=== PATIENT | male | born 1950 | race Caucasian/White ===

== ENCOUNTER 2017-05-02 11:52 | Inpatient (IN) | payer MEDICARE, OTHER ==
[2017-05-02] MEDS ORDERED: IPRATROPIUM 0.5 MG/2.5 ML NEBU INHALATION STA (12:04)
[2017-05-02] MEDS ORDERED: ALBUTEROL NEBULIZED 2.5 MG/3 ML INHALATION STA (12:04)
--- NOTE | 2017-05-02 12:24 | ED ---
General Adult HPI - General Chief complaint: Shortness of Breath Stated complaint: Altered Mental Status Time Seen by Provider: 05/02/17 12:03 Source: EMS, RN notes reviewed Mode of arrival: EMS Limitations: altered mental status - History of Present Illness Initial comments: 66-year-old male presenting with dyspnea fever and altered mental status. Patient has history of COPD on home oxygen. All history at the time of presentation is obtained from EMS who states that according to his he was well yesterday. Patient was initially alert and oriented 2, he was given albuterol and Solu-Medrol by EMS he had a significant cough which was productive of sputum. During transport, patient became more obtunded. At the time of my initial evaluation patient is unable to contribute to the history. He is tachycardic, tachypneic, hypoxic in the 70s. He is immediately placed on BiPAP. Further history will be obtained as available. - Related Data Home Medications Medication Instructions Recorded Confirmed ARIPiprazole [Abilify] 10 mg PO BID 05/02/17 05/02/17 Diltiazem HCl [Diltiazem 24Hr ER] 180 mg PO DAILY 05/02/17 05/02/17 Gabapentin [Neurontin] 800 mg PO TID 05/02/17 05/02/17 Magnesium Oxide [Mag-Ox] 400 mg PO DAILY 05/02/17 05/02/17 Multivitamins, Thera [Multivitamin 1 tab PO DAILY 05/02/17 05/02/17 (formulary)] Omeprazole [PriLOSEC] 20 mg PO BID 05/02/17 05/02/17 Pravastatin Sodium [Pravachol] 40 mg PO HS 05/02/17 05/02/17 Sertraline [Zoloft] 100 mg PO BID 05/02/17 05/02/17 Theophylline 12 Hour [Roshan-Dur] 100 mg PO BID 05/02/17 05/02/17 busPIRone HCL 20 mg PO TID 05/02/17 05/02/17 guaiFENesin [Mucinex] 600 mg PO BID PRN 05/02/17 05/02/17 traZODone HCL 100 mg PO HS 05/02/17 05/02/17 Allergies Allergy/AdvReac Type Severity Reaction Status Date / Time No Known Allergies Allergy Verified 05/02/17 14:50 Review of Systems ROS Statement: Those systems with pertinent positive or pertinent negative responses have been documented in the HPI. ROS Other: All systems not noted in ROS Statement are negative. Past Medical History Past Medical History: COPD, GERD/Reflux, Thyroid Disorder History of Any Multi-Drug Resistant Organisms: None Reported Past Psychological History: Depression Smoking Status: Unknown if ever smoked Past Alcohol Use History: Unable to Obtain Past Drug Use History: Unable to Obtain General Exam Limitations: altered mental status General appearance: obtunded, in distress Head exam: Present: atraumatic, normocephalic Eye exam: Present: normal appearance, PERRL Neck exam: Present: normal inspection. Absent: meningismus Respiratory exam: Present: wheezes, rhonchi, decreased breath sounds, prolonged expiratory Cardiovascular Exam: Present: normal rhythm, tachycardia GI/Abdominal exam: Present: soft. Absent: distended, tenderness Extremities exam: Present: normal inspection, normal capillary refill. Absent: pedal edema Skin exam: Present: warm, dry, cyanosis (Peripheral). Absent: diaphoretic Course Vital Signs 05/02/17 05/02/17 05/02/17 11:57 12:20 12:21 Temperature 101.3 F H 101 F H Pulse Rate 140 H 129 H 122 H Respiratory 28 H 15 Rate Blood Pressure 145/78 148/75 O2 Sat by Pulse 78 L 89 L Oximetry 05/02/17 05/02/17 05/02/17 12:46 12:47 12:52 Temperature 99.9 F H Pulse Rate 127 H 124 H Respiratory 20 Rate Blood Pressure 111/68 O2 Sat by Pulse 89 L Oximetry 05/02/17 05/02/17 05/02/17 13:35 13:59 14:15 Temperature 99.3 F 100.0 F H 100 F H Pulse Rate 117 H 110 H 109 H Respiratory 22 18 18 Rate Blood Pressure 102/65 96/65 98/66 O2 Sat by Pulse 90 L 89 L 89 L Oximetry 05/02/17 05/02/17 05/02/17 15:07 15:18 15:23 Temperature 98.8 F Pulse Rate 107 H 106 H 106 H Respiratory 15 18 18 Rate Blood Pressure 98/65 98/56 88/56 O2 Sat by Pulse 95 93 L 96 Oximetry 05/02/17 05/02/17 15:27 15:55 Temperature 98.4 F Pulse Rate 112 H 98 Respiratory 18 20 Rate Blood Pressure 112/68 75/51 O2 Sat by Pulse 98 98 Oximetry - Reevaluation(s) Reevaluation #1: 05/02/17 16:03 Further history obtained from the patient's , patient is not compliant with his home oxygen or breathing treatments. He has had recent hospital admission at [facility]. These records will be obtained. Reevaluation #2: 05/02/17 1530 Patient initially improves on BiPAP, mental status again begins to decline. Repeat ABG is obtained, this shows worsening of pH and unchanged CO2 level. Patient is only minimally responsive to sternal rub. He is intubated for hypoxic hypercapnic respiratory failure. EKG Findings - EKG Comments: EKG Findings:: EKG shows sinus tachycardia, rate 125, AZ interval 152, QRS duration 80, QTC prolonged at [address] segment elevation. Procedures - Intubation Time Out Performed: Yes Sedative: Versed Laryngoscope: [place] Size: 3 Assist Device Used: Bougie ET Tube Size: 8 ET Tube Uncuffed: No Tube Secured Depth (cm): 23 Tube Secured Location: lips Tube Placement Confirmation: visualized tube passing through cords, equal breath sounds bilaterally, no breath sounds over epigastrium, confirmation by capnometry Patient Tolerated Procedure: well Intubation Complications: none Medical Decision Making - Medical Decision Making 66-year-old male presenting in respiratory distress. Patient is febrile, tachycardic, tachypneic and hypoxic on arrival. Initially placed on BiPAP, mental status improves somewhat however he fails to fully respond. He is intubated in the emergency department for hypoxic hypercapnic respiratory failure. Laboratory studies reveal elevated white blood cell count 15.3, venous pH 7.25 CO2 of 86. Hemoglobin stable 16.9, mild hyponatremia 146, creatinine normal 1.2, Actiq acid normal 1.0. Chest x-ray shows large right sided pneumonia. Patient is given vancomycin Levaquin, and Unasyn in the emergency department for possible aspiration. Given a total of 3 L IV hydration. Albuterol Atrovent, steroids given by EMS. Case discussed with pulmonary insert molding operator Dr. Timmons, and with the admitting physician Dr. Soares. Diagnosis: Septic shock, pneumonia, hypoxic hypercapnic respiratory failure requiring ventilation. - Lab Data Result diagrams: 05/02/17 12:10 05/02/17 12:10 Lab Results 05/02/17 05/02/17 05/02/17 Range/Units 12:10 12:10 12:10 WBC 15.3 H (3.8-10.6) k/uL RBC 5.56 (4.30-5.90) m/uL Hgb 16.9 (13.0-17.5) gm/dL Hct 54.0 H (39.0-53.0) % MCV 97.0 (80.0-100.0) fL MCH 30.4 (25.0-35.0) pg MCHC 31.4 (31.0-37.0) g/dL RDW 13.6 (11.5-15.5) % Plt Count 149 L (150-450) k/uL Neutrophils % (Manual) 89 % Band Neutrophils % 5 % Lymphocytes % (Manual) 5 % Monocytes % (Manual) 1 % Neutrophils # (Manual) 14.30 H (1.3-7.7) k/uL Lymphocytes # (Manual) 0.77 L (1.0-4.8) k/uL Monocytes # (Manual) 0.15 (0-1.0) k/uL Nucleated RBCs 0 (0-0) /100 WBC Manual Slide Review Performed RBC Morphology Normal PT (9.0-12.0) sec INR (<1.2) APTT (22.0-30.0) sec VBG pH (7.31-7.41) VBG pCO2 (37-51) mmHg VBG HCO3 (24-28) mmol/L Sodium 146 H (137-145) mmol/L Potassium 4.2 (3.5-5.1) mmol/L Chloride 100 (98-107) mmol/L Carbon Dioxide 37 H (22-30) mmol/L Anion Gap 9 mmol/L BUN 23 H (9-20) mg/dL Creatinine 1.20 (0.66-1.25) mg/dL Est GFR (MDRD) Af Amer >60 (>60 ml/min/1.73 sqM) Est GFR (MDRD) Non-Af >60 (>60 ml/min/1.73 sqM) Glucose 138 H (74-99) mg/dL Plasma Lactic Acid Gerard (0.7-2.0) mmol/L Calcium 9.5 (8.4-10.2) mg/dL Total Bilirubin 0.4 (0.2-1.3) mg/dL AST 23 (17-59) U/L ALT 33 (21-72) U/L Alkaline Phosphatase 82 (38-126) U/L Ammonia (<30) umol/L Total Protein 7.0 (6.3-8.2) g/dL Albumin 4.1 (3.5-5.0) g/dL Urine Color Urine Appearance (Clear) Urine pH (5.0-8.0) Ur Specific [place] (1.001-1.035) Urine Protein (Negative) Urine Glucose (UA) (Negative) Urine Ketones (Negative) Urine Blood (Negative) Urine Nitrite (Negative) Urine Bilirubin (Negative) Urine Urobilinogen (<2.0) mg/dL Ur Leukocyte Esterase (Negative) Urine Opiates Screen (NotDetected) Ur Oxycodone Screen (NotDetected) Urine Methadone Screen (NotDetected) Ur Propoxyphene Screen (NotDetected) Ur Barbiturates Screen (NotDetected) U Tricyclic Antidepress (NotDetected) Ur Phencyclidine Scrn (NotDetected) Ur Amphetamines Screen (NotDetected) U Methamphetamines Scrn (NotDetected) U Benzodiazepines Scrn (NotDetected) Urine Cocaine Screen (NotDetected) U Marijuana (THC) Screen (NotDetected) Serum Alcohol <10 mg/dL Influenza Type A RNA Not Detected (Not Detectd) Influenza Type B (PCR) Not Detected (Not Detectd) 05/02/17 05/02/17 05/02/17 Range/Units 12:10 12:10 12:10 WBC (3.8-10.6) k/uL RBC (4.30-5.90) m/uL Hgb (13.0-17.5) gm/dL Hct (39.0-53.0) % MCV (80.0-100.0) fL MCH (25.0-35.0) pg MCHC (31.0-37.0) g/dL RDW (11.5-15.5) % Plt Count (150-450) k/uL Neutrophils % (Manual) % Band Neutrophils % % Lymphocytes % (Manual) % Monocytes % (Manual) % Neutrophils # (Manual) (1.3-7.7) k/uL Lymphocytes # (Manual) (1.0-4.8) k/uL Monocytes # (Manual) (0-1.0) k/uL Nucleated RBCs (0-0) /100 WBC Manual Slide Review RBC Morphology PT 10.5 (9.0-12.0) sec INR 1.1 (<1.2) APTT 24.8 (22.0-30.0) sec VBG pH 7.25 L (7.31-7.41) VBG pCO2 86 H* (37-51) mmHg VBG HCO3 36 H (24-28) mmol/L Sodium (137-145) mmol/L Potassium (3.5-5.1) mmol/L Chloride (98-107) mmol/L Carbon Dioxide (22-30) mmol/L Anion Gap mmol/L BUN (9-20) mg/dL Creatinine (0.66-1.25) mg/dL Est GFR (MDRD) Af Amer (>60 ml/min/1.73 sqM) Est GFR (MDRD) Non-Af (>60 ml/min/1.73 sqM) Glucose (74-99) mg/dL Plasma Lactic Acid Gerard 1.0 (0.7-2.0) mmol/L Calcium (8.4-10.2) mg/dL Total Bilirubin (0.2-1.3) mg/dL AST (17-59) U/L ALT (21-72) U/L Alkaline Phosphatase (38-126) U/L Ammonia 22 (<30) umol/L Total Protein (6.3-8.2) g/dL Albumin (3.5-5.0) g/dL Urine Color Urine Appearance (Clear) Urine pH (5.0-8.0) Ur Specific [place] (1.001-1.035) Urine Protein (Negative) Urine Glucose (UA) (Negative) Urine Ketones (Negative) Urine Blood (Negative) Urine Nitrite (Negative) Urine Bilirubin (Negative) Urine Urobilinogen (<2.0) mg/dL Ur Leukocyte Esterase (Negative) Urine Opiates Screen (NotDetected) Ur Oxycodone Screen (NotDetected) Urine Methadone Screen (NotDetected) Ur Propoxyphene Screen (NotDetected) Ur Barbiturates Screen (NotDetected) U Tricyclic Antidepress (NotDetected) Ur Phencyclidine Scrn (NotDetected) Ur Amphetamines Screen (NotDetected) U Methamphetamines Scrn (NotDetected) U Benzodiazepines Scrn (NotDetected) Urine Cocaine Screen (NotDetected) U Marijuana (THC) Screen (NotDetected) Serum Alcohol mg/dL Influenza Type A RNA (Not Detectd) Influenza Type B (PCR) (Not Detectd) 05/02/17 05/02/17 Range/Units 12:26 12:26 WBC (3.8-10.6) k/uL RBC (4.30-5.90) m/uL Hgb (13.0-17.5) gm/dL Hct (39.0-53.0) % MCV (80.0-100.0) fL MCH (25.0-35.0) pg MCHC (31.0-37.0) g/dL RDW (11.5-15.5) % Plt Count (150-450) k/uL Neutrophils % (Manual) % Band Neutrophils % % Lymphocytes % (Manual) % Monocytes % (Manual) % Neutrophils # (Manual) (1.3-7.7) k/uL Lymphocytes # (Manual) (1.0-4.8) k/uL Monocytes # (Manual) (0-1.0) k/uL Nucleated RBCs (0-0) /100 WBC Manual Slide Review RBC Morphology PT (9.0-12.0) sec INR (<1.2) APTT (22.0-30.0) sec VBG pH (7.31-7.41) VBG pCO2 (37-51) mmHg VBG HCO3 (24-28) mmol/L Sodium (137-145) mmol/L Potassium (3.5-5.1) mmol/L Chloride (98-107) mmol/L Carbon Dioxide (22-30) mmol/L Anion Gap mmol/L BUN (9-20) mg/dL Creatinine (0.66-1.25) mg/dL Est GFR (MDRD) Af Amer (>60 ml/min/1.73 sqM) Est GFR (MDRD) Non-Af (>60 ml/min/1.73 sqM) Glucose (74-99) mg/dL Plasma Lactic Acid Gerard (0.7-2.0) mmol/L Calcium (8.4-10.2) mg/dL Total Bilirubin (0.2-1.3) mg/dL AST (17-59) U/L ALT (21-72) U/L Alkaline Phosphatase (38-126) U/L Ammonia (<30) umol/L Total Protein (6.3-8.2) g/dL Albumin (3.5-5.0) g/dL Urine Color Yellow Urine Appearance Clear (Clear) Urine pH 6.0 (5.0-8.0) Ur Specific [place] 1.013 (1.001-1.035) Urine Protein Negative (Negative) Urine Glucose (UA) Negative (Negative) Urine Ketones Negative (Negative) Urine Blood Negative (Negative) Urine Nitrite Negative (Negative) Urine Bilirubin Negative (Negative) Urine Urobilinogen <2.0 (<2.0) mg/dL Ur Leukocyte Esterase Negative (Negative) Urine Opiates Screen Not Detected (NotDetected) Ur Oxycodone Screen Not Detected (NotDetected) Urine Methadone Screen Not Detected (NotDetected) Ur Propoxyphene Screen Not Detected (NotDetected) Ur Barbiturates Screen Not Detected (NotDetected) U Tricyclic Antidepress Not Detected (NotDetected) Ur Phencyclidine Scrn Not Detected (NotDetected) Ur Amphetamines Screen Not Detected (NotDetected) U Methamphetamines Scrn Not Detected (NotDetected) U Benzodiazepines Scrn Not Detected (NotDetected) Urine Cocaine Screen Not Detected (NotDetected) U Marijuana (THC) Screen Detected H (NotDetected) Serum Alcohol mg/dL Influenza Type A RNA (Not Detectd) Influenza Type B (PCR) (Not Detectd) Critical Care Time Critical Care Time: Yes Total Critical Care Time: 95 Disposition Clinical Impression: Pneumonia, Septic shock, Acute respiratory failure with hypoxia and hypercapnia Disposition: ADMITTED IP TO THIS [facility] Condition: Critical Decision to Admit Reason: Admit from EC Decision Date: 05/02/17 Decision Time: 16:10
[2017-05-02 12:35] LABS: HGB 16.9 gm/dL (13.0-17.5); MCH 30.4 pg (25.0-35.0); MCHC 31.4 g/dL (31.0-37.0); Mean Platelet Volume 7.7; Platelet Count 149 k/uL (150-450); RBC 5.56 m/uL (4.30-5.90); RDW 13.6 % (11.5-15.5); WBC 15.3 k/uL (3.8-10.6)
[2017-05-02 12:38] LABS: VBG PH 7.25 (7.31-7.41)
[2017-05-02] MEDS ORDERED: NALOXONE 0.4 MG/ML 1 ML VIAL IV STA (12:38)
[2017-05-02 12:41] LABS: ALT 33 U/L (21-72); AST 23 U/L (17-59); Albumin 4.1 g/dL (3.5-5.0); Alcohol <10 mg/dL; Alkaline Phosphatase 82 U/L (38-126); Anion Gap 9 mmol/L; Blood Urea Nitrogen 23 mg/dL (9-20); Calcium 9.5 mg/dL (8.4-10.2); Carbon Dioxide 37 mmol/L (22-30); Chloride 100 mmol/L (98-107); Glucose 138 mg/dL (74-99); Potassium 4.2 mmol/L (3.5-5.1); Sodium 146 mmol/L (137-145); Total Bilirubin 0.4 mg/dL (0.2-1.3)
[2017-05-02 12:44] LABS: INR 1.1 (<1.2); Partial Thromboplastin Time 24.8 sec (22.0-30.0); Prothrombin Time 10.5 sec (9.0-12.0)
[2017-05-02 12:45] LABS: Appearance,Urine Clear (Clear); Bilirubin,Urine Negative (Negative); Blood,Urine Negative (Negative); Color,Urine Yellow; Glucose,Urine (UA) Negative (Negative); Ketones,Urine Negative (Negative); Leukocyte Esterase,Urine Negative (Negative); Nitrite,Urine Negative (Negative); Protein,Urine Negative (Negative); Specific Gravity,Urine 1.013 (1.001-1.035); Urobilinogen,Urine <2.0 mg/dL (<2.0)
[2017-05-02] MEDS ORDERED: LEVOFLOXACIN 500MG-D5W PMX 500 MG in DEXTROSE/WATER 1 100ML.BAG IVPB STA (12:53)
[2017-05-02] MEDS ORDERED: SODIUM CHLORIDE 0.9% 500 ML IV ONE ×3 (12:53→16:45)
[2017-05-02] MEDS ORDERED: VANCOMYCIN IV PER PHARMACY 1 EACH MISC MISCELLANE PRN ×3 (12:53→15:47)
[2017-05-02] MEDS ORDERED: ACETAMINOPHEN IV (For NPO) 1,000 MG in EMPTY BAG 1 BAG IVPB ONE (13:00)
[2017-05-02 13:02] LABS: Band Neutrophils % 5 %; Lymphocytes # (M) 0.77 k/uL (1.0-4.8); Monocytes # (M) 0.15 k/uL (0-1.0); Neutrophils % (M) 89 %; Nucleated Red Blood Cells 0 /100 WBC (0-0); Total Cells Counted 100
[2017-05-02] MEDS ORDERED: VANCOMYCIN 1,250 MG in SODIUM CHLORIDE 0.9% 250 ML IVPB STA (13:02)
--- NOTE | 2017-05-02 13:25 | XR ---
EXAMINATION TYPE: XR chest 1V portable DATE OF EXAM: 05/02/2017 Comparison: None Clinical History: 66-year-old male with pain, fever, altered mental status Findings: Heart is normal size. Aorta within normal limits. Hyperinflation with relative upper lung lucencies a nd mild diffuse interstitial prominence. There is focal left basilar opacity. More extensive consolid ation in the right mid and lower lung with possible air lucency at the peripheral right base. Impression: Bibasilar infiltrates with more extensive consolidation on the right extending up to the midlung leve l. There may be subtle early cavitation at the right base as well. Correlate for infectious or aspira tion pneumonitis.
[2017-05-02] MEDS ORDERED: AMPICILLIN-SULBACTAM 3 GM in SODIUM CHLORIDE 0.9% 100 ML IVPB STA (13:28)
[2017-05-02 13:46] LABS: Amphetamine Screen,Urine Not Detected (NotDetected); Barbiturate Screen,Urine Not Detected (NotDetected); Benzodiazepines Screen,Urine Not Detected (NotDetected); Cocaine Screen,Urine Not Detected (NotDetected); Methadone Screen, Urine Not Detected (NotDetected); Opiate Screen,Urine Not Detected (NotDetected); Oxycodone Screen, Urine Not Detected (NotDetected); Phencyclidine Screen,Urine Not Detected (NotDetected); Tricyclic Antidepressant,Urine Not Detected (NotDetected); Urn Cannabinoid Scrn Detected (NotDetected)
--- NOTE | 2017-05-02 14:23 | CT ---
EXAMINATION TYPE: CT brain wo con DATE OF EXAM: 05/02/2017 COMPARISON: NONE HISTORY: 66-year-old male with pain, confusion, altered mental status. No prior. Scanned by: MELI and Rick Chavez. TECHNIQUE: Examination was done in axial plane without intravenous contrast. Coronal and sagittal r econstructions performed. CT DLP: 1115 mGycm Automated exposure control for dose reduction was used. FINDINGS: There is no evidence of acute intracranial hemorrhage, acute ischemic changes, mass, mass-effect, or extra-axial fluid collection. There is no effacement of cerebral sulci or basal subarachnoid cister ns. There is no hydrocephalus. There is no midline shift. Yao-white matter distinction is preserv ed. There is some soft tissue fullness in the region of the right greater than left cavernous sinuses whi ch may be normal variation in this patient. The superior ophthalmic veins are normal caliber. Mild mucosal thickening ethmoid air cells. Air-fluid level in the left sphenoid sinus. Mastoid air ce lls well pneumatized. Orbits and globes are intact. IMPRESSION: 1. No acute intracranial abnormality seen. 2. Air-fluid level in the left sphenoid sinus. Correlate for acute sinusitis. 3. Some soft tissue fullness in the right greater than left cavernous sinuses may be normal variation in this patient. The superior ophthalmic veins are normal caliber which argues against any significa nt cavernous sinus pathology. Consider outpatient follow-up contrast enhanced MRI brain to further ev aluate this region.
[2017-05-02] MEDS ORDERED: KETAMINE 10 MG/ML 20 ML VIAL IV ONE (14:58)
[2017-05-02] MEDS ORDERED: MIDAZOLAM 2 MG/2 ML VIAL IV ONE (14:58)
--- NOTE | 2017-05-02 15:44 | XR ---
EXAMINATION TYPE: XR chest 1V DATE OF EXAM: 05/02/2017 COMPARISON: NONE HISTORY: Tube placement TECHNIQUE: Single frontal view of the chest is obtained. FINDINGS: ET tube approximately 6.6 cm above dinorah. NG tube noted. Diffuse hyperinflation suggests COPD and there is diffuse right-sided area of infiltrate. Round central lucency again may represent c avitation. Consider CT of the chest. IMPRESSION: 1. Correlate for right-sided pneumonia with possible cavitation versus cavitating neoplasm. 2. COPD 3. ET tube 6.6 cm above the dinorah and NG tube appears in good position..
[2017-05-02] MEDS ORDERED: SODIUM CHLORIDE 0.9% 1,000 ML IV ONE ×2 (15:56→17:26)
[2017-05-02] MEDS ORDERED: IPRATROPIUM-ALBUTEROL 3 ML NEB INHALATION PRN (16:03)
[2017-05-02] MEDS ORDERED: MAGNESIUM SULFATE-D5W PMX 1 GM in DEXTROSE/WATER 1 100ML.BAG IVPB ONE (16:04)
[2017-05-02] MEDS: IPRATROPIUM-ALBUTEROL 3 ML NEB INHALATION SCH ×2 (16:20→23:09)
--- NOTE | 2017-05-02 16:22 | P.CNPUL ---
History of Present Illness Consult date: 05/02/17 Reason for consult: COPD, pneumonia, abnormal CXR/CT, other Chief complaint: dyspnea, fever and altered mental status History of present illness: Warren is a 66-year-old white male patient who presented to the emergency department on 05/02/2017 per EMS with dyspnea, fever and altered mental status. patient has a past medical history of oxygen dependent COPD, hypothyroidism, GERD/reflux, depression. Patient's spouse is not present at this time or at the time of arrival by ambulance. Most of the history was obtained from the ER physician, nursing staff and the chart. Patient usually goes for his care to the [facility] in [place], per nursing staff patient had been hospitalized there many times. Initially patient was alert and oriented , was given albuterol nebulized treatment and Solu-Medrol by EMS however during the transport patient became increasingly more obtunded. He was immediately placed on BiPAP on arrival to the ED. He was febrile presentation with a temp of 101.3 axillary, tachycardic with a heart rate of 140 BPM, tachypnea with respiratory rate of 28/m, and approximately make with O2 sat at 78% on 2 L. BiPAP support was initiated with pressures of 16/5, FiO2 of 50%. he was given nebulized treatments, was started on antibiotics Levaquin and vancomycin, he was given a liter of IV 0.9 normal saline fluid bolus. Blood urine and sputum culture were ordered and sent. chest x-ray showed extensive bibasilar infiltrates, with more extensive consolidation on the right extending to the mid lung level. There may be subtle early cavitation changes at the right lung base as well. Brain CT showed no acute intracranial abnormality. Venous blood gas on arrival showed pH of 7.25, pCO2 of 86, and bicarb of 36, primary respiratory acidosis with compensation. lab work was reviewed and showed leukocytosis with WBC of 15.3, hemoglobin 16.9 and hematocrit of 54, platelet count of 149, no coagulopathy, sodium 146, potassium is 4.2, carbon dioxide 37, anion gap is 9, B UN of 23, creatinine of 1.2. analysis was negative, urine drug screen was positive for marijuana, serum alcohol level was less than 10, and influenza screen was negative. In the emergency room patient became unresponsive to vigorous tactile stimuli, despite the BiPAP support. At that point the decision was made to intubate the patient and place him on mechanical ventilation. At the time of my evaluation, Dr. Almeida and the ER staff are getting ready to intubate the patient. There is no family around. Review of Systems patient is unresponsive, the ROS was completed based on the chart All systems: negative Constitutional: Reports fever, Denies chills Eyes: denies as per HPI Ears, nose, mouth and throat: Reports as per HPI, Reports headache Cardiovascular: Reports as per HPI, Reports chest pain, Reports dyspnea on exertion, Reports shortness of breath Respiratory: Reports dyspnea, Reports home oxygen, Denies cough Gastrointestinal: Reports as per HPI, Reports abdominal pain, Denies diarrhea Genitourinary: Reports as per HPI Musculoskeletal: Reports as per HPI, Denies myalgias Integumentary: Denies pruritus, Denies rash Neurological: Denies numbness, Denies weakness Psychiatric: Denies anxiety, Denies depression Endocrine: Denies fatigue, Denies weight change Past Medical History Past Medical History: COPD, GERD/Reflux, Thyroid Disorder Additional Past Medical History / Comment(s): wears home 02 History of Any Multi-Drug Resistant Organisms: None Reported Past Surgical History: No Surgical Hx Reported Past Psychological History: Depression Smoking Status: Current every day smoker Past Alcohol Use History: None Reported Past Drug Use History: Unable to Obtain Medications and Allergies Home Medications Medication Instructions Recorded Confirmed Type ARIPiprazole [Abilify] 10 mg PO BID 05/02/17 05/02/17 History Diltiazem HCl [Diltiazem 24Hr ER] 180 mg PO DAILY 05/02/17 05/02/17 History Gabapentin [Neurontin] 800 mg PO TID 05/02/17 05/02/17 History Magnesium Oxide [Mag-Ox] 400 mg PO DAILY 05/02/17 05/02/17 History Multivitamins, Thera [Multivitamin 1 tab PO DAILY 05/02/17 05/02/17 History (formulary)] Omeprazole [PriLOSEC] 20 mg PO BID 05/02/17 05/02/17 History Pravastatin Sodium [Pravachol] 40 mg PO HS 05/02/17 05/02/17 History Sertraline [Zoloft] 100 mg PO BID 05/02/17 05/02/17 History Theophylline 12 Hour [Roshan-Dur] 100 mg PO BID 05/02/17 05/02/17 History busPIRone HCL 20 mg PO TID 05/02/17 05/02/17 History guaiFENesin [Mucinex] 600 mg PO BID PRN 05/02/17 05/02/17 History traZODone HCL 100 mg PO HS 05/02/17 05/02/17 History Allergies Allergy/AdvReac Type Severity Reaction Status Date / Time No Known Allergies Allergy Verified 05/02/17 14:50 Physical Exam Vitals: Vital Signs Temp Pulse Resp BP Pulse Ox 05/02/17 15:07 98.8 F 107 H 15 98/65 95 05/02/17 14:15 100 F H 109 H 18 98/66 89 L 05/02/17 13:59 100.0 F H 110 H 18 96/65 89 L 05/02/17 13:35 99.3 F 117 H 22 102/65 90 L 05/02/17 12:52 99.9 F H 05/02/17 12:47 124 H 20 111/68 89 L 05/02/17 12:46 127 H 05/02/17 12:21 122 H 05/02/17 12:20 101 F H 129 H 15 148/75 89 L 05/02/17 11:57 101.3 F H 140 H 28 H 145/78 78 L Intake and Output 05/02/17 05/02/17 05/02/17 06:59 14:59 22:59 Other: Weight 69.7 kg Patient Weight 05/03/17 06:59 Weight 69.7 kg - Constitutional General appearance: no acute distress, thin - EENT Eyes: PERRLA ENT: NA/AT Ears: bilateral: normal - Neck Neck: no lymphadenopathy Carotids: bilateral: upstroke normal Thyroid: bilateral: normal size - Respiratory Respiratory: bilateral: diminished, rhonchi - Cardiovascular Rhythm: regular Heart sounds: normal: S1, S2 ankle Peripheral Edema: absent: None foot Peripheral Edema: absent: None - Gastrointestinal General gastrointestinal: no organomegaly, soft, no tenderness - Neurologic patient is unresponsive to painful stimuli - Musculoskeletal Musculoskeletal: strength equal bilaterally - Psychiatric unable to assess due to decreased level of consciousness Results - Laboratory Findings CBC and BMP: 05/02/17 12:10 05/02/17 12:10 PT/INR, D-dimer PT 10.5 sec (9.0-12.0) 05/02/17 12:10 INR 1.1 (<1.2) 05/02/17 12:10 Abnormal lab findings: Abnormal Labs 05/02/17 05/02/17 05/02/17 12:10 12:10 12:10 WBC 15.3 H Hct 54.0 H Plt Count 149 L Neutrophils # (Manual) 14.30 H Lymphocytes # (Manual) 0.77 L VBG pH 7.25 L VBG pCO2 86 H* VBG HCO3 36 H Sodium 146 H Carbon Dioxide 37 H BUN 23 H Glucose 138 H U Marijuana (THC) Screen 05/02/17 12:26 WBC Hct Plt Count Neutrophils # (Manual) Lymphocytes # (Manual) VBG pH VBG pCO2 VBG HCO3 Sodium Carbon Dioxide BUN Glucose U Marijuana (THC) Screen Detected H - Diagnostic Findings Chest x-ray: report reviewed Assessment and Plan Plan: Assessment: #1. Acute on chronic hypoxic and hypercapnic respiratory failure secondary to extensive bibasilar infiltrates, possibly aspiration pneumonia,greater on the right with possible early cavitation, and COPD exacerbation. He was initially placed on BiPAP support with no improvement, was becoming more and more unresponsive, requiring intubation and mechanical ventilation. #2. Acute sepsis secondary to the above, on presentation there is leukocytosis, febrile illness, altered mental status, tachycardia, relative hypotension #3. Advanced oxygen dependent COPD, exact severity of which is unknown at this time #4. Recent admission at [facility] #4. Nicotine dependence #5. GERD/reflux #6. Depression Plan: Patient is currently being intubated and placed on mechanical ventilator. He was given a total of 3 L IV hydration. He was started on Levaquin, vancomycin and Unasyn for possible aspiration pneumonia. Unasyn was switched over to Zosyn per attending.Blood, urine and sputum cultures were ordered and sent. Records were requested from [facility]. GI/DVT prophylaxis. Patient will be moved to the ICU once stabilized. Blood gases were ordered post intubation. Nebulized treatments. Close hemodynamic monitoring. I performed a history & physical examination of the patient and discussed their management with my nurse practitioner, Rochelle Amaro. I reviewed the nurse practitioner's note and agree with the documented findings and plan of care. Lung sounds are diminished, with coarse rhonchi at bilateral bases. The findings and the impression was discussed with the patient. I attest to the documentation by the nurse practitioner. Time with Patient: Greater than 30
[2017-05-02 16:35] LABS: ABG PCO2 78 mmHg (35-45); ABG PH 7.25 (7.35-7.45); ABG PO2 94 mmHg (83-108)
[2017-05-02 16:36] LABS: ABG Base Excess 6.5 mmol/L; ABG HCO3 33 mmol/L (21-25); ABG TCO2 36 mmol/L (19-24)
[2017-05-02 16:38] LABS: ABG Base Excess 5.5 mmol/L; ABG HCO3 34 mmol/L (21-25); ABG PCO2 80 mmHg (35-45); ABG PH 7.23 (7.35-7.45); ABG PO2 181 mmHg (83-108); ABG TCO2 35 mmol/L (19-24)
--- NOTE | 2017-05-02 16:50 | P.HPIM ---
History of Present Illness H&P Date: 05/02/17 Chief Complaint: Shortness of breath The patient is a 66-year-old male the past with a history of COPD known to be oxygen dependent at 3 L at his baseline who was brought here via EMS after the patient's called as a patient was increasingly somnolent and confused. On route the patient was treated with high flow albuterol breathing treatments x3. On presentation to the ED the patient was noted to be profoundly obtunded, difficult to arouse and was satting at 85%. According to his the patient has a chronic cough and is not very compliant with his breathing treatments and continues to smoke, she reports that she's had a flulike illness recently in the last 2 days having symptoms of nausea vomiting and productive cough. Apparently last night the patient fell at home and this morning was noted to have a subjective fever and was noted to have loss of bladder control with this morning. She reports that the patient has seen his PCP Dr. Michelle and is received antibiotics within the last 4 weeks. As the patient is obtunded the history is gleaned from discussion with the ER physician , reviewing EMS records and in calling the patient's Marci via phone In the ER patient had a ABG confirmed respiratory acidosis pH of 7.25 with a pCO2 of 86 on vbg, was placed on BiPAP and recommended for admission to the ICU. CT of the head showed some soft tissue fullness in the right greater than left cavernous sinus. Chest x-ray showed bibasilar infiltrates or extensive consolidation of the right extending up to the midlung possible early cavitation at the right base. Repeat ABG did not show any significant improvement despite the patient being on BiPAP with 50% FiO2 with the patient appearing more obtunded discussed with case with Dr. Contreras and agree with intubation at this time the patient was subsequently intubated in the ER. CBC showed a leukocytosis of 15.3, normal serum lactate and negative influenza Past Medical History Past Medical History: COPD, GERD/Reflux, Thyroid Disorder Additional Past Medical History / Comment(s): wears home 02 History of Any Multi-Drug Resistant Organisms: None Reported Past Surgical History: No Surgical Hx Reported Past Psychological History: Depression Smoking Status: Current every day smoker Past Alcohol Use History: None Reported Past Drug Use History: Unable to Obtain Medications and Allergies Home Medications Medication Instructions Recorded Confirmed Type ARIPiprazole [Abilify] 10 mg PO BID 05/02/17 05/02/17 History Diltiazem HCl [Diltiazem 24Hr ER] 180 mg PO DAILY 05/02/17 05/02/17 History Gabapentin [Neurontin] 800 mg PO TID 05/02/17 05/02/17 History Magnesium Oxide [Mag-Ox] 400 mg PO DAILY 05/02/17 05/02/17 History Multivitamins, Thera [Multivitamin 1 tab PO DAILY 05/02/17 05/02/17 History (formulary)] Omeprazole [PriLOSEC] 20 mg PO BID 05/02/17 05/02/17 History Pravastatin Sodium [Pravachol] 40 mg PO HS 05/02/17 05/02/17 History Sertraline [Zoloft] 100 mg PO BID 05/02/17 05/02/17 History Theophylline 12 Hour [Roshan-Dur] 100 mg PO BID 05/02/17 05/02/17 History busPIRone HCL 20 mg PO TID 05/02/17 05/02/17 History guaiFENesin [Mucinex] 600 mg PO BID PRN 05/02/17 05/02/17 History traZODone HCL 100 mg PO HS 05/02/17 05/02/17 History Allergies Allergy/AdvReac Type Severity Reaction Status Date / Time No Known Allergies Allergy Verified 05/02/17 14:50 Physical Exam Vitals: Vital Signs Temp Pulse Resp BP Pulse Ox 05/02/17 15:07 98.8 F 107 H 15 98/65 95 05/02/17 14:15 100 F H 109 H 18 98/66 89 L 05/02/17 13:59 100.0 F H 110 H 18 96/65 89 L 05/02/17 13:35 99.3 F 117 H 22 102/65 90 L 05/02/17 12:52 99.9 F H 05/02/17 12:47 124 H 20 111/68 89 L 05/02/17 12:46 127 H 05/02/17 12:21 122 H 05/02/17 12:20 101 F H 129 H 15 148/75 89 L 05/02/17 11:57 101.3 F H 140 H 28 H 145/78 78 L Intake and Output 05/02/17 05/02/17 05/02/17 06:59 14:59 22:59 Other: Weight 69.7 kg Patient Weight 05/03/17 06:59 Weight 69.7 kg Constitutional: No acute distress, somnolent and obtunded Eyes: Anicteric sclerae, moist conjunctiva, no lid-lag, PERRLA ENMT: NC/AT,Oropharynx clear, no erythema, exudates Neck:Supple, FROM, no masses, or JVD, No carotid bruits; No thyromegaly Lungs: Diminished but diminished with bilateral rhonch Cardiovascular: Heart regular in rate and rhythm, No murmurs, gallops, or rubs no peripheral edema, capillary refill intact Abdominal: Soft Nontender, nom distended, no guarding, no rebound or rigidity, Normoactive bowel sounds No hepatomegaly, No splenomegaly, No palpable mass No abdominal wall hernia noted Skin: Normal temperature, tone, texture, turgor, No induration No subcutaneous nodules, No rash, lesions, No ulcers Extremities:No digital cyanosis No clubbing, Pedal pulses intact and symmetrical Radial pulses intact and symmetrical Normal gait and station, No calf tenderness Psychiatric: Alert and oriented to person, place and time, Appropriate affect Intact judgement Neuro: Withdraws from painful stimuli, randomly moves extremities Results CBC & Chem 7: 05/02/17 12:10 05/02/17 12:10 Labs: Abnormal Lab Results - Last 24 Hours (Table) 05/02/17 05/02/17 05/02/17 Range/Units 12:10 12:10 12:10 WBC 15.3 H (3.8-10.6) k/uL Hct 54.0 H (39.0-53.0) % Plt Count 149 L (150-450) k/uL Neutrophils # (Manual) 14.30 H (1.3-7.7) k/uL Lymphocytes # (Manual) 0.77 L (1.0-4.8) k/uL VBG pH 7.25 L (7.31-7.41) VBG pCO2 86 H* (37-51) mmHg VBG HCO3 36 H (24-28) mmol/L Sodium 146 H (137-145) mmol/L Carbon Dioxide 37 H (22-30) mmol/L BUN 23 H (9-20) mg/dL Glucose 138 H (74-99) mg/dL U Marijuana (THC) Screen (NotDetected) 05/02/17 Range/Units 12:26 WBC (3.8-10.6) k/uL Hct (39.0-53.0) % Plt Count (150-450) k/uL Neutrophils # (Manual) (1.3-7.7) k/uL Lymphocytes # (Manual) (1.0-4.8) k/uL VBG pH (7.31-7.41) VBG pCO2 (37-51) mmHg VBG HCO3 (24-28) mmol/L Sodium (137-145) mmol/L Carbon Dioxide (22-30) mmol/L BUN (9-20) mg/dL Glucose (74-99) mg/dL U Marijuana (THC) Screen Detected H (NotDetected) Assessment and Plan (1) Acute on chronic respiratory failure with hypercapnia Current Visit: Yes Status: Acute Code(s): J96.22 - ACUTE AND CHRONIC RESPIRATORY FAILURE WITH HYPERCAPNIA SNOMED Code(s): 2176006297079 (2) Sepsis Current Visit: Yes Status: Acute Code(s): A41.9 - SEPSIS, UNSPECIFIED ORGANISM SNOMED Code(s): 71343797 (3) CO2 narcosis Current Visit: Yes Status: Acute Code(s): R06.89 - OTHER ABNORMALITIES OF BREATHING SNOMED Code(s): 60215495 (4) Acute exacerbation of chronic obstructive pulmonary disease (COPD) Current Visit: Yes Status: Acute Code(s): J44.1 - CHRONIC OBSTRUCTIVE PULMONARY DISEASE W (ACUTE) EXACERBATION SNOMED Code(s): 899196563 (5) Hypernatremia Current Visit: Yes Status: Acute Code(s): E87.0 - HYPEROSMOLALITY AND HYPERNATREMIA SNOMED Code(s): 17361956 (6) HCAP (healthcare-associated pneumonia) Current Visit: Yes Status: Acute Code(s): J18.9 - PNEUMONIA, UNSPECIFIED ORGANISM SNOMED Code(s): 584834668 Plan: The patient is a 66-year-old male that is admitted to the ICU anticipated greater than 2 midnight stay for acute on chronic respiratory failure with hypercapnia due to acute COPD exacerbation triggered by sepsis and a presumed healthcare associated pneumonia. Patient's blood pressures holding however he is tachycardic is received several boluses in the ER we'll run maintenance fluids and continue his antibiotic regimen with vancomycin and Zosyn and Levaquin, pulmonary and critical care has been consulted for vent management, we'll continue scheduled as when necessary breathing treatments along with systemic steroids, place the patient on Protonix and Lovenox and continue to monitor his clinical course. I discussed the plan of care with this patient's Marci left her voicemail that the patient was intubated following our initial discussion
[2017-05-02 17:02] LABS: Glucose,Whole Blood 117 mg/dL (75-99)
[2017-05-02] MEDS: methylPREDNISolone SOD SUCCI 125 MG/2 ML VIAL IV SCH (17:19)
[2017-05-02] MEDS: SODIUM CHLORIDE 0.9% 1,000 ML IV SCH ×2 (17:23→20:30)
[2017-05-02] MEDS ORDERED: NOREPINEPHRIN 4 MG-0.9% NS PMX 4 MG/250 ML ML IV ONE (17:35)
[2017-05-02] MEDS ORDERED: PROPOFOL 100 ML IV ONE (18:31)
[2017-05-02] MEDS ORDERED: NALOXONE 0.4 MG/ML 1 ML VIAL IV PRN (18:35)
[2017-05-02 18:42] LABS: ABG PCO2 69 mmHg (35-45); ABG PH 7.25 (7.35-7.45)
[2017-05-02 18:43] LABS: ABG Base Excess 2.5 mmol/L; ABG HCO3 29 mmol/L (21-25); ABG PO2 91 mmHg (83-108); ABG TCO2 31 mmol/L (19-24)
--- NOTE | 2017-05-02 18:50 | P.PN ---
Progress Note - Text Progress Note Date: 05/02/17 Patient was seen in the ICU shortly after he arrived to the ICU from the ER. Patient was examined, chart was reviewed, all meds were reviewed chest x-ray was also reviewed repeat ABG was reviewed patient was placed on norepinephrine for low blood pressure, and he was given more fluid boluses, considering his hemodynamic instability, I went ahead and placed a right radial arterial line, and a right femoral triple-lumen catheter. Patient was also placed on propofol for sedation, reviewed the antibiotics is presently on Zosyn and Levaquin and vancomycin, discussed his condition with his at bedside. Patient is known to have history of severe COPD, O2 dependent, heavy smoker, continues to smoke, familiar to my service from previous admission to [facility], patient has very poor and guarded prognosis, and that was conveyed to the . I will update the on his condition on a daily basis, at this point we'll continue ventilatory support, hemodynamic support, antibiotics, bronchodilators , steroids, GI and DVT prophylaxis, and will follow closely in the ICU.
[2017-05-02] MEDS: NOREPINEPHRIN 4 MG-0.9% NS PMX 4 MG/250 ML ML IV SCH (18:52)
[2017-05-02] MEDS: PROPOFOL 1,000 MG in EMPTY BAG 1 BAG IV SCH (18:54)
--- NOTE | 2017-05-02 19:48 | PCN ---
PROCEDURE NOTE OPERATIVE REPORT: Placement of a right radial arterial line. PREOPERATIVE DIAGNOSIS: Acute respiratory failure secondary to pneumonia and sepsis. POSTOPERATIVE DIAGNOSIS: Acute respiratory failure secondary to pneumonia and sepsis. ANESTHESIA USED: None deployed. PROCEDURE: The wrist was prepared in a sterile fashion and drapes were applied. The right radial artery was palpated, cannulated, and a guidewire was placed. A Cook catheter was inserted over the guidewire, and the guidewire was removed. Good blood flow and good waveform were noted. No evidence of any immediate complications. Line was secured using 3.0 silk sutures. MMODL / IJN: [id number] /
--- NOTE | 2017-05-02 19:48 | PCN ---
PROCEDURE NOTE Placement of a right femoral triple-lumen catheter. PREOPERATIVE DIAGNOSES: 1. Acute respiratory failure. 2. Acute sepsis. 3. Hypotension. POSTOPERATIVE DIAGNOSES: 1. Acute respiratory failure. 2. Acute sepsis. 3. Hypotension. ANESTHESIA USED: 2 mL of 1% lidocaine. PROCEDURE: The patient was placed in a supine position, the right groin was prepared in a sterile fashion and drapes were applied. The right femoral vein was easily cannulated, and a guidewire was placed. A dilator was used over the guidewire, and dilatation of the tissue was done with the dilator. Then a triple-lumen catheter was inserted over the guidewire, and the guidewire was removed. Good blood flow was noted in the 3 different ports of the triple-lumen catheter, and no evidence of any immediate complication. Line was secured using 3.0 silk sutures. MMSAHIL / HONORION: [id number] /
[2017-05-02 20:06] LABS: Magnesium 1.5 mg/dL (1.6-2.3)
[2017-05-02] MEDS: CHLORHEXIDINE GLUCONATE 15 ML CUP MUCOUS MEM SCH (20:30)
[2017-05-02] MEDS: VANCOMYCIN 1,250 MG in SODIUM CHLORIDE 0.9% 250 ML IVPB SCH (21:39)
[2017-05-02] MEDS ORDERED: FUROSEMIDE 10 MG/ML 4 ML VIAL IV STA (22:40)
[2017-05-03] MEDS: PIPERACILLIN-TAZOBACTAM 3.375 GM in DEXTROSE/WATER 1 50ML.BAG IVPB SCH ×4 (00:05→23:28)
[2017-05-03] MEDS: methylPREDNISolone SOD SUCCI 125 MG/2 ML VIAL IV SCH ×5 (00:40→23:28)
[2017-05-03] MEDS: IPRATROPIUM-ALBUTEROL 3 ML NEB INHALATION SCH ×6 (03:09→23:46)
[2017-05-03] MEDS: NOREPINEPHRIN 4 MG-0.9% NS PMX 4 MG/250 ML ML IV SCH (04:30)
[2017-05-03] MEDS: SODIUM CHLORIDE 0.9% 1,000 ML IV SCH ×3 (04:55→21:32)
[2017-05-03 04:57] LABS: HCT 47.5 % (39.0-53.0); HGB 15.1 gm/dL (13.0-17.5); MCH 30.5 pg (25.0-35.0); MCHC 31.8 g/dL (31.0-37.0); MCV 95.9 fL (80.0-100.0); Mean Platelet Volume 7.7; Platelet Count 160 k/uL (150-450); RBC 4.95 m/uL (4.30-5.90); RDW 13.6 % (11.5-15.5)
[2017-05-03 05:03] LABS: ALT 21 U/L (21-72); AST 21 U/L (17-59); Albumin 3.2 g/dL (3.5-5.0); Alkaline Phosphatase 57 U/L (38-126); Anion Gap 10 mmol/L; Blood Urea Nitrogen 22 mg/dL (9-20); Calcium 8.3 mg/dL (8.4-10.2); Carbon Dioxide 28 mmol/L (22-30); Chloride 105 mmol/L (98-107); Glucose 186 mg/dL (74-99); Magnesium 1.5 mg/dL (1.6-2.3); Phosphorus 1.7 mg/dL (2.5-4.5); Potassium 4.3 mmol/L (3.5-5.1); Sodium 143 mmol/L (137-145); Total Bilirubin 0.3 mg/dL (0.2-1.3); Total Protein 5.9 g/dL (6.3-8.2); WBC 37.8 k/uL (3.8-10.6)
[2017-05-03 05:20] LABS: Band Neutrophils % 3 %; Large Platelets Present; Lymphocytes # (M) 1.51 k/uL (1.0-4.8); Metamyelocytes # (M) 0.38 k/uL (0); Metamyelocytes % 1 %; Monocytes # (M) 0.38 k/uL (0-1.0); Neutrophils % (M) 91 %; Nucleated Red Blood Cells 0 /100 WBC (0-0); Total Cells Counted 100
[2017-05-03] MEDS: MAGNESIUM SULFATE-D5W PMX 1 GM in DEXTROSE/WATER 1 100ML.BAG IVPB SCH ×2 (07:04→08:30)
[2017-05-03] MEDS: PROPOFOL 1,000 MG in EMPTY BAG 1 BAG IV SCH ×4 (07:05→22:26)
[2017-05-03 08:00] LABS: ABG Base Excess 4.2 mmol/L; ABG HCO3 28 mmol/L (21-25); ABG PCO2 43 mmHg (35-45); ABG PH 7.44 (7.35-7.45); ABG PO2 85 mmHg (83-108); ABG TCO2 30 mmol/L (19-24)
--- NOTE | 2017-05-03 08:18 | XR ---
EXAMINATION TYPE: XR chest 1V portable DATE OF EXAM: 05/03/2017 COMPARISON: NONE HISTORY: Cough TECHNIQUE: Single frontal view of the chest is obtained. FINDINGS: ET tube approximately 6.6 cm above dinorah. NG tube noted. Diffuse hyperinflation suggests COPD and there is diffuse right-sided area of infiltrate. Round central lucency again may represent c avitation. Consider CT of the chest. IMPRESSION: 1. Correlate for right-sided pneumonia with possible cavitation versus cavitating neoplasm. Areas wit hin the right upper lobe demonstrate mild improvement. 2. COPD
[2017-05-03] MEDS: CHLORHEXIDINE GLUCONATE 15 ML CUP MUCOUS MEM SCH ×2 (08:30→20:49)
[2017-05-03] MEDS: PANTOPRAZOLE 40 MG/10 ML VIAL IVP SCH (08:31)
[2017-05-03] MEDS: ENOXAPARIN 30 MG/0.3 ML SYRINGE SQ SCH (08:32)
[2017-05-03] MEDS: POTASSIUM PHOSPHATE 10 MMOL in SODIUM CHLORIDE 0.9% 100 ML IV SCH ×2 (08:40→10:00)
--- NOTE | 2017-05-03 10:21 | P.PN ---
Subjective Progress Note Date: 05/03/17 Principal diagnosis: Acute hypoxic and hypercapnic respiratory failure secondary to aspiration pneumonia and COPD exacerbationDavid Kelley is a 66-year-old white male patient who presented to the emergency department on 05/02/2017 per EMS with dyspnea, fever and altered mental status. patient has a past medical history of oxygen dependent COPD, hypothyroidism, GERD/reflux, depression. Patient's spouse is not present at this time or at the time of arrival by ambulance. Most of the history was obtained from the ER physician, nursing staff and the chart. Patient usually goes for his care to the [facility] in [place], per nursing staff patient had been hospitalized there many times. Initially patient was alert and oriented , was given albuterol nebulized treatment and Solu-Medrol by EMS however during the transport patient became increasingly more obtunded. He was immediately placed on BiPAP on arrival to the ED. He was febrile presentation with a temp of 101.3 axillary, tachycardic with a heart rate of 140 BPM, tachypnea with respiratory rate of 28/m, and approximately make with O2 sat at 78% on 2 L. BiPAP support was initiated with pressures of 16/5, FiO2 of 50%. he was given nebulized treatments, was started on antibiotics Levaquin and vancomycin, he was given a liter of IV 0.9 normal saline fluid bolus. Blood urine and sputum culture were ordered and sent. chest x-ray showed extensive bibasilar infiltrates, with more extensive consolidation on the right extending to the mid lung level. There may be subtle early cavitation changes at the right lung base as well. Brain CT showed no acute intracranial abnormality. Venous blood gas on arrival showed pH of 7.25, pCO2 of 86, and bicarb of 36, primary respiratory acidosis with compensation. lab work was reviewed and showed leukocytosis with WBC of 15.3, hemoglobin 16.9 and hematocrit of 54, platelet count of 149, no coagulopathy, sodium 146, potassium is 4.2, carbon dioxide 37, anion gap is 9, B UN of 23, creatinine of 1.2. analysis was negative, urine drug screen was positive for marijuana, serum alcohol level was less than 10, and influenza screen was negative. In the emergency room patient became unresponsive to vigorous tactile stimuli, despite the BiPAP support. At that point the decision was made to intubate the patient and place him on mechanical ventilation. At the time of my evaluation, Dr. Almeida and the ER staff are getting ready to intubate the patient. There is no family around. Patient was reevaluated today in the ICU, this is on 05/03/2017. Patient remains on mechanical ventilation, tidal volume is 550, respiratory rate is 20, FiO2 is 50%, and PEEP is 5. ABG showed a pO2 of 85 pCO2 of 43 pH of 7.44. Continues to have leukocytosis with WBC count of 37.8, hemoglobin is 15.1. Basic metabolic profile is normal. Renal profile is improving with creatinine down to 1.09 from 1.2 yesterday. Sputum cultures are still pending, Gram stain is showing many polymorphonuclear leukocytes, few gram-positive cocci and few gram-negative bacilli. Patient remains sedated however on a lower dose of propofol, patient seems very appropriate following simple instructions. The propofol was not completely discontinued, but his mental status is appropriate enough, hence no need for MRI of the brain or scanning of the brain at this point. His mental status change upon presentation was most likely related to hypoxia and hypercapnia. Medications were all reviewed patient remains on broad -spectrum antibiotics including Levaquin and Zosyn and vancomycin is also on bronchodilators in the form of DuoNeb and is also on Solu-Medrol 60 IV push every 6. Overnight the patient required low-dose norepinephrine because of low blood pressure, and he received over 4 L of fluid boluses since admission. Which means the patient has clearly a picture of septic shock from his pneumonia. Today I have instructed the nurses to titrate the norepinephrine down and maintain a mean arterial pressure of above 65. Objective - Vital Signs Vital signs: Vital Signs Temp 98.7 F 05/03/17 08:00 Pulse 78 05/03/17 08:15 Resp 21 05/03/17 08:00 BP 132/86 05/03/17 08:00 Pulse Ox 96 05/03/17 08:00 Intake & Output 05/02/17 05/03/17 05/03/17 18:59 06:59 18:59 Intake Total 1120 3899.645 583.76 Output Total 225 2298 305 Balance 895 1601.645 278.76 Weight 69.7 kg 63.7 kg Intake: IV 1120 3620.0 530 Piperacillin-Tazobactam 3 50.0 50 .375 gm In Dextrose/Water 1 50ml.bag @ 12.5 mls/hr IVPB Q8HR [facility] Rx#: [id number] Sodium Chloride 0.9% 1, 120 1320 480 000 ml @ 120 mls/hr IV . Q8H20M [facility] Rx#:[id number] Sodium Chloride 0.9% 1, 1000 2000 000 ml @ 999 mls/hr IV . Q1H1M [facility] Rx#:[id number] Vancomycin 1,250 mg In 250 Sodium Chloride 0.9% 250 ml @ 125 mls/hr IVPB Q16H [facility] Rx#:[id number] Intake, IV Titration 279.645 53.76 Amount Norepinephrin 4 mg-0.9% 250.000 Ns Pmx 4 mg In 250 ml @ Titrate IV .Q0M [facility] Rx#: [id number] Propofol 1,000 mg In 29.645 53.76 Empty Bag 1 bag @ Titrate IV .Q0M [facility] Rx#: [id number] Output: Gastric Drainage 70 Urine 225 2228 305 Uretheral (Mendoza) 150 Other: Voiding Method Indwelling Catheter ABP, PAP, CO, CI - Last Documented Arterial Blood Pressure 117/67 - Exam Physical Exam: Revealed a 66-year-old white male, looks frail, older than his stated age, on mechanical ventilation. HEENT:[Neck is supple.] [No neck masses.] [No thyromegaly.] [No JVD.] PERRLA, EOMI, endotracheal tube is intact. Normal moist mucous membranes noted. Chest: [Crackles and rhonchi bilaterally noted. Mostly at the right base.] Cardiac Exam: [Normal S1 and S2, no S3 gallop, no murmur.] Abdomen: [Soft, nontender, no megaly, no rebound, no guarding, normal bowel sounds.] Extremities: [No clubbing, no edema, no cyanosis.] Neurological Exam: Patient is presently on propofol, however on a lower dose patient was noted to follow simple instructions. And no gross focal neurologic deficit. Psychiatric: Could not be assessed. Lymphatic: No lymphadenopathy. - Labs CBC & Chem 7: 05/03/17 04:36 05/03/17 04:36 Labs: Abnormal Lab Results - Last 24 Hours (Table) 05/02/17 05/02/17 05/02/17 Range/Units 12:10 12:10 12:10 WBC 15.3 H (3.8-10.6) k/uL Hct 54.0 H (39.0-53.0) % Plt Count 149 L (150-450) k/uL Neutrophils # (Manual) 14.30 H (1.3-7.7) k/uL Lymphocytes # (Manual) 0.77 L (1.0-4.8) k/uL Metamyelocytes # (Man) (0) k/uL ABG pH (7.35-7.45) ABG pCO2 (35-45) mmHg ABG pO2 (83-108) mmHg ABG HCO3 (21-25) mmol/L ABG Total CO2 (19-24) mmol/L ABG O2 Saturation (94-97) % VBG pH 7.25 L (7.31-7.41) VBG pCO2 86 H* (37-51) mmHg VBG HCO3 36 H (24-28) mmol/L Sodium 146 H (137-145) mmol/L Carbon Dioxide 37 H (22-30) mmol/L BUN 23 H (9-20) mg/dL Glucose 138 H (74-99) mg/dL POC Glucose (mg/dL) (75-99) mg/dL Calcium (8.4-10.2) mg/dL Phosphorus (2.5-4.5) mg/dL Magnesium (1.6-2.3) mg/dL Total Protein (6.3-8.2) g/dL Albumin (3.5-5.0) g/dL U Marijuana (THC) Screen (NotDetected) 05/02/17 05/02/17 05/02/17 Range/Units 12:10 12:26 15:10 WBC (3.8-10.6) k/uL Hct (39.0-53.0) % Plt Count (150-450) k/uL Neutrophils # (Manual) (1.3-7.7) k/uL Lymphocytes # (Manual) (1.0-4.8) k/uL Metamyelocytes # (Man) (0) k/uL ABG pH 7.25 L (7.35-7.45) ABG pCO2 78 H* (35-45) mmHg ABG pO2 (83-108) mmHg ABG HCO3 33 H (21-25) mmol/L ABG Total CO2 36 H (19-24) mmol/L ABG O2 Saturation (94-97) % VBG pH (7.31-7.41) VBG pCO2 (37-51) mmHg VBG HCO3 (24-28) mmol/L Sodium (137-145) mmol/L Carbon Dioxide (22-30) mmol/L BUN (9-20) mg/dL Glucose (74-99) mg/dL POC Glucose (mg/dL) (75-99) mg/dL Calcium (8.4-10.2) mg/dL Phosphorus (2.5-4.5) mg/dL Magnesium 1.5 L (1.6-2.3) mg/dL Total Protein (6.3-8.2) g/dL Albumin (3.5-5.0) g/dL U Marijuana (THC) Screen Detected H (NotDetected) 05/02/17 05/02/17 05/02/17 Range/Units 16:04 17:01 18:33 WBC (3.8-10.6) k/uL Hct (39.0-53.0) % Plt Count (150-450) k/uL Neutrophils # (Manual) (1.3-7.7) k/uL Lymphocytes # (Manual) (1.0-4.8) k/uL Metamyelocytes # (Man) (0) k/uL ABG pH 7.23 L 7.25 L (7.35-7.45) ABG pCO2 80 H* 69 H (35-45) mmHg ABG pO2 181 H (83-108) mmHg ABG HCO3 34 H 29 H (21-25) mmol/L ABG Total CO2 35 H 31 H (19-24) mmol/L ABG O2 Saturation 99.0 H (94-97) % VBG pH (7.31-7.41) VBG pCO2 (37-51) mmHg VBG HCO3 (24-28) mmol/L Sodium (137-145) mmol/L Carbon Dioxide (22-30) mmol/L BUN (9-20) mg/dL Glucose (74-99) mg/dL POC Glucose (mg/dL) 117 H (75-99) mg/dL Calcium (8.4-10.2) mg/dL Phosphorus (2.5-4.5) mg/dL Magnesium (1.6-2.3) mg/dL Total Protein (6.3-8.2) g/dL Albumin (3.5-5.0) g/dL U Marijuana (THC) Screen (NotDetected) 05/03/17 05/03/17 05/03/17 Range/Units 04:36 04:36 07:36 WBC 37.8 H* (3.8-10.6) k/uL Hct (39.0-53.0) % Plt Count (150-450) k/uL Neutrophils # (Manual) 35.50 H (1.3-7.7) k/uL Lymphocytes # (Manual) (1.0-4.8) k/uL Metamyelocytes # (Man) 0.38 H (0) k/uL ABG pH (7.35-7.45) ABG pCO2 (35-45) mmHg ABG pO2 (83-108) mmHg ABG HCO3 28 H (21-25) mmol/L ABG Total CO2 30 H (19-24) mmol/L ABG O2 Saturation (94-97) % VBG pH (7.31-7.41) VBG pCO2 (37-51) mmHg VBG HCO3 (24-28) mmol/L Sodium (137-145) mmol/L Carbon Dioxide (22-30) mmol/L BUN 22 H (9-20) mg/dL Glucose 186 H (74-99) mg/dL POC Glucose (mg/dL) (75-99) mg/dL Calcium 8.3 L (8.4-10.2) mg/dL Phosphorus 1.7 L (2.5-4.5) mg/dL Magnesium 1.5 L (1.6-2.3) mg/dL Total Protein 5.9 L (6.3-8.2) g/dL Albumin 3.2 L (3.5-5.0) g/dL U Marijuana (THC) Screen (NotDetected) Microbiology - Last 24 Hours (Table) 05/02/17 15:26 Gram Stain - Preliminary Sputum Sputum Culture - Preliminary 05/02/17 12:26 Urine Culture - Preliminary Urine,Catheterized Assessment and Plan Assessment: #1. Acute on chronic hypoxic and hypercapnic respiratory failure secondary to extensive bibasilar infiltrates, possibly aspiration pneumonia,greater on the right with possible early cavitation, and COPD exacerbation. He was initially placed on BiPAP support with no improvement, was becoming more and more unresponsive, requiring intubation and mechanical ventilation. #2. Acute septic shock secondary to the above, on presentation there is leukocytosis, febrile illness, altered mental status, tachycardia, hypotension, required fluid boluses and required norepinephrine overnight. #3. Advanced oxygen dependent COPD, exact severity of which is unknown at this time #4. Recent admission at [facility] #4. Nicotine dependence #5. GERD/reflux #6. Depression Recommendation: Patient will remain on the same ventilatory settings today, continue bronchodilators, continue antibiotics, continue steroids, we'll address nutritional support today, patient will be fed via orogastric tube. Fusing Machine Feeder will evaluate the patient, I have no immediate plans to extubate the patient because of his severe underlying COPD, and extensive right lower lobe consolidation. Chest x-ray today is relatively showing slight improvement compared to the chest x-ray yesterday. We will change antibiotics based on the final sputum cultures or blood cultures. Prognosis remains very guarded, patient remains critically ill, critical care time is 45 minutes. Time with Patient: Greater than 30
[2017-05-03] MEDS ORDERED: NOREPINEPHRIN 16 MG-0.9%NS PMX 16 MG/250 ML ML IV SCH (13:00)
--- NOTE | 2017-05-03 13:36 | P.PN ---
Subjective Progress Note Date: 05/03/17 Patient is sedated on propofol, breathing synchronous with the ventilator. Currently on Levophed drip at 6 mcg/min. Patient was apparently hypotensive overnight and is now normotensive. Objective - Vital Signs Vital signs: Vital Signs Temp 98.5 F 05/03/17 12:00 Pulse 73 05/03/17 13:00 Resp 19 05/03/17 13:00 BP 134/86 05/03/17 13:00 Pulse Ox 95 05/03/17 13:00 Intake & Output 05/02/17 05/03/17 05/03/17 18:59 06:59 18:59 Intake Total 1120 3899.645 943.76 Output Total 225 2298 410 Balance 895 1601.645 533.76 Weight 69.7 kg 63.7 kg 63.7 kg Intake: IV 1120 3620.0 890 Piperacillin-Tazobactam 3 50.0 50 .375 gm In Dextrose/Water 1 50ml.bag @ 12.5 mls/hr IVPB Q8HR [facility] Rx#: [id number] Sodium Chloride 0.9% 1, 120 1320 840 000 ml @ 120 mls/hr IV . Q8H20M [facility] Rx#:[id number] Sodium Chloride 0.9% 1, 1000 2000 000 ml @ 999 mls/hr IV . Q1H1M [facility] Rx#:[id number] Vancomycin 1,250 mg In 250 Sodium Chloride 0.9% 250 ml @ 125 mls/hr IVPB Q16H [facility] Rx#:[id number] Intake, IV Titration 279.645 53.76 Amount Norepinephrin 4 mg-0.9% 250.000 Ns Pmx 4 mg In 250 ml @ Titrate IV .Q0M [facility] Rx#: [id number] Propofol 1,000 mg In 29.645 53.76 Empty Bag 1 bag @ Titrate IV .Q0M [facility] Rx#: [id number] Output: Gastric Drainage 70 Urine 225 2228 410 Uretheral (Mendoza) 150 Other: Voiding Method Indwelling Catheter ABP, PAP, CO, CI - Last Documented Arterial Blood Pressure 121/63 - Exam Constitutional: No acute distress, conversant, pleasant Eyes: Anicteric sclerae, moist conjunctiva, no lid-lag, PERRLA ENMT: NC/AT,Oropharynx clear, no erythema, exudates Neck:Supple, FROM, no masses, or JVD, No carotid bruits; No thyromegaly Lungs: Crackles in bilateral rhonchi noted right greater than left base, on ventilator with synchrony Cardiovascular: Heart regular in rate and rhythm, No murmurs, gallops, or rubs no peripheral edema Abdominal: Soft Nontender, nom distended, no guarding, no rebound or rigidity, Normoactive bowel sounds No hepatomegaly, No splenomegaly, No palpable mass No abdominal wall hernia noted Skin: Normal temperature, tone, texture, turgor, No induration No subcutaneous nodules, No rash, lesions, No ulcers Extremities:No digital cyanosis No clubbing, Pedal pulses intact and symmetrical Radial pulses intact and symmetrical Normal gait and station, No calf tenderness Neuro: Muscles Strength 5/5 in all 4 extremities, sedated but following simple commands - Labs CBC & Chem 7: 05/03/17 04:36 05/03/17 04:36 Labs: Abnormal Lab Results - Last 24 Hours (Table) 05/02/17 05/02/17 05/02/17 Range/Units 12:10 12:26 15:10 WBC (3.8-10.6) k/uL Neutrophils # (Manual) (1.3-7.7) k/uL Metamyelocytes # (Man) (0) k/uL ABG pH 7.25 L (7.35-7.45) ABG pCO2 78 H* (35-45) mmHg ABG pO2 (83-108) mmHg ABG HCO3 33 H (21-25) mmol/L ABG Total CO2 36 H (19-24) mmol/L ABG O2 Saturation (94-97) % BUN (9-20) mg/dL Glucose (74-99) mg/dL POC Glucose (mg/dL) (75-99) mg/dL Calcium (8.4-10.2) mg/dL Phosphorus (2.5-4.5) mg/dL Magnesium 1.5 L (1.6-2.3) mg/dL Total Protein (6.3-8.2) g/dL Albumin (3.5-5.0) g/dL U Marijuana (THC) Screen Detected H (NotDetected) 05/02/17 05/02/17 05/02/17 Range/Units 16:04 17:01 18:33 WBC (3.8-10.6) k/uL Neutrophils # (Manual) (1.3-7.7) k/uL Metamyelocytes # (Man) (0) k/uL ABG pH 7.23 L 7.25 L (7.35-7.45) ABG pCO2 80 H* 69 H (35-45) mmHg ABG pO2 181 H (83-108) mmHg ABG HCO3 34 H 29 H (21-25) mmol/L ABG Total CO2 35 H 31 H (19-24) mmol/L ABG O2 Saturation 99.0 H (94-97) % BUN (9-20) mg/dL Glucose (74-99) mg/dL POC Glucose (mg/dL) 117 H (75-99) mg/dL Calcium (8.4-10.2) mg/dL Phosphorus (2.5-4.5) mg/dL Magnesium (1.6-2.3) mg/dL Total Protein (6.3-8.2) g/dL Albumin (3.5-5.0) g/dL U Marijuana (THC) Screen (NotDetected) 05/03/17 05/03/17 05/03/17 Range/Units 04:36 04:36 07:36 WBC 37.8 H* (3.8-10.6) k/uL Neutrophils # (Manual) 35.50 H (1.3-7.7) k/uL Metamyelocytes # (Man) 0.38 H (0) k/uL ABG pH (7.35-7.45) ABG pCO2 (35-45) mmHg ABG pO2 (83-108) mmHg ABG HCO3 28 H (21-25) mmol/L ABG Total CO2 30 H (19-24) mmol/L ABG O2 Saturation (94-97) % BUN 22 H (9-20) mg/dL Glucose 186 H (74-99) mg/dL POC Glucose (mg/dL) (75-99) mg/dL Calcium 8.3 L (8.4-10.2) mg/dL Phosphorus 1.7 L (2.5-4.5) mg/dL Magnesium 1.5 L (1.6-2.3) mg/dL Total Protein 5.9 L (6.3-8.2) g/dL Albumin 3.2 L (3.5-5.0) g/dL U Marijuana (THC) Screen (NotDetected) Microbiology - Last 24 Hours (Table) 05/02/17 15:26 Gram Stain - Preliminary Sputum Sputum Culture - Preliminary 05/02/17 12:26 Urine Culture - Preliminary Urine,Catheterized Assessment and Plan (1) Acute on chronic respiratory failure with hypercapnia Narrative/Plan: * Currently ventilator dependent, pulmonary critical care doctor Aidar following patient sedated on propofol driip * ABG has improved patient no longer acidotic with hypercapnia resolving, continue current vent settings vt 550 FiO2 of 45%, PEEP of 5, rate of 20 * Secondary to HCAP and severe COPD exacerbation Current Visit: Yes Status: Acute Code(s): J96.22 - ACUTE AND CHRONIC RESPIRATORY FAILURE WITH HYPERCAPNIA SNOMED Code(s): 7967242943465 (2) Septic shock Narrative/Plan: * Septic shock on pressors, willing to keep map greaterr than 65 * Leukocytosis trending up significantly up to 37.8, patient afebrile overnight significant left shift, however no bandemia noted * Blood cultures pending sputum culture showing moderate gram-negative diplococci few gram-positive rods and gram-negative bacilli * Continue triple antibiotic regimen with vancomycin and Zosyn and Levaquin Current Visit: Yes Status: Acute Code(s): A41.9 - SEPSIS, UNSPECIFIED ORGANISM; R65.21 - SEVERE SEPSIS WITH SEPTIC SHOCK SNOMED Code(s): 43461279 (3) Acute exacerbation of chronic obstructive pulmonary disease (COPD) Narrative/Plan: * Continue with breathing treatments and systemic steroids Solu-Medrol * Continue with ventilator we'll attempt weaning tomorrow Current Visit: Yes Status: Acute Code(s): J44.1 - CHRONIC OBSTRUCTIVE PULMONARY DISEASE W (ACUTE) EXACERBATION SNOMED Code(s): 647810532 (4) CO2 narcosis Narrative/Plan: * Resolved Current Visit: Yes Status: Acute Code(s): R06.89 - OTHER ABNORMALITIES OF BREATHING SNOMED Code(s): 03189990 (5) Hypernatremia Current Visit: Yes Status: Acute Code(s): E87.0 - HYPEROSMOLALITY AND HYPERNATREMIA SNOMED Code(s): 31298039 (6) HCAP (healthcare-associated pneumonia) Narrative/Plan: * Treatment as above Current Visit: Yes Status: Acute Code(s): J18.9 - PNEUMONIA, UNSPECIFIED ORGANISM SNOMED Code(s): 273554572 Plan: Continue with DVT and GI prophylaxis
[2017-05-03] MEDS: VANCOMYCIN 1,250 MG in SODIUM CHLORIDE 0.9% 250 ML IVPB SCH (14:15)
[2017-05-03] MEDS ORDERED: LEVOFLOXACIN 750MG-D5W PMX 750 MG in DEXTROSE/WATER 1 150ML.BAG IVPB SCH (15:00)
[2017-05-03] MEDS ORDERED: HYDROmorphone 1 MG/ML 1 ML SYRINGE ONE (16:07)
[2017-05-03] MEDS: LEVOFLOXACIN 500MG-D5W PMX 500 MG in DEXTROSE/WATER 1 100ML.BAG IVPB SCH (16:32)
[2017-05-03] MEDS: HYDROmorphone 1 MG/ML 1 ML SYRINGE IVP PRN (16:34)
[2017-05-03 17:48] LABS: Glucose,Whole Blood 148 mg/dL (75-99)
[2017-05-03] MEDS: INSULIN ASPART 100 UNIT/ML 1 ML 10 ML VIAL SQ SCH ×2 (19:04→23:48)
[2017-05-03 23:32] LABS: Glucose,Whole Blood 133 mg/dL (75-99)
[2017-05-04] MEDS: PROPOFOL 1,000 MG in EMPTY BAG 1 BAG IV SCH ×2 (03:24→10:52)
[2017-05-04] MEDS: IPRATROPIUM-ALBUTEROL 3 ML NEB INHALATION SCH ×2 (04:00→07:25)
[2017-05-04 04:29] LABS: HCT 40.6 % (39.0-53.0); HGB 12.6 gm/dL (13.0-17.5); MCH 30.5 pg (25.0-35.0); MCHC 30.9 g/dL (31.0-37.0); MCV 98.7 fL (80.0-100.0); Mean Platelet Volume 8.9; Platelet Count 118 k/uL (150-450); RBC 4.12 m/uL (4.30-5.90); RDW 14.9 % (11.5-15.5); WBC 19.8 k/uL (3.8-10.6)
[2017-05-04 04:39] LABS: ALT 35 U/L (21-72); AST 12 U/L (17-59); Albumin 2.5 g/dL (3.5-5.0); Alkaline Phosphatase 45 U/L (38-126); Anion Gap 7 mmol/L; Blood Urea Nitrogen 28 mg/dL (9-20); Calcium 7.9 mg/dL (8.4-10.2); Carbon Dioxide 27 mmol/L (22-30); Chloride 106 mmol/L (98-107); Glucose 148 mg/dL (74-99); Phosphorus 2.5 mg/dL (2.5-4.5); Sodium 140 mmol/L (137-145); Total Bilirubin 0.2 mg/dL (0.2-1.3); Total Protein 4.8 g/dL (6.3-8.2)
[2017-05-04 05:09] LABS: Lymphocytes # (M) 0.99 k/uL (1.0-4.8); Neutrophils # (M) 18.41 k/uL (1.3-7.7); Neutrophils % (M) 93 %; Nucleated Red Blood Cells 0 /100 WBC (0-0); Total Cells Counted 100
[2017-05-04] MEDS: methylPREDNISolone SOD SUCCI 125 MG/2 ML VIAL IV SCH (05:18)
[2017-05-04] MEDS: VANCOMYCIN 1,250 MG in SODIUM CHLORIDE 0.9% 250 ML IVPB SCH (05:18)
[2017-05-04] MEDS: SODIUM CHLORIDE 0.9% 1,000 ML IV SCH (05:19)
[2017-05-04 06:39] LABS: Glucose,Whole Blood 128 mg/dL (75-99)
[2017-05-04] MEDS: INSULIN ASPART 100 UNIT/ML 1 ML 10 ML VIAL SQ SCH (06:55)
[2017-05-04] MEDS: PIPERACILLIN-TAZOBACTAM 3.375 GM in DEXTROSE/WATER 1 50ML.BAG IVPB SCH (07:55)
[2017-05-04] MEDS: ENOXAPARIN 30 MG/0.3 ML SYRINGE SQ SCH (07:58)
[2017-05-04] MEDS: CHLORHEXIDINE GLUCONATE 15 ML CUP MUCOUS MEM SCH (07:58)
[2017-05-04] MEDS: PANTOPRAZOLE 40 MG/10 ML VIAL IVP SCH (07:59)
--- NOTE | 2017-05-04 08:27 | XR ---
EXAMINATION TYPE: XR chest 1V portable DATE OF EXAM: 05/04/2017 COMPARISON: 05/03/2017 HISTORY: Tube placement TECHNIQUE: Single frontal view of the chest is obtained. FINDINGS: ET tube approximately 6.6 cm above dinorah. NG tube noted. Diffuse hyperinflation suggests COPD and th ere is diffuse right-sided area of infiltrate. Round central lucency again may represent cavitation. Consider CT of the chest. IMPRESSION: 1. Correlate for right-sided pneumonia with possible cavitation versus cavitating neoplasm. Findings stable 2. COPD
[2017-05-04] MEDS ORDERED: INSULIN ASPART 100 UNIT/ML 1 ML 10 ML VIAL SQ ONE (09:00)
[2017-05-04] MEDS ORDERED: IPRATROPIUM-ALBUTEROL 3 ML NEB ONE (09:00)
[2017-05-04] MEDS ORDERED: PIPERACILLIN-TAZO 3.375 GM/50 ML PMX BAG ONE (09:00)
[2017-05-04] MEDS ORDERED: SODIUM CHLORIDE 0.9% 1,000 ML BAG ONE (09:00)
[2017-05-04] MEDS ORDERED: methylPREDNISolone SOD SUCCI 125 MG/2 ML VIAL ONE (09:00)
[2017-05-04] MEDS ORDERED: PROPOFOL 10 MG/ML 100 ML VIAL IV ONE (09:00)
[2017-05-04] MEDS ORDERED: CHLORHEXIDINE GLUCONATE 15 ML CUP MUCOUS MEM ONE (09:00)
[2017-05-04] MEDS ORDERED: DILTIAZEM ORAL 60 MG TAB PO SCH (10:00)
[2017-05-04] MEDS ORDERED: LORazepam 2 MG/ML INJ IV PRN (10:07)
[2017-05-04] MEDS ORDERED: DILTIAZEM 5 MG/ML 5 ML VIAL IVP STA (10:12)
[2017-05-04] MEDS ORDERED: LORazepam 2 MG/ML INJ IV ONE (10:15)
[2017-05-04] MEDS ORDERED: CISATRACURIUM 2 MG/ML 5 ML VIAL IV ONE (10:29)
[2017-05-04] MEDS: DILTIAZEM 125 MG in SODIUM CHLORIDE 0.9% 100 ML IV SCH (10:54)
[2017-05-04] MEDS ORDERED: DILTIAZEM ORAL 30 MG TAB ONE (21:35)
--- NOTE | 2017-05-04 22:53 | PCN ---
PROCEDURE NOTE OPERATIVE REPORT: Bronchoscopy and bronchoalveolar lavage of the right lower lobe. PREOPERATIVE DIAGNOSES: Acute respiratory failure, acute right lower lobe pneumonia, and acute exacerbation of chronic obstructive pulmonary disease. POSTOPERATIVE DIAGNOSES: Acute respiratory failure, acute right lower lobe pneumonia, and acute exacerbation of chronic obstructive pulmonary disease. ANESTHESIA USED: Patient was already on propofol drip. He was also given Ativan 2 mg IV push and Nimbex 10 mg IV push was given prior to the procedure. PROCEDURE: The patient was placed in a supine position. He was already on mechanical ventilation, and we were already monitoring his blood pressure continuously, cardiac rhythm continuously, and his blood pressure and his O2 saturation continuously. After adequate sedation, using the propofol, Ativan, and Nimbex, the bronchoscope was advanced through the adapter of the endotracheal tube, and the patient was already on 100% FiO2. The bronchoscope was advanced down to the area of the distal end of the tube and I was able to visualize the dinorah. The distal end of the endotracheal tube was about 4 cm above the dinorah, and this was advanced closer to the dinorah. Visualization of the right upper lobe, right middle lobe, right lower lobe, left upper lobe, lingula and left lower lobe was done. Some tenacious secretions were noted mostly in the right lower lobe and right middle lobe. These were lavaged. No evidence of any endobronchial tumors. No evidence of any bleeding and the lavage was done from the right middle lobe and right lower lobe. Procedure was well tolerated. No evidence of any immediate complications. The fluid retrieved from the right middle lobe and right lower lobe was sent for different diagnostic studies. MMODL / IJN: [id number] /
--- NOTE | 2017-05-04 22:53 | ECHOF ---
Referral Reason:Bursts of SVT, LV function MEASUREMENTS -------- HEIGHT: 180.3 cm WEIGHT: 63.5 kg BP: 100/59 RVIDd: 3.6 cm (< 3.3) IVSd: 1.1 cm (0.6 - 1.1) LVIDd: 4.2 cm (3.9 - 5.3) LVPWd: 1.1 cm (0.6 - 1.1) IVSs: 1.0 cm LVIDs: 2.9 cm LVPWs: 1.4 cm Ao Diam: 3.3 cm (2.0 - 3.7) AV Cusp: 1.8 cm (1.5 - 2.6) LA Diam: 2.5 cm (2.7 - 3.8) MV EXCURSION: 18.742 mm (> 18.000) MV EF SLOPE: 56 mm/s (70 - 150) EPSS: 0.9 cm MV E Jesse: 0.81 m/s MV DecT: 150 ms MV A Jesse: 0.96 m/s MV E/A Ratio: 0.84 RAP: 5.00 mmHg RVSP: 21.90 mmHg FINDINGS -------- Resting tachycardia (HR>100bpm). This was a technically difficult study with suboptimal apical views. Pt. on a vent. The left ventricular size is normal. Left ventricular wall thickness is normal. Overall left vent ricular systolic function is normal with, an EF between 60 - 65 %. The right ventricle is mildly enlarged. The left atrium is normal in size. The right atrium is normal in size. The aortic valve is trileaflet, and appears structurally normal. No aortic stenosis or regurgitation. There is trace mitral regurgitation. Mild tricuspid regurgitation present. The right ventricular systolic pressure, as measured by Doppl er, is 21.90mmHg. Pulmonic valve appears structurally normal. The aortic root size is normal. The pericardium is normal. CONCLUSIONS -------- 1. Resting tachycardia (HR>100bpm). 2. This was a technically difficult study with suboptimal apical views. 3. Pt. on a vent. 4. The left ventricular size is normal. 5. Left ventricular wall thickness is normal. 6. Overall left ventricular systolic function is normal with, an EF between 60 - 65 %. 7. The left atrium is normal in size. 8. The right atrium is normal in size. 9. The aortic valve is trileaflet, and appears structurally normal. No aortic stenosis or regurgitati on. 10. There is trace mitral regurgitation. 11. Mild tricuspid regurgitation present. 12. The right ventricular systolic pressure, as measured by Doppler, is 21.90mmHg. 13. Pulmonic valve appears structurally normal. 14. The aortic root size is normal. 15. The pericardium is normal. CUTTING TABLE OPERATOR FIRST: Li Shabazz RDCS
--- NOTE | 2017-05-04 22:54 | PN ---
PROGRESS NOTE This is a 66-year-old white male who was admitted recently to the ICU with acute respiratory failure secondary to right lower lobe and left lower lobe pneumonia, and acute exacerbation of COPD. The patient presented with acute hypoxic and hypercapnic respiratory failure requiring intubation and mechanical ventilation. The patient remains in the intensive care unit today. His chest x-ray continues to show significant consolidation in the right lower lobe. The patient also was noted to have intermittent episodes of supraventricular tachycardia. He remained hemodynamically stable in spite of his supraventricular tachycardia. Although his blood pressure was drifting down intermittently, but not to serious ranges. The patient was also noted to have significant purulent thick secretions, and the nurses were having some difficulty clearing the secretions. He was given a short trial of weaning with the pressure support and CPAP, however, his pCO2 went up to the 50s and his pH was 7.36. The patient was getting intermittently extremely anxious, agitated, and was noted to have intermittent supraventricular tachycardia as soon as he gets agitated. I was tempted to consider weaning and extubating the patient, however, because of his supraventricular tachycardia and his thick secretions, I decided not to extubate the patient and I proceeded to controlling his cardiac rhythm by giving him Cardizem and started him on a Cardizem drip. I proceeded to do bronchoscopy on this patient and did lavage of the right lower lobe. The lavage was sent for different diagnostic studies, and the area in the right lower lobe was noted to have some secretions, but not as severe as expected. The lavage fluid was sent for different diagnostic studies. In the meantime, his sputum came back positive for Branhamella catarrhalis. The patient will be off vancomycin, and we will continue the remaining antibiotics. His chest x- ray as noted above. His labs were all reviewed. Continues to have leukocytosis. Ventilator settings are also reviewed and they seem to be reasonable. ABG noted before weaning and after a weaning trial. PHYSICAL EXAMINATION: Revealed a 66-year-old white male, on mechanical ventilation, at times noted to be in extreme agitation. HEENT: Neck is supple. No neck masses. No thyromegaly comma. Endotracheal tube is intact. Pupils equally reactive to light and accommodation and extraocular movements intact. Orogastric tube was noted to be intact. Mucous membranes were noted to be intact. CHEST: Rhonchi, crackles and wheezes noted bilaterally, mostly at the right base. CARDIAC EXAM: Normal S1, S2, 2/6 systolic murmur throughout the precordium. ABDOMEN: Soft, nontender. No megaly. No rebound. EXTREMITIES: No clubbing, edema, or cyanosis. NEUROLOGIC EXAM: No gross focal neurologic deficit except the patient was noted to have episodes of agitation while on mechanical ventilation. LYMPHATICS: No lymphadenopathy was appreciated. IMPRESSION: 1. Acute hypoxic and hypercapnic respiratory failure secondary to Branhamella catarrhalis pneumonia and secondary to acute exacerbation of chronic obstructive pulmonary disease. 2. Multiple comorbidities as noted on my consultation on this patient initially. RECOMMENDATION: The patient will be kept on mechanical ventilation today. He was bronchoscoped. He will be placed on a Cardizem drip for episodes of atrial fibrillation with a RVR/supraventricular tachycardia. Antibiotics will be changed accordingly. The patient is clearly not ready for weaning today mostly because of his intermittent episodes of supraventricular tachycardia, and intermittent episodes of agitation as well as significant secretions which she will have difficulty clearing on his own once extubated. I believe the patient should be kept on mechanical ventilation for another day. In the meantime, we will continue antibiotics, bronchodilators, steroids, GI and DVT prophylaxis, the patient will be placed on Lovenox. Prognosis remains guarded, we will continue to follow. Critical care time is 35 minutes, not including the time spent on the procedure/bronchoscopy. DEEPAK / EARL: [id number] /
[2017-05-05] MEDS: INSULIN ASPART 100 UNIT/ML 1 ML 10 ML VIAL SQ SCH ×6 (00:13→18:04)
[2017-05-05] MEDS: IPRATROPIUM-ALBUTEROL 3 ML NEB INHALATION SCH ×10 (00:13→23:01)
[2017-05-05] MEDS: SODIUM CHLORIDE 0.9% 1,000 ML IV SCH ×4 (00:14→18:05)
[2017-05-05] MEDS: PIPERACILLIN-TAZOBACTAM 3.375 GM in DEXTROSE/WATER 1 50ML.BAG IVPB SCH ×3 (00:14→08:26)
[2017-05-05] MEDS: methylPREDNISolone SOD SUCCI 125 MG/2 ML VIAL IV SCH ×7 (00:14→23:46)
[2017-05-05] MEDS: LEVOFLOXACIN 500MG-D5W PMX 500 MG in DEXTROSE/WATER 1 100ML.BAG IVPB SCH (00:14)
[2017-05-05] MEDS: VANCOMYCIN 1,250 MG in SODIUM CHLORIDE 0.9% 250 ML IVPB SCH (00:15)
[2017-05-05] MEDS: CHLORHEXIDINE GLUCONATE 15 ML CUP MUCOUS MEM SCH ×3 (00:15→20:10)
[2017-05-05] MEDS: DILTIAZEM 125 MG in SODIUM CHLORIDE 0.9% 100 ML IV SCH (00:16)
[2017-05-05] MEDS: PROPOFOL 1,000 MG in EMPTY BAG 1 BAG IV SCH ×7 (00:16→22:44)
[2017-05-05 02:55] LABS: Glucose,Whole Blood 141 mg/dL (75-99)
[2017-05-05 02:55] LABS: Glucose,Whole Blood 115 mg/dL (75-99)
[2017-05-05 02:55] LABS: Glucose,Whole Blood 117 mg/dL (75-99)
[2017-05-05 02:56] LABS: Glucose,Whole Blood 113 mg/dL (75-99)
[2017-05-05 05:03] LABS: Basophils % (A) 0 %; Eosinophils % (A) 0 %; HCT 40.7 % (39.0-53.0); HGB 12.9 gm/dL (13.0-17.5); Lymphocytes # (A) 0.2 k/uL (1.0-4.8); Lymphocytes % (A) 1 %; MCH 30.7 pg (25.0-35.0); MCHC 31.6 g/dL (31.0-37.0); MCV 97.2 fL (80.0-100.0); Mean Platelet Volume 8.7; Monocytes # (A) 0.3 k/uL (0-1.0); Monocytes % (A) 2 %; Neutrophils # (A) 14.4 k/uL (1.3-7.7); Neutrophils % (A) 97 %; Platelet Count 124 k/uL (150-450); RBC 4.19 m/uL (4.30-5.90); RDW 14.2 % (11.5-15.5); WBC 14.9 k/uL (3.8-10.6)
[2017-05-05 05:06] LABS: ALT 31 U/L (21-72); AST 10 U/L (17-59); Albumin 2.4 g/dL (3.5-5.0); Alkaline Phosphatase 43 U/L (38-126); Anion Gap 4 mmol/L; Blood Urea Nitrogen 32 mg/dL (9-20); Calcium 8.1 mg/dL (8.4-10.2); Carbon Dioxide 28 mmol/L (22-30); Chloride 111 mmol/L (98-107); Glucose 137 mg/dL (74-99); Magnesium 1.9 mg/dL (1.6-2.3); Potassium 4.1 mmol/L (3.5-5.1); Sodium 143 mmol/L (137-145); Total Bilirubin <0.1 mg/dL (0.2-1.3); Total Protein 4.7 g/dL (6.3-8.2)
[2017-05-05] MEDS ORDERED: Phosphorus Replacement Protoco 1 EACH MISC MISCELLANE PRN (05:26)
[2017-05-05] MEDS ORDERED: Magnesium Replacement Protocol 1 EACH MISC MISCELLANE PRN (05:26)
[2017-05-05] MEDS ORDERED: MAGNESIUM SULFATE-D5W PMX 1 GM in DEXTROSE/WATER 1 100ML.BAG IVPB SCH (05:30)
[2017-05-05 05:38] LABS: Glucose,Whole Blood 118 mg/dL (75-99)
[2017-05-05] MEDS: MAGNESIUM SULFATE-D5W PMX 1 GM in DEXTROSE/WATER 1 100ML.BAG IVPB SCH ×2 (07:23→08:16)
[2017-05-05] MEDS: SODIUM PHOSPHATE 10 MMOL in SODIUM CHLORIDE 0.9% 100 ML IVPB SCH ×2 (08:20→08:55)
[2017-05-05] MEDS: ENOXAPARIN 30 MG/0.3 ML SYRINGE SQ SCH (08:26)
[2017-05-05] MEDS: PANTOPRAZOLE 40 MG/10 ML VIAL IVP SCH (08:26)
[2017-05-05] MEDS ORDERED: ENOXAPARIN 30 MG/0.3 ML SYRINGE SQ SCH (09:02)
[2017-05-05] MEDS: DILTIAZEM ORAL 30 MG TAB PO SCH ×3 (09:27→21:46)
--- NOTE | 2017-05-05 10:08 | P.PN ---
Subjective Progress Note Date: 05/04/17 Patient is sedated on propofol, breathing synchronous with the ventilator. Levophed drip has been titrated off since approximately 5 this morning. patient normotensive has been tachycardiac apparently had some runs of SVT with heart rate up to 170s, patient is more awake with propofol being weaned off appears anxious, denying any pain following commands well. Objective - Vital Signs Vital signs: Vital Signs Temp 97.9 F 05/04/17 04:00 Pulse 107 H 05/04/17 07:53 Resp 23 05/04/17 06:00 BP 105/68 05/04/17 06:00 Pulse Ox 96 05/04/17 06:00 Intake & Output 05/03/17 05/04/17 05/04/17 18:59 06:59 18:59 Intake Total 1910.68 3719.838 366.207 Output Total 600 460 420 Balance 1310.68 3259.838 -53.793 Weight 63.7 kg Intake: IV 1670 2832.5 360 Piperacillin-Tazobactam 3 100 62.5 .375 gm In Dextrose/Water 1 50ml.bag @ 12.5 mls/hr IVPB Q8HR [facility] Rx#: [id number] Sodium Chloride 0.9% 1, 1320 2520 360 000 ml @ 120 mls/hr IV . Q8H20M [facility] Rx#:[id number] Vancomycin 1,250 mg In 250 250 Sodium Chloride 0.9% 250 ml @ 125 mls/hr IVPB Q16H [facility] Rx#:[id number] Intake, IV Titration 120.68 287.338 6.207 Amount Norepinephrin 16 mg-0.9% 28.204 Ns Pmx 16 mg In 250 ml @ Titrate IV .Q0M [facility] Rx#: [id number] Propofol 1,000 mg In 120.68 259.134 6.207 Empty Bag 1 bag @ Titrate IV .Q0M [facility] Rx#: [id number] Oral 60 Tube Feeding 60 510 0 Other 90 Output: Urine 600 460 420 Other: Voiding Method Indwelling Catheter Indwelling Catheter Indwelling Catheter ABP, PAP, CO, CI - Last Documented Arterial Blood Pressure 116/54 - Exam Constitutional: No acute distress, conversant, pleasant Eyes: Anicteric sclerae, moist conjunctiva, no lid-lag, PERRLA ENMT: NC/AT,Oropharynx clear, no erythema, exudates Neck:Supple, FROM, no masses, or JVD, No carotid bruits; No thyromegaly Lungs: Crackles in bilateral rhonchi noted right greater than left base, on ventilator with synchrony Cardiovascular: Heart regular in rate and rhythm, No murmurs, gallops, or rubs no peripheral edema Abdominal: Soft Nontender, nom distended, no guarding, no rebound or rigidity, Normoactive bowel sounds No hepatomegaly, No splenomegaly, No palpable mass No abdominal wall hernia noted Skin: Normal temperature, tone, texture, turgor, No induration No subcutaneous nodules, No rash, lesions, No ulcers Extremities:No digital cyanosis No clubbing, Pedal pulses intact and symmetrical Radial pulses intact and symmetrical Normal gait and station, No calf tenderness Neuro: Muscles Strength 5/5 in all 4 extremities, sedated but following simple commands - Labs CBC & Chem 7: 05/05/17 04:25 05/05/17 04:25 Labs: Abnormal Lab Results - Last 24 Hours (Table) 05/03/17 05/03/17 05/04/17 Range/Units 17:46 23:31 04:14 WBC (3.8-10.6) k/uL RBC (4.30-5.90) m/uL Hgb (13.0-17.5) gm/dL MCHC (31.0-37.0) g/dL Plt Count (150-450) k/uL Neutrophils # (Manual) (1.3-7.7) k/uL Lymphocytes # (Manual) (1.0-4.8) k/uL BUN 28 H (9-20) mg/dL Glucose 148 H (74-99) mg/dL POC Glucose (mg/dL) 148 H 133 H (75-99) mg/dL Calcium 7.9 L (8.4-10.2) mg/dL AST 12 L (17-59) U/L Total Protein 4.8 L (6.3-8.2) g/dL Albumin 2.5 L (3.5-5.0) g/dL 05/04/17 05/04/17 Range/Units 04:14 06:37 WBC 19.8 H (3.8-10.6) k/uL RBC 4.12 L (4.30-5.90) m/uL Hgb 12.6 L (13.0-17.5) gm/dL MCHC 30.9 L (31.0-37.0) g/dL Plt Count 118 L (150-450) k/uL Neutrophils # (Manual) 18.41 H (1.3-7.7) k/uL Lymphocytes # (Manual) 0.99 L (1.0-4.8) k/uL BUN (9-20) mg/dL Glucose (74-99) mg/dL POC Glucose (mg/dL) 128 H (75-99) mg/dL Calcium (8.4-10.2) mg/dL AST (17-59) U/L Total Protein (6.3-8.2) g/dL Albumin (3.5-5.0) g/dL Microbiology - Last 24 Hours (Table) 05/02/17 12:26 Urine Culture - Final Urine,Catheterized 05/02/17 12:10 Blood Culture - Preliminary Blood No Growth after 24 hours 05/02/17 15:26 Gram Stain - Preliminary Sputum Sputum Culture - Preliminary Assessment and Plan (1) Acute on chronic respiratory failure with hypercapnia Narrative/Plan: * Currently ventilator dependent, pulmonary critical care doctor Aidar following patient sedated on propofol driip * ABG has improved patient no longer acidotic with hypercapnia resolving, continue current vent settings vt 550 FiO2 of 45%, PEEP of 5, rate of 20 * Secondary to HCAP and severe COPD exacerbation Current Visit: Yes Status: Acute Code(s): J96.22 - ACUTE AND CHRONIC RESPIRATORY FAILURE WITH HYPERCAPNIA SNOMED Code(s): 7469707486860 (2) Septic shock Narrative/Plan: * Septic shock, wean off pressor this am at 5am * Leukocytosis trending down to 19 from 38, patient afebrile overnight * Blood cultures pending sputum culture showing moderate gram-negative diplococci few gram-positive rods and gram-negative bacilli * Continue triple antibiotic regimen with vancomycin and Zosyn and Levaquin Current Visit: Yes Status: Acute Code(s): A41.9 - SEPSIS, UNSPECIFIED ORGANISM; R65.21 - SEVERE SEPSIS WITH SEPTIC SHOCK SNOMED Code(s): 96060178 (3) Acute exacerbation of chronic obstructive pulmonary disease (COPD) Narrative/Plan: * Continue with breathing treatments and systemic steroids Solu-Medrol * Continue with ventilator we'll attempt weaning tomorrow Current Visit: Yes Status: Acute Code(s): J44.1 - CHRONIC OBSTRUCTIVE PULMONARY DISEASE W (ACUTE) EXACERBATION SNOMED Code(s): 214514059 (4) CO2 narcosis Narrative/Plan: * Resolved Current Visit: Yes Status: Resolved Code(s): R06.89 - OTHER ABNORMALITIES OF BREATHING SNOMED Code(s): 94694592 (5) Hypernatremia Current Visit: Yes Status: Acute Code(s): E87.0 - HYPEROSMOLALITY AND HYPERNATREMIA SNOMED Code(s): 07374964 (6) HCAP (healthcare-associated pneumonia) Narrative/Plan: * Treatment as above Current Visit: Yes Status: Acute Code(s): J18.9 - PNEUMONIA, UNSPECIFIED ORGANISM SNOMED Code(s): 568994277
[2017-05-05 10:58] LABS: ABG PCO2 46 mmHg (35-45); ABG PH 7.37 (7.35-7.45); ABG PO2 69 mmHg (83-108)
[2017-05-05 10:59] LABS: ABG Base Excess 1.1 mmol/L; ABG HCO3 26 mmol/L (21-25)
[2017-05-05] MEDS: ENOXAPARIN 60 MG/0.6 ML SYRINGE SQ SCH ×2 (11:31→20:10)
--- NOTE | 2017-05-05 11:39 | P.PN ---
Subjective Progress Note Date: 05/05/17 Principal diagnosis: Acute hypoxic and hypercapnic respiratory failure secondary to aspiration pneumonia and COPD exacerbationDavid Kelley is a 66-year-old white male patient who presented to the emergency department on 05/02/2017 per EMS with dyspnea, fever and altered mental status. patient has a past medical history of oxygen dependent COPD, hypothyroidism, GERD/reflux, depression. Patient's spouse is not present at this time or at the time of arrival by ambulance. Most of the history was obtained from the ER physician, nursing staff and the chart. Patient usually goes for his care to the [facility] in [place], per nursing staff patient had been hospitalized there many times. Initially patient was alert and oriented , was given albuterol nebulized treatment and Solu-Medrol by EMS however during the transport patient became increasingly more obtunded. He was immediately placed on BiPAP on arrival to the ED. He was febrile presentation with a temp of 101.3 axillary, tachycardic with a heart rate of 140 BPM, tachypnea with respiratory rate of 28/m, and approximately make with O2 sat at 78% on 2 L. BiPAP support was initiated with pressures of 16/5, FiO2 of 50%. he was given nebulized treatments, was started on antibiotics Levaquin and vancomycin, he was given a liter of IV 0.9 normal saline fluid bolus. Blood urine and sputum culture were ordered and sent. chest x-ray showed extensive bibasilar infiltrates, with more extensive consolidation on the right extending to the mid lung level. There may be subtle early cavitation changes at the right lung base as well. Brain CT showed no acute intracranial abnormality. Venous blood gas on arrival showed pH of 7.25, pCO2 of 86, and bicarb of 36, primary respiratory acidosis with compensation. lab work was reviewed and showed leukocytosis with WBC of 15.3, hemoglobin 16.9 and hematocrit of 54, platelet count of 149, no coagulopathy, sodium 146, potassium is 4.2, carbon dioxide 37, anion gap is 9, B UN of 23, creatinine of 1.2. analysis was negative, urine drug screen was positive for marijuana, serum alcohol level was less than 10, and influenza screen was negative. In the emergency room patient became unresponsive to vigorous tactile stimuli, despite the BiPAP support. At that point the decision was made to intubate the patient and place him on mechanical ventilation. At the time of my evaluation, Dr. Almeida and the ER staff are getting ready to intubate the patient. There is no family around. Patient was reevaluated today in the ICU, this is on 05/03/2017. Patient remains on mechanical ventilation, tidal volume is 550, respiratory rate is 20, FiO2 is 50%, and PEEP is 5. ABG showed a pO2 of 85 pCO2 of 43 pH of 7.44. Continues to have leukocytosis with WBC count of 37.8, hemoglobin is 15.1. Basic metabolic profile is normal. Renal profile is improving with creatinine down to 1.09 from 1.2 yesterday. Sputum cultures are still pending, Gram stain is showing many polymorphonuclear leukocytes, few gram-positive cocci and few gram-negative bacilli. Patient remains sedated however on a lower dose of propofol, patient seems very appropriate following simple instructions. The propofol was not completely discontinued, but his mental status is appropriate enough, hence no need for MRI of the brain or scanning of the brain at this point. His mental status change upon presentation was most likely related to hypoxia and hypercapnia. Medications were all reviewed patient remains on broad -spectrum antibiotics including Levaquin and Zosyn and vancomycin is also on bronchodilators in the form of DuoNeb and is also on Solu-Medrol 60 IV push every 6. Overnight the patient required low-dose norepinephrine because of low blood pressure, and he received over 4 L of fluid boluses since admission. Which means the patient has clearly a picture of septic shock from his pneumonia. Today I have instructed the nurses to titrate the norepinephrine down and maintain a mean arterial pressure of above 65. Reevaluated today on 05/05/2017, patient remains on mechanical ventilation, tidal volume is 550 respiratory rate of 20 FiO2 50%, PEEP is 5. ABG showed a pO2 of 69 pCO2 of 46 pH of 7.37. Basic metabolic profile and renal profile were noted to be normal. CBC continues to show leukocytosis with WBC count of 14.9, otherwise unremarkable. Platelets are 1 24,000. Patient had leukocytosis a few days ago, and that seems to be improving. Cultures from the sputum came back positive for Branhamella catarrhalis, patient will be treated with Zithromax and Rocephin, no need for vancomycin, no need for Zosyn, and no need for Levaquin. On outpatient basis patient can be treated with either Augmentin or Zithromax. Chest x-ray this morning continues to show significant infiltrate in the right lower lobe, but seems to be slightly improved. And it is a limited infiltrate in the left lower lobe. Objective - Vital Signs Vital signs: Vital Signs Temp 99.3 F 05/05/17 08:00 Pulse 69 05/05/17 11:00 Resp 20 05/05/17 11:00 BP 119/70 05/05/17 11:00 Pulse Ox 91 L 05/05/17 11:00 Intake & Output 05/04/17 05/05/17 05/05/17 18:59 06:59 18:59 Intake Total 8513.016 8172.083 1352.267 Output Total 620 675 385 Balance 872.083 9807.083 967.267 Weight 72 kg 74 kg Intake: IV 757.5 1802.5 750 Magnesium Sulfate-D5w Pmx 100 1 gm In Dextrose/Water 1 100ml.bag @ 100 mls/hr IVPB Q1H [facility] Rx#: [id number] Piperacillin-Tazobactam 3 37.5 62.5 .375 gm In Dextrose/Water 1 50ml.bag @ 12.5 mls/hr IVPB Q8HR [facility] Rx#: [id number] Sodium Chloride 0.9% 1, 720 1440 600 000 ml @ 120 mls/hr IV . Q8H20M [facility] Rx#:[id number] Sodium Phosphate 10 mmol 50 50 In Sodium Chloride 0.9% 100 ml @ 50 mls/hr IVPB Q2H [facility] Rx#:[id number] Vancomycin 1,250 mg In 250 Sodium Chloride 0.9% 250 ml @ 125 mls/hr IVPB Q16H [facility] Rx#:[id number] Intake, IV Titration 133.787 147.583 176.267 Amount Diltiazem 125 mg In 47.583 Sodium Chloride 0.9% 100 ml @ 10 MG/HR 10 mls/hr IV .[id number] [facility] Rx#: [id number] Propofol 1,000 mg In 133.787 100 176.267 Empty Bag 1 bag @ Titrate IV .Q0M [facility] Rx#: [id number] Tube Feeding 150 826 396 Other 30 140 30 Output: Urine 620 675 385 Other: Voiding Method Indwelling Catheter Indwelling Catheter Indwelling Catheter ABP, PAP, CO, CI - Last Documented Arterial Blood Pressure 133/60 - Exam Physical Exam: Revealed a 66-year-old white male, looks frail, older than his stated age, on mechanical ventilation. HEENT:[Neck is supple.] [No neck masses.] [No thyromegaly.] [No JVD.] PERRLA, EOMI, endotracheal tube is intact. Normal moist mucous membranes noted. Chest: [Crackles and rhonchi bilaterally noted. Mostly at the right base.] Cardiac Exam: [Normal S1 and S2, no S3 gallop, no murmur.] Abdomen: [Soft, nontender, no megaly, no rebound, no guarding, normal bowel sounds.] Extremities: [No clubbing, no edema, no cyanosis.] Neurological Exam: Patient is presently on propofol, however on a lower dose patient was noted to follow simple instructions. And no gross focal neurologic deficit. Psychiatric: Could not be assessed. Lymphatic: No lymphadenopathy. - Labs CBC & Chem 7: 05/05/17 04:25 05/05/17 04:25 Labs: Abnormal Lab Results - Last 24 Hours (Table) 05/04/17 05/04/17 05/04/17 Range/Units 12:03 18:06 19:44 WBC (3.8-10.6) k/uL RBC (4.30-5.90) m/uL Hgb (13.0-17.5) gm/dL Plt Count (150-450) k/uL Neutrophils # (1.3-7.7) k/uL Lymphocytes # (1.0-4.8) k/uL ABG pCO2 (35-45) mmHg ABG pO2 (83-108) mmHg ABG HCO3 (21-25) mmol/L Chloride (98-107) mmol/L BUN (9-20) mg/dL Glucose (74-99) mg/dL POC Glucose (mg/dL) 117 H 141 H 115 H (75-99) mg/dL Calcium (8.4-10.2) mg/dL Phosphorus (2.5-4.5) mg/dL Total Bilirubin (0.2-1.3) mg/dL AST (17-59) U/L Total Protein (6.3-8.2) g/dL Albumin (3.5-5.0) g/dL 05/05/17 05/05/17 05/05/17 Range/Units 00:29 04:25 04:25 WBC 14.9 H (3.8-10.6) k/uL RBC 4.19 L (4.30-5.90) m/uL Hgb 12.9 L (13.0-17.5) gm/dL Plt Count 124 L (150-450) k/uL Neutrophils # 14.4 H (1.3-7.7) k/uL Lymphocytes # 0.2 L (1.0-4.8) k/uL ABG pCO2 (35-45) mmHg ABG pO2 (83-108) mmHg ABG HCO3 (21-25) mmol/L Chloride 111 H (98-107) mmol/L BUN 32 H (9-20) mg/dL Glucose 137 H (74-99) mg/dL POC Glucose (mg/dL) 113 H (75-99) mg/dL Calcium 8.1 L (8.4-10.2) mg/dL Phosphorus 2.0 L (2.5-4.5) mg/dL Total Bilirubin <0.1 L (0.2-1.3) mg/dL AST 10 L (17-59) U/L Total Protein 4.7 L (6.3-8.2) g/dL Albumin 2.4 L (3.5-5.0) g/dL 05/05/17 05/05/17 Range/Units 05:37 08:20 WBC (3.8-10.6) k/uL RBC (4.30-5.90) m/uL Hgb (13.0-17.5) gm/dL Plt Count (150-450) k/uL Neutrophils # (1.3-7.7) k/uL Lymphocytes # (1.0-4.8) k/uL ABG pCO2 46 H (35-45) mmHg ABG pO2 69 L (83-108) mmHg ABG HCO3 26 H (21-25) mmol/L Chloride (98-107) mmol/L BUN (9-20) mg/dL Glucose (74-99) mg/dL POC Glucose (mg/dL) 118 H (75-99) mg/dL Calcium (8.4-10.2) mg/dL Phosphorus (2.5-4.5) mg/dL Total Bilirubin (0.2-1.3) mg/dL AST (17-59) U/L Total Protein (6.3-8.2) g/dL Albumin (3.5-5.0) g/dL Microbiology - Last 24 Hours (Table) 05/02/17 15:26 Gram Stain - Final Sputum Sputum Culture - Final Moraxella(branhamella) catarra 05/02/17 12:10 Blood Culture - Preliminary Blood No Growth after 48 hours Assessment and Plan Assessment: #1. Acute on chronic hypoxic and hypercapnic respiratory failure secondary to extensive bibasilar infiltrates, pneumonia secondary to Moraxella catarrhalis. #2. Acute septic shock secondary to the above, on presentation there is leukocytosis, febrile illness, altered mental status, tachycardia, hypotension, required fluid boluses and required norepinephrine overnight. #3. Advanced oxygen dependent COPD, exact severity of which is unknown at this time #4. Recent admission at [facility] #4. Nicotine dependence #5. GERD/reflux #6. Depression #7 paroxysmal atrial fibrillation and supraventricular tachycardia, patient remains on Cardizem via nasogastric tube, started Lovenox 60 mg subcu every 12 hours. Recommendation: Patient will remain on the same ventilatory settings today, continue bronchodilators, continue antibiotics, continue steroids, continue enteral nutritional support I have no immediate plans to extubate the patient because of his severe underlying COPD, and extensive right lower lobe consolidation. Chest x-ray today is relatively showing slight improvement compared to the chest x-ray yesterday. Antibiotics were changed to Rocephin and Zithromax, since we are mostly dealing with a Moraxella catarrhalis type of pneumonia. Considering the oxygenation remains marginal on 50% FiO2, no plans to wean the patient, but we'll assess mental status, and will be given a sedation interruption today just enough to assess mental status. Critical care time is 40 minutes. Time with Patient: Greater than 30
[2017-05-05 11:50] LABS: Glucose,Whole Blood 130 mg/dL (75-99)
[2017-05-05] MEDS: AZITHROMYCIN 500 MG in SODIUM CHLORIDE 0.9% 250 ML IVPB SCH (11:59)
[2017-05-05] MEDS: HYDROmorphone 1 MG/ML 1 ML SYRINGE IVP PRN ×2 (12:24→18:24)
--- NOTE | 2017-05-05 12:26 | P.PN ---
Subjective Progress Note Date: 05/05/17 Patient is sedated on propofol, breathing synchronous with the ventilator. Levophed drip has been titrated off since yesterday morning. patient normotensive has been tachycardiac apparently had some runs of SVT with heart rate up to 170s, cardiology was consulted and patient was started on Cardizem drip as switched to oral Cardizem patient is more sedated with propofol. Patient had a bronchoscopy performed by Dr. Lynch yesterday. No acute events overnight Objective - Vital Signs Vital signs: Vital Signs Temp 99.3 F 05/05/17 08:00 Pulse 67 05/05/17 11:48 Resp 20 05/05/17 11:00 BP 119/70 05/05/17 11:00 Pulse Ox 91 L 05/05/17 11:00 Intake & Output 05/04/17 05/05/17 05/05/17 18:59 06:59 18:59 Intake Total 5518.964 9002.083 1352.267 Output Total 620 675 385 Balance 680.448 5672.083 967.267 Weight 72 kg 74 kg Intake: IV 757.5 1802.5 750 Magnesium Sulfate-D5w Pmx 100 1 gm In Dextrose/Water 1 100ml.bag @ 100 mls/hr IVPB Q1H [facility] Rx#: [id number] Piperacillin-Tazobactam 3 37.5 62.5 .375 gm In Dextrose/Water 1 50ml.bag @ 12.5 mls/hr IVPB Q8HR [facility] Rx#: [id number] Sodium Chloride 0.9% 1, 720 1440 600 000 ml @ 120 mls/hr IV . Q8H20M [facility] Rx#:[id number] Sodium Phosphate 10 mmol 50 50 In Sodium Chloride 0.9% 100 ml @ 50 mls/hr IVPB Q2H [facility] Rx#:[id number] Vancomycin 1,250 mg In 250 Sodium Chloride 0.9% 250 ml @ 125 mls/hr IVPB Q16H [facility] Rx#:[id number] Intake, IV Titration 133.787 147.583 176.267 Amount Diltiazem 125 mg In 47.583 Sodium Chloride 0.9% 100 ml @ 10 MG/HR 10 mls/hr IV .[id number] [facility] Rx#: [id number] Propofol 1,000 mg In 133.787 100 176.267 Empty Bag 1 bag @ Titrate IV .Q0M REPLACED BY [facility] Rx#: [id number] Tube Feeding 150 826 396 Other 30 140 30 Output: Urine 620 675 385 Other: Voiding Method Indwelling Catheter Indwelling Catheter Indwelling Catheter ABP, PAP, CO, CI - Last Documented Arterial Blood Pressure 133/60 - Exam Constitutional: No acute distress, conversant, pleasant Eyes: Anicteric sclerae, moist conjunctiva, no lid-lag, PERRLA ENMT: NC/AT,Oropharynx clear, no erythema, exudates Neck:Supple, FROM, no masses, or JVD, No carotid bruits; No thyromegaly Lungs: Crackles in bilateral rhonchi noted right greater than left base, on ventilator with synchrony Cardiovascular: Heart regular in rate and rhythm, No murmurs, gallops, or rubs no peripheral edema Abdominal: Soft Nontender, nom distended, no guarding, no rebound or rigidity, Normoactive bowel sounds No hepatomegaly, No splenomegaly, No palpable mass No abdominal wall hernia noted Skin: Normal temperature, tone, texture, turgor, No induration No subcutaneous nodules, No rash, lesions, No ulcers Extremities:No digital cyanosis No clubbing, Pedal pulses intact and symmetrical Radial pulses intact and symmetrical Normal gait and station, No calf tenderness Neuro: Muscles Strength 5/5 in all 4 extremities, sedated but following simple commands - Labs CBC & Chem 7: 05/05/17 04:25 05/05/17 04:25 Labs: Abnormal Lab Results - Last 24 Hours (Table) 05/04/17 05/04/17 05/04/17 Range/Units 12:03 18:06 19:44 WBC (3.8-10.6) k/uL RBC (4.30-5.90) m/uL Hgb (13.0-17.5) gm/dL Plt Count (150-450) k/uL Neutrophils # (1.3-7.7) k/uL Lymphocytes # (1.0-4.8) k/uL ABG pCO2 (35-45) mmHg ABG pO2 (83-108) mmHg ABG HCO3 (21-25) mmol/L Chloride (98-107) mmol/L BUN (9-20) mg/dL Glucose (74-99) mg/dL POC Glucose (mg/dL) 117 H 141 H 115 H (75-99) mg/dL Calcium (8.4-10.2) mg/dL Phosphorus (2.5-4.5) mg/dL Total Bilirubin (0.2-1.3) mg/dL AST (17-59) U/L Total Protein (6.3-8.2) g/dL Albumin (3.5-5.0) g/dL 05/05/17 05/05/17 05/05/17 Range/Units 00:29 04:25 04:25 WBC 14.9 H (3.8-10.6) k/uL RBC 4.19 L (4.30-5.90) m/uL Hgb 12.9 L (13.0-17.5) gm/dL Plt Count 124 L (150-450) k/uL Neutrophils # 14.4 H (1.3-7.7) k/uL Lymphocytes # 0.2 L (1.0-4.8) k/uL ABG pCO2 (35-45) mmHg ABG pO2 (83-108) mmHg ABG HCO3 (21-25) mmol/L Chloride 111 H (98-107) mmol/L BUN 32 H (9-20) mg/dL Glucose 137 H (74-99) mg/dL POC Glucose (mg/dL) 113 H (75-99) mg/dL Calcium 8.1 L (8.4-10.2) mg/dL Phosphorus 2.0 L (2.5-4.5) mg/dL Total Bilirubin <0.1 L (0.2-1.3) mg/dL AST 10 L (17-59) U/L Total Protein 4.7 L (6.3-8.2) g/dL Albumin 2.4 L (3.5-5.0) g/dL 05/05/17 05/05/17 05/05/17 Range/Units 05:37 08:20 11:48 WBC (3.8-10.6) k/uL RBC (4.30-5.90) m/uL Hgb (13.0-17.5) gm/dL Plt Count (150-450) k/uL Neutrophils # (1.3-7.7) k/uL Lymphocytes # (1.0-4.8) k/uL ABG pCO2 46 H (35-45) mmHg ABG pO2 69 L (83-108) mmHg ABG HCO3 26 H (21-25) mmol/L Chloride (98-107) mmol/L BUN (9-20) mg/dL Glucose (74-99) mg/dL POC Glucose (mg/dL) 118 H 130 H (75-99) mg/dL Calcium (8.4-10.2) mg/dL Phosphorus (2.5-4.5) mg/dL Total Bilirubin (0.2-1.3) mg/dL AST (17-59) U/L Total Protein (6.3-8.2) g/dL Albumin (3.5-5.0) g/dL Microbiology - Last 24 Hours (Table) 05/04/17 10:40 Fungal Culture - Preliminary Bronchial Washings - Right 05/04/17 10:40 Bronchial Washings Culture - Preliminary Bronchial Washings - Right 05/04/17 10:40 Acid Fast Bacilli Culture - Preliminary Bronchial Washings - Right 05/02/17 15:26 Gram Stain - Final Sputum Sputum Culture - Final Moraxella(branhamella) catarra 05/02/17 12:10 Blood Culture - Preliminary Blood No Growth after 48 hours Assessment and Plan (1) Acute on chronic respiratory failure with hypercapnia Narrative/Plan: * Currently ventilator dependent, pulmonary critical care doctor Aidar following patient sedated on propofol driip * ABG has improved patient no longer acidotic with hypercapnia resolving, patient still hypoxemic continue current vent settings vt 550 FiO2 of 55%, PEEP of 5, rate of 20 * Secondary to HCAP and severe COPD exacerbation Current Visit: Yes Status: Acute Code(s): J96.22 - ACUTE AND CHRONIC RESPIRATORY FAILURE WITH HYPERCAPNIA SNOMED Code(s): 0719077418902 (2) Septic shock Narrative/Plan: * Septic shock, wean off pressor this am at 5am * Leukocytosis trending down to 15 from 19, patient afebrile overnight * Blood cultures pending sputum culture growing Moraxella catarra * Triple antibiotic regimen resolved to Rocephin azithromycin Current Visit: Yes Status: Acute Code(s): A41.9 - SEPSIS, UNSPECIFIED ORGANISM; R65.21 - SEVERE SEPSIS WITH SEPTIC SHOCK SNOMED Code(s): 68464780 (3) Acute exacerbation of chronic obstructive pulmonary disease (COPD) Current Visit: Yes Status: Acute Code(s): J44.1 - CHRONIC OBSTRUCTIVE PULMONARY DISEASE W (ACUTE) EXACERBATION SNOMED Code(s): 892043267 (4) Hypernatremia Current Visit: Yes Status: Acute Code(s): E87.0 - HYPEROSMOLALITY AND HYPERNATREMIA SNOMED Code(s): 96995196 (5) HCAP (healthcare-associated pneumonia) Narrative/Plan: * Treatment as above Current Visit: Yes Status: Acute Code(s): J18.9 - PNEUMONIA, UNSPECIFIED ORGANISM SNOMED Code(s): 718952406 (6) Paroxysmal atrial fibrillation Narrative/Plan: * Currently in sinus receiving Cardizem via NG tube * Echocardiogram showing normal ejection fraction 55-60% Current Visit: Yes Status: Acute Code(s): I48.0 - PAROXYSMAL ATRIAL FIBRILLATION SNOMED Code(s): 461424135 (7) CO2 narcosis Current Visit: Yes Status: Resolved Code(s): R06.89 - OTHER ABNORMALITIES OF BREATHING SNOMED Code(s): 48654086 Plan: Patient still ventilated we'll continue current treatment with antibiotics and steroids, patient receiving enteral nutrition. We'll continue to monitor
[2017-05-05] MEDS: cefTRIAXone IN SWFI 1,000 MG/10 ML SYRINGE IVP SCH (12:27)
--- NOTE | 2017-05-05 17:03 | XR ---
EXAMINATION TYPE: XR chest 1V portable DATE OF EXAM: 05/05/2017 COMPARISON: May 04, 2017. HISTORY: Ventilator dependent respiratory failure TECHNIQUE: Single frontal view of the chest is obtained. FINDINGS: Airspace opacity at the right lung base which is not significantly changed since the previ ous study although it could argue that it looks minimally improved. There is an endotracheal tube bet ween the clavicles and dinorah. An enteric tube goes below the film. There could be small bilateral pl eural effusions. There is no pneumothorax. Emphysematous changes are noted. The cardiac silhouette is within normal limits. IMPRESSION: Right lower lung opacity is either unchanged or slightly improved. Otherwise no signific ant change in appearance of the chest.
[2017-05-05 18:05] LABS: Glucose,Whole Blood 131 mg/dL (75-99)
[2017-05-05 23:45] LABS: Glucose,Whole Blood 131 mg/dL (75-99)
[2017-05-06] MEDS: INSULIN ASPART 100 UNIT/ML 1 ML 10 ML VIAL SQ SCH ×4 (00:36→18:55)
[2017-05-06] MEDS: HYDROmorphone 1 MG/ML 1 ML SYRINGE IVP PRN ×2 (01:06→05:08)
[2017-05-06] MEDS: PROPOFOL 1,000 MG in EMPTY BAG 1 BAG IV SCH ×3 (01:44→12:34)
[2017-05-06] MEDS: IPRATROPIUM-ALBUTEROL 3 ML NEB INHALATION SCH ×6 (03:02→22:58)
[2017-05-06] MEDS: SODIUM CHLORIDE 0.9% 1,000 ML IV SCH ×3 (03:05→18:02)
[2017-05-06 04:27] LABS: Basophils % (A) 0 %; Eosinophils % (A) 0 %; HGB 13.4 gm/dL (13.0-17.5); Lymphocytes # (A) 0.3 k/uL (1.0-4.8); Lymphocytes % (A) 3 %; MCH 30.5 pg (25.0-35.0); MCHC 31.2 g/dL (31.0-37.0); MCV 97.6 fL (80.0-100.0); Mean Platelet Volume 8.8; Monocytes # (A) 0.2 k/uL (0-1.0); Monocytes % (A) 2 %; Neutrophils # (A) 10.6 k/uL (1.3-7.7); Neutrophils % (A) 95 %; Platelet Count 116 k/uL (150-450); RBC 4.41 m/uL (4.30-5.90); RDW 14.1 % (11.5-15.5); WBC 11.1 k/uL (3.8-10.6)
[2017-05-06 04:40] LABS: ALT 33 U/L (21-72); AST 9 U/L (17-59); Albumin 2.4 g/dL (3.5-5.0); Alkaline Phosphatase 44 U/L (38-126); Anion Gap 5 mmol/L; Blood Urea Nitrogen 36 mg/dL (9-20); Calcium 8.2 mg/dL (8.4-10.2); Carbon Dioxide 29 mmol/L (22-30); Chloride 110 mmol/L (98-107); Glucose 160 mg/dL (74-99); Phosphorus 2.7 mg/dL (2.5-4.5); Sodium 144 mmol/L (137-145); Total Bilirubin <0.1 mg/dL (0.2-1.3); Total Protein 4.9 g/dL (6.3-8.2)
[2017-05-06 04:44] LABS: Potassium 4.1 mmol/L (3.5-5.1)
[2017-05-06] MEDS: methylPREDNISolone SOD SUCCI 125 MG/2 ML VIAL IV SCH ×3 (05:08→18:03)
[2017-05-06 05:16] LABS: Glucose,Whole Blood 135 mg/dL (75-99)
--- NOTE | 2017-05-06 07:11 | XR ---
EXAMINATION TYPE: XR chest 1V portable DATE OF EXAM: 05/06/2017 HISTORY: Tube placement. REFERENCE: Previous study dated 05/05/2017. FINDINGS: The patient is ET tube and NG tube remain in place, unchanged in appearance. There is continuing right basilar airspace disease. Heart size is upper limits of normal. There are s mall effusions, greater on the right than the left. IMPRESSION: NO SIGNIFICANT INTERVAL CHANGE IN THE APPEARANCE OF THE CHEST.
[2017-05-06 07:22] LABS: ABG PCO2 49 mmHg (35-45); ABG PH 7.37 (7.35-7.45)
[2017-05-06 07:23] LABS: ABG Base Excess 2.6 mmol/L; ABG HCO3 28 mmol/L (21-25); ABG PO2 70 mmHg (83-108); ABG TCO2 29 mmol/L (19-24)
[2017-05-06] MEDS: PANTOPRAZOLE 40 MG/10 ML VIAL IVP SCH (08:52)
[2017-05-06] MEDS: cefTRIAXone IN SWFI 1,000 MG/10 ML SYRINGE IVP SCH (08:52)
[2017-05-06] MEDS: AZITHROMYCIN 500 MG in SODIUM CHLORIDE 0.9% 250 ML IVPB SCH (08:52)
[2017-05-06] MEDS: CHLORHEXIDINE GLUCONATE 15 ML CUP MUCOUS MEM SCH ×2 (08:52→20:15)
[2017-05-06] MEDS: DILTIAZEM ORAL 30 MG TAB PO SCH (08:52)
[2017-05-06] MEDS: ENOXAPARIN 60 MG/0.6 ML SYRINGE SQ SCH ×2 (08:52→20:15)
[2017-05-06 12:04] LABS: Glucose,Whole Blood 127 mg/dL (75-99)
--- NOTE | 2017-05-06 12:51 | P.PN ---
Subjective Progress Note Date: 05/06/17 Principal diagnosis: Acute hypoxic and hypercapnic respiratory failure secondary to aspiration pneumonia and COPD exacerbationDavid Kelley is a 66-year-old white male patient who presented to the emergency department on 05/02/2017 per EMS with dyspnea, fever and altered mental status. patient has a past medical history of oxygen dependent COPD, hypothyroidism, GERD/reflux, depression. Patient's spouse is not present at this time or at the time of arrival by ambulance. Most of the history was obtained from the ER physician, nursing staff and the chart. Patient usually goes for his care to the [facility] in [place], per nursing staff patient had been hospitalized there many times. Initially patient was alert and oriented , was given albuterol nebulized treatment and Solu-Medrol by EMS however during the transport patient became increasingly more obtunded. He was immediately placed on BiPAP on arrival to the ED. He was febrile presentation with a temp of 101.3 axillary, tachycardic with a heart rate of 140 BPM, tachypnea with respiratory rate of 28/m, and approximately make with O2 sat at 78% on 2 L. BiPAP support was initiated with pressures of 16/5, FiO2 of 50%. he was given nebulized treatments, was started on antibiotics Levaquin and vancomycin, he was given a liter of IV 0.9 normal saline fluid bolus. Blood urine and sputum culture were ordered and sent. chest x-ray showed extensive bibasilar infiltrates, with more extensive consolidation on the right extending to the mid lung level. There may be subtle early cavitation changes at the right lung base as well. Brain CT showed no acute intracranial abnormality. Venous blood gas on arrival showed pH of 7.25, pCO2 of 86, and bicarb of 36, primary respiratory acidosis with compensation. lab work was reviewed and showed leukocytosis with WBC of 15.3, hemoglobin 16.9 and hematocrit of 54, platelet count of 149, no coagulopathy, sodium 146, potassium is 4.2, carbon dioxide 37, anion gap is 9, B UN of 23, creatinine of 1.2. analysis was negative, urine drug screen was positive for marijuana, serum alcohol level was less than 10, and influenza screen was negative. In the emergency room patient became unresponsive to vigorous tactile stimuli, despite the BiPAP support. At that point the decision was made to intubate the patient and place him on mechanical ventilation. At the time of my evaluation, Dr. Almeida and the ER staff are getting ready to intubate the patient. There is no family around. Patient was reevaluated today in the ICU, this is on 05/03/2017. Patient remains on mechanical ventilation, tidal volume is 550, respiratory rate is 20, FiO2 is 50%, and PEEP is 5. ABG showed a pO2 of 85 pCO2 of 43 pH of 7.44. Continues to have leukocytosis with WBC count of 37.8, hemoglobin is 15.1. Basic metabolic profile is normal. Renal profile is improving with creatinine down to 1.09 from 1.2 yesterday. Sputum cultures are still pending, Gram stain is showing many polymorphonuclear leukocytes, few gram-positive cocci and few gram-negative bacilli. Patient remains sedated however on a lower dose of propofol, patient seems very appropriate following simple instructions. The propofol was not completely discontinued, but his mental status is appropriate enough, hence no need for MRI of the brain or scanning of the brain at this point. His mental status change upon presentation was most likely related to hypoxia and hypercapnia. Medications were all reviewed patient remains on broad -spectrum antibiotics including Levaquin and Zosyn and vancomycin is also on bronchodilators in the form of DuoNeb and is also on Solu-Medrol 60 IV push every 6. Overnight the patient required low-dose norepinephrine because of low blood pressure, and he received over 4 L of fluid boluses since admission. Which means the patient has clearly a picture of septic shock from his pneumonia. Today I have instructed the nurses to titrate the norepinephrine down and maintain a mean arterial pressure of above 65. Reevaluated today on 05/05/2017, patient remains on mechanical ventilation, tidal volume is 550 respiratory rate of 20 FiO2 50%, PEEP is 5. ABG showed a pO2 of 69 pCO2 of 46 pH of 7.37. Basic metabolic profile and renal profile were noted to be normal. CBC continues to show leukocytosis with WBC count of 14.9, otherwise unremarkable. Platelets are 1 24,000. Patient had leukocytosis a few days ago, and that seems to be improving. Cultures from the sputum came back positive for Branhamella catarrhalis, patient will be treated with Zithromax and Rocephin, no need for vancomycin, no need for Zosyn, and no need for Levaquin. On outpatient basis patient can be treated with either Augmentin or Zithromax. Chest x-ray this morning continues to show significant infiltrate in the right lower lobe, but seems to be slightly improved. And it is a limited infiltrate in the left lower lobe. Reevaluated today on 05/02/2017, patient remains on mechanical ventilation, tidal volume of 550 FiO2 of 50% PEEP of 5 and the rate of 20. ABG showed a pO2 of 70 CO2 of 49 pH of 7.37. CBC is normal. And his leukocytosis seems to have dramatically improved. Chest x-ray is showing improvement in his bilateral bibasilar infiltrates especially in the right lower lobe. Bronchial washing remains negative so far, however the sputum was positive for Moraxella catarrhalis. Patient is presently sedated, I will ask the nurses to have a sedation interruption, and assessment of mental status. However considering that his pO2 is still marginal on 50%, no plans to wean and extubate today, but that is to be considered probably in the next 24 hours. Objective - Vital Signs Vital signs: Vital Signs Temp 98.7 F 05/06/17 12:00 Pulse 70 05/06/17 12:00 Resp 20 05/06/17 12:00 BP 128/79 05/06/17 12:00 Pulse Ox 91 L 05/06/17 12:00 Intake & Output 05/05/17 05/06/17 05/06/17 18:59 06:59 18:59 Intake Total 3415.300 2736.400 1648.28 Output Total 920 760 335 Balance 2495.300 8831.415 7151.28 Weight 74 kg 77.2 kg Intake: IV 1710 1320 720 Magnesium Sulfate-D5w Pmx 100 1 gm In Dextrose/Water 1 100ml.bag @ 100 mls/hr IVPB Q1H [facility] Rx#: [id number] Sodium Chloride 0.9% 1, 1560 1320 720 000 ml @ 120 mls/hr IV . Q8H20M [facility] Rx#:[id number] Sodium Phosphate 10 mmol 50 In Sodium Chloride 0.9% 100 ml @ 50 mls/hr IVPB Q2H [facility] Rx#:[id number] Intake, IV Titration 361.300 276.400 340.28 Amount Azithromycin 500 mg In 250 Sodium Chloride 0.9% 250 ml @ 125 mls/hr IVPB DAILY [facility] Rx#:[id number] Propofol 1,000 mg In 361.300 276.400 90.28 Empty Bag 1 bag @ Titrate IV .Q0M [facility] Rx#: [id number] Tube Feeding 1254 990 528 Other 90 150 60 Output: Urine 920 760 335 Other: Voiding Method Indwelling Catheter Indwelling Catheter Indwelling Catheter ABP, PAP, CO, CI - Last Documented Arterial Blood Pressure 140/72 - Exam Physical Exam: Revealed a 66-year-old white male, looks frail, older than his stated age, on mechanical ventilation. HEENT:[Neck is supple.] [No neck masses.] [No thyromegaly.] [No JVD.] PERRLA, EOMI, endotracheal tube is intact. Normal moist mucous membranes noted. Chest: [Crackles and rhonchi bilaterally noted. Mostly at the right base.] Cardiac Exam: [Normal S1 and S2, no S3 gallop, no murmur.] Abdomen: [Soft, nontender, no megaly, no rebound, no guarding, normal bowel sounds.] Extremities: [No clubbing, no edema, no cyanosis.] Neurological Exam: Patient is presently on propofol, could not assess his neurological status at this point. Psychiatric: Could not be assessed. Lymphatic: No lymphadenopathy. - Labs CBC & Chem 7: 05/06/17 04:10 05/06/17 04:10 Labs: Abnormal Lab Results - Last 24 Hours (Table) 05/05/17 05/05/17 05/06/17 Range/Units 18:02 23:43 04:10 WBC 11.1 H (3.8-10.6) k/uL Plt Count 116 L (150-450) k/uL Neutrophils # 10.6 H (1.3-7.7) k/uL Lymphocytes # 0.3 L (1.0-4.8) k/uL ABG pCO2 (35-45) mmHg ABG pO2 (83-108) mmHg ABG HCO3 (21-25) mmol/L ABG Total CO2 (19-24) mmol/L ABG O2 Saturation (94-97) % Chloride (98-107) mmol/L BUN (9-20) mg/dL Glucose (74-99) mg/dL POC Glucose (mg/dL) 131 H 131 H (75-99) mg/dL Calcium (8.4-10.2) mg/dL Total Bilirubin (0.2-1.3) mg/dL AST (17-59) U/L Total Protein (6.3-8.2) g/dL Albumin (3.5-5.0) g/dL 05/06/17 05/06/17 05/06/17 Range/Units 04:10 05:13 07:21 WBC (3.8-10.6) k/uL Plt Count (150-450) k/uL Neutrophils # (1.3-7.7) k/uL Lymphocytes # (1.0-4.8) k/uL ABG pCO2 49 H (35-45) mmHg ABG pO2 70 L (83-108) mmHg ABG HCO3 28 H (21-25) mmol/L ABG Total CO2 29 H (19-24) mmol/L ABG O2 Saturation 93.0 L (94-97) % Chloride 110 H (98-107) mmol/L BUN 36 H (9-20) mg/dL Glucose 160 H (74-99) mg/dL POC Glucose (mg/dL) 135 H (75-99) mg/dL Calcium 8.2 L (8.4-10.2) mg/dL Total Bilirubin <0.1 L (0.2-1.3) mg/dL AST 9 L (17-59) U/L Total Protein 4.9 L (6.3-8.2) g/dL Albumin 2.4 L (3.5-5.0) g/dL 05/06/17 Range/Units 12:01 WBC (3.8-10.6) k/uL Plt Count (150-450) k/uL Neutrophils # (1.3-7.7) k/uL Lymphocytes # (1.0-4.8) k/uL ABG pCO2 (35-45) mmHg ABG pO2 (83-108) mmHg ABG HCO3 (21-25) mmol/L ABG Total CO2 (19-24) mmol/L ABG O2 Saturation (94-97) % Chloride (98-107) mmol/L BUN (9-20) mg/dL Glucose (74-99) mg/dL POC Glucose (mg/dL) 127 H (75-99) mg/dL Calcium (8.4-10.2) mg/dL Total Bilirubin (0.2-1.3) mg/dL AST (17-59) U/L Total Protein (6.3-8.2) g/dL Albumin (3.5-5.0) g/dL Microbiology - Last 24 Hours (Table) 05/04/17 10:40 Gram Stain - Preliminary Bronchial Washings - Right Bronchial Washings Culture - Preliminary 05/02/17 12:10 Blood Culture - Preliminary Blood No Growth after 72 hours 05/04/17 10:40 Fungal Culture - Preliminary Bronchial Washings - Right 05/04/17 10:40 Acid Fast Bacilli Culture - Preliminary Bronchial Washings - Right 05/02/17 15:26 Gram Stain - Final Sputum Sputum Culture - Final Moraxella(branhamella) catarra Assessment and Plan Assessment: #1. Acute on chronic hypoxic and hypercapnic respiratory failure secondary to extensive bibasilar infiltrates, pneumonia secondary to Moraxella catarrhalis. #2. Acute septic shock secondary to the above, on presentation there is leukocytosis, febrile illness, altered mental status, tachycardia, hypotension, required fluid boluses and required norepinephrine overnight. On 05/02/2017, patient is not requiring any pressors, and he is on maintenance IV fluids and maintenance nutritional support. #3. Advanced oxygen dependent COPD, exact severity of which is unknown at this time #4. Recent admission at [facility] #4. Nicotine dependence #5. GERD/reflux #6. Depression #7 paroxysmal atrial fibrillation and supraventricular tachycardia, patient remains on Cardizem via nasogastric tube, started Lovenox 60 mg subcu every 12 hours. Recommendation: Continue mechanical ventilation, continue ventilatory, nutritional, hemodynamic support, continue GI and DVT prophylaxis, antibiotics, bronchodilators, steroids, we will plan to start weaning trials hopefully in the next 24 hours. Patient remains critically ill, critical care time is 35 minutes. Time with Patient: Greater than 30
--- NOTE | 2017-05-06 13:50 | P.PN ---
Subjective Progress Note Date: 05/06/17 Patient is sedated on propofol, breathing synchronous with the ventilator. Levophed drip has been titrated off since yesterday morning. patient normotensive has been tachycardiac apparently had some runs of SVT with heart rate up to 170s, cardiology was consulted and patient was started on Cardizem drip as switched to oral Cardizem patient is more sedated with propofol. Patient had a bronchoscopy performed by Dr. Lynch, washings results pending. No acute events overnight Objective - Vital Signs Vital signs: Vital Signs Temp 98.7 F 05/06/17 12:00 Pulse 70 05/06/17 12:00 Resp 20 05/06/17 12:00 BP 128/79 05/06/17 12:00 Pulse Ox 91 L 05/06/17 12:00 Intake & Output 05/05/17 05/06/17 05/06/17 18:59 06:59 18:59 Intake Total 3415.300 2736.400 1648.28 Output Total 920 760 335 Balance 2495.300 0775.206 7877.28 Weight 74 kg 77.2 kg Intake: IV 1710 1320 720 Magnesium Sulfate-D5w Pmx 100 1 gm In Dextrose/Water 1 100ml.bag @ 100 mls/hr IVPB Q1H [facility] Rx#: [id number] Sodium Chloride 0.9% 1, 1560 1320 720 000 ml @ 120 mls/hr IV . Q8H20M [facility] Rx#:[id number] Sodium Phosphate 10 mmol 50 In Sodium Chloride 0.9% 100 ml @ 50 mls/hr IVPB Q2H [facility] Rx#:[id number] Intake, IV Titration 361.300 276.400 340.28 Amount Azithromycin 500 mg In 250 Sodium Chloride 0.9% 250 ml @ 125 mls/hr IVPB DAILY [facility] Rx#:[id number] Propofol 1,000 mg In 361.300 276.400 90.28 Empty Bag 1 bag @ Titrate IV .Q0M [facility] Rx#: [id number] Tube Feeding 1254 990 528 Other 90 150 60 Output: Urine 920 760 335 Other: Voiding Method Indwelling Catheter Indwelling Catheter Indwelling Catheter ABP, PAP, CO, CI - Last Documented Arterial Blood Pressure 140/72 - Exam Constitutional: No acute distress, conversant, pleasant Eyes: Anicteric sclerae, moist conjunctiva, no lid-lag, PERRLA ENMT: NC/AT,Oropharynx clear, no erythema, exudates Neck:Supple, FROM, no masses, or JVD, No carotid bruits; No thyromegaly Lungs: Crackles in bilateral rhonchi noted right greater than left base, on ventilator with synchrony Cardiovascular: Heart regular in rate and rhythm, No murmurs, gallops, or rubs no peripheral edema Abdominal: Soft Nontender, nom distended, no guarding, no rebound or rigidity, Normoactive bowel sounds No hepatomegaly, No splenomegaly, No palpable mass No abdominal wall hernia noted Skin: Normal temperature, tone, texture, turgor, No induration No subcutaneous nodules, No rash, lesions, No ulcers Extremities:No digital cyanosis No clubbing, Pedal pulses intact and symmetrical Radial pulses intact and symmetrical Normal gait and station, No calf tenderness Neuro: Muscles Strength 5/5 in all 4 extremities, sedated but following simple commands - Labs CBC & Chem 7: 05/06/17 04:10 05/06/17 04:10 Labs: Abnormal Lab Results - Last 24 Hours (Table) 05/05/17 05/05/17 05/06/17 Range/Units 18:02 23:43 04:10 WBC 11.1 H (3.8-10.6) k/uL Plt Count 116 L (150-450) k/uL Neutrophils # 10.6 H (1.3-7.7) k/uL Lymphocytes # 0.3 L (1.0-4.8) k/uL ABG pCO2 (35-45) mmHg ABG pO2 (83-108) mmHg ABG HCO3 (21-25) mmol/L ABG Total CO2 (19-24) mmol/L ABG O2 Saturation (94-97) % Chloride (98-107) mmol/L BUN (9-20) mg/dL Glucose (74-99) mg/dL POC Glucose (mg/dL) 131 H 131 H (75-99) mg/dL Calcium (8.4-10.2) mg/dL Total Bilirubin (0.2-1.3) mg/dL AST (17-59) U/L Total Protein (6.3-8.2) g/dL Albumin (3.5-5.0) g/dL 05/06/17 05/06/17 05/06/17 Range/Units 04:10 05:13 07:21 WBC (3.8-10.6) k/uL Plt Count (150-450) k/uL Neutrophils # (1.3-7.7) k/uL Lymphocytes # (1.0-4.8) k/uL ABG pCO2 49 H (35-45) mmHg ABG pO2 70 L (83-108) mmHg ABG HCO3 28 H (21-25) mmol/L ABG Total CO2 29 H (19-24) mmol/L ABG O2 Saturation 93.0 L (94-97) % Chloride 110 H (98-107) mmol/L BUN 36 H (9-20) mg/dL Glucose 160 H (74-99) mg/dL POC Glucose (mg/dL) 135 H (75-99) mg/dL Calcium 8.2 L (8.4-10.2) mg/dL Total Bilirubin <0.1 L (0.2-1.3) mg/dL AST 9 L (17-59) U/L Total Protein 4.9 L (6.3-8.2) g/dL Albumin 2.4 L (3.5-5.0) g/dL 05/06/17 Range/Units 12:01 WBC (3.8-10.6) k/uL Plt Count (150-450) k/uL Neutrophils # (1.3-7.7) k/uL Lymphocytes # (1.0-4.8) k/uL ABG pCO2 (35-45) mmHg ABG pO2 (83-108) mmHg ABG HCO3 (21-25) mmol/L ABG Total CO2 (19-24) mmol/L ABG O2 Saturation (94-97) % Chloride (98-107) mmol/L BUN (9-20) mg/dL Glucose (74-99) mg/dL POC Glucose (mg/dL) 127 H (75-99) mg/dL Calcium (8.4-10.2) mg/dL Total Bilirubin (0.2-1.3) mg/dL AST (17-59) U/L Total Protein (6.3-8.2) g/dL Albumin (3.5-5.0) g/dL Microbiology - Last 24 Hours (Table) 05/04/17 10:40 Gram Stain - Preliminary Bronchial Washings - Right Bronchial Washings Culture - Preliminary 05/02/17 12:10 Blood Culture - Preliminary Blood No Growth after 72 hours 05/04/17 10:40 Fungal Culture - Preliminary Bronchial Washings - Right 05/04/17 10:40 Acid Fast Bacilli Culture - Preliminary Bronchial Washings - Right 05/02/17 15:26 Gram Stain - Final Sputum Sputum Culture - Final Moraxella(branhamella) catarra Assessment and Plan (1) Acute on chronic respiratory failure with hypercapnia Narrative/Plan: * Currently ventilator dependent, pulmonary critical care doctor Aidar following patient sedated on propofol driip * ABG has improved patient no longer acidotic with hypercapnia resolving, patient pO2 70 on this am ABG continue current vent settings vt 550 FiO2 of 50% , PEEP of 5, rate of 20 * Secondary to HCAP and severe COPD exacerbation Current Visit: Yes Status: Acute Code(s): J96.22 - ACUTE AND CHRONIC RESPIRATORY FAILURE WITH HYPERCAPNIA SNOMED Code(s): 5055162467714 (2) Septic shock Narrative/Plan: * Septic shock, wean off pressor this am at 5am * Leukocytosis almost resolved, patient afebrile overnight * Blood cultures pending sputum culture growing Moraxella catarra * Triple antibiotic regimen resolved to Rocephin azithromycin Current Visit: Yes Status: Resolved Code(s): A41.9 - SEPSIS, UNSPECIFIED ORGANISM; R65.21 - SEVERE SEPSIS WITH SEPTIC SHOCK SNOMED Code(s): 64309506 (3) Acute exacerbation of chronic obstructive pulmonary disease (COPD) Narrative/Plan: * Continue with breathing treatments and systemic steroids Solu-Medrol * Continue with ventilator we'll attempt weaning tomorrow Current Visit: Yes Status: Acute Code(s): J44.1 - CHRONIC OBSTRUCTIVE PULMONARY DISEASE W (ACUTE) EXACERBATION SNOMED Code(s): 127906047 (4) Hypernatremia Current Visit: Yes Status: Resolved Code(s): E87.0 - HYPEROSMOLALITY AND HYPERNATREMIA SNOMED Code(s): 26407157 (5) HCAP (healthcare-associated pneumonia) Narrative/Plan: * Treatment as above Current Visit: Yes Status: Acute Code(s): J18.9 - PNEUMONIA, UNSPECIFIED ORGANISM SNOMED Code(s): 921791736 (6) Paroxysmal atrial fibrillation Narrative/Plan: * Currently in sinus rythym, titirate up PO cardizem to 60 g TID as patient was previously on 180 mg CR and had more runs of SVT last night * receiving Cardizem via NG tube * Echocardiogram showing normal ejection fraction 55-60% * cardiology consulted for graceer recommendations (avoid beta blockers severe COPD exacerbation) Current Visit: Yes Status: Resolved Code(s): I48.0 - PAROXYSMAL ATRIAL FIBRILLATION SNOMED Code(s): 432862984 (7) CO2 narcosis Narrative/Plan: * Resolved Current Visit: Yes Status: Resolved Code(s): R06.89 - OTHER ABNORMALITIES OF BREATHING SNOMED Code(s): 28035613
[2017-05-06] MEDS ORDERED: DILTIAZEM ORAL 60 MG TAB PO SCH (16:00)
[2017-05-06] MEDS: VERAPAMIL 80 MG TAB PO SCH (18:02)
[2017-05-06 18:56] LABS: Glucose,Whole Blood 127 mg/dL (75-99)
[2017-05-07] MEDS: SODIUM CHLORIDE 0.9% 1,000 ML IV SCH ×5 (00:37→12:14)
[2017-05-07] MEDS: methylPREDNISolone SOD SUCCI 125 MG/2 ML VIAL IV SCH ×5 (00:37→23:35)
[2017-05-07 00:38] LABS: Glucose,Whole Blood 115 mg/dL (75-99)
[2017-05-07] MEDS: PROPOFOL 1,000 MG in EMPTY BAG 1 BAG IV SCH ×3 (00:38→05:32)
[2017-05-07] MEDS: INSULIN ASPART 100 UNIT/ML 1 ML 10 ML VIAL SQ SCH ×4 (00:38→18:24)
[2017-05-07] MEDS: IPRATROPIUM-ALBUTEROL 3 ML NEB INHALATION SCH ×5 (03:03→19:17)
[2017-05-07 04:29] LABS: Basophils % (A) 0 %; Eosinophils # (A) 0.1 k/uL (0-0.7); Eosinophils % (A) 1 %; HCT 43.5 % (39.0-53.0); HGB 13.9 gm/dL (13.0-17.5); Lymphocytes # (A) 0.2 k/uL (1.0-4.8); Lymphocytes % (A) 2 %; MCH 30.8 pg (25.0-35.0); MCHC 31.9 g/dL (31.0-37.0); MCV 96.5 fL (80.0-100.0); Mean Platelet Volume 8.3; Monocytes # (A) 0.2 k/uL (0-1.0); Monocytes % (A) 2 %; Neutrophils # (A) 10.4 k/uL (1.3-7.7); Neutrophils % (A) 96 %; Platelet Count 132 k/uL (150-450); RBC 4.51 m/uL (4.30-5.90); RDW 13.8 % (11.5-15.5); WBC 10.9 k/uL (3.8-10.6)
[2017-05-07 04:48] LABS: ALT 46 U/L (21-72); AST 20 U/L (17-59); Albumin 2.4 g/dL (3.5-5.0); Alkaline Phosphatase 42 U/L (38-126); Anion Gap 4 mmol/L; Blood Urea Nitrogen 37 mg/dL (9-20); Calcium 8.5 mg/dL (8.4-10.2); Carbon Dioxide 29 mmol/L (22-30); Chloride 109 mmol/L (98-107); Glucose 147 mg/dL (74-99); Magnesium 1.9 mg/dL (1.6-2.3); Phosphorus 2.8 mg/dL (2.5-4.5); Sodium 142 mmol/L (137-145); Total Bilirubin 0.1 mg/dL (0.2-1.3); Total Protein 4.7 g/dL (6.3-8.2)
[2017-05-07] MEDS ORDERED: Potassium Replacement Protocol 1 EACH MISC MISCELLANE PRN (05:41)
--- NOTE | 2017-05-07 07:08 | XR ---
EXAMINATION TYPE: XR chest 1V portable DATE OF EXAM: 05/07/2017 HISTORY: Tube placement. REFERENCE: Previous study dated 05/06/2017. FINDINGS: The patient is ET tube and NG tube remain in place, unchanged in appearance. The entire left lung is not included on this study. There is improved aeration at the right lung base. I cannot exclude small effusions. The heart is not enlarged. IMPRESSION: IMPROVED AERATION, RIGHT LUNG BASE.
[2017-05-07] MEDS: MAGNESIUM SULFATE-D5W PMX 1 GM in DEXTROSE/WATER 1 100ML.BAG IVPB SCH ×2 (07:48→08:47)
[2017-05-07] MEDS: POTASSIUM CHLORIDE 10 MEQ in WATER FOR INJECTION 1 100ML.BAG IVPB SCH ×2 (07:51→07:52)
[2017-05-07 07:57] LABS: Glucose,Whole Blood 116 mg/dL (75-99)
[2017-05-07] MEDS: ENOXAPARIN 60 MG/0.6 ML SYRINGE SQ SCH ×2 (08:26→20:55)
[2017-05-07] MEDS: CHLORHEXIDINE GLUCONATE 15 ML CUP MUCOUS MEM SCH (08:26)
[2017-05-07] MEDS: PANTOPRAZOLE 40 MG/10 ML VIAL IVP SCH (08:27)
[2017-05-07] MEDS: cefTRIAXone IN SWFI 1,000 MG/10 ML SYRINGE IVP SCH (08:27)
[2017-05-07] MEDS: VERAPAMIL 80 MG TAB PO SCH ×3 (08:27→21:29)
[2017-05-07] MEDS: AZITHROMYCIN 500 MG in SODIUM CHLORIDE 0.9% 250 ML IVPB SCH (08:28)
[2017-05-07 08:40] LABS: ABG HCO3 28 mmol/L (21-25); ABG PCO2 49 mmHg (35-45); ABG PH 7.38 (7.35-7.45); ABG PO2 84 mmHg (83-108)
[2017-05-07 08:41] LABS: ABG Base Excess 3.9 mmol/L
--- NOTE | 2017-05-07 09:08 | CONS ---
CONSULTATION REASON FOR CONSULTATION: Evaluate and treat paroxysmal supraventricular tachycardia. Mr. Warren Dougherty is a 66-year-old gentleman a patient who has been admitted to the hospital with respiratory failure, exacerbation of COPD and pneumonia, was intubated and is now on a ventilator. While he was on the ventilator, he has had episodes of paroxysmal supraventricular tachycardia up to 150 beats per minute and I was asked to see him in this regard. This patient has multiple comorbid conditions including acute on chronic hypoxic and hypercapnic respiratory failure secondary to extensive bibasilar infiltrates, possibly aspiration pneumonia as well as exacerbation of COPD. Apparently, patient was placed on a BiPAP initially without improvement. He was then intubated and placed on a mechanical ventilator. He has nicotine dependence. He has multiple hospitalizations at the [facility]. He is on multiple antibiotics. At the time of my evaluation, patient is deeply sedated and I cannot obtain any meaningful history from the patient. On reviewing the chart, his home medications include magnesium supplements, trazodone, Mucinex, Roshan-Dur 100 mg b.i.d., multivitamins, diltiazem XR 180 mg daily, omeprazole, Pravachol 40 mg daily, and Neurontin. He has no known drug allergies. Patient is not on any pressors. PHYSICAL EXAMINATION: Blood pressure is 140/80, pulse rate is over 70 per minute sinus. HEENT: Unremarkable. Fundus was not examined by me. JVD is not easily evident. Heart exam reveals S1, S2 without any significant murmurs. Lungs reveal bilateral ventilator assisted breaths. Abdomen is soft, nontender. Lower extremities reveal palpable pulses. Central nervous system assessment was not possible. EKG from 05/02/2017 revealed a sinus tachycardia and poor R-wave progression over precordial leads. Echocardiogram revealed normal left ventricular size and systolic function without any significant pulmonary hypertension. IMPRESSION: 1. Paroxysmal SVT. 2. Probable aspiration pneumonia and respiratory failure. 3. Exacerbation of chronic obstructive pulmonary disease. 4. Probable underlying bronchial asthma. RECOMMENDATIONS: I am recommending that we discontinue Cardizem. I believe Dr. Timmons did not wish to have any and beta blockers on board and therefore I will recommend we use verapamil 80 mg b.i.d. to see if this will help his SVT. Electrolytes are normal, but will repeat blood work, we will order a magnesium level also. Hopefully SVT will be controlled with verapamil and adequate oxygenation and electrolyte homeostasis. Thank you very much for the consult. DEEPAK / HONORION: [id number] /
[2017-05-07] MEDS ORDERED: FUROSEMIDE 10 MG/ML 2 ML VIAL IV ONE (11:24)
--- NOTE | 2017-05-07 11:30 | P.PN ---
Subjective Progress Note Date: 05/07/17 Patient is awake and following simple commands follows been weaned down, breathing synchronous with the ventilator. No requiring any IV pressors, patient normotensive has been tachycardiac apparently had some runs of SVT with heart rate up to 170s, cardiology was consulted and patient was started on Cardizem drip as switched to oral Cardizem and then to oral verapamil Patient had a bronchoscopy performed by Dr. Lynch, washings results pending. Runs of SVTs overnight Objective - Vital Signs Vital signs: Vital Signs Temp 98.4 F 05/07/17 08:00 Pulse 98 05/07/17 11:00 Resp 27 H 05/07/17 11:00 BP 140/87 05/07/17 11:00 Pulse Ox 90 L 05/07/17 11:00 Intake & Output 05/06/17 05/07/17 05/07/17 18:59 06:59 18:59 Intake Total 2960.28 2376.78 1393.000 Output Total 1210 1535 670 Balance 1750.28 841.78 723.000 Weight 82 kg 81.7 kg Intake: IV 1440 1350 615 0.9 Normal Saline for 30 15 Pressure bag Sodium Chloride 0.9% 1, 1440 1320 600 000 ml @ 120 mls/hr IV . Q8H20M [facility] Rx#:[id number] Intake, IV Titration 440.28 108.78 550.000 Amount Azithromycin 500 mg In 250 250 Sodium Chloride 0.9% 250 ml @ 125 mls/hr IVPB DAILY [facility] Rx#:[id number] Magnesium Sulfate-D5w Pmx 200 1 gm In Dextrose/Water 1 100ml.bag @ 100 mls/hr IVPB Q1H [facility] Rx#: [id number] Propofol 1,000 mg In 190.28 108.78 100.000 Empty Bag 1 bag @ Titrate IV .Q0M [facility] Rx#: [id number] Tube Feeding 990 858 198 Other 90 60 30 Output: Urine 1210 1535 670 Other: Voiding Method Indwelling Catheter Indwelling Catheter Indwelling Catheter ABP, PAP, CO, CI - Last Documented Arterial Blood Pressure 169/86 - Exam Constitutional: No acute distress, conversant, pleasant Eyes: Anicteric sclerae, moist conjunctiva, no lid-lag, PERRLA ENMT: NC/AT,Oropharynx clear, no erythema, exudates Neck:Supple, FROM, no masses, or JVD, No carotid bruits; No thyromegaly Lungs: Crackles in bilateral rhonchi noted right greater than left base, on ventilator with synchrony Cardiovascular: Heart regular in rate and rhythm, No murmurs, gallops, or rubs no peripheral edema Abdominal: Soft Nontender, nom distended, no guarding, no rebound or rigidity, Normoactive bowel sounds No hepatomegaly, No splenomegaly, No palpable mass No abdominal wall hernia noted Skin: Normal temperature, tone, texture, turgor, No induration No subcutaneous nodules, No rash, lesions, No ulcers Extremities:No digital cyanosis No clubbing, Pedal pulses intact and symmetrical Radial pulses intact and symmetrical Normal gait and station, No calf tenderness Neuro: Muscles Strength 5/5 in all 4 extremities, sedated but following simple commands - Labs CBC & Chem 7: 05/07/17 04:20 05/07/17 04:20 Labs: Abnormal Lab Results - Last 24 Hours (Table) 05/06/17 05/06/17 05/07/17 Range/Units 12:01 18:55 00:35 WBC (3.8-10.6) k/uL Plt Count (150-450) k/uL Neutrophils # (1.3-7.7) k/uL Lymphocytes # (1.0-4.8) k/uL ABG pCO2 (35-45) mmHg ABG HCO3 (21-25) mmol/L Chloride (98-107) mmol/L BUN (9-20) mg/dL Glucose (74-99) mg/dL POC Glucose (mg/dL) 127 H 127 H 115 H (75-99) mg/dL Total Bilirubin (0.2-1.3) mg/dL Total Protein (6.3-8.2) g/dL Albumin (3.5-5.0) g/dL 05/07/17 05/07/17 05/07/17 Range/Units 04:20 04:20 07:54 WBC 10.9 H (3.8-10.6) k/uL Plt Count 132 L (150-450) k/uL Neutrophils # 10.4 H (1.3-7.7) k/uL Lymphocytes # 0.2 L (1.0-4.8) k/uL ABG pCO2 (35-45) mmHg ABG HCO3 (21-25) mmol/L Chloride 109 H (98-107) mmol/L BUN 37 H (9-20) mg/dL Glucose 147 H (74-99) mg/dL POC Glucose (mg/dL) 116 H (75-99) mg/dL Total Bilirubin 0.1 L (0.2-1.3) mg/dL Total Protein 4.7 L (6.3-8.2) g/dL Albumin 2.4 L (3.5-5.0) g/dL 05/07/17 Range/Units 08:19 WBC (3.8-10.6) k/uL Plt Count (150-450) k/uL Neutrophils # (1.3-7.7) k/uL Lymphocytes # (1.0-4.8) k/uL ABG pCO2 49 H (35-45) mmHg ABG HCO3 28 H (21-25) mmol/L Chloride (98-107) mmol/L BUN (9-20) mg/dL Glucose (74-99) mg/dL POC Glucose (mg/dL) (75-99) mg/dL Total Bilirubin (0.2-1.3) mg/dL Total Protein (6.3-8.2) g/dL Albumin (3.5-5.0) g/dL Microbiology - Last 24 Hours (Table) 05/04/17 10:40 Gram Stain - Final Bronchial Washings - Right Bronchial Washings Culture - Final 05/04/17 10:40 Acid Fast Bacilli Smear - Final Bronchial Washings - Right Acid Fast Bacilli Culture - Preliminary 05/02/17 12:10 Blood Culture - Preliminary Blood No Growth after 96 hours Assessment and Plan (1) Acute on chronic respiratory failure with hypercapnia Narrative/Plan: * Currently ventilator dependent, pulmonary critical care doctor Aidar following patient sedated on propofol driip * ABG has improved patient no longer acidotic with hypercapnia resolving, patient pO2 84 on this am ABG continue current vent settings vt 550 FiO2 of 50% , PEEP of 5, rate of 20 * Secondary to HCAP and severe COPD exacerbation * We'll have weaning trial will hopefully be extubated today Current Visit: Yes Status: Acute Code(s): J96.22 - ACUTE AND CHRONIC RESPIRATORY FAILURE WITH HYPERCAPNIA SNOMED Code(s): 1085479049955 (2) Septic shock Narrative/Plan: * Septic shock, wean off pressor this am at 5am * Leukocytosis almost resolved, patient afebrile overnight * Blood cultures pending sputum culture growing Moraxella catarra * Triple antibiotic regimen resolved to Rocephin azithromycin Current Visit: Yes Status: Resolved Code(s): A41.9 - SEPSIS, UNSPECIFIED ORGANISM; R65.21 - SEVERE SEPSIS WITH SEPTIC SHOCK SNOMED Code(s): 83869644 (3) Acute exacerbation of chronic obstructive pulmonary disease (COPD) Narrative/Plan: * Continue with breathing treatments and systemic steroids Solu-Medrol * Continue with ventilator we'll attempt weaning tomorrow Current Visit: Yes Status: Acute Code(s): J44.1 - CHRONIC OBSTRUCTIVE PULMONARY DISEASE W (ACUTE) EXACERBATION SNOMED Code(s): 929400958 (4) Hypernatremia Current Visit: Yes Status: Resolved Code(s): E87.0 - HYPEROSMOLALITY AND HYPERNATREMIA SNOMED Code(s): 50790417 (5) HCAP (healthcare-associated pneumonia) Narrative/Plan: * Treatment as above Current Visit: Yes Status: Acute Code(s): J18.9 - PNEUMONIA, UNSPECIFIED ORGANISM SNOMED Code(s): 032446765 (6) Paroxysmal atrial fibrillation Narrative/Plan: * Currently in sinus rythym, runs of SVT overnight * Continue with Verapamil per cardiology recommendations * Echocardiogram showing normal ejection fraction 55-60% * cardiology consulted for furhter recommendations (avoid beta blockers severe COPD exacerbation) Current Visit: Yes Status: Resolved Code(s): I48.0 - PAROXYSMAL ATRIAL FIBRILLATION SNOMED Code(s): 944384461 (7) CO2 narcosis Narrative/Plan: * Resolved Current Visit: Yes Status: Resolved Code(s): R06.89 - OTHER ABNORMALITIES OF BREATHING SNOMED Code(s): 09059721 Plan: Patient still ventilated we'll continue current treatment with antibiotics and steroids, patient receiving enteral nutrition. We'll continue to monitor
--- NOTE | 2017-05-07 11:42 | P.PN ---
Subjective Progress Note Date: 05/07/17 Principal diagnosis: Acute hypoxic and hypercapnic respiratory failure secondary to Moraxella catarrhalis pneumonia Warren is a 66-year-old white male patient who presented to the emergency department on 05/02/2017 per EMS with dyspnea, fever and altered mental status. patient has a past medical history of oxygen dependent COPD, hypothyroidism, GERD/reflux, depression. Patient's spouse is not present at this time or at the time of arrival by ambulance. Most of the history was obtained from the ER physician, nursing staff and the chart. Patient usually goes for his care to the [facility] in [place], per nursing staff patient had been hospitalized there many times. Initially patient was alert and oriented , was given albuterol nebulized treatment and Solu-Medrol by EMS however during the transport patient became increasingly more obtunded. He was immediately placed on BiPAP on arrival to the ED. He was febrile presentation with a temp of 101.3 axillary, tachycardic with a heart rate of 140 BPM, tachypnea with respiratory rate of 28/m, and approximately make with O2 sat at 78% on 2 L. BiPAP support was initiated with pressures of 16/5, FiO2 of 50%. he was given nebulized treatments, was started on antibiotics Levaquin and vancomycin, he was given a liter of IV 0.9 normal saline fluid bolus. Blood urine and sputum culture were ordered and sent. chest x-ray showed extensive bibasilar infiltrates, with more extensive consolidation on the right extending to the mid lung level. There may be subtle early cavitation changes at the right lung base as well. Brain CT showed no acute intracranial abnormality. Venous blood gas on arrival showed pH of 7.25, pCO2 of 86, and bicarb of 36, primary respiratory acidosis with compensation. lab work was reviewed and showed leukocytosis with WBC of 15.3, hemoglobin 16.9 and hematocrit of 54, platelet count of 149, no coagulopathy, sodium 146, potassium is 4.2, carbon dioxide 37, anion gap is 9, B UN of 23, creatinine of 1.2. analysis was negative, urine drug screen was positive for marijuana, serum alcohol level was less than 10, and influenza screen was negative. In the emergency room patient became unresponsive to vigorous tactile stimuli, despite the BiPAP support. At that point the decision was made to intubate the patient and place him on mechanical ventilation. At the time of my evaluation, Dr. Almeida and the ER staff are getting ready to intubate the patient. There is no family around. Patient was reevaluated today in the ICU, this is on 05/03/2017. Patient remains on mechanical ventilation, tidal volume is 550, respiratory rate is 20, FiO2 is 50%, and PEEP is 5. ABG showed a pO2 of 85 pCO2 of 43 pH of 7.44. Continues to have leukocytosis with WBC count of 37.8, hemoglobin is 15.1. Basic metabolic profile is normal. Renal profile is improving with creatinine down to 1.09 from 1.2 yesterday. Sputum cultures are still pending, Gram stain is showing many polymorphonuclear leukocytes, few gram-positive cocci and few gram-negative bacilli. Patient remains sedated however on a lower dose of propofol, patient seems very appropriate following simple instructions. The propofol was not completely discontinued, but his mental status is appropriate enough, hence no need for MRI of the brain or scanning of the brain at this point. His mental status change upon presentation was most likely related to hypoxia and hypercapnia. Medications were all reviewed patient remains on broad -spectrum antibiotics including Levaquin and Zosyn and vancomycin is also on bronchodilators in the form of DuoNeb and is also on Solu-Medrol 60 IV push every 6. Overnight the patient required low-dose norepinephrine because of low blood pressure, and he received over 4 L of fluid boluses since admission. Which means the patient has clearly a picture of septic shock from his pneumonia. Today I have instructed the nurses to titrate the norepinephrine down and maintain a mean arterial pressure of above 65. Reevaluated today on 05/05/2017, patient remains on mechanical ventilation, tidal volume is 550 respiratory rate of 20 FiO2 50%, PEEP is 5. ABG showed a pO2 of 69 pCO2 of 46 pH of 7.37. Basic metabolic profile and renal profile were noted to be normal. CBC continues to show leukocytosis with WBC count of 14.9, otherwise unremarkable. Platelets are 1 24,000. Patient had leukocytosis a few days ago, and that seems to be improving. Cultures from the sputum came back positive for Branhamella catarrhalis, patient will be treated with Zithromax and Rocephin, no need for vancomycin, no need for Zosyn, and no need for Levaquin. On outpatient basis patient can be treated with either Augmentin or Zithromax. Chest x-ray this morning continues to show significant infiltrate in the right lower lobe, but seems to be slightly improved. And it is a limited infiltrate in the left lower lobe. Reevaluated today on 05/06/2017, patient remains on mechanical ventilation, tidal volume of 550 FiO2 of 50% PEEP of 5 and the rate of 20. ABG showed a pO2 of 70 CO2 of 49 pH of 7.37. CBC is normal. And his leukocytosis seems to have dramatically improved. Chest x-ray is showing improvement in his bilateral bibasilar infiltrates especially in the right lower lobe. Bronchial washing remains negative so far, however the sputum was positive for Moraxella catarrhalis. Patient is presently sedated, I will ask the nurses to have a sedation interruption, and assessment of mental status. However considering that his pO2 is still marginal on 50%, no plans to wean and extubate today, but that is to be considered probably in the next 24 hours. Patient was reevaluated today on 05/07/2017, remains on mechanical ventilation, ventilator settings were noted as above. ABG was noted, pO2 was 84 pCO2 of 49 pH of 7.38, CBC and basic metabolic profile were noted to be relatively normal. Patient is arousable, follows simple instructions, his supraventricular tachycardia is under control. Patient was weaned off propofol, weaning parameters were checked, switch to a pressure support and CPAP for over half an hour, and he was noted to do well, however his pO2 remains marginal on repeat ABG. Chest x-ray showed improvement in his infiltrates especially in the right lower lobe, and there is possibly a small right pleural effusion. After reviewing his chest x-ray, observe the patient on pressure support and CPAP, went ahead and recommended extubating the patient to a high flow nasal cannula. I also recommended giving him Lasix 20 mg IV push. Objective - Vital Signs Vital signs: Vital Signs Temp 98.4 F 05/07/17 08:00 Pulse 98 05/07/17 11:00 Resp 27 H 05/07/17 11:00 BP 140/87 05/07/17 11:00 Pulse Ox 90 L 05/07/17 11:00 Intake & Output 05/06/17 05/07/17 05/07/17 18:59 06:59 18:59 Intake Total 2960.28 2376.78 1393.000 Output Total 1210 1535 670 Balance 1750.28 841.78 723.000 Weight 82 kg 81.7 kg Intake: IV 1440 1350 615 0.9 Normal Saline for 30 15 Pressure bag Sodium Chloride 0.9% 1, 1440 1320 600 000 ml @ 120 mls/hr IV . Q8H20M [facility] Rx#:[id number] Intake, IV Titration 440.28 108.78 550.000 Amount Azithromycin 500 mg In 250 250 Sodium Chloride 0.9% 250 ml @ 125 mls/hr IVPB DAILY [facility] Rx#:[id number] Magnesium Sulfate-D5w Pmx 200 1 gm In Dextrose/Water 1 100ml.bag @ 100 mls/hr IVPB Q1H [facility] Rx#: [id number] Propofol 1,000 mg In 190.28 108.78 100.000 Empty Bag 1 bag @ Titrate IV .Q0M [facility] Rx#: [id number] Tube Feeding 990 858 198 Other 90 60 30 Output: Urine 1210 1535 670 Other: Voiding Method Indwelling Catheter Indwelling Catheter Indwelling Catheter ABP, PAP, CO, CI - Last Documented Arterial Blood Pressure 169/86 - Exam Physical Exam: Revealed a 66-year-old white male, looks frail, older than his stated age, on mechanical ventilation. HEENT:[Neck is supple.] [No neck masses.] [No thyromegaly.] [No JVD.] PERRLA, EOMI, endotracheal tube is intact. Normal moist mucous membranes noted. Chest: [Crackles and rhonchi bilaterally noted. Mostly at the right base.] Cardiac Exam: [Normal S1 and S2, no S3 gallop, no murmur.] Abdomen: [Soft, nontender, no megaly, no rebound, no guarding, normal bowel sounds.] Extremities: [No clubbing, no edema, no cyanosis.] Neurological Exam: No focal neurologic deficit Lymphatics: No lymphadenopathy Psychiatric: Normal mood affect cannot fully assess mental status examination. - Labs CBC & Chem 7: 05/07/17 04:20 05/07/17 04:20 Labs: Abnormal Lab Results - Last 24 Hours (Table) 05/06/17 05/06/17 05/07/17 Range/Units 12:01 18:55 00:35 WBC (3.8-10.6) k/uL Plt Count (150-450) k/uL Neutrophils # (1.3-7.7) k/uL Lymphocytes # (1.0-4.8) k/uL ABG pCO2 (35-45) mmHg ABG HCO3 (21-25) mmol/L Chloride (98-107) mmol/L BUN (9-20) mg/dL Glucose (74-99) mg/dL POC Glucose (mg/dL) 127 H 127 H 115 H (75-99) mg/dL Total Bilirubin (0.2-1.3) mg/dL Total Protein (6.3-8.2) g/dL Albumin (3.5-5.0) g/dL 05/07/17 05/07/17 05/07/17 Range/Units 04:20 04:20 07:54 WBC 10.9 H (3.8-10.6) k/uL Plt Count 132 L (150-450) k/uL Neutrophils # 10.4 H (1.3-7.7) k/uL Lymphocytes # 0.2 L (1.0-4.8) k/uL ABG pCO2 (35-45) mmHg ABG HCO3 (21-25) mmol/L Chloride 109 H (98-107) mmol/L BUN 37 H (9-20) mg/dL Glucose 147 H (74-99) mg/dL POC Glucose (mg/dL) 116 H (75-99) mg/dL Total Bilirubin 0.1 L (0.2-1.3) mg/dL Total Protein 4.7 L (6.3-8.2) g/dL Albumin 2.4 L (3.5-5.0) g/dL 05/07/17 Range/Units 08:19 WBC (3.8-10.6) k/uL Plt Count (150-450) k/uL Neutrophils # (1.3-7.7) k/uL Lymphocytes # (1.0-4.8) k/uL ABG pCO2 49 H (35-45) mmHg ABG HCO3 28 H (21-25) mmol/L Chloride (98-107) mmol/L BUN (9-20) mg/dL Glucose (74-99) mg/dL POC Glucose (mg/dL) (75-99) mg/dL Total Bilirubin (0.2-1.3) mg/dL Total Protein (6.3-8.2) g/dL Albumin (3.5-5.0) g/dL Microbiology - Last 24 Hours (Table) 05/04/17 10:40 Gram Stain - Final Bronchial Washings - Right Bronchial Washings Culture - Final 05/04/17 10:40 Acid Fast Bacilli Smear - Final Bronchial Washings - Right Acid Fast Bacilli Culture - Preliminary 05/02/17 12:10 Blood Culture - Preliminary Blood No Growth after 96 hours Assessment and Plan Assessment: #1. Acute on chronic hypoxic and hypercapnic respiratory failure secondary to extensive bibasilar infiltrates, pneumonia secondary to Moraxella catarrhalis. #2. Acute septic shock secondary to the above, on presentation there is leukocytosis, febrile illness, altered mental status, tachycardia, hypotension, required fluid boluses and required norepinephrine overnight. On 05/02/2017, patient is not requiring any pressors, and he is on maintenance IV fluids and maintenance nutritional support. #3. Advanced oxygen dependent COPD, exact severity of which is unknown at this time #4. Recent admission at [facility] #4. Nicotine dependence #5. GERD/reflux #6. Depression #7 paroxysmal atrial fibrillation and supraventricular tachycardia, patient was seen by cardiology on consultation, and he is now on verapamil. Recommendation: Patient was extubated to a high flow nasal cannula, we will continue antibiotics, continue steroids, bronchodilators, GI and DVT prophylaxis , may even have to placed on BiPAP if necessary. However if the patient fails may have to be reintubated. At this point the patient seems to be tolerating the extubation well. Follow-up chest x-ray in a.m., patient has a small right- sided pleural effusion, not large enough to consider thoracentesis at this point. Critical care time is 40 minutes. Time with Patient: Greater than 30
[2017-05-07 12:09] LABS: Glucose,Whole Blood 97 mg/dL (75-99)
[2017-05-07 12:11] LABS: ABG Base Excess 3.2 mmol/L; ABG HCO3 27 mmol/L (21-25); ABG PCO2 46 mmHg (35-45); ABG PH 7.39 (7.35-7.45); ABG PO2 73 mmHg (83-108)
[2017-05-07 18:10] LABS: Glucose,Whole Blood 98 mg/dL (75-99)
[2017-05-07] MEDS ORDERED: IPRATROPIUM-ALBUTEROL 3 ML NEB INHALATION PRN (19:50)
--- NOTE | 2017-05-07 21:11 | PN ---
PROGRESS NOTE Mr. Warren Dougherty is still on a ventilator. He had 1 or 2 brief runs of PAD lasting less than a minute. He seems to be more stable. Extubation is being considered. Blood pressure is 140/70, pulse rate is 70 per minute, sinus. S1, S2 heard normally short systolic murmur noted. Lungs reveal fairly decent air entry. I am recommending that I will increase the verapamil to 80 mg t.i.d. for the SVT and see how he does. Electrolytes are good and magnesium is being replaced. MMODL / IJN: [id number] /
[2017-05-07 23:36] LABS: Glucose,Whole Blood 96 mg/dL (75-99)
[2017-05-08] MEDS: SODIUM CHLORIDE 0.9% 1,000 ML IV SCH ×2 (02:20→16:35)
[2017-05-08] MEDS: INSULIN ASPART 100 UNIT/ML 1 ML 10 ML VIAL SQ SCH ×6 (02:53→20:56)
[2017-05-08 04:54] LABS: Glucose,Whole Blood 89 mg/dL (75-99)
[2017-05-08 05:10] LABS: Basophils % (A) 0 %; Eosinophils # (A) 0.1 k/uL (0-0.7); Eosinophils % (A) 1 %; HCT 46.1 % (39.0-53.0); HGB 14.3 gm/dL (13.0-17.5); Lymphocytes # (A) 0.3 k/uL (1.0-4.8); Lymphocytes % (A) 2 %; MCH 30.3 pg (25.0-35.0); MCV 97.8 fL (80.0-100.0); Mean Platelet Volume 8.8; Monocytes # (A) 0.4 k/uL (0-1.0); Monocytes % (A) 3 %; Neutrophils # (A) 11.6 k/uL (1.3-7.7); Neutrophils % (A) 94 %; Platelet Count 129 k/uL (150-450); RBC 4.72 m/uL (4.30-5.90); RDW 14.7 % (11.5-15.5); WBC 12.4 k/uL (3.8-10.6)
[2017-05-08 05:32] LABS: ALT 58 U/L (21-72); AST 27 U/L (17-59); Albumin 2.5 g/dL (3.5-5.0); Alkaline Phosphatase 45 U/L (38-126); Anion Gap 4 mmol/L; Blood Urea Nitrogen 38 mg/dL (9-20); Calcium 8.2 mg/dL (8.4-10.2); Carbon Dioxide 33 mmol/L (22-30); Chloride 104 mmol/L (98-107); Glucose 103 mg/dL (74-99); Phosphorus 3.7 mg/dL (2.5-4.5); Potassium 4.1 mmol/L (3.5-5.1); Sodium 141 mmol/L (137-145); Total Bilirubin 0.2 mg/dL (0.2-1.3); Total Protein 4.8 g/dL (6.3-8.2)
[2017-05-08] MEDS: methylPREDNISolone SOD SUCCI 125 MG/2 ML VIAL IV SCH ×3 (06:00→19:01)
[2017-05-08 06:04] LABS: Glucose,Whole Blood 86 mg/dL (75-99)
[2017-05-08 07:21] LABS: Glucose,Whole Blood 88 mg/dL (75-99)
[2017-05-08] MEDS: IPRATROPIUM-ALBUTEROL 3 ML NEB INHALATION SCH ×4 (07:45→19:21)
--- NOTE | 2017-05-08 08:13 | XR ---
EXAMINATION TYPE: XR chest 1V portable DATE OF EXAM: 05/08/2017 COMPARISON: Prior chest x-ray 05/07/2017 HISTORY: Extubated, abnormal chest x-ray TECHNIQUE: Single frontal view of the chest is obtained. FINDINGS: There is been interval removal of the endotracheal tube and NG tube. There is obscured rig ht hemidiaphragm and right heart border. No evident pneumothorax. Patient is rotated and there are ov erlying cardiac leads. Heart is likely stable. There is some blunting of the left costophrenic angle. IMPRESSION: Findings to suggest lower lobe atelectasis and possible associated effusion. Follow-up r ecommended.
[2017-05-08] MEDS: cefTRIAXone IN SWFI 1,000 MG/10 ML SYRINGE IVP SCH (08:15)
[2017-05-08] MEDS: VERAPAMIL 80 MG TAB PO SCH ×3 (08:15→21:09)
[2017-05-08] MEDS: AZITHROMYCIN 500 MG in SODIUM CHLORIDE 0.9% 250 ML IVPB SCH (08:16)
[2017-05-08] MEDS: ENOXAPARIN 60 MG/0.6 ML SYRINGE SQ SCH ×2 (08:16→20:07)
[2017-05-08] MEDS: PANTOPRAZOLE 40 MG/10 ML VIAL IVP SCH (08:16)
--- NOTE | 2017-05-08 10:14 | P.PN ---
Subjective Progress Note Date: 05/08/17 Principal diagnosis: SVT This is a pleasant 66-year-old gentleman who was admitted to the hospital with acute on chronic respiratory failure secondary to COPD exacerbation. The patient was intubated and then he was extubated yesterday. We get involved in the care of the patient because he had an episode of SVT. The patient was started on for abnormal and the dose was increased yesterday. Since then, the patient has been maintaining normal sinus mechanism. I'll follow-up with him today, he denies having any chest pain or chest discomfort but he continues to have dyspnea. Hemodynamically he has been stable. He underwent an echocardiogram which revealed normal LV function with mild valvular abnormalities. Objective - Vital Signs Vital signs: Vital Signs Temp 98.5 F 05/08/17 00:00 Pulse 73 05/08/17 07:55 Resp 24 05/08/17 07:00 BP 137/84 05/08/17 07:00 Pulse Ox 94 L 05/08/17 07:00 Intake & Output 05/07/17 05/08/17 05/08/17 18:59 06:59 18:59 Intake Total 3403.458 0006 78 Output Total 2370 1650 75 Balance -431.000 -614 3 Weight 81.7 kg 81.7 kg Intake: IV 1161 936 78 0.9 Normal Saline for 36 36 3 Pressure bag Sodium Chloride 0.9% 1, 1125 900 75 000 ml @ 75 mls/hr IV . [id number] [facility] Rx#:[id number] Intake, IV Titration 550.000 Amount Azithromycin 500 mg In 250 Sodium Chloride 0.9% 250 ml @ 125 mls/hr IVPB DAILY [facility] Rx#:[id number] Magnesium Sulfate-D5w Pmx 200 1 gm In Dextrose/Water 1 100ml.bag @ 100 mls/hr IVPB Q1H [facility] Rx#: [id number] Propofol 1,000 mg In 100.000 Empty Bag 1 bag @ Titrate IV .Q0M [facility] Rx#: [id number] Tube Feeding 198 100 Other 30 Output: Urine 2370 1650 75 Other: Voiding Method Indwelling Catheter Indwelling Catheter # Bowel Movements 2 ABP, PAP, CO, CI - Last Documented Arterial Blood Pressure 152/79 - Constitutional General appearance: Present: no acute distress - Respiratory Respiratory: bilateral: diminished - Cardiovascular Rhythm: regular Heart sounds: normal: S1, S2 - Labs CBC & Chem 7: 05/08/17 04:50 05/08/17 04:50 Labs: Abnormal Lab Results - Last 24 Hours (Table) 05/07/17 05/08/17 05/08/17 Range/Units 11:09 04:50 04:50 WBC 12.4 H (3.8-10.6) k/uL Plt Count 129 L (150-450) k/uL Neutrophils # 11.6 H (1.3-7.7) k/uL Lymphocytes # 0.3 L (1.0-4.8) k/uL ABG pCO2 46 H (35-45) mmHg ABG pO2 73 L (83-108) mmHg ABG HCO3 27 H (21-25) mmol/L Carbon Dioxide 33 H (22-30) mmol/L BUN 38 H (9-20) mg/dL Glucose 103 H (74-99) mg/dL Calcium 8.2 L (8.4-10.2) mg/dL Total Protein 4.8 L (6.3-8.2) g/dL Albumin 2.5 L (3.5-5.0) g/dL Microbiology - Last 24 Hours (Table) 05/02/17 12:10 Blood Culture - Preliminary Blood No Growth after 120 hours 05/04/17 10:40 Gram Stain - Final Bronchial Washings - Right Bronchial Washings Culture - Final Assessment and Plan Assessment: Assessment #1 acute on chronic respiratory failure which has resolved #2 cardiac arrhythmia in the term office VT Plan #1 continue the current dose of verapamil by mouth #2 no need for any further cardiac workup at this point
[2017-05-08] MEDS: BUDESONIDE 1 MG/2 ML NEBU INHALATION SCH ×2 (10:21→19:21)
[2017-05-08] MEDS: FORMOTEROL FUMARATE 20 MCG/2 ML NEBU INHALATION SCH ×2 (10:21→19:21)
--- NOTE | 2017-05-08 10:29 | P.PN ---
Subjective Progress Note Date: 05/08/17 Principal diagnosis: Acute hypoxic and hypercapnic respiratory failure secondary to Moraxella catarrhalis pneumonia Warren is a 66-year-old white male patient who presented to the emergency department on 05/02/2017 per EMS with dyspnea, fever and altered mental status. patient has a past medical history of oxygen dependent COPD, hypothyroidism, GERD/reflux, depression. Patient's spouse is not present at this time or at the time of arrival by ambulance. Most of the history was obtained from the ER physician, nursing staff and the chart. Patient usually goes for his care to the [facility] in [place], per nursing staff patient had been hospitalized there many times. Initially patient was alert and oriented , was given albuterol nebulized treatment and Solu-Medrol by EMS however during the transport patient became increasingly more obtunded. He was immediately placed on BiPAP on arrival to the ED. He was febrile presentation with a temp of 101.3 axillary, tachycardic with a heart rate of 140 BPM, tachypnea with respiratory rate of 28/m, and approximately make with O2 sat at 78% on 2 L. BiPAP support was initiated with pressures of 16/5, FiO2 of 50%. he was given nebulized treatments, was started on antibiotics Levaquin and vancomycin, he was given a liter of IV 0.9 normal saline fluid bolus. Blood urine and sputum culture were ordered and sent. chest x-ray showed extensive bibasilar infiltrates, with more extensive consolidation on the right extending to the mid lung level. There may be subtle early cavitation changes at the right lung base as well. Brain CT showed no acute intracranial abnormality. Venous blood gas on arrival showed pH of 7.25, pCO2 of 86, and bicarb of 36, primary respiratory acidosis with compensation. lab work was reviewed and showed leukocytosis with WBC of 15.3, hemoglobin 16.9 and hematocrit of 54, platelet count of 149, no coagulopathy, sodium 146, potassium is 4.2, carbon dioxide 37, anion gap is 9, B UN of 23, creatinine of 1.2. analysis was negative, urine drug screen was positive for marijuana, serum alcohol level was less than 10, and influenza screen was negative. In the emergency room patient became unresponsive to vigorous tactile stimuli, despite the BiPAP support. At that point the decision was made to intubate the patient and place him on mechanical ventilation. At the time of my evaluation, Dr. Almeida and the ER staff are getting ready to intubate the patient. There is no family around. Patient was reevaluated today in the ICU, this is on 05/03/2017. Patient remains on mechanical ventilation, tidal volume is 550, respiratory rate is 20, FiO2 is 50%, and PEEP is 5. ABG showed a pO2 of 85 pCO2 of 43 pH of 7.44. Continues to have leukocytosis with WBC count of 37.8, hemoglobin is 15.1. Basic metabolic profile is normal. Renal profile is improving with creatinine down to 1.09 from 1.2 yesterday. Sputum cultures are still pending, Gram stain is showing many polymorphonuclear leukocytes, few gram-positive cocci and few gram-negative bacilli. Patient remains sedated however on a lower dose of propofol, patient seems very appropriate following simple instructions. The propofol was not completely discontinued, but his mental status is appropriate enough, hence no need for MRI of the brain or scanning of the brain at this point. His mental status change upon presentation was most likely related to hypoxia and hypercapnia. Medications were all reviewed patient remains on broad -spectrum antibiotics including Levaquin and Zosyn and vancomycin is also on bronchodilators in the form of DuoNeb and is also on Solu-Medrol 60 IV push every 6. Overnight the patient required low-dose norepinephrine because of low blood pressure, and he received over 4 L of fluid boluses since admission. Which means the patient has clearly a picture of septic shock from his pneumonia. Today I have instructed the nurses to titrate the norepinephrine down and maintain a mean arterial pressure of above 65. Reevaluated today on 05/05/2017, patient remains on mechanical ventilation, tidal volume is 550 respiratory rate of 20 FiO2 50%, PEEP is 5. ABG showed a pO2 of 69 pCO2 of 46 pH of 7.37. Basic metabolic profile and renal profile were noted to be normal. CBC continues to show leukocytosis with WBC count of 14.9, otherwise unremarkable. Platelets are 1 24,000. Patient had leukocytosis a few days ago, and that seems to be improving. Cultures from the sputum came back positive for Branhamella catarrhalis, patient will be treated with Zithromax and Rocephin, no need for vancomycin, no need for Zosyn, and no need for Levaquin. On outpatient basis patient can be treated with either Augmentin or Zithromax. Chest x-ray this morning continues to show significant infiltrate in the right lower lobe, but seems to be slightly improved. And it is a limited infiltrate in the left lower lobe. Reevaluated today on 05/06/2017, patient remains on mechanical ventilation, tidal volume of 550 FiO2 of 50% PEEP of 5 and the rate of 20. ABG showed a pO2 of 70 CO2 of 49 pH of 7.37. CBC is normal. And his leukocytosis seems to have dramatically improved. Chest x-ray is showing improvement in his bilateral bibasilar infiltrates especially in the right lower lobe. Bronchial washing remains negative so far, however the sputum was positive for Moraxella catarrhalis. Patient is presently sedated, I will ask the nurses to have a sedation interruption, and assessment of mental status. However considering that his pO2 is still marginal on 50%, no plans to wean and extubate today, but that is to be considered probably in the next 24 hours. Patient was reevaluated today on 05/07/2017, remains on mechanical ventilation, ventilator settings were noted as above. ABG was noted, pO2 was 84 pCO2 of 49 pH of 7.38, CBC and basic metabolic profile were noted to be relatively normal. Patient is arousable, follows simple instructions, his supraventricular tachycardia is under control. Patient was weaned off propofol, weaning parameters were checked, switch to a pressure support and CPAP for over half an hour, and he was noted to do well, however his pO2 remains marginal on repeat ABG. Chest x-ray showed improvement in his infiltrates especially in the right lower lobe, and there is possibly a small right pleural effusion. After reviewing his chest x-ray, observe the patient on pressure support and CPAP, went ahead and recommended extubating the patient to a high flow nasal cannula. I also recommended giving him Lasix 20 mg IV push. She was seen again today 05/08/2017 in follow-up in the intensive care unit. He was successfully extubated to AirVo 60 L at 80% FiO2. He is maintaining O2 saturations in the 90s. He has been hemodynamically stable. He is awake and alert in no acute distress. His chest x-ray continues to show some right lower lobe atelectasis/infiltrate. His sputum was positive for Moraxella catarrhalis. Bronchial washings from 05/04/2017 were negative. White count 12.4. He has been on Rocephin and azithromycin. Objective - Vital Signs Vital signs: Vital Signs Temp 98.5 F 05/08/17 00:00 Pulse 73 05/08/17 07:55 Resp 24 05/08/17 07:00 BP 137/84 05/08/17 07:00 Pulse Ox 94 L 05/08/17 07:00 Intake & Output 05/07/17 05/08/17 05/08/17 18:59 06:59 18:59 Intake Total 7587.923 0295 78 Output Total 2370 1650 75 Balance -431.000 -614 3 Weight 81.7 kg 81.7 kg Intake: IV 1161 936 78 0.9 Normal Saline for 36 36 3 Pressure bag Sodium Chloride 0.9% 1, 1125 900 75 000 ml @ 75 mls/hr IV . [id number] [facility] Rx#:[id number] Intake, IV Titration 550.000 Amount Azithromycin 500 mg In 250 Sodium Chloride 0.9% 250 ml @ 125 mls/hr IVPB DAILY [facility] Rx#:[id number] Magnesium Sulfate-D5w Pmx 200 1 gm In Dextrose/Water 1 100ml.bag @ 100 mls/hr IVPB Q1H [facility] Rx#: [id number] Propofol 1,000 mg In 100.000 Empty Bag 1 bag @ Titrate IV .Q0M [facility] Rx#: [id number] Tube Feeding 198 100 Other 30 Output: Urine 2370 1650 75 Other: Voiding Method Indwelling Catheter Indwelling Catheter # Bowel Movements 2 ABP, PAP, CO, CI - Last Documented Arterial Blood Pressure 152/79 - Exam GENERAL EXAM: Alert, comfortable in no apparent distress. HEAD: Normocephalic. EYES: Normal reaction of pupils, equal size. NOSE: Clear with pink turbinates. THROAT: No erythema or exudates. NECK: No masses, no JVD. CHEST: No chest wall deformity. LUNGS: Equal air entry with end expiratory wheezing bilaterally, crackles in the right posterior base. CVS: S1 and S2 normal with no audible murmur, regular rhythm. ABDOMEN: No hepatosplenomegaly, normal bowel sounds, no guarding or rigidity. SPINE: No scoliosis or deformity SKIN: No rashes CENTRAL NERVOUS SYSTEM: No focal deficits, tone is normal in all 4 extremities. EXTREMITIES: There is no peripheral edema. No clubbing, no cyanosis. Peripheral pulses are intact. - Labs CBC & Chem 7: 05/08/17 04:50 05/08/17 04:50 Labs: Abnormal Lab Results - Last 24 Hours (Table) 05/07/17 05/08/17 05/08/17 Range/Units 11:09 04:50 04:50 WBC 12.4 H (3.8-10.6) k/uL Plt Count 129 L (150-450) k/uL Neutrophils # 11.6 H (1.3-7.7) k/uL Lymphocytes # 0.3 L (1.0-4.8) k/uL ABG pCO2 46 H (35-45) mmHg ABG pO2 73 L (83-108) mmHg ABG HCO3 27 H (21-25) mmol/L Carbon Dioxide 33 H (22-30) mmol/L BUN 38 H (9-20) mg/dL Glucose 103 H (74-99) mg/dL Calcium 8.2 L (8.4-10.2) mg/dL Total Protein 4.8 L (6.3-8.2) g/dL Albumin 2.5 L (3.5-5.0) g/dL Microbiology - Last 24 Hours (Table) 05/02/17 12:10 Blood Culture - Preliminary Blood No Growth after 120 hours 05/04/17 10:40 Gram Stain - Final Bronchial Washings - Right Bronchial Washings Culture - Final Assessment and Plan Assessment: Impression: #1. Acute on chronic hypoxic and hypercapnic respiratory failure secondary to extensive bibasilar infiltrates, pneumonia secondary to Moraxella catarrhalis. #2. Acute septic shock secondary to the above, on presentation there is leukocytosis, febrile illness, altered mental status, tachycardia, hypotension, required fluid boluses and required norepinephrine overnight. On 05/02/2017, patient is not requiring any pressors, and he is on maintenance IV fluids and maintenance nutritional support. #3. Advanced oxygen dependent COPD, exact severity of which is unknown at this time #4. Recent admission at [facility] #4. Nicotine dependence #5. GERD/reflux #6. Depression #7. Paroxysmal atrial fibrillation and supraventricular tachycardia, patient was seen by cardiology on consultation, and he is now on verapamil. Plan: The patient was seen and evaluated by Dr. Khan. His chest x-ray and labs were reviewed. We'll go ahead and switch him from the AirVo to the BiPAP machine 12/ 5 in titrate FiO2 to maintain O2 saturations greater than 93%. We'll de- escalate his antibiotics and discontinue the azithromycin. Continue Rocephin only. We'll add chest physiotherapy by respiratory therapy. We'll continue to encourage increased use of the incentive spirometer and cough and deep breathing exercises when off the BiPAP. We'll monitor him closely here in the intensive care unit another 24 hours. We will continue to follow and make further recommendations based on his clinical status. I, the cosigning physician, have performed a history and physical examination on the patient. Lung sounds have bilateral end expiratory wheeze, crackles in the right posterior base.. Maintaining good O2 saturations in the 90s on BiPap 12/5 initially at 60%. I have discussed the assessment and plan of care with my nurse practitioner, Eryn Guillen. I attest the above documented note as dictated by her. Time with Patient: Greater than 30
--- NOTE | 2017-05-08 10:55 | P.PN ---
Subjective Progress Note Date: 05/08/17 Patient extubated yesterday and was transitioned to AirVo 60 L at 80% FiO2 , patient conversive asking when he can go home, does appear to be breathing labored on AirVo but maintaining normal sats. Patient afebrile leukocytosis, No runs of SVT overnight on current dosage of verapamil Objective - Vital Signs Vital signs: Vital Signs Temp 98.7 F 05/08/17 08:00 Pulse 73 05/08/17 10:00 Resp 25 H 05/08/17 10:00 BP 141/87 05/08/17 10:00 Pulse Ox 95 05/08/17 10:00 Intake & Output 05/07/17 05/08/17 05/08/17 18:59 06:59 18:59 Intake Total 6896.458 5763 682 Output Total 2370 1650 275 Balance -431.000 -614 407 Weight 81.7 kg 81.4 kg Intake: IV 1161 936 312 0.9 Normal Saline for 36 36 12 Pressure bag Sodium Chloride 0.9% 1, 1125 900 300 000 ml @ 75 mls/hr IV . [id number] [facility] Rx#:[id number] Intake, IV Titration 550.000 250 Amount Azithromycin 500 mg In 250 250 Sodium Chloride 0.9% 250 ml @ 125 mls/hr IVPB DAILY [facility] Rx#:[id number] Magnesium Sulfate-D5w Pmx 200 1 gm In Dextrose/Water 1 100ml.bag @ 100 mls/hr IVPB Q1H [facility] Rx#: [id number] Propofol 1,000 mg In 100.000 Empty Bag 1 bag @ Titrate IV .Q0M [facility] Rx#: [id number] Oral 120 Tube Feeding 198 100 Other 30 Output: Urine 2370 1650 275 Other: Voiding Method Indwelling Catheter Indwelling Catheter Indwelling Catheter # Bowel Movements 2 ABP, PAP, CO, CI - Last Documented Arterial Blood Pressure 143/76 - Exam Constitutional: Respiratory labored on airVo, conversant, pleasant Eyes: Anicteric sclerae, moist conjunctiva, no lid-lag, PERRLA ENMT: NC/AT,Oropharynx clear, no erythema, exudates Neck:Supple, FROM, no masses, or JVD, No carotid bruits; No thyromegaly Lungs: Crackles in bilateral rhonchi noted right greater than left base, expiratory wheezes diffusely, breathing labored and tachypneic Cardiovascular: Heart regular in rate and rhythm, No murmurs, gallops, or rubs no peripheral edema Abdominal: Soft Nontender, nom distended, no guarding, no rebound or rigidity, Normoactive bowel sounds No hepatomegaly, No splenomegaly, No palpable mass No abdominal wall hernia noted Skin: Normal temperature, tone, texture, turgor, No induration No subcutaneous nodules, No rash, lesions, No ulcers Extremities:No digital cyanosis No clubbing, Pedal pulses intact and symmetrical Radial pulses intact and symmetrical Normal gait and station, No calf tenderness Neuro: Muscles Strength 5/5 in all 4 extremities, sedated but following simple commands - Labs CBC & Chem 7: 05/08/17 04:50 05/08/17 04:50 Labs: Abnormal Lab Results - Last 24 Hours (Table) 05/07/17 05/08/17 05/08/17 Range/Units 11:09 04:50 04:50 WBC 12.4 H (3.8-10.6) k/uL Plt Count 129 L (150-450) k/uL Neutrophils # 11.6 H (1.3-7.7) k/uL Lymphocytes # 0.3 L (1.0-4.8) k/uL ABG pCO2 46 H (35-45) mmHg ABG pO2 73 L (83-108) mmHg ABG HCO3 27 H (21-25) mmol/L Carbon Dioxide 33 H (22-30) mmol/L BUN 38 H (9-20) mg/dL Glucose 103 H (74-99) mg/dL Calcium 8.2 L (8.4-10.2) mg/dL Total Protein 4.8 L (6.3-8.2) g/dL Albumin 2.5 L (3.5-5.0) g/dL Microbiology - Last 24 Hours (Table) 05/02/17 12:10 Blood Culture - Preliminary Blood No Growth after 120 hours 05/04/17 10:40 Gram Stain - Final Bronchial Washings - Right Bronchial Washings Culture - Final Assessment and Plan (1) Acute on chronic respiratory failure with hypercapnia Narrative/Plan: * pulmonary critical care doctor Aidar * Patient extubated yesterday and transition to AirVo 60 L at 80% FiO2 * Secondary to Moraxella catarrh pneumonia and severe COPD exacerbation Current Visit: Yes Status: Acute Code(s): J96.22 - ACUTE AND CHRONIC RESPIRATORY FAILURE WITH HYPERCAPNIA SNOMED Code(s): 6943296244955 (2) Septic shock Narrative/Plan: * Septic shock, wean off pressor this am at 5am * Leukocytosis almost resolved, patient afebrile overnight * Blood cultures pending sputum culture growing Moraxella catarra * Triple antibiotic regimen resolved to Rocephin azithromycin Current Visit: Yes Status: Resolved Code(s): A41.9 - SEPSIS, UNSPECIFIED ORGANISM; R65.21 - SEVERE SEPSIS WITH SEPTIC SHOCK SNOMED Code(s): 60801765 (3) Acute exacerbation of chronic obstructive pulmonary disease (COPD) Narrative/Plan: * Continue with breathing treatments and systemic steroids Solu-Medrol and current antibiotic regimen * Continue with AirVo 60 L at 80% FiO2 Current Visit: Yes Status: Acute Code(s): J44.1 - CHRONIC OBSTRUCTIVE PULMONARY DISEASE W (ACUTE) EXACERBATION SNOMED Code(s): 442021335 (4) Hypernatremia Current Visit: Yes Status: Resolved Code(s): E87.0 - HYPEROSMOLALITY AND HYPERNATREMIA SNOMED Code(s): 88601563 (5) HCAP (healthcare-associated pneumonia) Narrative/Plan: * Moraxella catarrh pneumonia * Treatment as above with Rocephin and azithromycin Current Visit: Yes Status: Acute Code(s): J18.9 - PNEUMONIA, UNSPECIFIED ORGANISM SNOMED Code(s): 072570887 (6) Paroxysmal atrial fibrillation Narrative/Plan: * Currently in sinus rythym * Continue with Verapamil per cardiology recommendations * Echocardiogram showing normal ejection fraction 55-60% * cardiology consulted for lizetter recommendations (avoid beta blockers severe COPD exacerbation) Current Visit: Yes Status: Resolved Code(s): I48.0 - PAROXYSMAL ATRIAL FIBRILLATION SNOMED Code(s): 459845812 (7) CO2 narcosis Current Visit: Yes Status: Resolved Code(s): R06.89 - OTHER ABNORMALITIES OF BREATHING SNOMED Code(s): 91710849
[2017-05-08 12:07] LABS: Glucose,Whole Blood 82 mg/dL (75-99)
[2017-05-08 12:47] LABS: Hemoglobin A1C 5.3 % (4.0-6.0)
[2017-05-08 16:39] LABS: Glucose,Whole Blood 94 mg/dL (75-99)
[2017-05-08 20:34] LABS: Glucose,Whole Blood 91 mg/dL (75-99)
[2017-05-09] MEDS: methylPREDNISolone SOD SUCCI 125 MG/2 ML VIAL IV SCH ×5 (00:01→23:30)
[2017-05-09] MEDS: SODIUM CHLORIDE 0.9% 1,000 ML IV SCH ×2 (00:03→17:06)
[2017-05-09 04:22] LABS: Basophils % (A) 0 %; Eosinophils # (A) 0.1 k/uL (0-0.7); Eosinophils % (A) 1 %; HCT 46.3 % (39.0-53.0); HGB 14.3 gm/dL (13.0-17.5); Lymphocytes # (A) 0.2 k/uL (1.0-4.8); Lymphocytes % (A) 2 %; MCH 30.4 pg (25.0-35.0); MCHC 30.9 g/dL (31.0-37.0); MCV 98.3 fL (80.0-100.0); Mean Platelet Volume 8.4; Monocytes # (A) 0.3 k/uL (0-1.0); Monocytes % (A) 3 %; Neutrophils # (A) 9.8 k/uL (1.3-7.7); Neutrophils % (A) 95 %; Platelet Count 137 k/uL (150-450); RBC 4.71 m/uL (4.30-5.90); RDW 15.2 % (11.5-15.5); WBC 10.3 k/uL (3.8-10.6)
[2017-05-09 04:32] LABS: ALT 104 U/L (21-72); AST 42 U/L (17-59); Albumin 2.6 g/dL (3.5-5.0); Alkaline Phosphatase 48 U/L (38-126); Anion Gap 1 mmol/L; Blood Urea Nitrogen 39 mg/dL (9-20); Calcium 8.6 mg/dL (8.4-10.2); Carbon Dioxide 31 mmol/L (22-30); Chloride 105 mmol/L (98-107); Glucose 121 mg/dL (74-99); Magnesium 1.9 mg/dL (1.6-2.3); Phosphorus 3.8 mg/dL (2.5-4.5); Potassium 4.4 mmol/L (3.5-5.1); Sodium 137 mmol/L (137-145); Total Bilirubin 0.6 mg/dL (0.2-1.3); Total Protein 5.2 g/dL (6.3-8.2)
[2017-05-09] MEDS: MAGNESIUM SULFATE-D5W PMX 1 GM in DEXTROSE/WATER 1 100ML.BAG IVPB SCH ×2 (05:18→06:50)
[2017-05-09 07:02] LABS: Glucose,Whole Blood 99 mg/dL (75-99)
[2017-05-09] MEDS: INSULIN ASPART 100 UNIT/ML 1 ML 10 ML VIAL SQ SCH ×4 (07:04→20:02)
--- NOTE | 2017-05-09 07:48 | XR ---
EXAMINATION TYPE: XR chest 1V portable DATE OF EXAM: 05/09/2017 COMPARISON: Prior chest x-ray 05/08/2017 HISTORY: Shortness of breath TECHNIQUE: Single frontal view of the chest is obtained. FINDINGS: Bibasilar density is present with obscured hemidiaphragms. Heart size is stable. No eviden t pneumothorax. There are overlying cardiac leads. Pulmonary vascularity and anibal are stable. IMPRESSION: Correlate for basilar atelectasis versus pneumonia, effusion. Follow-up recommended.
[2017-05-09] MEDS: IPRATROPIUM-ALBUTEROL 3 ML NEB INHALATION SCH ×4 (07:59→19:46)
[2017-05-09] MEDS: FORMOTEROL FUMARATE 20 MCG/2 ML NEBU INHALATION SCH ×2 (07:59→19:45)
[2017-05-09] MEDS: BUDESONIDE 1 MG/2 ML NEBU INHALATION SCH ×2 (07:59→19:45)
[2017-05-09] MEDS: PANTOPRAZOLE 40 MG/10 ML VIAL IVP SCH (09:03)
[2017-05-09] MEDS: ENOXAPARIN 60 MG/0.6 ML SYRINGE SQ SCH ×2 (09:03→20:02)
[2017-05-09] MEDS: VERAPAMIL 80 MG TAB PO SCH ×3 (09:04→21:10)
--- NOTE | 2017-05-09 09:48 | P.PN ---
Subjective Progress Note Date: 05/09/17 Principal diagnosis: Acute hypoxic and hypercapnic respiratory failure secondary to Moraxella catarrhalis pneumonia Warren is a 66-year-old white male patient who presented to the emergency department on 05/02/2017 per EMS with dyspnea, fever and altered mental status. patient has a past medical history of oxygen dependent COPD, hypothyroidism, GERD/reflux, depression. Patient's spouse is not present at this time or at the time of arrival by ambulance. Most of the history was obtained from the ER physician, nursing staff and the chart. Patient usually goes for his care to the [facility] in [place], per nursing staff patient had been hospitalized there many times. Initially patient was alert and oriented , was given albuterol nebulized treatment and Solu-Medrol by EMS however during the transport patient became increasingly more obtunded. He was immediately placed on BiPAP on arrival to the ED. He was febrile presentation with a temp of 101.3 axillary, tachycardic with a heart rate of 140 BPM, tachypnea with respiratory rate of 28/m, and approximately make with O2 sat at 78% on 2 L. BiPAP support was initiated with pressures of 16/5, FiO2 of 50%. he was given nebulized treatments, was started on antibiotics Levaquin and vancomycin, he was given a liter of IV 0.9 normal saline fluid bolus. Blood urine and sputum culture were ordered and sent. chest x-ray showed extensive bibasilar infiltrates, with more extensive consolidation on the right extending to the mid lung level. There may be subtle early cavitation changes at the right lung base as well. Brain CT showed no acute intracranial abnormality. Venous blood gas on arrival showed pH of 7.25, pCO2 of 86, and bicarb of 36, primary respiratory acidosis with compensation. lab work was reviewed and showed leukocytosis with WBC of 15.3, hemoglobin 16.9 and hematocrit of 54, platelet count of 149, no coagulopathy, sodium 146, potassium is 4.2, carbon dioxide 37, anion gap is 9, B UN of 23, creatinine of 1.2. analysis was negative, urine drug screen was positive for marijuana, serum alcohol level was less than 10, and influenza screen was negative. In the emergency room patient became unresponsive to vigorous tactile stimuli, despite the BiPAP support. At that point the decision was made to intubate the patient and place him on mechanical ventilation. At the time of my evaluation, Dr. Almeida and the ER staff are getting ready to intubate the patient. There is no family around. Patient was reevaluated today in the ICU, this is on 05/03/2017. Patient remains on mechanical ventilation, tidal volume is 550, respiratory rate is 20, FiO2 is 50%, and PEEP is 5. ABG showed a pO2 of 85 pCO2 of 43 pH of 7.44. Continues to have leukocytosis with WBC count of 37.8, hemoglobin is 15.1. Basic metabolic profile is normal. Renal profile is improving with creatinine down to 1.09 from 1.2 yesterday. Sputum cultures are still pending, Gram stain is showing many polymorphonuclear leukocytes, few gram-positive cocci and few gram-negative bacilli. Patient remains sedated however on a lower dose of propofol, patient seems very appropriate following simple instructions. The propofol was not completely discontinued, but his mental status is appropriate enough, hence no need for MRI of the brain or scanning of the brain at this point. His mental status change upon presentation was most likely related to hypoxia and hypercapnia. Medications were all reviewed patient remains on broad -spectrum antibiotics including Levaquin and Zosyn and vancomycin is also on bronchodilators in the form of DuoNeb and is also on Solu-Medrol 60 IV push every 6. Overnight the patient required low-dose norepinephrine because of low blood pressure, and he received over 4 L of fluid boluses since admission. Which means the patient has clearly a picture of septic shock from his pneumonia. Today I have instructed the nurses to titrate the norepinephrine down and maintain a mean arterial pressure of above 65. Reevaluated today on 05/05/2017, patient remains on mechanical ventilation, tidal volume is 550 respiratory rate of 20 FiO2 50%, PEEP is 5. ABG showed a pO2 of 69 pCO2 of 46 pH of 7.37. Basic metabolic profile and renal profile were noted to be normal. CBC continues to show leukocytosis with WBC count of 14.9, otherwise unremarkable. Platelets are 1 24,000. Patient had leukocytosis a few days ago, and that seems to be improving. Cultures from the sputum came back positive for Branhamella catarrhalis, patient will be treated with Zithromax and Rocephin, no need for vancomycin, no need for Zosyn, and no need for Levaquin. On outpatient basis patient can be treated with either Augmentin or Zithromax. Chest x-ray this morning continues to show significant infiltrate in the right lower lobe, but seems to be slightly improved. And it is a limited infiltrate in the left lower lobe. Reevaluated today on 05/06/2017, patient remains on mechanical ventilation, tidal volume of 550 FiO2 of 50% PEEP of 5 and the rate of 20. ABG showed a pO2 of 70 CO2 of 49 pH of 7.37. CBC is normal. And his leukocytosis seems to have dramatically improved. Chest x-ray is showing improvement in his bilateral bibasilar infiltrates especially in the right lower lobe. Bronchial washing remains negative so far, however the sputum was positive for Moraxella catarrhalis. Patient is presently sedated, I will ask the nurses to have a sedation interruption, and assessment of mental status. However considering that his pO2 is still marginal on 50%, no plans to wean and extubate today, but that is to be considered probably in the next 24 hours. Patient was reevaluated today on 05/07/2017, remains on mechanical ventilation, ventilator settings were noted as above. ABG was noted, pO2 was 84 pCO2 of 49 pH of 7.38, CBC and basic metabolic profile were noted to be relatively normal. Patient is arousable, follows simple instructions, his supraventricular tachycardia is under control. Patient was weaned off propofol, weaning parameters were checked, switch to a pressure support and CPAP for over half an hour, and he was noted to do well, however his pO2 remains marginal on repeat ABG. Chest x-ray showed improvement in his infiltrates especially in the right lower lobe, and there is possibly a small right pleural effusion. After reviewing his chest x-ray, observe the patient on pressure support and CPAP, went ahead and recommended extubating the patient to a high flow nasal cannula. I also recommended giving him Lasix 20 mg IV push. The patient was seen again today 05/08/2017 in follow-up in the intensive care unit. He was successfully extubated to AirVo 60 L at 80% FiO2. He is maintaining O2 saturations in the 90s. He has been hemodynamically stable. He is awake and alert in no acute distress. His chest x-ray continues to show some right lower lobe atelectasis/infiltrate. His sputum was positive for Moraxella catarrhalis. Bronchial washings from 05/04/2017 were negative. White count 12.4. He has been on Rocephin and azithromycin. The patient is seen today 05/09/2017 in follow-up in the intensive care unit. He is awake and alert in no acute distress. He is currently sitting up in the chair at the bedside. His chest x-ray shows some improvement in the infiltrate/ effusion of the right lower lobe. He is currently on BiPAP at a setting of 12/ 5 and 50% FiO2 maintaining O2 saturations in the low 90s. His 0.9 normal saline at 75 MLS per hour. He is receiving chest physiotherapy to the right lower lobe. He is working well at the incentive spirometer. He remains on antibiotics in the form of Rocephin. No leukocytosis. He remains afebrile. Objective - Vital Signs Vital signs: Vital Signs Temp 97.9 F 05/09/17 04:00 Pulse 68 05/09/17 08:27 Resp 26 H 05/09/17 07:00 BP 142/86 05/09/17 07:00 Pulse Ox 97 05/09/17 07:00 Intake & Output 05/08/17 05/09/17 05/09/17 18:59 06:59 18:59 Intake Total 1526 2226 168 Output Total 910 1190 125 Balance 616 1036 43 Weight 81.4 kg 76.4 kg Intake: IV 936 1026 168 0.9 Normal Saline for 36 36 3 Pressure bag Magnesium Sulfate-D5w Pmx 100 100 1 gm In Dextrose/Water 1 100ml.bag @ 100 mls/hr IVPB Q1H [facility] Rx#: [id number] Sodium Chloride 0.9% 1, 900 890 65 000 ml @ 75 mls/hr IV . [id number] [facility] Rx#:[id number] Intake, IV Titration 250 Amount Azithromycin 500 mg In 250 Sodium Chloride 0.9% 250 ml @ 125 mls/hr IVPB DAILY [facility] Rx#:[id number] Oral 340 1200 Output: Urine 910 1190 125 Other: Voiding Method Indwelling Catheter Indwelling Catheter # Bowel Movements 1 1 ABP, PAP, CO, CI - Last Documented Arterial Blood Pressure 138/67 - Exam GENERAL EXAM: Alert, comfortable in no apparent distress. HEAD: Normocephalic. EYES: Normal reaction of pupils, equal size. NOSE: Clear with pink turbinates. THROAT: No erythema or exudates. NECK: No masses, no JVD. CHEST: No chest wall deformity. LUNGS: Equal air entry with end expiratory wheezing bilaterally, crackles in the right posterior base. CVS: S1 and S2 normal with no audible murmur, regular rhythm. ABDOMEN: No hepatosplenomegaly, normal bowel sounds, no guarding or rigidity. SPINE: No scoliosis or deformity SKIN: No rashes CENTRAL NERVOUS SYSTEM: No focal deficits, tone is normal in all 4 extremities. EXTREMITIES: There is no peripheral edema. No clubbing, no cyanosis. Peripheral pulses are intact. - Labs CBC & Chem 7: 05/09/17 04:10 05/09/17 04:10 Labs: Abnormal Lab Results - Last 24 Hours (Table) 05/09/17 05/09/17 Range/Units 04:10 04:10 MCHC 30.9 L (31.0-37.0) g/dL Plt Count 137 L (150-450) k/uL Neutrophils # 9.8 H (1.3-7.7) k/uL Lymphocytes # 0.2 L (1.0-4.8) k/uL Carbon Dioxide 31 H (22-30) mmol/L BUN 39 H (9-20) mg/dL Glucose 121 H (74-99) mg/dL ALT 104 H (21-72) U/L Total Protein 5.2 L (6.3-8.2) g/dL Albumin 2.6 L (3.5-5.0) g/dL Microbiology - Last 24 Hours (Table) 05/02/17 12:10 Blood Culture - Final Blood No Growth after 144 hours Assessment and Plan Assessment: Impression: #1. Acute on chronic hypoxic and hypercapnic respiratory failure secondary to extensive bibasilar infiltrates, pneumonia secondary to Moraxella catarrhalis. #2. Acute septic shock secondary to the above, on presentation there is leukocytosis, febrile illness, altered mental status, tachycardia, hypotension, required fluid boluses and required norepinephrine overnight. On 05/02/2017, patient is not requiring any pressors, and he is on maintenance IV fluids and maintenance nutritional support. #3. Advanced oxygen dependent COPD, exact severity of which is unknown at this time #4. Recent admission at [facility] #4. Nicotine dependence #5. GERD/reflux #6. Depression #7. Paroxysmal atrial fibrillation and supraventricular tachycardia, patient was seen by cardiology on consultation, and he is now on verapamil. Plan: The patient was seen and evaluated by Dr. Khan. His chest x-ray and labs were reviewed. We'll continue with the BiPAP machine 12/5 in titrate FiO2 to maintain O2 saturations greater than 90%. Continue Rocephin only. We'll continue chest physiotherapy by respiratory therapy. We'll continue to encourage increased use of the incentive spirometer and cough and deep breathing exercises when off the BiPAP. Transferred out to the regular medical floor today. We will continue to follow and make further recommendations based on his clinical status. I, the cosigning physician, have performed a history and physical examination on the patient. Lung sounds have bilateral end expiratory wheeze, crackles in the right posterior base.. Maintaining good O2 saturations in the 90s on BiPap 12/5 initially at 50%. I have discussed the assessment and plan of care with my nurse practitioner, Eryn Guillen. I attest the above documented note as dictated by her. Time with Patient: Greater than 30
--- NOTE | 2017-05-09 12:14 | P.PN ---
Subjective Progress Note Date: 05/09/17 Principal diagnosis: SVT This is a pleasant 66-year-old gentleman who was admitted to the hospital with acute on chronic respiratory failure secondary to COPD exacerbation. The patient was intubated and then he was extubated yesterday. We get involved in the care of the patient because he had an episode of SVT. The patient was started on for abnormal and the dose was increased yesterday. Since then, the patient has been maintaining normal sinus mechanism. I'll follow-up with him today, he denies having any chest pain or chest discomfort but he continues to have dyspnea. Hemodynamically he has been stable. At this point, we'll continue the current dose of verapamil and will follow-up with the patient on when necessary case. Objective - Vital Signs Vital signs: Vital Signs Temp 97.8 F 05/09/17 08:00 Pulse 83 05/09/17 11:51 Resp 24 05/09/17 10:00 BP 140/84 05/09/17 10:00 Pulse Ox 93 L 05/09/17 10:00 Intake & Output 05/08/17 05/09/17 05/09/17 18:59 06:59 18:59 Intake Total 1526 2226 642 Output Total 910 1190 400 Balance 616 1036 242 Weight 81.4 kg 76.4 kg Intake: IV 936 1026 402 0.9 Normal Saline for 36 36 12 Pressure bag Magnesium Sulfate-D5w Pmx 100 100 1 gm In Dextrose/Water 1 100ml.bag @ 100 mls/hr IVPB Q1H [facility] Rx#: [id number] Sodium Chloride 0.9% 1, 900 890 290 000 ml @ 75 mls/hr IV . [id number] [facility] Rx#:[id number] Intake, IV Titration 250 Amount Azithromycin 500 mg In 250 Sodium Chloride 0.9% 250 ml @ 125 mls/hr IVPB DAILY [facility] Rx#:[id number] Oral 340 1200 240 Output: Urine 910 1190 400 Other: Voiding Method Indwelling Catheter Indwelling Catheter Indwelling Catheter # Bowel Movements 1 1 ABP, PAP, CO, CI - Last Documented Arterial Blood Pressure 140/66 - Constitutional General appearance: Present: no acute distress - Respiratory Respiratory: bilateral: wheezing - Cardiovascular Rhythm: regular Heart sounds: normal: S1, S2 - Labs CBC & Chem 7: 05/09/17 04:10 05/09/17 04:10 Labs: Abnormal Lab Results - Last 24 Hours (Table) 05/09/17 05/09/17 Range/Units 04:10 04:10 MCHC 30.9 L (31.0-37.0) g/dL Plt Count 137 L (150-450) k/uL Neutrophils # 9.8 H (1.3-7.7) k/uL Lymphocytes # 0.2 L (1.0-4.8) k/uL Carbon Dioxide 31 H (22-30) mmol/L BUN 39 H (9-20) mg/dL Glucose 121 H (74-99) mg/dL ALT 104 H (21-72) U/L Total Protein 5.2 L (6.3-8.2) g/dL Albumin 2.6 L (3.5-5.0) g/dL Microbiology - Last 24 Hours (Table) 05/02/17 12:10 Blood Culture - Final Blood No Growth after 144 hours Assessment and Plan Assessment: Assessment #1 acute on chronic respiratory failure which has resolved #2 cardiac arrhythmia in the term office [place] Plan #1 continue the current dose of verapamil by mouth #2 no need for any further cardiac workup at this point #3 follow-up with the patient on when necessary case
[2017-05-09 12:19] LABS: Glucose,Whole Blood 93 mg/dL (75-99)
[2017-05-09] MEDS: cefTRIAXone IN SWFI 1,000 MG/10 ML SYRINGE IVP SCH (12:21)
--- NOTE | 2017-05-09 13:43 | P.PN ---
Subjective Progress Note Date: 05/09/17 Principal diagnosis: SOB Doing better, asking to go home. Was off bipap this am to eat, required high flow NC at 80%. Objective - Vital Signs Vital signs: Vital Signs Temp 98.1 F 05/09/17 12:00 Pulse 71 05/09/17 13:00 Resp 26 H 05/09/17 13:00 BP 124/85 05/09/17 13:00 Pulse Ox 93 L 05/09/17 13:00 Intake & Output 05/08/17 05/09/17 05/09/17 18:59 06:59 18:59 Intake Total 1526 2226 867 Output Total 910 1190 725 Balance 616 1036 142 Weight 81.4 kg 76.4 kg Intake: IV 936 1026 627 0.9 Normal Saline for 36 36 12 Pressure bag Magnesium Sulfate-D5w Pmx 100 100 1 gm In Dextrose/Water 1 100ml.bag @ 100 mls/hr IVPB Q1H [facility] Rx#: [id number] Sodium Chloride 0.9% 1, 900 890 515 000 ml @ 75 mls/hr IV . [id number] [facility] Rx#:[id number] Intake, IV Titration 250 Amount Azithromycin 500 mg In 250 Sodium Chloride 0.9% 250 ml @ 125 mls/hr IVPB DAILY [facility] Rx#:[id number] Oral 340 1200 240 Output: Urine 910 1190 725 Other: Voiding Method Indwelling Catheter Indwelling Catheter Indwelling Catheter # Bowel Movements 1 1 ABP, PAP, CO, CI - Last Documented Arterial Blood Pressure 139/67 - Exam Constitutional: No acute distress, conversant, pleasant. On bipap. Eyes:Anicteric sclerae, moist conjunctiva, no lid-lag, PERRLA, ENMT: Oropharynx clear, no erythema, exudates Neck: Supple, FROM, no masses, or JVD, No carotid bruits, No thyromegaly Lungs: expiratory wheezes, Clear to percussion, Normal respiratory effort, no accessory muscle use Cardiovascular: Heart regular in rate and rhythm, No murmurs, gallops, or rubs, No peripheral edema Abdominal: Soft, Nontender, no guarding, rebound or rigidity, Normoactive bowel sounds, No hepatomegaly, No splenomegaly, No palpable mass Skin: Normal temperature, tone, texture, turgor, no induration, No subcutaneous nodules, No rash, lesions, No ulcers Extremities: right arm swollen, no digital cyanosis, No clubbing, Pedal pulses intact and symmetrical, Radial pulses intact and symmetrical, No calf tenderness Psychiatric: Alert and oriented to person, place and time, appropriate affect, intact judgement Neuro: Muscles Strength 5/5 in all 4 extremities, Sensation to light touch grossly present throughout, Cranial nerves II-XII grossly intact, no focal sensory deficits - Labs CBC & Chem 7: 05/09/17 04:10 05/09/17 04:10 Labs: Abnormal Lab Results - Last 24 Hours (Table) 05/09/17 05/09/17 Range/Units 04:10 04:10 MCHC 30.9 L (31.0-37.0) g/dL Plt Count 137 L (150-450) k/uL Neutrophils # 9.8 H (1.3-7.7) k/uL Lymphocytes # 0.2 L (1.0-4.8) k/uL Carbon Dioxide 31 H (22-30) mmol/L BUN 39 H (9-20) mg/dL Glucose 121 H (74-99) mg/dL ALT 104 H (21-72) U/L Total Protein 5.2 L (6.3-8.2) g/dL Albumin 2.6 L (3.5-5.0) g/dL Microbiology - Last 24 Hours (Table) 05/02/17 12:10 Blood Culture - Final Blood No Growth after 144 hours Assessment and Plan Plan: (1) Acute on chronic respiratory failure with hypercapnia Secondary to Moraxella catarrh pneumonia and severe COPD exacerbation Pulmonary critical care on board S/P successful extubation, currently requiring bipap and high flow NC (2) Septic shock/HCAP (healthcare-associated pneumonia) Resolved, Sputum culture growing Moraxella catarra Antibiotics scaled down to just Rocephin (3) Acute exacerbation of chronic obstructive pulmonary disease (COPD) Continue with breathing treatments and systemic steroids Solu-Medrol and ceftriaxone as above. (4) Right arm swelling: D/C art line Doppler U/S to r/o DVT. (5) Paroxysmal atrial fibrillation Currently in sinus rythym Continue with Verapamil, avoid beta blockers severe COPD exacerbation Seen by cardiology service today Echocardiogram showing normal ejection fraction 55-60% (6) DVT prophylaxis: SCDs and lovenox s/q
--- NOTE | 2017-05-09 14:45 | US ---
EXAMINATION TYPE: US venous doppler duplex UE RT DATE OF EXAM: 05/09/2017 COMPARISON: NONE CLINICAL HISTORY: R/O DVT . Patient stated has some right arm swelling and had right arterial line pu lled later this AM. SIDE PERFORMED: right Right Arm: Negative for DVT Grayscale, color doppler, spectral doppler imaging performed of the deep veins of the right upper ext remity. There is normal flow, compressibility and vascular waveforms. IMPRESSION: No sonographic evidence of deep venous thrombosis within the right upper extremity.
[2017-05-09 17:17] LABS: Glucose,Whole Blood 95 mg/dL (75-99)
[2017-05-09 20:03] LABS: Glucose,Whole Blood 95 mg/dL (75-99)
[2017-05-09] MEDS: MELATONIN 3 MG TABLET PO SCH (21:09)
[2017-05-10] MEDS: SODIUM CHLORIDE 0.9% 1,000 ML IV SCH ×2 (05:36→20:15)
[2017-05-10] MEDS: methylPREDNISolone SOD SUCCI 125 MG/2 ML VIAL IV SCH (05:36)
[2017-05-10 07:24] LABS: Glucose,Whole Blood 89 mg/dL (75-99)
[2017-05-10 07:41] LABS: Basophils % (A) 0 %; Eosinophils % (A) 0 %; HGB 13.7 gm/dL (13.0-17.5); Lymphocytes # (A) 0.3 k/uL (1.0-4.8); Lymphocytes % (A) 3 %; MCH 30.3 pg (25.0-35.0); MCHC 31.9 g/dL (31.0-37.0); MCV 94.9 fL (80.0-100.0); Mean Platelet Volume 7.7; Monocytes # (A) 0.3 k/uL (0-1.0); Monocytes % (A) 4 %; Neutrophils # (A) 8.7 k/uL (1.3-7.7); Neutrophils % (A) 93 %; Platelet Count 159 k/uL (150-450); RBC 4.53 m/uL (4.30-5.90); RDW 13.5 % (11.5-15.5); WBC 9.3 k/uL (3.8-10.6)
[2017-05-10] MEDS: BUDESONIDE 1 MG/2 ML NEBU INHALATION SCH ×2 (07:45→20:02)
[2017-05-10] MEDS: IPRATROPIUM-ALBUTEROL 3 ML NEB INHALATION SCH ×4 (07:46→20:02)
[2017-05-10] MEDS: FORMOTEROL FUMARATE 20 MCG/2 ML NEBU INHALATION SCH ×2 (07:46→20:02)
--- NOTE | 2017-05-10 07:49 | P.PN ---
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 The patient also presented with acute septic shock secondary to infection with mental status changes tachycardia hypotension. The patient is doing better. The patient does have advanced oxygen-dependent COPD and a recent admission to [facility] for the same reason. In addition, he has a history of chronic nicotine dependence gastroesophageal reflux disease depression and paroxysmal atrial fibrillation. Currently the patient's doing relatively well. He spends much of his time on BiPAP at 12 and 5 and 50%. This is a help pop open the right lower lobe. That has improved. Other times she is on the high flow humidified oxygen and device. All in all doing reasonably well. Could be transferred out of the ICU. He states he is feeling better. Objective - Vital Signs Vital signs: Vital Signs Temp 98.5 F 05/10/17 04:00 Pulse 66 05/10/17 07:00 Resp 15 05/10/17 07:00 BP 156/85 05/10/17 07:00 Pulse Ox 97 05/10/17 07:00 Intake & Output 05/09/17 05/10/17 05/10/17 18:59 06:59 18:59 Intake Total 1242 1140 75 Output Total 1055 1960 200 Balance 187 -820 -125 Weight 76 kg Intake: IV 1002 900 0.9 Normal Saline for 12 Pressure bag Magnesium Sulfate-D5w Pmx 100 1 gm In Dextrose/Water 1 100ml.bag @ 100 mls/hr IVPB Q1H [facility] Rx#: [id number] Sodium Chloride 0.9% 1, 890 900 000 ml @ 75 mls/hr IV . [id number] [facility] Rx#:[id number] Intake, IV Titration 75 Amount Sodium Chloride 0.9% 1, 75 000 ml @ 75 mls/hr IV . [id number] [facility] Rx#:[id number] Oral 240 240 Output: Urine 1055 1960 200 Other: Voiding Method Indwelling Catheter Indwelling Catheter ABP, PAP, CO, CI - Last Documented Arterial Blood Pressure 139/67 - Exam No acute distress, oriented 3. Wearing high flow oxygen device HEENT examination is grossly unremarkable. Mucous membranes are moist. No oral lesions. Neck supple. Full range of motion. No adenopathy thyromegaly or neck vein distention. Cardiovascular examination reveals regular rhythm rate. S1-S2 normal. No S3 or S4. No discernible murmur noted. Lungs reveal diffuse rhonchi. Breath sounds are diminished. A few scattered expiratory wheezes. Some crackles at the bases. Lung sounds are pretty much remained stable. Abdomen soft bowel sounds are heard. No masses or tenderness. Extremities are intact. No cyanosis clubbing or edema. Skin is without rash or lesion. Neurologic examination is brief but nonfocal. - Labs CBC & Chem 7: 05/10/17 07:14 05/09/17 04:10 Labs: Abnormal Lab Results - Last 24 Hours (Table) 05/10/17 Range/Units 07:14 Neutrophils # 8.7 H (1.3-7.7) k/uL Lymphocytes # 0.3 L (1.0-4.8) k/uL Assessment and Plan (1) Gastroesophageal reflux disease Current Visit: Yes Status: Acute Code(s): K21.9 - GASTRO-ESOPHAGEAL REFLUX DISEASE WITHOUT ESOPHAGITIS SNOMED Code(s): 564040333 (2) Tobacco dependence Current Visit: Yes Status: Acute Code(s): F17.200 - NICOTINE DEPENDENCE, UNSPECIFIED, UNCOMPLICATED SNOMED Code(s): 11465155 (3) Atrial fibrillation Current Visit: Yes Status: Acute Code(s): I48.91 - UNSPECIFIED ATRIAL FIBRILLATION SNOMED Code(s): 19556940 (4) Depression Current Visit: Yes Status: Acute Code(s): F32.9 - MAJOR DEPRESSIVE DISORDER , SINGLE EPISODE, UNSPECIFIED SNOMED Code(s): 59343945 (5) Acute exacerbation of chronic obstructive pulmonary disease (COPD) Current Visit: Yes Status: Acute Code(s): J44.1 - CHRONIC OBSTRUCTIVE PULMONARY DISEASE W (ACUTE) EXACERBATION SNOMED Code(s): 230166810 (6) Acute on chronic respiratory failure with hypercapnia Current Visit: Yes Status: Acute Code(s): J96.22 - ACUTE AND CHRONIC RESPIRATORY FAILURE WITH HYPERCAPNIA SNOMED Code(s): 2752275040084 (7) Acute respiratory failure with hypoxia and hypercapnia Current Visit: Yes Status: Acute Code(s): J96.01 - ACUTE RESPIRATORY FAILURE WITH HYPOXIA; J96.02 - ACUTE RESPIRATORY FAILURE WITH HYPERCAPNIA SNOMED Code(s): 66642058 (8) HCAP (healthcare-associated pneumonia) Current Visit: Yes Status: Acute Code(s): J18.9 - PNEUMONIA, UNSPECIFIED ORGANISM SNOMED Code(s): 091639335 (9) Pneumonia Current Visit: Yes Status: Acute Code(s): J18.9 - PNEUMONIA, UNSPECIFIED ORGANISM SNOMED Code(s): 020720812 (10) Septic shock Current Visit: Yes Status: Acute Code(s): A41.9 - SEPSIS, UNSPECIFIED ORGANISM; R65.21 - SEVERE SEPSIS WITH SEPTIC SHOCK SNOMED Code(s): 53816804 (11) Paroxysmal atrial fibrillation Current Visit: Yes Status: Resolved Code(s): I48.0 - PAROXYSMAL ATRIAL FIBRILLATION SNOMED Code(s): 877646441 (12) Septic shock Current Visit: Yes Status: Resolved Code(s): A41.9 - SEPSIS, UNSPECIFIED ORGANISM; R65.21 - SEVERE SEPSIS WITH SEPTIC SHOCK SNOMED Code(s): 52907640 Plan: Plan dated 05/10/2017 The patient's medications x-rays and labs are reviewed. The patient patient could be transferred out to the general medical floor. The patient's chest x- ray my opinion is slightly improved. We'll review the medications microbiology and other data. His overall prognosis remains guarded. We'll continue to follow closely. Time spent with patient was greater than 30 minutes. Time with Patient: Greater than 30
[2017-05-10 08:25] LABS: ALT 90 U/L (21-72); AST 28 U/L (17-59); Albumin 2.6 g/dL (3.5-5.0); Alkaline Phosphatase 46 U/L (38-126); Anion Gap 3 mmol/L; Blood Urea Nitrogen 33 mg/dL (9-20); Calcium 8.5 mg/dL (8.4-10.2); Carbon Dioxide 30 mmol/L (22-30); Chloride 103 mmol/L (98-107); Glucose 110 mg/dL (74-99); Magnesium 1.9 mg/dL (1.6-2.3); Phosphorus 3.5 mg/dL (2.5-4.5); Potassium 4.5 mmol/L (3.5-5.1); Sodium 136 mmol/L (137-145); Total Bilirubin 0.8 mg/dL (0.2-1.3); Total Protein 5.1 g/dL (6.3-8.2)
[2017-05-10] MEDS: ENOXAPARIN 60 MG/0.6 ML SYRINGE SQ SCH ×2 (08:37→20:11)
[2017-05-10] MEDS: PANTOPRAZOLE 40 MG/10 ML VIAL IVP SCH (08:37)
[2017-05-10] MEDS: predniSONE 20 MG TAB PO SCH (08:38)
[2017-05-10] MEDS: VERAPAMIL 80 MG TAB PO SCH ×3 (08:38→21:54)
[2017-05-10] MEDS: cefTRIAXone IN SWFI 1,000 MG/10 ML SYRINGE IVP SCH (08:39)
[2017-05-10] MEDS: INSULIN ASPART 100 UNIT/ML 1 ML 10 ML VIAL SQ SCH ×4 (08:42→20:20)
--- NOTE | 2017-05-10 08:42 | XR ---
EXAMINATION TYPE: XR chest 1V portable DATE OF EXAM: 05/10/2017 COMPARISON: Prior chest x-ray 05/09/2017 HISTORY: Shortness of breath TECHNIQUE: Single frontal view of the chest is obtained. FINDINGS: Findings are similar to prior exam. Density at the right lung base obscures the hemidiaphr agm, increased retrocardiac density also noted. No evident pneumothorax. Cardiomediastinal silhouette , pulmonary vascularity and anibal are stable. Prominent lung volume could be indicative of underlying COPD. There are overlying cardiac leads. IMPRESSION: There is no significant interval change. Basilar atelectasis versus pneumonia and possib le associated effusion. Follow-up recommended.
--- NOTE | 2017-05-10 10:35 | P.PN ---
Subjective Progress Note Date: 05/10/17 Principal diagnosis: SOB Feeling better, NC oxygen flow was titrated down to 60% this am, currently tolerating that. No chest pain or sob. Has been off bipap since 4am. Objective - Vital Signs Vital signs: Vital Signs Temp 98.2 F 05/10/17 08:00 Pulse 64 05/10/17 10:00 Resp 22 05/10/17 10:00 BP 133/77 05/10/17 10:00 Pulse Ox 94 L 05/10/17 10:00 Intake & Output 05/09/17 05/10/17 05/10/17 18:59 06:59 18:59 Intake Total 1242 1140 725 Output Total 1055 1960 450 Balance 187 -820 275 Weight 76 kg Intake: IV 1002 900 150 0.9 Normal Saline for 12 Pressure bag Magnesium Sulfate-D5w Pmx 100 1 gm In Dextrose/Water 1 100ml.bag @ 100 mls/hr IVPB Q1H [facility] Rx#: [id number] Sodium Chloride 0.9% 1, 890 900 150 000 ml @ 75 mls/hr IV . [id number] [facility] Rx#:[id number] Intake, IV Titration 75 Amount Sodium Chloride 0.9% 1, 75 000 ml @ 75 mls/hr IV . [id number] [facility] Rx#:[id number] Oral 240 240 500 Output: Urine 1055 1960 450 Other: Voiding Method Indwelling Catheter Indwelling Catheter ABP, PAP, CO, CI - Last Documented Arterial Blood Pressure 139/67 - Exam Constitutional: No acute distress, conversant, pleasant. On bipap. Eyes:Anicteric sclerae, moist conjunctiva, no lid-lag, PERRLA, ENMT: Oropharynx clear, no erythema, exudates Neck: Supple, FROM, no masses, or JVD, No carotid bruits, No thyromegaly Lungs: expiratory wheezes, Clear to percussion, Normal respiratory effort, no accessory muscle use Cardiovascular: Heart regular in rate and rhythm, No murmurs, gallops, or rubs, No peripheral edema Abdominal: Soft, Nontender, no guarding, rebound or rigidity, Normoactive bowel sounds, No hepatomegaly, No splenomegaly, No palpable mass Skin: Normal temperature, tone, texture, turgor, no induration, No subcutaneous nodules, No rash, lesions, No ulcers Extremities: right arm swollen, no digital cyanosis, No clubbing, Pedal pulses intact and symmetrical, Radial pulses intact and symmetrical, No calf tenderness Psychiatric: Alert and oriented to person, place and time, appropriate affect, intact judgement Neuro: Muscles Strength 5/5 in all 4 extremities, Sensation to light touch grossly present throughout, Cranial nerves II-XII grossly intact, no focal sensory deficits - Labs CBC & Chem 7: 05/10/17 07:14 05/10/17 07:14 Labs: Abnormal Lab Results - Last 24 Hours (Table) 05/10/17 05/10/17 Range/Units 07:14 07:14 Neutrophils # 8.7 H (1.3-7.7) k/uL Lymphocytes # 0.3 L (1.0-4.8) k/uL Sodium 136 L (137-145) mmol/L BUN 33 H (9-20) mg/dL Glucose 110 H (74-99) mg/dL ALT 90 H (21-72) U/L Total Protein 5.1 L (6.3-8.2) g/dL Albumin 2.6 L (3.5-5.0) g/dL Assessment and Plan Plan: (1) Acute on chronic respiratory failure with hypercapnia Secondary to Moraxella catarrh pneumonia and severe COPD exacerbation Pulmonary critical care on board--recommend transferring patient to floor. S/P successful extubation, currently requiring bipap and high flow NC Will try to wean down FiO2 as much as possible. (2) Septic shock/HCAP (healthcare-associated pneumonia) Resolved, Sputum culture growing Moraxella catarra Antibiotics scaled down to just Rocephin (3) Acute exacerbation of chronic obstructive pulmonary disease (COPD) Continue with breathing treatments Solumedrol converted to prednisone this am (4) Right arm swelling: Improved Likey sec to art line Doppler negative for DVT. (5) Paroxysmal atrial fibrillation Currently in sinus rythym Continue with Verapamil, avoid beta blockers due to severe COPD exacerbation Echocardiogram showing normal ejection fraction 55-60% (6) DVT prophylaxis: SCDs and lovenox s/q
[2017-05-10 11:45] LABS: ABG Base Excess 2.5 mmol/L; ABG HCO3 28 mmol/L (21-25); ABG PCO2 51 mmHg (35-45); ABG PH 7.36 (7.35-7.45); ABG PO2 101 mmHg (83-108); ABG TCO2 29 mmol/L (19-24)
[2017-05-10 12:05] LABS: Glucose,Whole Blood 119 mg/dL (75-99)
[2017-05-10 17:15] LABS: Glucose,Whole Blood 220 mg/dL (75-99)
[2017-05-10] MEDS: MELATONIN 3 MG TABLET PO SCH (20:11)
[2017-05-10 20:23] LABS: Glucose,Whole Blood 105 mg/dL (75-99)
[2017-05-11] MEDS: SODIUM CHLORIDE 0.9% 1,000 ML IV SCH (01:58)
[2017-05-11 02:02] LABS: Glucose,Whole Blood 71 mg/dL (75-99)
[2017-05-11 02:02] LABS: Glucose,Whole Blood 97 mg/dL (75-99)
[2017-05-11 07:00] LABS: Glucose,Whole Blood 79 mg/dL (75-99)
[2017-05-11] MEDS: FORMOTEROL FUMARATE 20 MCG/2 ML NEBU INHALATION SCH ×2 (07:22→20:34)
[2017-05-11] MEDS: IPRATROPIUM-ALBUTEROL 3 ML NEB INHALATION SCH ×4 (07:22→20:34)
[2017-05-11] MEDS: BUDESONIDE 1 MG/2 ML NEBU INHALATION SCH ×2 (07:22→20:34)
[2017-05-11 08:02] LABS: Basophils % (A) 0 %; Eosinophils # (A) 0.1 k/uL (0-0.7); Eosinophils % (A) 1 %; HCT 43.4 % (39.0-53.0); HGB 14.3 gm/dL (13.0-17.5); Lymphocytes # (A) 1.3 k/uL (1.0-4.8); Lymphocytes % (A) 11 %; MCH 31.1 pg (25.0-35.0); MCV 94.3 fL (80.0-100.0); Mean Platelet Volume 8.1; Monocytes # (A) 0.5 k/uL (0-1.0); Monocytes % (A) 4 %; Neutrophils # (A) 9.5 k/uL (1.3-7.7); Neutrophils % (A) 83 %; Platelet Count 149 k/uL (150-450); RDW 14.7 % (11.5-15.5); WBC 11.4 k/uL (3.8-10.6)
[2017-05-11 08:16] LABS: ALT 103 U/L (21-72); AST 48 U/L (17-59); Albumin 2.7 g/dL (3.5-5.0); Alkaline Phosphatase 50 U/L (38-126); Anion Gap 2 mmol/L; Blood Urea Nitrogen 29 mg/dL (9-20); Calcium 8.4 mg/dL (8.4-10.2); Carbon Dioxide 33 mmol/L (22-30); Chloride 101 mmol/L (98-107); Glucose 86 mg/dL (74-99); Magnesium 1.8 mg/dL (1.6-2.3); Phosphorus 2.5 mg/dL (2.5-4.5); Potassium 3.9 mmol/L (3.5-5.1); Sodium 136 mmol/L (137-145); Total Bilirubin 0.8 mg/dL (0.2-1.3); Total Protein 5.3 g/dL (6.3-8.2)
[2017-05-11] MEDS: INSULIN ASPART 100 UNIT/ML 1 ML 10 ML VIAL SQ SCH ×4 (09:06→23:00)
[2017-05-11] MEDS: predniSONE 20 MG TAB PO SCH (09:15)
[2017-05-11] MEDS: PANTOPRAZOLE 40 MG TABLET PO SCH (09:15)
[2017-05-11] MEDS: VERAPAMIL 80 MG TAB PO SCH ×3 (09:15→21:30)
[2017-05-11] MEDS: ENOXAPARIN 60 MG/0.6 ML SYRINGE SQ SCH ×2 (09:16→21:28)
--- NOTE | 2017-05-11 09:22 | P.PN ---
Subjective Progress Note Date: 05/11/17 Principal diagnosis: hypoxic respiratory failure/pneumonia 57-year-old male that was admitted to the ICU initially was hypoxic respiratory failure with chronic catarhalis pneumonia. ICU patient was on BiPAP and high flow. Patient was transferred to medical floor yesterday. Today patient is on 40 L oxygen. Patient is short of breath and mildly productive cough. I told patient fell yesterday. She denies having any pain denies hitting his head. Objective - Vital Signs Vital signs: Vital Signs Temp 98.4 F 05/11/17 07:00 Pulse 78 05/11/17 07:45 Resp 20 05/11/17 07:00 BP 132/92 05/11/17 07:00 Pulse Ox 92 L 05/11/17 07:00 Intake & Output 05/10/17 05/11/17 05/11/17 18:59 06:59 18:59 Intake Total 1250 675 Output Total 575 900 200 Balance 675 -225 -200 Intake: IV 675 675 Sodium Chloride 0.9% 1, 675 675 000 ml @ 75 mls/hr IV . [id number] [facility] Rx#:[id number] Intake, IV Titration 75 Amount Sodium Chloride 0.9% 1, 75 000 ml @ 75 mls/hr IV . [id number] [facility] Rx#:[id number] Oral 500 Output: Urine 575 900 200 Other: Voiding Method Urinal Urinal Diaper Incontinent # Voids 3 2 1 ABP, PAP, CO, CI - Last Documented Arterial Blood Pressure 139/67 - Exam gen:alert and oriented,mild respiratory distress lungs:clear to auscultation heart:s1s2 abdomen:soft and depressible,non tender ext:no edema - Labs CBC & Chem 7: 05/11/17 07:29 05/11/17 07:29 Labs: Abnormal Lab Results - Last 24 Hours (Table) 05/04/17 05/10/17 05/10/17 Range/Units 08:27 11:55 17:12 WBC (3.8-10.6) k/uL Plt Count (150-450) k/uL Neutrophils # (1.3-7.7) k/uL ABG pCO2 51 H (35-45) mmHg ABG HCO3 28 H (21-25) mmol/L ABG Total CO2 29 H (19-24) mmol/L Sodium (137-145) mmol/L Carbon Dioxide (22-30) mmol/L BUN (9-20) mg/dL POC Glucose (mg/dL) 119 H 220 H (75-99) mg/dL ALT (21-72) U/L Total Protein (6.3-8.2) g/dL Albumin (3.5-5.0) g/dL 05/10/17 05/11/17 05/11/17 Range/Units 20:18 01:41 07:29 WBC 11.4 H (3.8-10.6) k/uL Plt Count 149 L (150-450) k/uL Neutrophils # 9.5 H (1.3-7.7) k/uL ABG pCO2 (35-45) mmHg ABG HCO3 (21-25) mmol/L ABG Total CO2 (19-24) mmol/L Sodium (137-145) mmol/L Carbon Dioxide (22-30) mmol/L BUN (9-20) mg/dL POC Glucose (mg/dL) 105 H 71 L (75-99) mg/dL ALT (21-72) U/L Total Protein (6.3-8.2) g/dL Albumin (3.5-5.0) g/dL 05/11/17 Range/Units 07:29 WBC (3.8-10.6) k/uL Plt Count (150-450) k/uL Neutrophils # (1.3-7.7) k/uL ABG pCO2 (35-45) mmHg ABG HCO3 (21-25) mmol/L ABG Total CO2 (19-24) mmol/L Sodium 136 L (137-145) mmol/L Carbon Dioxide 33 H (22-30) mmol/L BUN 29 H (9-20) mg/dL POC Glucose (mg/dL) (75-99) mg/dL ALT 103 H (21-72) U/L Total Protein 5.3 L (6.3-8.2) g/dL Albumin 2.7 L (3.5-5.0) g/dL Assessment and Plan (1) Acute respiratory failure with hypoxia Narrative/Plan: Currently on 40 L O2 We'll transferred to [facility] care for closer monitoring especially since patient is on high amount of oxygen Current Visit: Yes Status: Acute Code(s): J96.01 - ACUTE RESPIRATORY FAILURE WITH HYPOXIA SNOMED Code(s): 65272878 (2) Pneumonia Narrative/Plan: Continue Rocephin Current Visit: Yes Status: Acute Code(s): J18.9 - PNEUMONIA, UNSPECIFIED ORGANISM SNOMED Code(s): 119172852 (3) COPD exacerbation Narrative/Plan: On prednisone Continue DuoNeb Current Visit: Yes Status: Acute Code(s): J44.1 - CHRONIC OBSTRUCTIVE PULMONARY DISEASE W (ACUTE) EXACERBATION SNOMED Code(s): 311887573807794 (4) Paroxysmal atrial fibrillation Narrative/Plan: Rate controlled continue verapamil Current Visit: Yes Status: Resolved Code(s): I48.0 - PAROXYSMAL ATRIAL FIBRILLATION SNOMED Code(s): 925968726 (5) Septic shock Narrative/Plan: Resolved Current Visit: Yes Status: Resolved Code(s): A41.9 - SEPSIS, UNSPECIFIED ORGANISM; R65.21 - SEVERE SEPSIS WITH SEPTIC SHOCK SNOMED Code(s): 04170191 Plan: Discussed with Dr. Khan Was transfer to [facility] for closer monitoring
[2017-05-11] MEDS: cefTRIAXone IN SWFI 1,000 MG/10 ML SYRINGE IVP SCH (09:25)
[2017-05-11] MEDS: MAGNESIUM SULFATE-D5W PMX 1 GM in DEXTROSE/WATER 1 100ML.BAG IVPB SCH ×2 (09:34→11:35)
[2017-05-11] MEDS ORDERED: POTASSIUM CHLORIDE ER 20 MEQ TAB.ER PO SCH (10:00)
[2017-05-11 11:46] LABS: Glucose,Whole Blood 91 mg/dL (75-99)
[2017-05-11] MEDS ORDERED: HYDROcodone/APAP 10-325MG 1 EACH TAB PO PRN (13:53)
[2017-05-11] MEDS ORDERED: guaiFENesin 600 MG TABLET.ER PO PRN (14:58)
[2017-05-11] MEDS: GABAPENTIN 400 MG CAP PO SCH ×2 (15:55→21:29)
[2017-05-11] MEDS: busPIRone HCl 10 MG TAB PO SCH ×2 (15:55→21:29)
[2017-05-11] MEDS: MAGNESIUM OXIDE 400 MG TAB PO SCH (15:55)
--- NOTE | 2017-05-11 16:10 | P.PN ---
Subjective Progress Note Date: 05/11/17 Principal diagnosis: Acute hypoxic and hypercapnic respiratory failure secondary to Moraxella catarrhalis pneumonia Warren is a 66-year-old white male patient who presented to the emergency department on 05/02/2017 per EMS with dyspnea, fever and altered mental status. patient has a past medical history of oxygen dependent COPD, hypothyroidism, GERD/reflux, depression. Patient's spouse is not present at this time or at the time of arrival by ambulance. Most of the history was obtained from the ER physician, nursing staff and the chart. Patient usually goes for his care to the [facility] in [place], per nursing staff patient had been hospitalized there many times. Initially patient was alert and oriented , was given albuterol nebulized treatment and Solu-Medrol by EMS however during the transport patient became increasingly more obtunded. He was immediately placed on BiPAP on arrival to the ED. He was febrile presentation with a temp of 101.3 axillary, tachycardic with a heart rate of 140 BPM, tachypnea with respiratory rate of 28/m, and approximately make with O2 sat at 78% on 2 L. BiPAP support was initiated with pressures of 16/5, FiO2 of 50%. he was given nebulized treatments, was started on antibiotics Levaquin and vancomycin, he was given a liter of IV 0.9 normal saline fluid bolus. Blood urine and sputum culture were ordered and sent. chest x-ray showed extensive bibasilar infiltrates, with more extensive consolidation on the right extending to the mid lung level. There may be subtle early cavitation changes at the right lung base as well. Brain CT showed no acute intracranial abnormality. Venous blood gas on arrival showed pH of 7.25, pCO2 of 86, and bicarb of 36, primary respiratory acidosis with compensation. lab work was reviewed and showed leukocytosis with WBC of 15.3, hemoglobin 16.9 and hematocrit of 54, platelet count of 149, no coagulopathy, sodium 146, potassium is 4.2, carbon dioxide 37, anion gap is 9, B UN of 23, creatinine of 1.2. analysis was negative, urine drug screen was positive for marijuana, serum alcohol level was less than 10, and influenza screen was negative. In the emergency room patient became unresponsive to vigorous tactile stimuli, despite the BiPAP support. At that point the decision was made to intubate the patient and place him on mechanical ventilation. At the time of my evaluation, Dr. Almeida and the ER staff are getting ready to intubate the patient. There is no family around. Patient was reevaluated today in the ICU, this is on 05/03/2017. Patient remains on mechanical ventilation, tidal volume is 550, respiratory rate is 20, FiO2 is 50%, and PEEP is 5. ABG showed a pO2 of 85 pCO2 of 43 pH of 7.44. Continues to have leukocytosis with WBC count of 37.8, hemoglobin is 15.1. Basic metabolic profile is normal. Renal profile is improving with creatinine down to 1.09 from 1.2 yesterday. Sputum cultures are still pending, Gram stain is showing many polymorphonuclear leukocytes, few gram-positive cocci and few gram-negative bacilli. Patient remains sedated however on a lower dose of propofol, patient seems very appropriate following simple instructions. The propofol was not completely discontinued, but his mental status is appropriate enough, hence no need for MRI of the brain or scanning of the brain at this point. His mental status change upon presentation was most likely related to hypoxia and hypercapnia. Medications were all reviewed patient remains on broad -spectrum antibiotics including Levaquin and Zosyn and vancomycin is also on bronchodilators in the form of DuoNeb and is also on Solu-Medrol 60 IV push every 6. Overnight the patient required low-dose norepinephrine because of low blood pressure, and he received over 4 L of fluid boluses since admission. Which means the patient has clearly a picture of septic shock from his pneumonia. Today I have instructed the nurses to titrate the norepinephrine down and maintain a mean arterial pressure of above 65. Reevaluated today on 05/05/2017, patient remains on mechanical ventilation, tidal volume is 550 respiratory rate of 20 FiO2 50%, PEEP is 5. ABG showed a pO2 of 69 pCO2 of 46 pH of 7.37. Basic metabolic profile and renal profile were noted to be normal. CBC continues to show leukocytosis with WBC count of 14.9, otherwise unremarkable. Platelets are 1 24,000. Patient had leukocytosis a few days ago, and that seems to be improving. Cultures from the sputum came back positive for Branhamella catarrhalis, patient will be treated with Zithromax and Rocephin, no need for vancomycin, no need for Zosyn, and no need for Levaquin. On outpatient basis patient can be treated with either Augmentin or Zithromax. Chest x-ray this morning continues to show significant infiltrate in the right lower lobe, but seems to be slightly improved. And it is a limited infiltrate in the left lower lobe. Reevaluated today on 05/06/2017, patient remains on mechanical ventilation, tidal volume of 550 FiO2 of 50% PEEP of 5 and the rate of 20. ABG showed a pO2 of 70 CO2 of 49 pH of 7.37. CBC is normal. And his leukocytosis seems to have dramatically improved. Chest x-ray is showing improvement in his bilateral bibasilar infiltrates especially in the right lower lobe. Bronchial washing remains negative so far, however the sputum was positive for Moraxella catarrhalis. Patient is presently sedated, I will ask the nurses to have a sedation interruption, and assessment of mental status. However considering that his pO2 is still marginal on 50%, no plans to wean and extubate today, but that is to be considered probably in the next 24 hours. Patient was reevaluated today on 05/07/2017, remains on mechanical ventilation, ventilator settings were noted as above. ABG was noted, pO2 was 84 pCO2 of 49 pH of 7.38, CBC and basic metabolic profile were noted to be relatively normal. Patient is arousable, follows simple instructions, his supraventricular tachycardia is under control. Patient was weaned off propofol, weaning parameters were checked, switch to a pressure support and CPAP for over half an hour, and he was noted to do well, however his pO2 remains marginal on repeat ABG. Chest x-ray showed improvement in his infiltrates especially in the right lower lobe, and there is possibly a small right pleural effusion. After reviewing his chest x-ray, observe the patient on pressure support and CPAP, went ahead and recommended extubating the patient to a high flow nasal cannula. I also recommended giving him Lasix 20 mg IV push. The patient was seen again today 05/08/2017 in follow-up in the intensive care unit. He was successfully extubated to AirVo 60 L at 80% FiO2. He is maintaining O2 saturations in the 90s. He has been hemodynamically stable. He is awake and alert in no acute distress. His chest x-ray continues to show some right lower lobe atelectasis/infiltrate. His sputum was positive for Moraxella catarrhalis. Bronchial washings from 05/04/2017 were negative. White count 12.4. He has been on Rocephin and azithromycin. The patient is seen today 05/09/2017 in follow-up in the intensive care unit. He is awake and alert in no acute distress. He is currently sitting up in the chair at the bedside. His chest x-ray shows some improvement in the infiltrate/ effusion of the right lower lobe. He is currently on BiPAP at a setting of 12/ 5 and 50% FiO2 maintaining O2 saturations in the low 90s. His 0.9 normal saline at 75 MLS per hour. He is receiving chest physiotherapy to the right lower lobe. He is working well at the [facility]. He remains on antibiotics in the form of Rocephin. No leukocytosis. He remains afebrile. On 05/11/2017 patient seen in follow-up on medical surgical floor. Staff is getting ready to transfer the patient to [facility] at the time of evaluation. Patient sustained a fall last night while he was trying to get up unassisted, with no acute injuries. Currently sitting up in the chair, in no apparent distress. Remains on Airvo at 40 L/m, and FiO2 of 50%. His O2 sat is 97. He remains afebrile. Lung sounds are positive for some crackles in the right upper lobe, otherwise clear. Patient remains hemodynamically stable. Denies any distress, although remains mildly short of breath with productive cough. He remains in atrial fibrillation with a controlled rate. Labs were reviewed, WBC is up slightly to 11.4, hemoglobin is stable at 14.3, platelets are 149, serum sodium is 136, serum potassium is 3.9, carbon dioxide is 33, B1 is 29, creatinine 0.82. He continues on Pulmicort, Perforomist, IV Rocephin. Microbiology was reviewed, brought washing culture showed no growth after 48 hours. Fungal and acid-fast bacilli culture still pending. Acid-fast bacilli smear was negative. Sputum culture collected on 05/02/2017 was positive for Moraxella catarrhalis. Objective - Vital Signs Vital signs: Vital Signs Temp 97.8 F 05/11/17 15:49 Pulse 69 05/11/17 15:49 Resp 18 05/11/17 15:49 BP 124/76 05/11/17 15:49 Pulse Ox 97 05/11/17 15:49 Intake & Output 05/10/17 05/11/17 05/11/17 18:59 06:59 18:59 Intake Total 1250 675 200 Output Total 575 900 650 Balance 675 -225 -450 Weight 76.5 kg Intake: IV 675 675 Sodium Chloride 0.9% 1, 675 675 000 ml @ 75 mls/hr IV . [id number] CLIF Rx#:[id number] Intake, IV Titration 75 200 Amount Magnesium Sulfate-D5w Pmx 200 1 gm In Dextrose/Water 1 100ml.bag @ 100 mls/hr IVPB Q1H CLIF Rx#: [id number] Sodium Chloride 0.9% 1, 75 000 ml @ 75 mls/hr IV . [id number] CLIF Rx#:[id number] Oral 500 Output: Urine 575 900 650 Other: Voiding Method Urinal Urinal Urinal Diaper Diaper Incontinent # Voids 3 2 1 ABP, PAP, CO, CI - Last Documented Arterial Blood Pressure 139/67 - Exam GENERAL EXAM: Alert, comfortable in no apparent distress. HEAD: Normocephalic. EYES: Normal reaction of pupils, equal size. NOSE: Clear with pink turbinates. THROAT: No erythema or exudates. NECK: No masses, no JVD. CHEST: No chest wall deformity. LUNGS: Equal air entry with positive crackles in the right upper lobe. Remains on high flow oxygen at 40 L/m via AIRVO CVS: S1 and S2 normal with no audible murmur, regular rhythm. ABDOMEN: No hepatosplenomegaly, normal bowel sounds, no guarding or rigidity. SPINE: No scoliosis or deformity SKIN: No rashes CENTRAL NERVOUS SYSTEM: No focal deficits, tone is normal in all 4 extremities. EXTREMITIES: There is no peripheral edema. No clubbing, no cyanosis. Peripheral pulses are intact. - Labs CBC & Chem 7: 05/11/17 07:29 05/11/17 07:29 Labs: Abnormal Lab Results - Last 24 Hours (Table) 05/10/17 05/10/17 05/11/17 Range/Units 17:12 20:18 01:41 WBC (3.8-10.6) k/uL Plt Count (150-450) k/uL Neutrophils # (1.3-7.7) k/uL Sodium (137-145) mmol/L Carbon Dioxide (22-30) mmol/L BUN (9-20) mg/dL POC Glucose (mg/dL) 220 H 105 H 71 L (75-99) mg/dL ALT (21-72) U/L Total Protein (6.3-8.2) g/dL Albumin (3.5-5.0) g/dL 05/11/17 05/11/17 Range/Units 07:29 07:29 WBC 11.4 H (3.8-10.6) k/uL Plt Count 149 L (150-450) k/uL Neutrophils # 9.5 H (1.3-7.7) k/uL Sodium 136 L (137-145) mmol/L Carbon Dioxide 33 H (22-30) mmol/L BUN 29 H (9-20) mg/dL POC Glucose (mg/dL) (75-99) mg/dL ALT 103 H (21-72) U/L Total Protein 5.3 L (6.3-8.2) g/dL Albumin 2.7 L (3.5-5.0) g/dL Assessment and Plan Plan: Assessment: #1. Acute on chronic hypoxic and hypercapnic respiratory failure secondary to extensive bibasilar infiltrates, pneumonia secondary to Moraxella catarrhalis #2. Acute sepsis secondary to the above, on presentation there is leukocytosis, febrile illness, altered mental status, tachycardia, hypotension. Recovered. On IV maintenance fluids on 05/11/2017 #3. Advanced oxygen dependent COPD, exact severity of which is unknown at this time #4. Recent admission at [facility] #4. Nicotine dependence #5. GERD/reflux #6. Depression #7. Paroxysmal atrial fibrillation and supraventricular tachycardia, patient is currently on verapamil Plan: Patient sustained a fall last night, with no acute injuries. Remains on high flow oxygen via AIRVO at 40 L/m. Was transferred to [facility]. Continues on antibiotics in the form of Rocephin, Zithromax was discontinued. Sputum culture collected on 05/02/2017 was positive for Moraxella catarrhalis. Patient is afebrile. Hemodynamically stable. Continue with current treatment. Continue on Pulmicort, Perforomist. Continue DuoNeb, continue GI and DVT prophylaxis. I performed a history & physical examination of the patient and discussed their management with my nurse practitioner, Rochelle Amaro. I reviewed the nurse practitioner's note and agree with the documented findings and plan of care. Lung sounds are positive for some crackles over right upper lobe. The findings and the impression was discussed with the patient. I attest to the documentation by the nurse practitioner. Time with Patient: Less than 30
[2017-05-11 17:01] LABS: Glucose,Whole Blood 97 mg/dL (75-99)
[2017-05-11] MEDS ORDERED: NON-FORMULARY DRUG (Omeprazole 20 MG) PO SCH (21:00)
[2017-05-11 21:10] LABS: Glucose,Whole Blood 122 mg/dL (75-99)
[2017-05-11] MEDS: ARIPiprazole 10 MG TAB PO SCH (21:28)
[2017-05-11] MEDS: traZODone HCL 100 MG TAB PO SCH (21:29)
[2017-05-11] MEDS: PRAVASTATIN SODIUM 40 MG TAB PO SCH (21:29)
[2017-05-11] MEDS: MELATONIN 3 MG TABLET PO SCH (21:29)
[2017-05-11] MEDS: SERTRALINE 100 MG TAB PO SCH (21:29)
[2017-05-12] MEDS: SODIUM CHLORIDE 0.9% 1,000 ML IV SCH ×2 (02:30→15:28)
[2017-05-12 06:22] LABS: HCT 42.2 % (39.0-53.0); HGB 13.2 gm/dL (13.0-17.5); MCH 30.2 pg (25.0-35.0); MCHC 31.2 g/dL (31.0-37.0); MCV 96.6 fL (80.0-100.0); Mean Platelet Volume 8.5; Platelet Count 149 k/uL (150-450); RBC 4.36 m/uL (4.30-5.90); RDW 14.9 % (11.5-15.5); WBC 10.3 k/uL (3.8-10.6)
[2017-05-12 06:26] LABS: Glucose,Whole Blood 86 mg/dL (75-99)
[2017-05-12 06:39] LABS: Anion Gap 0 mmol/L; Blood Urea Nitrogen 26 mg/dL (9-20); Calcium 8.2 mg/dL (8.4-10.2); Carbon Dioxide 36 mmol/L (22-30); Chloride 103 mmol/L (98-107); Glucose 86 mg/dL (74-99); Magnesium 2.1 mg/dL (1.6-2.3); Potassium 3.7 mmol/L (3.5-5.1); Sodium 139 mmol/L (137-145)
[2017-05-12] MEDS: INSULIN ASPART 100 UNIT/ML 1 ML 10 ML VIAL SQ SCH ×4 (06:41→21:39)
[2017-05-12] MEDS: PANTOPRAZOLE 40 MG TABLET PO SCH (06:42)
[2017-05-12] MEDS: BUDESONIDE 1 MG/2 ML NEBU INHALATION SCH (08:16)
[2017-05-12] MEDS: IPRATROPIUM-ALBUTEROL 3 ML NEB INHALATION SCH ×4 (08:16→20:27)
[2017-05-12] MEDS: FORMOTEROL FUMARATE 20 MCG/2 ML NEBU INHALATION SCH (08:16)
[2017-05-12] MEDS: ARIPiprazole 10 MG TAB PO SCH ×2 (08:26→21:41)
[2017-05-12] MEDS: busPIRone HCl 10 MG TAB PO SCH ×3 (08:26→21:40)
[2017-05-12] MEDS: GABAPENTIN 400 MG CAP PO SCH ×3 (08:26→21:40)
[2017-05-12] MEDS: ENOXAPARIN 60 MG/0.6 ML SYRINGE SQ SCH ×2 (08:26→21:38)
[2017-05-12] MEDS: predniSONE 20 MG TAB PO SCH (08:26)
[2017-05-12] MEDS: MAGNESIUM OXIDE 400 MG TAB PO SCH (08:26)
[2017-05-12] MEDS: VERAPAMIL 80 MG TAB PO SCH ×3 (08:27→21:41)
[2017-05-12] MEDS: THEOPHYLLINE 24 HOUR 200 MG CAP.ER.24H PO SCH (08:27)
[2017-05-12] MEDS: SERTRALINE 100 MG TAB PO SCH ×2 (08:27→21:39)
[2017-05-12] MEDS: cefTRIAXone IN SWFI 1,000 MG/10 ML SYRINGE IVP SCH (08:31)
--- NOTE | 2017-05-12 09:11 | P.PN ---
Subjective Progress Note Date: 05/12/17 Principal diagnosis: hypoxic respiratory failure/pneumonia Pt transferred to [facility] yesterday for closer monitoring, still with cough but does not complain of much shortness of breath, no fever, no chills Objective - Vital Signs Vital signs: Vital Signs Temp 97.3 F L 05/12/17 08:00 Pulse 76 05/12/17 08:40 Resp 18 05/12/17 08:00 BP 134/89 05/12/17 08:00 Pulse Ox 94 L 05/12/17 08:00 Intake & Output 05/11/17 05/12/17 05/12/17 18:59 06:59 18:59 Intake Total 200 75 Output Total 650 550 610 Balance -450 -550 -535 Weight 76.5 kg Intake: IV 75 Sodium Chloride 0.9% 1, 75 000 ml @ 75 mls/hr IV . [id number] CILF Rx#:[id number] Intake, IV Titration 200 Amount Magnesium Sulfate-D5w Pmx 200 1 gm In Dextrose/Water 1 100ml.bag @ 100 mls/hr IVPB Q1H CLIF Rx#: [id number] Output: Urine 650 550 610 Other: Voiding Method Urinal Urinal Urinal Diaper Diaper Diaper # Voids 1 1 ABP, PAP, CO, CI - Last Documented Arterial Blood Pressure 139/67 - Exam gen:alert and oriented,mild respiratory distress lungs:clear to auscultation heart:s1s2 abdomen:soft and depressible,non tender ext:no edema - Labs CBC & Chem 7: 05/12/17 05:55 05/12/17 05:55 Labs: Abnormal Lab Results - Last 24 Hours (Table) 05/11/17 05/12/17 05/12/17 Range/Units 21:08 05:55 05:55 Plt Count 149 L (150-450) k/uL Carbon Dioxide 36 H (22-30) mmol/L BUN 26 H (9-20) mg/dL POC Glucose (mg/dL) 122 H (75-99) mg/dL Calcium 8.2 L (8.4-10.2) mg/dL Assessment and Plan (1) Acute respiratory failure with hypoxia Narrative/Plan: on 40 L by Airvo continue IV rocephin Current Visit: Yes Status: Acute Code(s): J96.01 - ACUTE RESPIRATORY FAILURE WITH HYPOXIA SNOMED Code(s): 45713064 (2) Pneumonia Narrative/Plan: sec to moraxella catarrhalis continue rocephin Current Visit: Yes Status: Acute Code(s): J18.9 - PNEUMONIA, UNSPECIFIED ORGANISM SNOMED Code(s): 950863707 (3) COPD exacerbation Narrative/Plan: On prednisone Continue DuoNeb Current Visit: Yes Status: Acute Code(s): J44.1 - CHRONIC OBSTRUCTIVE PULMONARY DISEASE W (ACUTE) EXACERBATION SNOMED Code(s): 537582326821153 (4) Paroxysmal atrial fibrillation Narrative/Plan: Rate controlled continue verapamil Current Visit: Yes Status: Resolved Code(s): I48.0 - PAROXYSMAL ATRIAL FIBRILLATION SNOMED Code(s): 590839550 (5) Septic shock Narrative/Plan: resolved Current Visit: Yes Status: Resolved Code(s): A41.9 - SEPSIS, UNSPECIFIED ORGANISM; R65.21 - SEVERE SEPSIS WITH SEPTIC SHOCK SNOMED Code(s): 96597301
[2017-05-12 12:08] LABS: Glucose,Whole Blood 130 mg/dL (75-99)
--- NOTE | 2017-05-12 14:32 | P.PN ---
Subjective Progress Note Date: 05/12/17 Principal diagnosis: respiratory failure Progress note dated 05/10/2017 This is a 66-year-old male with a history of acute on chronic hypoxemic and hypercapnic respiratory failure secondary to bibasal pneumonia caused by Moraxella catarrhalis. The patient also presented with acute septic shock secondary to infection with mental status changes tachycardia hypotension. The patient is doing better. The patient does have advanced oxygen-dependent COPD and a recent admission to [facility] for the same reason. In addition, he has a history of chronic nicotine dependence gastroesophageal reflux disease depression and paroxysmal atrial fibrillation. Currently the patient's doing relatively well. He spends much of his time on BiPAP at 12 and 5 and 50%. This is a help pop open the right lower lobe. That has improved. Other times she is on the high flow humidified oxygen and device. All in all doing reasonably well. Could be transferred out of the ICU. He states he is feeling better. Progress note dated 05/12/2017 This is a 66-year-old male with history of acute on chronic hypoxemic and hypercapnic respiratory failure secondary to by basilar pneumonia, secondary to Moraxella catarrhalis. The patient initially presented with acute septic shock secondary to infection with mental status changes hypotension and tachycardia. Patient is doing much better. For a number of days he was up in the ICU in room 612 on high flow oxygen therapy. That's been improved here. He's been on and off the BiPAP at 12 and 5 and 50%. His chest x-ray shows some collapse in the right lower lobe. BiPAP has helped that. Anyway he continues to improve. He was transferred out of the ICU to the floor but was moved back up here because of the fact that he fell down on the fourth floor. Objective - Vital Signs Vital signs: Vital Signs Temp 97.2 F L 05/12/17 11:29 Pulse 72 05/12/17 13:12 Resp 16 05/12/17 11:43 BP 115/68 05/12/17 11:29 Pulse Ox 92 L 05/12/17 11:29 Intake & Output 05/11/17 05/12/17 05/12/17 18:59 06:59 18:59 Intake Total 200 75 Output Total 650 550 610 Balance -450 -550 -535 Weight 76.5 kg Intake: IV 75 Sodium Chloride 0.9% 1, 75 000 ml @ 75 mls/hr IV . [id number] CLIF Rx#:[id number] Intake, IV Titration 200 Amount Magnesium Sulfate-D5w Pmx 200 1 gm In Dextrose/Water 1 100ml.bag @ 100 mls/hr IVPB Q1H CLIF Rx#: [id number] Output: Urine 650 550 610 Other: Voiding Method Urinal Urinal Urinal Diaper Diaper Diaper # Voids 1 1 ABP, PAP, CO, CI - Last Documented Arterial Blood Pressure 139/67 - Exam No acute distress, oriented 3. On oxygen therapy. HEENT examination is grossly unremarkable. Mucous membranes are moist. No oral lesions. Neck supple. Full range of motion. No adenopathy thyromegaly or neck vein distention. Cardiovascular examination reveals regular rhythm rate. S1-S2 normal. No S3 or S4. No discernible murmur noted. Lungs reveal diffuse rhonchi. Breath sounds are diminished. A few scattered expiratory wheezes. Some crackles at the bases. Lung sounds are pretty much remained stable. Abdomen soft bowel sounds are heard. No masses or tenderness. Extremities are intact. No cyanosis clubbing or edema. Skin is without rash or lesion. Neurologic examination is brief but nonfocal. - Labs CBC & Chem 7: 05/12/17 05:55 05/12/17 05:55 Labs: Abnormal Lab Results - Last 24 Hours (Table) 05/11/17 05/12/17 05/12/17 Range/Units 21:08 05:55 05:55 Plt Count 149 L (150-450) k/uL Carbon Dioxide 36 H (22-30) mmol/L BUN 26 H (9-20) mg/dL POC Glucose (mg/dL) 122 H (75-99) mg/dL Calcium 8.2 L (8.4-10.2) mg/dL 05/12/17 Range/Units 11:59 Plt Count (150-450) k/uL Carbon Dioxide (22-30) mmol/L BUN (9-20) mg/dL POC Glucose (mg/dL) 130 H (75-99) mg/dL Calcium (8.4-10.2) mg/dL Assessment and Plan (1) Gastroesophageal reflux disease Current Visit: Yes Status: Acute Code(s): K21.9 - GASTRO-ESOPHAGEAL REFLUX DISEASE WITHOUT ESOPHAGITIS SNOMED Code(s): 027659545 (2) Tobacco dependence Current Visit: Yes Status: Acute Code(s): F17.200 - NICOTINE DEPENDENCE, UNSPECIFIED, UNCOMPLICATED SNOMED Code(s): 69131469 (3) Atrial fibrillation Current Visit: Yes Status: Acute Code(s): I48.91 - UNSPECIFIED ATRIAL FIBRILLATION SNOMED Code(s): 64495248 (4) Depression Current Visit: Yes Status: Acute Code(s): F32.9 - MAJOR DEPRESSIVE DISORDER , SINGLE EPISODE, UNSPECIFIED SNOMED Code(s): 14336783 (5) Acute exacerbation of chronic obstructive pulmonary disease (COPD) Current Visit: Yes Status: Acute Code(s): J44.1 - CHRONIC OBSTRUCTIVE PULMONARY DISEASE W (ACUTE) EXACERBATION SNOMED Code(s): 406969552 (6) Acute on chronic respiratory failure with hypercapnia Current Visit: Yes Status: Acute Code(s): J96.22 - ACUTE AND CHRONIC RESPIRATORY FAILURE WITH HYPERCAPNIA SNOMED Code(s): 6283120927397 (7) Acute respiratory failure with hypoxia and hypercapnia Current Visit: Yes Status: Acute Code(s): J96.01 - ACUTE RESPIRATORY FAILURE WITH HYPOXIA; J96.02 - ACUTE RESPIRATORY FAILURE WITH HYPERCAPNIA SNOMED Code(s): 24806707 (8) HCAP (healthcare-associated pneumonia) Current Visit: Yes Status: Acute Code(s): J18.9 - PNEUMONIA, UNSPECIFIED ORGANISM SNOMED Code(s): 109459947 (9) Pneumonia Current Visit: Yes Status: Acute Code(s): J18.9 - PNEUMONIA, UNSPECIFIED ORGANISM SNOMED Code(s): 534137549 (10) Septic shock Current Visit: Yes Status: Acute Code(s): A41.9 - SEPSIS, UNSPECIFIED ORGANISM; R65.21 - SEVERE SEPSIS WITH SEPTIC SHOCK SNOMED Code(s): 96455732 (11) Paroxysmal atrial fibrillation Current Visit: Yes Status: Resolved Code(s): I48.0 - PAROXYSMAL ATRIAL FIBRILLATION SNOMED Code(s): 416986733 (12) Septic shock Current Visit: Yes Status: Resolved Code(s): A41.9 - SEPSIS, UNSPECIFIED ORGANISM; R65.21 - SEVERE SEPSIS WITH SEPTIC SHOCK SNOMED Code(s): 42837390 Plan: Plan dated 05/10/2017 The patient's medications x-rays and labs are reviewed. The patient patient could be transferred out to the general medical floor. The patient's chest x- ray my opinion is slightly improved. We'll review the medications microbiology and other data. His overall prognosis remains guarded. We'll continue to follow closely. Time spent with patient was greater than 30 minutes. Plan dated 05/12/2017 The patient's labs x-rays a medications are all reviewed. Additional recommendations suggestions are forthcoming. We'll continue to follow. Prognosis is guarded. His overall condition has improved though. Time with Patient: Less than 30
[2017-05-12 17:11] LABS: Glucose,Whole Blood 145 mg/dL (75-99)
[2017-05-12] MEDS: SYMBICORT 160-4.5 MCG INHALER INHALATION SCH (20:25)
[2017-05-12 21:28] LABS: Glucose,Whole Blood 135 mg/dL (75-99)
[2017-05-12] MEDS: PRAVASTATIN SODIUM 40 MG TAB PO SCH (21:39)
[2017-05-12] MEDS: MELATONIN 3 MG TABLET PO SCH (21:39)
[2017-05-12] MEDS: traZODone HCL 100 MG TAB PO SCH (21:40)
[2017-05-13] MEDS: SODIUM CHLORIDE 0.9% 1,000 ML IV SCH ×2 (02:48→15:25)
[2017-05-13 06:12] LABS: HCT 43.7 % (39.0-53.0); HGB 13.8 gm/dL (13.0-17.5); MCH 30.7 pg (25.0-35.0); MCHC 31.4 g/dL (31.0-37.0); MCV 97.6 fL (80.0-100.0); Mean Platelet Volume 8.2; Platelet Count 178 k/uL (150-450); RBC 4.48 m/uL (4.30-5.90); RDW 14.5 % (11.5-15.5); WBC 12.7 k/uL (3.8-10.6)
[2017-05-13] MEDS: INSULIN ASPART 100 UNIT/ML 1 ML 10 ML VIAL SQ SCH ×4 (06:18→20:42)
[2017-05-13 06:23] LABS: Anion Gap 2 mmol/L; Blood Urea Nitrogen 24 mg/dL (9-20); Calcium 8.8 mg/dL (8.4-10.2); Carbon Dioxide 33 mmol/L (22-30); Chloride 103 mmol/L (98-107); Glucose 87 mg/dL (74-99); Potassium 4.2 mmol/L (3.5-5.1); Sodium 138 mmol/L (137-145)
[2017-05-13 06:31] LABS: Glucose,Whole Blood 73 mg/dL (75-99)
[2017-05-13] MEDS: PANTOPRAZOLE 40 MG TABLET PO SCH (06:43)
--- NOTE | 2017-05-13 07:32 | XR ---
EXAMINATION TYPE: XR chest 2V DATE OF EXAM: 05/13/2017 COMPARISON: 05/10/2017 HISTORY: Pneumonia TECHNIQUE: Frontal and lateral views of the chest are obtained. FINDINGS: There is blunting of costophrenic angles. There is no heart failure. There are chest leads . Thoracic aorta is atheromatous. IMPRESSION: Bilateral small pleural effusions appear improved compared to last exam. There is some c learing of pulmonary vascular congestion compared to last exam. Normal heart.
[2017-05-13] MEDS: IPRATROPIUM-ALBUTEROL 3 ML NEB INHALATION SCH ×4 (08:13→19:24)
[2017-05-13] MEDS: SYMBICORT 160-4.5 MCG INHALER INHALATION SCH ×2 (08:13→19:24)
[2017-05-13] MEDS: cefTRIAXone IN SWFI 1,000 MG/10 ML SYRINGE IVP SCH (09:15)
[2017-05-13] MEDS: ENOXAPARIN 60 MG/0.6 ML SYRINGE SQ SCH ×2 (09:15→20:09)
[2017-05-13] MEDS: MAGNESIUM OXIDE 400 MG TAB PO SCH (09:16)
[2017-05-13] MEDS: GABAPENTIN 400 MG CAP PO SCH ×3 (09:16→20:10)
[2017-05-13] MEDS: busPIRone HCl 10 MG TAB PO SCH ×3 (09:16→20:10)
[2017-05-13] MEDS: ARIPiprazole 10 MG TAB PO SCH ×2 (09:16→20:09)
[2017-05-13] MEDS: predniSONE 20 MG TAB PO SCH (09:17)
[2017-05-13] MEDS: VERAPAMIL 80 MG TAB PO SCH ×3 (09:17→20:11)
[2017-05-13] MEDS: THEOPHYLLINE 24 HOUR 200 MG CAP.ER.24H PO SCH (09:17)
[2017-05-13] MEDS: SERTRALINE 100 MG TAB PO SCH ×2 (09:17→20:10)
--- NOTE | 2017-05-13 09:20 | P.PN ---
Subjective Progress Note Date: 05/13/17 Principal diagnosis: hypoxic respiratory failure/pneumonia Pt transferred to [facility] yesterday for closer monitoring, still with cough but does not complain of much shortness of breath, no fever, no chills Objective - Vital Signs Vital signs: Vital Signs Temp 97.1 F L 05/13/17 09:00 Pulse 80 05/13/17 09:00 Resp 18 05/13/17 09:00 BP 128/72 05/13/17 09:00 Pulse Ox 93 L 05/13/17 09:00 Intake & Output 05/12/17 05/13/17 05/13/17 18:59 06:59 18:59 Intake Total 75 240 Output Total 2710 525 200 Balance -2635 -525 40 Weight 75.1 kg Intake: IV 75 Sodium Chloride 0.9% 1, 75 000 ml @ 75 mls/hr IV . [id number] [facility] Rx#:[id number] Oral 240 Output: Urine 2710 525 200 Other: Voiding Method Urinal Urinal Diaper Diaper # Voids 2 3 1 ABP, PAP, CO, CI - Last Documented Arterial Blood Pressure 139/67 - Exam gen:alert and oriented,mild respiratory distress lungs:clear to auscultation heart:s1s2 abdomen:soft and depressible,non tender ext:no edema - Labs CBC & Chem 7: 05/13/17 05:39 05/13/17 05:39 Labs: Abnormal Lab Results - Last 24 Hours (Table) 05/12/17 05/12/17 05/12/17 Range/Units 11:59 16:56 21:08 WBC (3.8-10.6) k/uL Carbon Dioxide (22-30) mmol/L BUN (9-20) mg/dL POC Glucose (mg/dL) 130 H 145 H 135 H (75-99) mg/dL 05/13/17 05/13/17 05/13/17 Range/Units 05:39 05:39 06:11 WBC 12.7 H (3.8-10.6) k/uL Carbon Dioxide 33 H (22-30) mmol/L BUN 24 H (9-20) mg/dL POC Glucose (mg/dL) 73 L (75-99) mg/dL Assessment and Plan (1) Acute respiratory failure with hypoxia Narrative/Plan: on 40 L by Airvo continue IV rocephin discussed wi RT will cotinue to wean to see if patient can tolerate high flow Current Visit: Yes Status: Acute Code(s): J96.01 - ACUTE RESPIRATORY FAILURE WITH HYPOXIA SNOMED Code(s): 62262510 (2) Pneumonia Narrative/Plan: sec to moraxella catarrhalis continue rocephin Current Visit: Yes Status: Acute Code(s): J18.9 - PNEUMONIA, UNSPECIFIED ORGANISM SNOMED Code(s): 118125928 (3) COPD exacerbation Narrative/Plan: On prednisone Continue DuoNeb Current Visit: Yes Status: Acute Code(s): J44.1 - CHRONIC OBSTRUCTIVE PULMONARY DISEASE W (ACUTE) EXACERBATION SNOMED Code(s): 855446447243705 (4) Paroxysmal atrial fibrillation Narrative/Plan: Rate controlled continue verapamil Current Visit: Yes Status: Resolved Code(s): I48.0 - PAROXYSMAL ATRIAL FIBRILLATION SNOMED Code(s): 124801917 (5) Septic shock Narrative/Plan: resolved Current Visit: Yes Status: Resolved Code(s): A41.9 - SEPSIS, UNSPECIFIED ORGANISM; R65.21 - SEVERE SEPSIS WITH SEPTIC SHOCK SNOMED Code(s): 90261362
[2017-05-13 11:16] LABS: Glucose,Whole Blood 105 mg/dL (75-99)
--- NOTE | 2017-05-13 12:49 | P.PN ---
Subjective Progress Note Date: 05/13/17 Principal diagnosis: respiratory failure Progress note dated 05/10/2017 This is a 66-year-old male with a history of acute on chronic hypoxemic and hypercapnic respiratory failure secondary to bibasal pneumonia caused by Moraxella catarrhalis. The patient also presented with acute septic shock secondary to infection with mental status changes tachycardia hypotension. The patient is doing better. The patient does have advanced oxygen-dependent COPD and a recent admission to [facility] for the same reason. In addition, he has a history of chronic nicotine dependence gastroesophageal reflux disease depression and paroxysmal atrial fibrillation. Currently the patient's doing relatively well. He spends much of his time on BiPAP at 12 and 5 and 50%. This is a help pop open the right lower lobe. That has improved. Other times she is on the high flow humidified oxygen and device. All in all doing reasonably well. Could be transferred out of the ICU. He states he is feeling better. Progress note dated 05/12/2017 This is a 66-year-old male with history of acute on chronic hypoxemic and hypercapnic respiratory failure secondary to by basilar pneumonia, secondary to Moraxella catarrhalis. The patient initially presented with acute septic shock secondary to infection with mental status changes hypotension and tachycardia. Patient is doing much better. For a number of days he was up in the ICU in room 612 on high flow oxygen therapy. That's been improved here. He's been on and off the BiPAP at 12 and 5 and 50%. His chest x-ray shows some collapse in the right lower lobe. BiPAP has helped that. Anyway he continues to improve. He was transferred out of the ICU to the floor but was moved back up here because of the fact that he fell down on the fourth floor. Progress note dated 05/13/2017 66-year-old male with a history of acute on chronic hypoxemic and hypercapnic respiratory failure. He was minute with a diagnosis of pneumonia secondary to Moraxella catarrhalis. I ordered a chest x-ray which does show improvement in his overall pattern. Both the infiltrate in the fluid overload pattern has improved. The patient's feeling less short of breath. Requiring less oxygen therapy. His vital signs are relatively stable otherwise. He's using BiPAP less than less. He is on appropriate medications: Bronchodilators and antibiotics. X-rays labs and medications are all reviewed today. Objective - Vital Signs Vital signs: Vital Signs Temp 97.1 F L 05/13/17 09:00 Pulse 90 05/13/17 11:40 Resp 18 05/13/17 11:40 BP 121/67 05/13/17 11:40 Pulse Ox 89 L 05/13/17 11:40 Intake & Output 05/12/17 05/13/17 05/13/17 18:59 06:59 18:59 Intake Total 75 480 Output Total 2710 525 200 Balance -2635 -525 280 Weight 75.1 kg Intake: IV 75 Sodium Chloride 0.9% 1, 75 000 ml @ 75 mls/hr IV . [id number] [facility]IF Rx#:[id number] Oral 480 Output: Urine 2710 525 200 Other: Voiding Method Urinal Urinal Urinal Diaper Diaper Diaper # Voids 2 3 1 ABP, PAP, CO, CI - Last Documented Arterial Blood Pressure 139/67 - Exam No acute distress, oriented 3. On oxygen therapy. HEENT examination is grossly unremarkable. Mucous membranes are moist. No oral lesions. Neck supple. Full range of motion. No adenopathy thyromegaly or neck vein distention. Cardiovascular examination reveals regular rhythm rate. S1-S2 normal. No S3 or S4. No discernible murmur noted. Lungs reveal diffuse rhonchi. Breath sounds are diminished. A few scattered expiratory wheezes. Some crackles at the bases. Lung sounds are pretty much remained stable. Abdomen soft bowel sounds are heard. No masses or tenderness. Extremities are intact. No cyanosis clubbing or edema. Skin is without rash or lesion. Neurologic examination is brief but nonfocal. - Labs CBC & Chem 7: 05/13/17 05:39 05/13/17 05:39 Labs: Abnormal Lab Results - Last 24 Hours (Table) 05/12/17 05/12/17 05/13/17 Range/Units 16:56 21:08 05:39 WBC 12.7 H (3.8-10.6) k/uL Carbon Dioxide (22-30) mmol/L BUN (9-20) mg/dL POC Glucose (mg/dL) 145 H 135 H (75-99) mg/dL 05/13/17 05/13/17 05/13/17 Range/Units 05:39 06:11 11:10 WBC (3.8-10.6) k/uL Carbon Dioxide 33 H (22-30) mmol/L BUN 24 H (9-20) mg/dL POC Glucose (mg/dL) 73 L 105 H (75-99) mg/dL Assessment and Plan (1) Gastroesophageal reflux disease Current Visit: Yes Status: Acute Code(s): K21.9 - GASTRO-ESOPHAGEAL REFLUX DISEASE WITHOUT ESOPHAGITIS SNOMED Code(s): 462514433 (2) Tobacco dependence Current Visit: Yes Status: Acute Code(s): F17.200 - NICOTINE DEPENDENCE, UNSPECIFIED, UNCOMPLICATED SNOMED Code(s): 14835419 (3) Atrial fibrillation Current Visit: Yes Status: Acute Code(s): I48.91 - UNSPECIFIED ATRIAL FIBRILLATION SNOMED Code(s): 74299167 (4) Depression Current Visit: Yes Status: Acute Code(s): F32.9 - MAJOR DEPRESSIVE DISORDER , SINGLE EPISODE, UNSPECIFIED SNOMED Code(s): 96263066 (5) Acute exacerbation of chronic obstructive pulmonary disease (COPD) Current Visit: Yes Status: Acute Code(s): J44.1 - CHRONIC OBSTRUCTIVE PULMONARY DISEASE W (ACUTE) EXACERBATION SNOMED Code(s): 245477471 (6) Acute on chronic respiratory failure with hypercapnia Current Visit: Yes Status: Acute Code(s): J96.22 - ACUTE AND CHRONIC RESPIRATORY FAILURE WITH HYPERCAPNIA SNOMED Code(s): 7712331160093 (7) Acute respiratory failure with hypoxia and hypercapnia Current Visit: Yes Status: Acute Code(s): J96.01 - ACUTE RESPIRATORY FAILURE WITH HYPOXIA; J96.02 - ACUTE RESPIRATORY FAILURE WITH HYPERCAPNIA SNOMED Code(s): 83005327 (8) HCAP (healthcare-associated pneumonia) Current Visit: Yes Status: Acute Code(s): J18.9 - PNEUMONIA, UNSPECIFIED ORGANISM SNOMED Code(s): 632933753 (9) Pneumonia Current Visit: Yes Status: Acute Code(s): J18.9 - PNEUMONIA, UNSPECIFIED ORGANISM SNOMED Code(s): 365312758 (10) Septic shock Current Visit: Yes Status: Acute Code(s): A41.9 - SEPSIS, UNSPECIFIED ORGANISM; R65.21 - SEVERE SEPSIS WITH SEPTIC SHOCK SNOMED Code(s): 81791861 (11) Paroxysmal atrial fibrillation Current Visit: Yes Status: Resolved Code(s): I48.0 - PAROXYSMAL ATRIAL FIBRILLATION SNOMED Code(s): 845554275 (12) Septic shock Current Visit: Yes Status: Resolved Code(s): A41.9 - SEPSIS, UNSPECIFIED ORGANISM; R65.21 - SEVERE SEPSIS WITH SEPTIC SHOCK SNOMED Code(s): 30440664 Plan: Plan dated 05/10/2017 The patient's medications x-rays and labs are reviewed. The patient patient could be transferred out to the general medical floor. The patient's chest x- ray my opinion is slightly improved. We'll review the medications microbiology and other data. His overall prognosis remains guarded. We'll continue to follow closely. Time spent with patient was greater than 30 minutes. Plan dated 05/12/2017 The patient's labs x-rays a medications are all reviewed. Additional recommendations suggestions are forthcoming. We'll continue to follow. Prognosis is guarded. His overall condition has improved though. Plan dated 05/13/2017 The patient's overall condition continues to improve. He is clinically and radiographically improved. We'll continue to follow. Medications are appropriate. We will review x-rays labs and medications again today. No additional recommendations are made. Also recent chest x-ray ordered by me shows improvement. Time with Patient: Less than 30
[2017-05-13] MEDS: FUROSEMIDE 40 MG TAB PO SCH (15:25)
[2017-05-13 16:28] LABS: Glucose,Whole Blood 153 mg/dL (75-99)
[2017-05-13] MEDS: MELATONIN 3 MG TABLET PO SCH (20:09)
[2017-05-13] MEDS: PRAVASTATIN SODIUM 40 MG TAB PO SCH (20:10)
[2017-05-13] MEDS: traZODone HCL 100 MG TAB PO SCH (20:10)
[2017-05-13 20:42] LABS: Glucose,Whole Blood 146 mg/dL (75-99)
[2017-05-14 06:01] LABS: Glucose,Whole Blood 100 mg/dL (75-99)
[2017-05-14] MEDS: INSULIN ASPART 100 UNIT/ML 1 ML 10 ML VIAL SQ SCH ×4 (06:01→21:32)
[2017-05-14] MEDS: SODIUM CHLORIDE 0.9% 1,000 ML IV SCH (06:06)
[2017-05-14] MEDS: PANTOPRAZOLE 40 MG TABLET PO SCH (06:06)
[2017-05-14] MEDS: IPRATROPIUM-ALBUTEROL 3 ML NEB INHALATION SCH ×4 (07:08→19:18)
[2017-05-14] MEDS: SYMBICORT 160-4.5 MCG INHALER INHALATION SCH ×2 (07:08→19:18)
[2017-05-14] MEDS: THEOPHYLLINE 24 HOUR 200 MG CAP.ER.24H PO SCH (07:57)
[2017-05-14] MEDS: busPIRone HCl 10 MG TAB PO SCH ×3 (07:57→21:31)
[2017-05-14] MEDS: SERTRALINE 100 MG TAB PO SCH ×2 (07:57→21:31)
[2017-05-14] MEDS: VERAPAMIL 80 MG TAB PO SCH ×3 (07:57→21:31)
[2017-05-14] MEDS: MAGNESIUM OXIDE 400 MG TAB PO SCH (07:57)
[2017-05-14] MEDS: FUROSEMIDE 40 MG TAB PO SCH (07:57)
[2017-05-14] MEDS: GABAPENTIN 400 MG CAP PO SCH ×3 (07:58→21:31)
[2017-05-14] MEDS: ARIPiprazole 10 MG TAB PO SCH ×2 (07:58→21:31)
[2017-05-14] MEDS: ENOXAPARIN 60 MG/0.6 ML SYRINGE SQ SCH ×2 (07:58→21:31)
[2017-05-14] MEDS: predniSONE 20 MG TAB PO SCH (07:58)
[2017-05-14] MEDS: MULTIVITAMINS, THERA 1 EACH TAB PO SCH (07:59)
[2017-05-14] MEDS: cefTRIAXone IN SWFI 1,000 MG/10 ML SYRINGE IVP SCH (08:01)
[2017-05-14 11:38] LABS: Glucose,Whole Blood 107 mg/dL (75-99)
--- NOTE | 2017-05-14 11:56 | P.PN ---
Subjective Progress Note Date: 05/14/17 Principal diagnosis: respiratory failure Progress note dated 05/10/2017 This is a 66-year-old male with a history of acute on chronic hypoxemic and hypercapnic respiratory failure secondary to bibasal pneumonia caused by Moraxella catarrhalis. The patient also presented with acute septic shock secondary to infection with mental status changes tachycardia hypotension. The patient is doing better. The patient does have advanced oxygen-dependent COPD and a recent admission to [facility] for the same reason. In addition, he has a history of chronic nicotine dependence gastroesophageal reflux disease depression and paroxysmal atrial fibrillation. Currently the patient's doing relatively well. He spends much of his time on BiPAP at 12 and 5 and 50%. This is a help pop open the right lower lobe. That has improved. Other times she is on the high flow humidified oxygen and device. All in all doing reasonably well. Could be transferred out of the ICU. He states he is feeling better. Progress note dated 05/12/2017 This is a 66-year-old male with history of acute on chronic hypoxemic and hypercapnic respiratory failure secondary to by basilar pneumonia, secondary to Moraxella catarrhalis. The patient initially presented with acute septic shock secondary to infection with mental status changes hypotension and tachycardia. Patient is doing much better. For a number of days he was up in the ICU in room 612 on high flow oxygen therapy. That's been improved here. He's been on and off the BiPAP at 12 and 5 and 50%. His chest x-ray shows some collapse in the right lower lobe. BiPAP has helped that. Anyway he continues to improve. He was transferred out of the ICU to the floor but was moved back up here because of the fact that he fell down on the fourth floor. Progress note dated 05/13/2017 66-year-old male with a history of acute on chronic hypoxemic and hypercapnic respiratory failure. He was minute with a diagnosis of pneumonia secondary to Moraxella catarrhalis. I ordered a chest x-ray which does show improvement in his overall pattern. Both the infiltrate in the fluid overload pattern has improved. The patient's feeling less short of breath. Requiring less oxygen therapy. His vital signs are relatively stable otherwise. He's using BiPAP less than less. He is on appropriate medications: Bronchodilators and antibiotics. X-rays labs and medications are all reviewed today. Progress note dated 05/14/2017 This is a 66-year-old male with a history of acute on chronic hypoxemic and hypercapnic respiratory failure. The patient was in the ICU for a number days in room 612. The patient has a diagnosis of a pneumonia secondary to Moraxella catarrhalis. His chest chest x-ray does show improvement. The patient's respiratory status has improved. His oxygen requirements have gone down. Vital signs are stable. He's using BiPAP from time to time not very much anymore. He is on bronchodilators antibiotics. Medications are reviewed and appropriate. Labs and x-rays are reviewed. Objective - Vital Signs Vital signs: Vital Signs Temp 97 F L 05/14/17 08:00 Pulse 92 05/14/17 11:23 Resp 18 05/14/17 08:00 BP 122/73 05/14/17 08:00 Pulse Ox 95 05/14/17 08:00 Intake & Output 05/13/17 05/14/17 05/14/17 18:59 06:59 18:59 Intake Total 1320 600 Output Total 200 1525 500 Balance 1120 -925 -500 Weight 70.9 kg Intake: IV 600 600 Sodium Chloride 0.9% 1, 600 600 000 ml @ 75 mls/hr IV . [id number] [facility] Rx#:[id number] Oral 720 Output: Urine 200 1525 500 Other: Voiding Method Urinal Urinal Diaper Diaper Diaper # Voids 1 1 ABP, PAP, CO, CI - Last Documented Arterial Blood Pressure 139/67 - Exam No acute distress, oriented 3. On oxygen therapy. HEENT examination is grossly unremarkable. Mucous membranes are moist. No oral lesions. Neck supple. Full range of motion. No adenopathy thyromegaly or neck vein distention. Cardiovascular examination reveals regular rhythm rate. S1-S2 normal. No S3 or S4. No discernible murmur noted. Lungs reveal diffuse rhonchi. Breath sounds are diminished. A few scattered expiratory wheezes. Some crackles at the bases. Lung sounds are pretty much remained stable. Abdomen soft bowel sounds are heard. No masses or tenderness. Extremities are intact. No cyanosis or clubbing. Trace edema. Skin is without rash or lesion. Neurologic examination is brief but nonfocal. - Labs CBC & Chem 7: 05/13/17 05:39 05/13/17 05:39 Labs: Abnormal Lab Results - Last 24 Hours (Table) 05/13/17 05/13/17 05/14/17 Range/Units 16:25 20:40 05:59 POC Glucose (mg/dL) 153 H 146 H 100 H (75-99) mg/dL 05/14/17 Range/Units 11:27 POC Glucose (mg/dL) 107 H (75-99) mg/dL Assessment and Plan (1) Gastroesophageal reflux disease Current Visit: Yes Status: Acute Code(s): K21.9 - GASTRO-ESOPHAGEAL REFLUX DISEASE WITHOUT ESOPHAGITIS SNOMED Code(s): 150268222 (2) Tobacco dependence Current Visit: Yes Status: Acute Code(s): F17.200 - NICOTINE DEPENDENCE, UNSPECIFIED, UNCOMPLICATED SNOMED Code(s): 68260137 (3) Atrial fibrillation Current Visit: Yes Status: Acute Code(s): I48.91 - UNSPECIFIED ATRIAL FIBRILLATION SNOMED Code(s): 42198683 (4) Depression Current Visit: Yes Status: Acute Code(s): F32.9 - MAJOR DEPRESSIVE DISORDER , SINGLE EPISODE, UNSPECIFIED SNOMED Code(s): 44374206 (5) Acute exacerbation of chronic obstructive pulmonary disease (COPD) Current Visit: Yes Status: Acute Code(s): J44.1 - CHRONIC OBSTRUCTIVE PULMONARY DISEASE W (ACUTE) EXACERBATION SNOMED Code(s): 468370101 (6) Acute on chronic respiratory failure with hypercapnia Current Visit: Yes Status: Acute Code(s): J96.22 - ACUTE AND CHRONIC RESPIRATORY FAILURE WITH HYPERCAPNIA SNOMED Code(s): 6664071279370 (7) Acute respiratory failure with hypoxia and hypercapnia Current Visit: Yes Status: Acute Code(s): J96.01 - ACUTE RESPIRATORY FAILURE WITH HYPOXIA; J96.02 - ACUTE RESPIRATORY FAILURE WITH HYPERCAPNIA SNOMED Code(s): 53518275 (8) HCAP (healthcare-associated pneumonia) Current Visit: Yes Status: Acute Code(s): J18.9 - PNEUMONIA, UNSPECIFIED ORGANISM SNOMED Code(s): 252937180 (9) Pneumonia Current Visit: Yes Status: Acute Code(s): J18.9 - PNEUMONIA, UNSPECIFIED ORGANISM SNOMED Code(s): 527381746 (10) Septic shock Current Visit: Yes Status: Acute Code(s): A41.9 - SEPSIS, UNSPECIFIED ORGANISM; R65.21 - SEVERE SEPSIS WITH SEPTIC SHOCK SNOMED Code(s): 95695451 (11) Paroxysmal atrial fibrillation Current Visit: Yes Status: Resolved Code(s): I48.0 - PAROXYSMAL ATRIAL FIBRILLATION SNOMED Code(s): 496638283 (12) Septic shock Current Visit: Yes Status: Resolved Code(s): A41.9 - SEPSIS, UNSPECIFIED ORGANISM; R65.21 - SEVERE SEPSIS WITH SEPTIC SHOCK SNOMED Code(s): 23545246 Plan: Plan dated 05/10/2017 The patient's medications x-rays and labs are reviewed. The patient patient could be transferred out to the general medical floor. The patient's chest x- ray my opinion is slightly improved. We'll review the medications microbiology and other data. His overall prognosis remains guarded. We'll continue to follow closely. Time spent with patient was greater than 30 minutes. Plan dated 05/12/2017 The patient's labs x-rays a medications are all reviewed. Additional recommendations suggestions are forthcoming. We'll continue to follow. Prognosis is guarded. His overall condition has improved though. Plan dated 05/13/2017 The patient's overall condition continues to improve. He is clinically and radiographically improved. We'll continue to follow. Medications are appropriate. We will review x-rays labs and medications again today. No additional recommendations are made. Also recent chest x-ray ordered by me shows improvement. Plan dated 05/14/2017. The patient's labs x-rays a medications are all reviewed. Overall prognosis remains guarded. Clinically is improved. Ocular requirements have come down. Additional recommendations and suggestions are forthcoming. Time with Patient: Less than 30
--- NOTE | 2017-05-14 15:34 | P.PN ---
Subjective Progress Note Date: 05/14/17 Principal diagnosis: SOB Feeling better Objective - Vital Signs Vital signs: Vital Signs Temp 96.7 F L 05/14/17 12:00 Pulse 96 05/14/17 12:00 Resp 18 05/14/17 08:00 BP 112/65 05/14/17 12:00 Pulse Ox 90 L 05/14/17 12:00 Intake & Output 05/13/17 05/14/17 05/14/17 18:59 06:59 18:59 Intake Total 1320 600 Output Total 200 1525 500 Balance 1120 -925 -500 Weight 70.9 kg Intake: IV 600 600 Sodium Chloride 0.9% 1, 600 600 000 ml @ 75 mls/hr IV . [id number] [facility]IF Rx#:[id number] Oral 720 Output: Urine 200 1525 500 Other: Voiding Method Urinal Urinal Diaper Diaper Diaper # Voids 1 1 ABP, PAP, CO, CI - Last Documented Arterial Blood Pressure 139/67 - Exam Constitutional: No acute distress, conversant, pleasant. On bipap. Eyes:Anicteric sclerae, moist conjunctiva, no lid-lag, PERRLA, ENMT: Oropharynx clear, no erythema, exudates Neck: Supple, FROM, no masses, or JVD, No carotid bruits, No thyromegaly Lungs: Better air exchange compare to prior, Clear to percussion, Normal respiratory effort, no accessory muscle use Cardiovascular: Heart regular in rate and rhythm, No murmurs, gallops, or rubs, No peripheral edema Abdominal: Soft, Nontender, no guarding, rebound or rigidity, Normoactive bowel sounds, No hepatomegaly, No splenomegaly, No palpable mass Skin: Normal temperature, tone, texture, turgor, no induration, No subcutaneous nodules, No rash, lesions, No ulcers Extremities: both feet swollen, no digital cyanosis, No clubbing, Pedal pulses intact and symmetrical, Radial pulses intact and symmetrical, No calf tenderness Psychiatric: Alert and oriented to person, place and time, appropriate affect, intact judgement Neuro: Muscles Strength 5/5 in all 4 extremities, Sensation to light touch grossly present throughout, Cranial nerves II-XII grossly intact, no focal sensory deficits - Labs CBC & Chem 7: 05/13/17 05:39 05/13/17 05:39 Labs: Abnormal Lab Results - Last 24 Hours (Table) 05/13/17 05/13/17 05/14/17 Range/Units 16:25 20:40 05:59 POC Glucose (mg/dL) 153 H 146 H 100 H (75-99) mg/dL 05/14/17 Range/Units 11:27 POC Glucose (mg/dL) 107 H (75-99) mg/dL Assessment and Plan Plan: (1) Acute on chronic respiratory failure with hypercapnia Secondary to Moraxella catarrh pneumonia and severe COPD exacerbation Pulmonary critical care on board S/P successful extubation, currently on 5L NC his baseline (2) Septic shock/HCAP (healthcare-associated pneumonia) Resolved, Sputum culture growing Moraxella catarra Antibiotics scaled down to just Rocephin (3) Acute exacerbation of chronic obstructive pulmonary disease (COPD) Continue with breathing treatments On prednisone taper (4) Bilateral feet swelling D/C IV fluids. (5) Paroxysmal atrial fibrillation Currently in sinus rythym Continue with Verapamil, avoid beta blockers due to severe COPD exacerbation Echocardiogram showing normal ejection fraction 55-60% (6) DVT prophylaxis: SCDs and lovenox s/q
[2017-05-14 17:22] LABS: Glucose,Whole Blood 116 mg/dL (75-99)
[2017-05-14 20:46] LABS: Glucose,Whole Blood 113 mg/dL (75-99)
[2017-05-14] MEDS: PRAVASTATIN SODIUM 40 MG TAB PO SCH (21:31)
[2017-05-14] MEDS: traZODone HCL 100 MG TAB PO SCH (21:31)
[2017-05-14] MEDS: MELATONIN 3 MG TABLET PO SCH (21:31)
[2017-05-15 06:19] LABS: Glucose,Whole Blood 91 mg/dL (75-99)
[2017-05-15] MEDS: INSULIN ASPART 100 UNIT/ML 1 ML 10 ML VIAL SQ SCH ×4 (06:40→22:08)
[2017-05-15] MEDS: PANTOPRAZOLE 40 MG TABLET PO SCH (06:42)
[2017-05-15] MEDS: IPRATROPIUM-ALBUTEROL 3 ML NEB INHALATION SCH ×4 (07:46→20:13)
[2017-05-15] MEDS: SYMBICORT 160-4.5 MCG INHALER INHALATION SCH ×2 (07:46→20:12)
[2017-05-15] MEDS: busPIRone HCl 10 MG TAB PO SCH ×3 (07:54→22:06)
[2017-05-15] MEDS: ARIPiprazole 10 MG TAB PO SCH ×2 (07:54→22:05)
[2017-05-15] MEDS: ENOXAPARIN 60 MG/0.6 ML SYRINGE SQ SCH ×2 (07:55→22:06)
[2017-05-15] MEDS: MAGNESIUM OXIDE 400 MG TAB PO SCH (07:55)
[2017-05-15] MEDS: predniSONE 10 MG TAB PO SCH (07:55)
[2017-05-15] MEDS: FUROSEMIDE 40 MG TAB PO SCH (07:55)
[2017-05-15] MEDS: GABAPENTIN 400 MG CAP PO SCH ×3 (07:55→22:06)
[2017-05-15] MEDS: cefTRIAXone IN SWFI 1,000 MG/10 ML SYRINGE IVP SCH (07:55)
[2017-05-15] MEDS: VERAPAMIL 80 MG TAB PO SCH ×3 (07:56→22:06)
[2017-05-15] MEDS: THEOPHYLLINE 24 HOUR 200 MG CAP.ER.24H PO SCH (07:56)
[2017-05-15] MEDS: SERTRALINE 100 MG TAB PO SCH ×2 (07:56→22:06)
[2017-05-15] MEDS ORDERED: predniSONE 10 MG TAB PO SCH (09:00)
[2017-05-15 11:27] LABS: Glucose,Whole Blood 111 mg/dL (75-99)
[2017-05-15] MEDS: ACETAMINOPHEN TAB 325 MG TAB PO PRN (11:45)
[2017-05-15] MEDS: MULTIVITAMINS, THERA 1 EACH TAB PO SCH (11:45)
--- NOTE | 2017-05-15 12:03 | P.PN ---
Subjective Progress Note Date: 05/15/17 Principal diagnosis: SOB Still having some weakness, working with PT Objective - Vital Signs Vital signs: Vital Signs Temp 99.1 F 05/15/17 11:43 Pulse 102 H 05/15/17 11:58 Resp 16 05/15/17 11:58 BP 116/61 05/15/17 11:43 Pulse Ox 93 L 05/15/17 11:43 Intake & Output 05/14/17 05/15/17 05/15/17 18:59 06:59 18:59 Intake Total 280 138 Output Total 2200 500 680 Balance -1920 -500 -542 Weight 73 kg Intake: Intake, IV Titration 20 Amount Sodium Chloride 0.9% 1, 20 000 ml @ 75 mls/hr IV . [id number] CLIF Rx#:[id number] Oral 280 118 Output: Urine 2200 500 680 Other: Voiding Method Diaper Diaper # Voids 2 ABP, PAP, CO, CI - Last Documented Arterial Blood Pressure 139/67 - Exam Constitutional: No acute distress, conversant, pleasant. On bipap. Eyes:Anicteric sclerae, moist conjunctiva, no lid-lag, PERRLA, ENMT: Oropharynx clear, no erythema, exudates Neck: Supple, FROM, no masses, or JVD, No carotid bruits, No thyromegaly Lungs: Better air exchange compare to prior, Clear to percussion, Normal respiratory effort, no accessory muscle use Cardiovascular: Heart regular in rate and rhythm, No murmurs, gallops, or rubs, No peripheral edema Abdominal: Soft, Nontender, no guarding, rebound or rigidity, Normoactive bowel sounds, No hepatomegaly, No splenomegaly, No palpable mass Skin: Normal temperature, tone, texture, turgor, no induration, No subcutaneous nodules, No rash, lesions, No ulcers Extremities: both feet swollen, no digital cyanosis, No clubbing, Pedal pulses intact and symmetrical, Radial pulses intact and symmetrical, No calf tenderness Psychiatric: Alert and oriented to person, place and time, appropriate affect, intact judgement Neuro: Muscles Strength 5/5 in all 4 extremities, Sensation to light touch grossly present throughout, Cranial nerves II-XII grossly intact, no focal sensory deficits - Labs CBC & Chem 7: 05/13/17 05:39 05/13/17 05:39 Labs: Abnormal Lab Results - Last 24 Hours (Table) 05/14/17 05/14/17 05/15/17 Range/Units 16:58 20:43 11:25 POC Glucose (mg/dL) 116 H 113 H 111 H (75-99) mg/dL Microbiology - Last 24 Hours (Table) 05/04/17 10:40 Fungal Culture - Preliminary Bronchial Washings - Right 05/04/17 10:40 Acid Fast Bacilli Smear - Final Bronchial Washings - Right Acid Fast Bacilli Culture - Preliminary Assessment and Plan Plan: (1) Acute on chronic respiratory failure with hypercapnia Secondary to Moraxella catarrh pneumonia and severe COPD exacerbation s/p mechanical ventilation. S/P successful extubation, currently on 5L NC his baseline (2) Septic shock/HCAP (healthcare-associated pneumonia) Resolved, Sputum culture growing Moraxella catarra Antibiotics scaled down to just Rocephin---stop date tomorrow total treatment duration 2 weeks. (3) Acute exacerbation of chronic obstructive pulmonary disease (COPD) Continue with breathing treatments On prednisone taper (4) Bilateral feet swelling Improved. (5) Paroxysmal atrial fibrillation Currently in sinus rythym Continue with Verapamil, avoid beta blockers due to severe COPD exacerbation Echocardiogram showing normal ejection fraction 55-60% (6) DVT prophylaxis: SCDs and lovenox s/q (7) Disposition D/W SW and case management, going to rehab in am.
--- NOTE | 2017-05-15 12:35 | P.PN ---
Subjective Progress Note Date: 05/15/17 Principal diagnosis: Acute hypoxic and hypercapnic respiratory failure secondary to Moraxella catarrhalis pneumonia Warren is a 66-year-old white male patient who presented to the emergency department on 05/02/2017 per EMS with dyspnea, fever and altered mental status. patient has a past medical history of oxygen dependent COPD, hypothyroidism, GERD/reflux, depression. Patient's spouse is not present at this time or at the time of arrival by ambulance. Most of the history was obtained from the ER physician, nursing staff and the chart. Patient usually goes for his care to the [facility] in [place], per nursing staff patient had been hospitalized there many times. Initially patient was alert and oriented , was given albuterol nebulized treatment and Solu-Medrol by EMS however during the transport patient became increasingly more obtunded. He was immediately placed on BiPAP on arrival to the ED. He was febrile presentation with a temp of 101.3 axillary, tachycardic with a heart rate of 140 BPM, tachypnea with respiratory rate of 28/m, and approximately make with O2 sat at 78% on 2 L. BiPAP support was initiated with pressures of 16/5, FiO2 of 50%. he was given nebulized treatments, was started on antibiotics Levaquin and vancomycin, he was given a liter of IV 0.9 normal saline fluid bolus. Blood urine and sputum culture were ordered and sent. chest x-ray showed extensive bibasilar infiltrates, with more extensive consolidation on the right extending to the mid lung level. There may be subtle early cavitation changes at the right lung base as well. Brain CT showed no acute intracranial abnormality. Venous blood gas on arrival showed pH of 7.25, pCO2 of 86, and bicarb of 36, primary respiratory acidosis with compensation. lab work was reviewed and showed leukocytosis with WBC of 15.3, hemoglobin 16.9 and hematocrit of 54, platelet count of 149, no coagulopathy, sodium 146, potassium is 4.2, carbon dioxide 37, anion gap is 9, B UN of 23, creatinine of 1.2. analysis was negative, urine drug screen was positive for marijuana, serum alcohol level was less than 10, and influenza screen was negative. In the emergency room patient became unresponsive to vigorous tactile stimuli, despite the BiPAP support. At that point the decision was made to intubate the patient and place him on mechanical ventilation. At the time of my evaluation, Dr. Almeida and the ER staff are getting ready to intubate the patient. There is no family around. Patient was reevaluated today in the ICU, this is on 05/03/2017. Patient remains on mechanical ventilation, tidal volume is 550, respiratory rate is 20, FiO2 is 50%, and PEEP is 5. ABG showed a pO2 of 85 pCO2 of 43 pH of 7.44. Continues to have leukocytosis with WBC count of 37.8, hemoglobin is 15.1. Basic metabolic profile is normal. Renal profile is improving with creatinine down to 1.09 from 1.2 yesterday. Sputum cultures are still pending, Gram stain is showing many polymorphonuclear leukocytes, few gram-positive cocci and few gram-negative bacilli. Patient remains sedated however on a lower dose of propofol, patient seems very appropriate following simple instructions. The propofol was not completely discontinued, but his mental status is appropriate enough, hence no need for MRI of the brain or scanning of the brain at this point. His mental status change upon presentation was most likely related to hypoxia and hypercapnia. Medications were all reviewed patient remains on broad -spectrum antibiotics including Levaquin and Zosyn and vancomycin is also on bronchodilators in the form of DuoNeb and is also on Solu-Medrol 60 IV push every 6. Overnight the patient required low-dose norepinephrine because of low blood pressure, and he received over 4 L of fluid boluses since admission. Which means the patient has clearly a picture of septic shock from his pneumonia. Today I have instructed the nurses to titrate the norepinephrine down and maintain a mean arterial pressure of above 65. Reevaluated today on 05/05/2017, patient remains on mechanical ventilation, tidal volume is 550 respiratory rate of 20 FiO2 50%, PEEP is 5. ABG showed a pO2 of 69 pCO2 of 46 pH of 7.37. Basic metabolic profile and renal profile were noted to be normal. CBC continues to show leukocytosis with WBC count of 14.9, otherwise unremarkable. Platelets are 1 24,000. Patient had leukocytosis a few days ago, and that seems to be improving. Cultures from the sputum came back positive for Branhamella catarrhalis, patient will be treated with Zithromax and Rocephin, no need for vancomycin, no need for Zosyn, and no need for Levaquin. On outpatient basis patient can be treated with either Augmentin or Zithromax. Chest x-ray this morning continues to show significant infiltrate in the right lower lobe, but seems to be slightly improved. And it is a limited infiltrate in the left lower lobe. Reevaluated today on 05/06/2017, patient remains on mechanical ventilation, tidal volume of 550 FiO2 of 50% PEEP of 5 and the rate of 20. ABG showed a pO2 of 70 CO2 of 49 pH of 7.37. CBC is normal. And his leukocytosis seems to have dramatically improved. Chest x-ray is showing improvement in his bilateral bibasilar infiltrates especially in the right lower lobe. Bronchial washing remains negative so far, however the sputum was positive for Moraxella catarrhalis. Patient is presently sedated, I will ask the nurses to have a sedation interruption, and assessment of mental status. However considering that his pO2 is still marginal on 50%, no plans to wean and extubate today, but that is to be considered probably in the next 24 hours. Patient was reevaluated today on 05/07/2017, remains on mechanical ventilation, ventilator settings were noted as above. ABG was noted, pO2 was 84 pCO2 of 49 pH of 7.38, CBC and basic metabolic profile were noted to be relatively normal. Patient is arousable, follows simple instructions, his supraventricular tachycardia is under control. Patient was weaned off propofol, weaning parameters were checked, switch to a pressure support and CPAP for over half an hour, and he was noted to do well, however his pO2 remains marginal on repeat ABG. Chest x-ray showed improvement in his infiltrates especially in the right lower lobe, and there is possibly a small right pleural effusion. After reviewing his chest x-ray, observe the patient on pressure support and CPAP, went ahead and recommended extubating the patient to a high flow nasal cannula. I also recommended giving him Lasix 20 mg IV push. The patient was seen again today 05/08/2017 in follow-up in the intensive care unit. He was successfully extubated to AirVo 60 L at 80% FiO2. He is maintaining O2 saturations in the 90s. He has been hemodynamically stable. He is awake and alert in no acute distress. His chest x-ray continues to show some right lower lobe atelectasis/infiltrate. His sputum was positive for Moraxella catarrhalis. Bronchial washings from 05/04/2017 were negative. White count 12.4. He has been on Rocephin and azithromycin. The patient is seen today 05/09/2017 in follow-up in the intensive care unit. He is awake and alert in no acute distress. He is currently sitting up in the chair at the bedside. His chest x-ray shows some improvement in the infiltrate/ effusion of the right lower lobe. He is currently on BiPAP at a setting of 12/ 5 and 50% FiO2 maintaining O2 saturations in the low 90s. His 0.9 normal saline at 75 MLS per hour. He is receiving chest physiotherapy to the right lower lobe. He is working well at the incentive spirometer. He remains on antibiotics in the form of Rocephin. No leukocytosis. He remains afebrile. On 05/11/2017 patient seen in follow-up on medical surgical floor. Staff is getting ready to transfer the patient to [facility] at the time of evaluation. Patient sustained a fall last night while he was trying to get up unassisted, with no acute injuries. Currently sitting up in the chair, in no apparent distress. Remains on Airvo at 40 L/m, and FiO2 of 50%. His O2 sat is 97. He remains afebrile. Lung sounds are positive for some crackles in the right upper lobe, otherwise clear. Patient remains hemodynamically stable. Denies any distress, although remains mildly short of breath with productive cough. He remains in atrial fibrillation with a controlled rate. Labs were reviewed, WBC is up slightly to 11.4, hemoglobin is stable at 14.3, platelets are 149, serum sodium is 136, serum potassium is 3.9, carbon dioxide is 33, B1 is 29, creatinine 0.82. He continues on Pulmicort, Perforomist, IV Rocephin. Microbiology was reviewed, brought washing culture showed no growth after 48 hours. Fungal and acid-fast bacilli culture still pending. Acid-fast bacilli smear was negative. Sputum culture collected on 05/02/2017 was positive for Moraxella catarrhalis. 05/15/2017 patient is seen again on selective care floor. Patient's oxygenation need is down to 5 L per nasal cannula, with pulse ox of 93%. Have an isolated episode of low grade fever of 100.2F on 05/15/2017 at 7 in the morning. Microbiology results have been reviewed, sputum culture collected on 05/02/2017 was positive from her axilla catarrhalis, bronchial washing from 05/07/2017 showed no growth. Fungal cultures are negative thus far. TB culture and AFB smear were negative. Patient continues to improve, tolerates portable oxygen walker without significant respiratory distress. Lung sounds positive for a few scattered rhonchi. Objective - Vital Signs Vital signs: Vital Signs Temp 99.1 F 05/15/17 11:43 Pulse 102 H 05/15/17 11:58 Resp 16 05/15/17 11:58 BP 116/61 05/15/17 11:43 Pulse Ox 93 L 05/15/17 11:43 Intake & Output 05/14/17 05/15/17 05/15/17 18:59 06:59 18:59 Intake Total 280 138 Output Total 2200 500 680 Balance -1920 -500 -542 Weight 73 kg Intake: Intake, IV Titration 20 Amount Sodium Chloride 0.9% 1, 20 000 ml @ 75 mls/hr IV . [id number] [facility] Rx#:[id number] Oral 280 118 Output: Urine 2200 500 680 Other: Voiding Method Diaper Diaper # Voids 2 ABP, PAP, CO, CI - Last Documented Arterial Blood Pressure 139/67 - Exam GENERAL EXAM: Alert, comfortable in no apparent distress. HEAD: Normocephalic. EYES: Normal reaction of pupils, equal size. NOSE: Clear with pink turbinates. THROAT: No erythema or exudates. NECK: No masses, no JVD. CHEST: No chest wall deformity. LUNGS: Equal air entry with positive for a few scattered rhonchi bilaterally. Down to 5 L per high flow nasal cannula. CVS: S1 and S2 normal with no audible murmur, regular rhythm. ABDOMEN: No hepatosplenomegaly, normal bowel sounds, no guarding or rigidity. SPINE: No scoliosis or deformity SKIN: No rashes CENTRAL NERVOUS SYSTEM: No focal deficits, tone is normal in all 4 extremities. EXTREMITIES: There is no peripheral edema. No clubbing, no cyanosis. Peripheral pulses are intact. - Labs CBC & Chem 7: 05/13/17 05:39 05/13/17 05:39 Labs: Abnormal Lab Results - Last 24 Hours (Table) 05/14/17 05/14/17 05/15/17 Range/Units 16:58 20:43 11:25 POC Glucose (mg/dL) 116 H 113 H 111 H (75-99) mg/dL Microbiology - Last 24 Hours (Table) 05/04/17 10:40 Fungal Culture - Preliminary Bronchial Washings - Right 05/04/17 10:40 Acid Fast Bacilli Smear - Final Bronchial Washings - Right Acid Fast Bacilli Culture - Preliminary Assessment and Plan Plan: Assessment: #1. Acute on chronic hypoxic and hypercapnic respiratory failure secondary to extensive bibasilar infiltrates, pneumonia secondary to Moraxella catarrhalis #2. Acute sepsis secondary to the above, on presentation there is leukocytosis, febrile illness, altered mental status, tachycardia, hypotension. Recovered. #3. Advanced oxygen dependent COPD, exact severity of which is unknown at this time #4. Recent admission at [facility] #4. Nicotine dependence #5. GERD/reflux #6. Depression #7. Paroxysmal atrial fibrillation and supraventricular tachycardia, patient is currently on verapamil Plan: Is doing well, currently down to 5 L/m of oxygen per high flow nasal cannula. Tolerating ambulation on portable oxygen and with a walker. Continues on antibiotics in the form of Rocephin, Zithromax was discontinued. Sputum culture collected on 05/02/2017 was positive for Moraxella catarrhalis. Patient is afebrile. Hemodynamically stable. Continue with current treatment. Continue Symbicort,. Continue DuoNeb, continue GI and DVT prophylaxis. I performed a history & physical examination of the patient and discussed their management with my nurse practitioner, Rochelle Amaro. I reviewed the nurse practitioner's note and agree with the documented findings and plan of care. Lung sounds are positive for scattered rhonchi. The findings and the impression was discussed with the patient. I attest to the documentation by the nurse practitioner. Time with Patient: Less than 30
[2017-05-15 16:51] LABS: Glucose,Whole Blood 124 mg/dL (75-99)
[2017-05-15 21:15] LABS: Glucose,Whole Blood 115 mg/dL (75-99)
[2017-05-15] MEDS: PRAVASTATIN SODIUM 40 MG TAB PO SCH (22:06)
[2017-05-15] MEDS: traZODone HCL 100 MG TAB PO SCH (22:06)
[2017-05-15] MEDS: MELATONIN 3 MG TABLET PO SCH (22:06)
[2017-05-16] MEDS: SYMBICORT 160-4.5 MCG INHALER INHALATION SCH ×2 (07:11→19:27)
[2017-05-16] MEDS: IPRATROPIUM-ALBUTEROL 3 ML NEB INHALATION SCH ×5 (07:11→19:27)
[2017-05-16] MEDS: THEOPHYLLINE 24 HOUR 200 MG CAP.ER.24H PO SCH (07:21)
[2017-05-16] MEDS: busPIRone HCl 10 MG TAB PO SCH ×3 (07:21→21:28)
[2017-05-16] MEDS: VERAPAMIL 80 MG TAB PO SCH ×3 (07:21→21:31)
[2017-05-16] MEDS: MAGNESIUM OXIDE 400 MG TAB PO SCH (07:21)
[2017-05-16] MEDS: GABAPENTIN 400 MG CAP PO SCH ×3 (07:21→21:25)
[2017-05-16] MEDS: predniSONE 10 MG TAB PO SCH (07:22)
[2017-05-16] MEDS: SERTRALINE 100 MG TAB PO SCH ×2 (07:22→21:28)
[2017-05-16] MEDS: FUROSEMIDE 40 MG TAB PO SCH (07:22)
[2017-05-16] MEDS: ENOXAPARIN 60 MG/0.6 ML SYRINGE SQ SCH ×3 (07:22→21:28)
[2017-05-16] MEDS: ARIPiprazole 10 MG TAB PO SCH ×2 (07:22→21:24)
[2017-05-16] MEDS: PANTOPRAZOLE 40 MG TABLET PO SCH (07:22)
[2017-05-16] MEDS: INSULIN ASPART 100 UNIT/ML 1 ML 10 ML VIAL SQ SCH ×4 (07:32→21:17)
[2017-05-16 07:41] LABS: Glucose,Whole Blood 91 mg/dL (75-99)
[2017-05-16] MEDS: cefTRIAXone IN SWFI 1,000 MG/10 ML SYRINGE IVP SCH (08:35)
--- NOTE | 2017-05-16 11:31 | P.PN ---
Subjective Progress Note Date: 05/16/17 Patient back at baseline O2 requirements of 5 L/m via nasal cannula, has no complaints. Objective - Vital Signs Vital signs: Vital Signs Temp 98.7 F 05/16/17 11:00 Pulse 92 05/16/17 11:27 Resp 26 H 05/16/17 11:00 BP 105/76 05/16/17 11:00 Pulse Ox 95 05/16/17 11:00 Intake & Output 05/15/17 05/16/17 05/16/17 18:59 06:59 18:59 Intake Total 374 240 Output Total 930 Balance -556 240 Weight 73 kg 62.5 kg Intake: Intake, IV Titration 20 Amount Sodium Chloride 0.9% 1, 20 000 ml @ 75 mls/hr IV . [id number] [facility] Rx#:[id number] Oral 354 240 Output: Urine 930 Other: Voiding Method Urinal Diaper # Voids 2 ABP, PAP, CO, CI - Last Documented Arterial Blood Pressure 139/67 - Exam Constitutional: Respiratory unlabored on 5 L, conversant, pleasant Eyes: Anicteric sclerae, moist conjunctiva, no lid-lag, PERRLA ENMT: NC/AT,Oropharynx clear, no erythema, exudates Neck:Supple, FROM, no masses, or JVD, No carotid bruits; No thyromegaly Lungs: Junky sounding lungs Equal air entry with positive for a few scattered rhonchi bilaterally. Down to 5 L per high flow nasal cannula. Cardiovascular: Heart regular in rate and rhythm, No murmurs, gallops, or rubs no peripheral edema Abdominal: Soft Nontender, nom distended, no guarding, no rebound or rigidity, Normoactive bowel sounds No hepatomegaly, No splenomegaly, No palpable mass No abdominal wall hernia noted Skin: Normal temperature, tone, texture, turgor, No induration No subcutaneous nodules, No rash, lesions, No ulcers Extremities:No digital cyanosis No clubbing, Pedal pulses intact and symmetrical Radial pulses intact and symmetrical Normal gait and station, No calf tenderness Neuro: Muscles Strength 5/5 in all 4 extremities, sedated but following simple commands - Labs CBC & Chem 7: 05/13/17 05:39 05/13/17 05:39 Labs: Abnormal Lab Results - Last 24 Hours (Table) 05/15/17 05/15/17 Range/Units 16:49 21:13 POC Glucose (mg/dL) 124 H 115 H (75-99) mg/dL Microbiology - Last 24 Hours (Table) 05/04/17 10:40 Fungal Culture - Preliminary Bronchial Washings - Right Assessment and Plan (1) Acute on chronic respiratory failure with hypercapnia Narrative/Plan: * pulmonary critical care doctor Aidar following * Patient with good saturations on 5 L nasal cannula which is at his baseline * Secondary to Moraxella catarrh pneumonia and severe COPD exacerbation Current Visit: Yes Status: Acute Code(s): J96.22 - ACUTE AND CHRONIC RESPIRATORY FAILURE WITH HYPERCAPNIA SNOMED Code(s): 8838450519349 (2) Acute exacerbation of chronic obstructive pulmonary disease (COPD) Narrative/Plan: * Continue with breathing treatments and systemic steroids prednisone at 30 mg daily with Symbicort Current Visit: Yes Status: Acute Code(s): J44.1 - CHRONIC OBSTRUCTIVE PULMONARY DISEASE W (ACUTE) EXACERBATION SNOMED Code(s): 093641463 (3) Septic shock Narrative/Plan: * Resolved * Leukocytosis almost resolved, patient afebrile overnight * Blood cultures negative sputum culture growing Moraxella catarra pneumonia treated Current Visit: Yes Status: Resolved Code(s): A41.9 - SEPSIS, UNSPECIFIED ORGANISM; R65.21 - SEVERE SEPSIS WITH SEPTIC SHOCK SNOMED Code(s): 05959261 (4) HCAP (healthcare-associated pneumonia) Narrative/Plan: * Moraxella catarrh pneumonia * Treated Current Visit: Yes Status: Acute Code(s): J18.9 - PNEUMONIA, UNSPECIFIED ORGANISM SNOMED Code(s): 101604659 (5) Paroxysmal atrial fibrillation Narrative/Plan: * Currently in sinus rythym * Continue with Verapamil per cardiology recommendations * Echocardiogram showing normal ejection fraction 55-60% * cardiology consulted for furhter recommendations (avoid beta blockers severe COPD exacerbation) Current Visit: Yes Status: Resolved Code(s): I48.0 - PAROXYSMAL ATRIAL FIBRILLATION SNOMED Code(s): 945150107 (6) Hypernatremia Current Visit: Yes Status: Resolved Code(s): E87.0 - HYPEROSMOLALITY AND HYPERNATREMIA SNOMED Code(s): 07390205 (7) CO2 narcosis Narrative/Plan: * Resolved Current Visit: Yes Status: Resolved Code(s): R06.89 - OTHER ABNORMALITIES OF BREATHING SNOMED Code(s): 89477917 Plan: Patient awaiting placement
[2017-05-16 12:12] LABS: Glucose,Whole Blood 115 mg/dL (75-99)
[2017-05-16] MEDS: MULTIVITAMINS, THERA 1 EACH TAB PO SCH (12:31)
--- NOTE | 2017-05-16 14:40 | P.PN ---
<Rochelle Amaro M - Last Filed: 05/16/17 14:35> Subjective Progress Note Date: 05/16/17 Principal diagnosis: Acute hypoxic and hypercapnic respiratory failure secondary to Moraxella catarrhalis pneumonia Warren is a 66-year-old white male patient who presented to the emergency department on 05/02/2017 per EMS with dyspnea, fever and altered mental status. patient has a past medical history of oxygen dependent COPD, hypothyroidism, GERD/reflux, depression. Patient's spouse is not present at this time or at the time of arrival by ambulance. Most of the history was obtained from the ER physician, nursing staff and the chart. Patient usually goes for his care to the [facility] in [place], per nursing staff patient had been hospitalized there many times. Initially patient was alert and oriented , was given albuterol nebulized treatment and Solu-Medrol by EMS however during the transport patient became increasingly more obtunded. He was immediately placed on BiPAP on arrival to the ED. He was febrile presentation with a temp of 101.3 axillary, tachycardic with a heart rate of 140 BPM, tachypnea with respiratory rate of 28/m, and approximately make with O2 sat at 78% on 2 L. BiPAP support was initiated with pressures of 16/5, FiO2 of 50%. he was given nebulized treatments, was started on antibiotics Levaquin and vancomycin, he was given a liter of IV 0.9 normal saline fluid bolus. Blood urine and sputum culture were ordered and sent. chest x-ray showed extensive bibasilar infiltrates, with more extensive consolidation on the right extending to the mid lung level. There may be subtle early cavitation changes at the right lung base as well. Brain CT showed no acute intracranial abnormality. Venous blood gas on arrival showed pH of 7.25, pCO2 of 86, and bicarb of 36, primary respiratory acidosis with compensation. lab work was reviewed and showed leukocytosis with WBC of 15.3, hemoglobin 16.9 and hematocrit of 54, platelet count of 149, no coagulopathy, sodium 146, potassium is 4.2, carbon dioxide 37, anion gap is 9, B UN of 23, creatinine of 1.2. analysis was negative, urine drug screen was positive for marijuana, serum alcohol level was less than 10, and influenza screen was negative. In the emergency room patient became unresponsive to vigorous tactile stimuli, despite the BiPAP support. At that point the decision was made to intubate the patient and place him on mechanical ventilation. At the time of my evaluation, Dr. Almeida and the ER staff are getting ready to intubate the patient. There is no family around. Patient was reevaluated today in the ICU, this is on 05/03/2017. Patient remains on mechanical ventilation, tidal volume is 550, respiratory rate is 20, FiO2 is 50%, and PEEP is 5. ABG showed a pO2 of 85 pCO2 of 43 pH of 7.44. Continues to have leukocytosis with WBC count of 37.8, hemoglobin is 15.1. Basic metabolic profile is normal. Renal profile is improving with creatinine down to 1.09 from 1.2 yesterday. Sputum cultures are still pending, Gram stain is showing many polymorphonuclear leukocytes, few gram-positive cocci and few gram-negative bacilli. Patient remains sedated however on a lower dose of propofol, patient seems very appropriate following simple instructions. The propofol was not completely discontinued, but his mental status is appropriate enough, hence no need for MRI of the brain or scanning of the brain at this point. His mental status change upon presentation was most likely related to hypoxia and hypercapnia. Medications were all reviewed patient remains on broad -spectrum antibiotics including Levaquin and Zosyn and vancomycin is also on bronchodilators in the form of DuoNeb and is also on Solu-Medrol 60 IV push every 6. Overnight the patient required low-dose norepinephrine because of low blood pressure, and he received over 4 L of fluid boluses since admission. Which means the patient has clearly a picture of septic shock from his pneumonia. Today I have instructed the nurses to titrate the norepinephrine down and maintain a mean arterial pressure of above 65. Reevaluated today on 05/05/2017, patient remains on mechanical ventilation, tidal volume is 550 respiratory rate of 20 FiO2 50%, PEEP is 5. ABG showed a pO2 of 69 pCO2 of 46 pH of 7.37. Basic metabolic profile and renal profile were noted to be normal. CBC continues to show leukocytosis with WBC count of 14.9, otherwise unremarkable. Platelets are 1 24,000. Patient had leukocytosis a few days ago, and that seems to be improving. Cultures from the sputum came back positive for Branhamella catarrhalis, patient will be treated with Zithromax and Rocephin, no need for vancomycin, no need for Zosyn, and no need for Levaquin. On outpatient basis patient can be treated with either Augmentin or Zithromax. Chest x-ray this morning continues to show significant infiltrate in the right lower lobe, but seems to be slightly improved. And it is a limited infiltrate in the left lower lobe. Reevaluated today on 05/06/2017, patient remains on mechanical ventilation, tidal volume of 550 FiO2 of 50% PEEP of 5 and the rate of 20. ABG showed a pO2 of 70 CO2 of 49 pH of 7.37. CBC is normal. And his leukocytosis seems to have dramatically improved. Chest x-ray is showing improvement in his bilateral bibasilar infiltrates especially in the right lower lobe. Bronchial washing remains negative so far, however the sputum was positive for Moraxella catarrhalis. Patient is presently sedated, I will ask the nurses to have a sedation interruption, and assessment of mental status. However considering that his pO2 is still marginal on 50%, no plans to wean and extubate today, but that is to be considered probably in the next 24 hours. Patient was reevaluated today on 05/07/2017, remains on mechanical ventilation, ventilator settings were noted as above. ABG was noted, pO2 was 84 pCO2 of 49 pH of 7.38, CBC and basic metabolic profile were noted to be relatively normal. Patient is arousable, follows simple instructions, his supraventricular tachycardia is under control. Patient was weaned off propofol, weaning parameters were checked, switch to a pressure support and CPAP for over half an hour, and he was noted to do well, however his pO2 remains marginal on repeat ABG. Chest x-ray showed improvement in his infiltrates especially in the right lower lobe, and there is possibly a small right pleural effusion. After reviewing his chest x-ray, observe the patient on pressure support and CPAP, went ahead and recommended extubating the patient to a high flow nasal cannula. I also recommended giving him Lasix 20 mg IV push. The patient was seen again today 05/08/2017 in follow-up in the intensive care unit. He was successfully extubated to AirVo 60 L at 80% FiO2. He is maintaining O2 saturations in the 90s. He has been hemodynamically stable. He is awake and alert in no acute distress. His chest x-ray continues to show some right lower lobe atelectasis/infiltrate. His sputum was positive for Moraxella catarrhalis. Bronchial washings from 05/04/2017 were negative. White count 12.4. He has been on Rocephin and azithromycin. The patient is seen today 05/09/2017 in follow-up in the intensive care unit. He is awake and alert in no acute distress. He is currently sitting up in the chair at the bedside. His chest x-ray shows some improvement in the infiltrate/ effusion of the right lower lobe. He is currently on BiPAP at a setting of 12/ 5 and 50% FiO2 maintaining O2 saturations in the low 90s. His 0.9 normal saline at 75 MLS per hour. He is receiving chest physiotherapy to the right lower lobe. He is working well at the incentive spirometer. He remains on antibiotics in the form of Rocephin. No leukocytosis. He remains afebrile. On 05/11/2017 patient seen in follow-up on medical surgical floor. Staff is getting ready to transfer the patient to [facility] care at the time of evaluation. Patient sustained a fall last night while he was trying to get up unassisted, with no acute injuries. Currently sitting up in the chair, in no apparent distress. Remains on Airvo at 40 L/m, and FiO2 of 50%. His O2 sat is 97. He remains afebrile. Lung sounds are positive for some crackles in the right upper lobe, otherwise clear. Patient remains hemodynamically stable. Denies any distress, although remains mildly short of breath with productive cough. He remains in atrial fibrillation with a controlled rate. Labs were reviewed, WBC is up slightly to 11.4, hemoglobin is stable at 14.3, platelets are 149, serum sodium is 136, serum potassium is 3.9, carbon dioxide is 33, B1 is 29, creatinine 0.82. He continues on Pulmicort, Perforomist, IV Rocephin. Microbiology was reviewed, brought washing culture showed no growth after 48 hours. Fungal and acid-fast bacilli culture still pending. Acid-fast bacilli smear was negative. Sputum culture collected on 05/02/2017 was positive for Moraxella catarrhalis. 05/15/2017 patient is seen again on selective care floor. Patient's oxygenation need is down to 5 L per nasal cannula, with pulse ox of 93%. Have an isolated episode of low grade fever of 100.2F on 05/15/2017 at 7 in the morning. Microbiology results have been reviewed, sputum culture collected on 05/02/2017 was positive from her axilla catarrhalis, bronchial washing from 05/07/2017 showed no growth. Fungal cultures are negative thus far. TB culture and AFB smear were negative. Patient continues to improve, tolerates portable oxygen walker without significant respiratory distress. Lung sounds positive for a few scattered rhonchi. On 05/16/2017 patient seen in follow-up on medical surgical floor. Doing very well, continues to improve, did have a low-grade fever 100.1F this morning 8: 00. Microbiology has been reviewed. Sputum culture from 05/02/2017 was positive from her axilla catarrhalis, blood culture showed no growth, bronchial washing cultures were negative. Continues on Rocephin, DuoNeb nebulized treatments, Mucinex, and oral prednisone. No new labs her chest x-ray today. But clinically patient continues to improve. On 5 L of oxygen per high flow nasal cannula, with O2 sat at 95%. Lung sounds are clear to auscultation, no rhonchi, no wheezes auscultated. Objective - Vital Signs Vital signs: Vital Signs Temp 98.7 F 05/16/17 11:00 Pulse 92 05/16/17 11:33 Resp 26 H 05/16/17 11:00 BP 105/76 05/16/17 11:00 Pulse Ox 95 05/16/17 11:00 Intake & Output 05/15/17 05/16/17 05/16/17 18:59 06:59 18:59 Intake Total 374 240 120 Output Total 930 Balance -556 240 120 Weight 73 kg 62.5 kg Intake: Intake, IV Titration 20 Amount Sodium Chloride 0.9% 1, 20 000 ml @ 75 mls/hr IV . [id number] [facility] Rx#:[id number] Oral 354 240 120 Output: Urine 930 Other: Voiding Method Urinal Diaper # Voids 3 ABP, PAP, CO, CI - Last Documented Arterial Blood Pressure 139/67 - Exam GENERAL EXAM: Alert, comfortable in no apparent distress. HEAD: Normocephalic. EYES: Normal reaction of pupils, equal size. NOSE: Clear with pink turbinates. THROAT: No erythema or exudates. NECK: No masses, no JVD. CHEST: No chest wall deformity. LUNGS: Equal air entry, clear lung sounds, no rhonchi, no wheezes. Currently on 5 L per nasal cannula. CVS: S1 and S2 normal with no audible murmur, regular rhythm. ABDOMEN: No hepatosplenomegaly, normal bowel sounds, no guarding or rigidity. SPINE: No scoliosis or deformity SKIN: No rashes CENTRAL NERVOUS SYSTEM: No focal deficits, tone is normal in all 4 extremities. EXTREMITIES: There is no peripheral edema. No clubbing, no cyanosis. Peripheral pulses are intact. - Labs CBC & Chem 7: 05/13/17 05:39 05/13/17 05:39 Labs: Abnormal Lab Results - Last 24 Hours (Table) 05/15/17 05/15/17 05/16/17 Range/Units 16:49 21:13 11:57 POC Glucose (mg/dL) 124 H 115 H 115 H (75-99) mg/dL Microbiology - Last 24 Hours (Table) 05/04/17 10:40 Fungal Culture - Preliminary Bronchial Washings - Right Assessment and Plan Plan: Assessment: #1. Acute on chronic hypoxic and hypercapnic respiratory failure secondary to extensive bibasilar infiltrates, pneumonia secondary to Moraxella catarrhalis #2. Acute sepsis secondary to the above, on presentation there is leukocytosis, febrile illness, altered mental status, tachycardia, hypotension. Recovered. #3. Advanced oxygen dependent COPD, exact severity of which is unknown at this time #4. Recent admission at [facility] #4. Nicotine dependence #5. GERD/reflux #6. Depression #7. Paroxysmal atrial fibrillation and supraventricular tachycardia, patient is currently on verapamil Plan: Continues to improve, down to 5 L/m of oxygen per high flow nasal cannula. Did have a one episode of low-grade fever this morning. Tolerating ambulation on portable oxygen and with a walker. Continues on antibiotics in the form of Rocephin, Zithromax was discontinued. Sputum culture collected on 05/02/2017 was positive for Moraxella catarrhalis. Patient is afebrile. Hemodynamically stable. Continue with current treatment. Continue Symbicort,. Continue DuoNeb , continue GI and DVT prophylaxis. I performed a history & physical examination of the patient and discussed their management with my nurse practitioner, Rochelle Amaro. I reviewed the nurse practitioner's note and agree with the documented findings and plan of care. Lung sounds are clear. The findings and the impression was discussed with the patient. I attest to the documentation by the nurse practitioner. Time with Patient: Less than 30 <Екатерина Dc - Last Filed: 05/16/17 16:45> Objective - Vital Signs Vital signs: Vital Signs Temp 98.4 F 05/16/17 15:00 Pulse 96 05/16/17 15:40 Resp 18 05/16/17 15:30 BP 121/79 05/16/17 15:00 Pulse Ox 92 L 05/16/17 15:30 Intake & Output 05/15/17 05/16/17 05/16/17 18:59 06:59 18:59 Intake Total 374 240 120 Output Total 930 Balance -556 240 120 Weight 73 kg 62.5 kg Intake: Intake, IV Titration 20 Amount Sodium Chloride 0.9% 1, 20 000 ml @ 75 mls/hr IV . [id number] [facility] Rx#:[id number] Oral 354 240 120 Output: Urine 930 Other: Voiding Method Urinal Diaper # Voids 4 ABP, PAP, CO, CI - Last Documented Arterial Blood Pressure 139/67 - Labs CBC & Chem 7: 05/13/17 05:39 05/13/17 05:39 Labs: Abnormal Lab Results - Last 24 Hours (Table) 05/15/17 05/15/17 05/16/17 Range/Units 16:49 21:13 11:57 POC Glucose (mg/dL) 124 H 115 H 115 H (75-99) mg/dL Microbiology - Last 24 Hours (Table) 05/04/17 10:40 Fungal Culture - Preliminary Bronchial Washings - Right Assessment and Plan Plan: This is a joint evaluation that was done along with a nurse practitioner. I tested above-mentioned formation. The patient is gradually advancing his diet. FiO2 has been weaned down to 5 L/m nasal cannula. We'll continue to follow.
[2017-05-16] MEDS: ACETAMINOPHEN TAB 325 MG TAB PO PRN (16:16)
[2017-05-16 17:12] LABS: Glucose,Whole Blood 133 mg/dL (75-99)
[2017-05-16 20:27] LABS: Glucose,Whole Blood 227 mg/dL (75-99)
[2017-05-16 21:25] LABS: Glucose,Whole Blood 114 mg/dL (75-99)
[2017-05-16] MEDS: traZODone HCL 100 MG TAB PO SCH (21:25)
[2017-05-16] MEDS: MELATONIN 3 MG TABLET PO SCH (21:25)
[2017-05-16] MEDS: PRAVASTATIN SODIUM 40 MG TAB PO SCH (21:28)
--- NOTE | 2017-05-16 22:14 | XR ---
EXAMINATION TYPE: XR chest 1V portable DATE OF EXAM: 05/16/2017 COMPARISON: 05/13/2017 HISTORY: Short of breath TECHNIQUE: Single frontal view of the chest is obtained. FINDINGS: Heart is normal. There is coarsening of interstitial markings. There is no pleural effusio n. Thoracic aorta is atheromatous. There is slight blunting of costophrenic angles. IMPRESSION: Mild pulmonary fibrosis. Small pleural effusions are improved compared to last exam. No gross heart failure. Minimal basilar pulmonary infiltrates.
[2017-05-16 23:05] VITALS: BMI 23.1
[2017-05-17] MEDS: ENOXAPARIN 60 MG/0.6 ML SYRINGE SQ SCH (07:14)
[2017-05-17] MEDS: THEOPHYLLINE 24 HOUR 200 MG CAP.ER.24H PO SCH (07:16)
[2017-05-17] MEDS: busPIRone HCl 10 MG TAB PO SCH ×2 (07:16→16:15)
[2017-05-17] MEDS: SERTRALINE 100 MG TAB PO SCH (07:16)
[2017-05-17] MEDS: predniSONE 10 MG TAB PO SCH (07:16)
[2017-05-17] MEDS: PANTOPRAZOLE 40 MG TABLET PO SCH (07:16)
[2017-05-17] MEDS: FUROSEMIDE 40 MG TAB PO SCH (07:16)
[2017-05-17] MEDS: ARIPiprazole 10 MG TAB PO SCH (07:16)
[2017-05-17] MEDS: VERAPAMIL 80 MG TAB PO SCH ×2 (07:16→16:15)
[2017-05-17] MEDS: MAGNESIUM OXIDE 400 MG TAB PO SCH (07:16)
[2017-05-17] MEDS: GABAPENTIN 400 MG CAP PO SCH ×2 (07:16→16:15)
[2017-05-17] MEDS: MULTIVITAMINS, THERA 1 EACH TAB PO SCH (07:17)
[2017-05-17] MEDS: cefTRIAXone IN SWFI 1,000 MG/10 ML SYRINGE IVP SCH (07:21)
[2017-05-17 07:32] LABS: Glucose,Whole Blood 97 mg/dL (75-99)
[2017-05-17] MEDS: INSULIN ASPART 100 UNIT/ML 1 ML 10 ML VIAL SQ SCH ×2 (07:36→13:27)
[2017-05-17] MEDS: SYMBICORT 160-4.5 MCG INHALER INHALATION SCH (07:37)
[2017-05-17] MEDS: IPRATROPIUM-ALBUTEROL 3 ML NEB INHALATION SCH ×2 (07:37→11:18)
--- NOTE | 2017-05-17 10:40 | P.PN ---
Subjective Progress Note Date: 05/17/17 Patient back at baseline O2 requirements of 5 L/m via nasal cannula, has no complaints. nursing reporting a patient with low sats overnight apparently he had his nasal cannula out after blowing his nose and fell asleep. Patient reminded to keep his nasal cannula and at all times having adequate sats on 5 L via nasal cannula Objective - Vital Signs Vital signs: Vital Signs Temp 98.3 F 05/17/17 07:00 Pulse 93 05/17/17 07:47 Resp 20 05/17/17 07:00 BP 139/82 05/17/17 07:00 Pulse Ox 92 L 05/17/17 07:40 Intake & Output 05/16/17 05/17/17 05/17/17 18:59 06:59 18:59 Intake Total 120 Output Total 600 300 Balance 120 -600 -300 Intake: Oral 120 Output: Urine 600 300 Other: Voiding Method Urinal Diaper # Voids 4 3 ABP, PAP, CO, CI - Last Documented Arterial Blood Pressure 139/67 - Exam Constitutional: Respiratory unlabored on 5 L, conversant, pleasant Eyes: Anicteric sclerae, moist conjunctiva, no lid-lag, PERRLA ENMT: NC/AT,Oropharynx clear, no erythema, exudates Neck:Supple, FROM, no masses, or JVD, No carotid bruits; No thyromegaly Lungs: Equal air entry with positive for a few scattered rhonchi bilaterally. Down to 5 L per high flow nasal cannula. Cardiovascular: Heart regular in rate and rhythm, No murmurs, gallops, or rubs no peripheral edema Abdominal: Soft Nontender, nom distended, no guarding, no rebound or rigidity, Normoactive bowel sounds No hepatomegaly, No splenomegaly, No palpable mass No abdominal wall hernia noted Skin: Normal temperature, tone, texture, turgor, No induration No subcutaneous nodules, No rash, lesions, No ulcers Extremities:No digital cyanosis No clubbing, Pedal pulses intact and symmetrical Radial pulses intact and symmetrical Normal gait and station, No calf tenderness Neuro: Muscles Strength 5/5 in all 4 extremities, sedated but following simple commands - Labs CBC & Chem 7: 05/13/17 05:39 05/13/17 05:39 Labs: Abnormal Lab Results - Last 24 Hours (Table) 05/16/17 05/16/1718 Range/Units 11:57 17:06 20:23 POC Glucose (mg/dL) 115 H 133 H 227 H (75-99) mg/dL 05/16/17 Range/Units 21:12 POC Glucose (mg/dL) 114 H (75-99) mg/dL Assessment and Plan (1) Acute on chronic respiratory failure with hypercapnia Narrative/Plan: * pulmonary critical care doctor Aidar following * Patient with good saturations on 5 L nasal cannula which is at his baseline * Secondary to Moraxella catarrh pneumonia and severe COPD exacerbation Current Visit: Yes Status: Acute Code(s): J96.22 - ACUTE AND CHRONIC RESPIRATORY FAILURE WITH HYPERCAPNIA SNOMED Code(s): 3944739396274 (2) Acute exacerbation of chronic obstructive pulmonary disease (COPD) Narrative/Plan: * Continue with breathing treatments and systemic steroids prednisone at 30 mg daily with Symbicort Current Visit: Yes Status: Acute Code(s): J44.1 - CHRONIC OBSTRUCTIVE PULMONARY DISEASE W (ACUTE) EXACERBATION SNOMED Code(s): 393532610 (3) Septic shock Narrative/Plan: * Resolved * Leukocytosis almost resolved, patient afebrile overnight * Blood cultures negative sputum culture growing Moraxella catarra pneumonia treated Current Visit: Yes Status: Resolved Code(s): A41.9 - SEPSIS, UNSPECIFIED ORGANISM; R65.21 - SEVERE SEPSIS WITH SEPTIC SHOCK SNOMED Code(s): 74329791 (4) HCAP (healthcare-associated pneumonia) Narrative/Plan: * Moraxella catarrh pneumonia * Treated with Azithromycin continue rocephin Current Visit: Yes Status: Acute Code(s): J18.9 - PNEUMONIA, UNSPECIFIED ORGANISM SNOMED Code(s): 496510293 (5) Paroxysmal atrial fibrillation Narrative/Plan: * Currently in sinus rythym * Continue with Verapamil per cardiology recommendations * Echocardiogram showing normal ejection fraction 55-60% * cardiology consulted for lizetthter recommendations (avoid beta blockers severe COPD exacerbation) Current Visit: Yes Status: Resolved Code(s): I48.0 - PAROXYSMAL ATRIAL FIBRILLATION SNOMED Code(s): 814859308 (6) Hypernatremia Current Visit: Yes Status: Resolved Code(s): E87.0 - HYPEROSMOLALITY AND HYPERNATREMIA SNOMED Code(s): 67973637 (7) CO2 narcosis Current Visit: Yes Status: Resolved Code(s): R06.89 - OTHER ABNORMALITIES OF BREATHING SNOMED Code(s): 60453579 Plan: Patient awaiting placement pending [employer] preop authorization for [facility]
[2017-05-17 11:40] LABS: Glucose,Whole Blood 116 mg/dL (75-99)
--- NOTE | 2017-05-17 15:14 | P.DS ---
Providers Date of admission: 05/02/17 15:33 Attending physician: Hunter Soares MD Consults: 05/02/17 15:33 Consult Physician Stat Consulting Provider: Libia Timmons Consult Reason/Comments: Hypoxic hypercapnic respiratory failure requiring intubation Do you want consulting provider notified?: Already Contacted Primary care physician: Robbi Michelle - Discharge Diagnosis(es) (1) Acute on chronic respiratory failure with hypercapnia Current Visit: Yes Status: Acute (2) Acute exacerbation of chronic obstructive pulmonary disease (COPD) Current Visit: Yes Status: Acute (3) Septic shock Current Visit: Yes Status: Resolved (4) HCAP (healthcare-associated pneumonia) Current Visit: Yes Status: Acute (5) Paroxysmal atrial fibrillation Current Visit: Yes Status: Resolved (6) Hypernatremia Current Visit: Yes Status: Resolved (7) CO2 narcosis Current Visit: Yes Status: Resolved Hospital Course: The patient is a 67-year-old male that was admitted for acute on chronic respiratory failure with hypoxemia and hypercapnia respiratory acidosis with CO2 narcosis and was rapidly intubated in the ER requiring mechanical ventilation secondary to acute COPD exacerbation triggered by septic shock and pneumonia. The patient was started on broad-spectrum IV antibiotics with IV vancomycin and Levaquin and Zosyn, he initially responded well to aggressive IV fluid challenges however the patient became hypotensive and was started on IV pressors with a target map of greater than 65. He was also treated with scheduled and when necessary DuoNeb bronchodilator breathing treatments and systemic steroids with IV Solu-Medrol. Pulmonary was consulted for vent management, a bronchoscopy performed with sputum cultures growing Moraxella catarrhalis and the patient's antibiotic regimen was de-escalated to azithromycin and Rocephin. While on the ventilator the patient began having episodes of paroxysmal A. fib vs SVT echocardiogram done showed normal ejection fraction of 55-60% patient was subsequently started on verapamil and his tachyarrhythmia resolved. With treatment the patient's her sister status gradually improved and he was extubated and gradually weaned back down to his baseline O2 requirements up to 5 L via nasal cannula. He was subsequently discharged back to [facility] rehab with the prednisone taper, albuterol nebulizer treatments and Symbicort. This discharge process took approximately 35 minutes Patient Condition at Discharge: Fair Plan - Discharge Summary Discharge Rx Participant: No New Discharge Prescriptions: New Budesonide-Formot 160-4.5 Mcg [Symbicort 160-4.5 Mcg Inhaler] 2 puff INHALATION RT-BID puff Ipratropium-Albuterol Nebulize [Duoneb 0.5 mg-3 mg/3 ml Soln] 3 ml INHALATION RT-QID ampul.neb predniSONE 30 mg PO DAILY tab Continue guaiFENesin [Mucinex] 600 mg PO BID PRN PRN Reason: cough/congestion Theophylline 12 Hour [Roshan-Dur] 100 mg PO BID ARIPiprazole [Abilify] 10 mg PO BID Multivitamins, Thera [Multivitamin (formulary)] 1 tab PO DAILY busPIRone HCL 20 mg PO TID Diltiazem HCl [Diltiazem 24Hr ER] 180 mg PO DAILY Pravastatin Sodium [Pravachol] 40 mg PO HS Omeprazole [PriLOSEC] 20 mg PO BID Gabapentin [Neurontin] 800 mg PO TID Sertraline [Zoloft] 100 mg PO BID traZODone HCL 100 mg PO HS Magnesium Oxide [Mag-Ox] 400 mg PO DAILY HYDROcodone/APAP 10-325MG [Mcloud 10-325] 1 tab PO BID PRN PRN Reason: Pain Discharge Medication List ARIPiprazole [Abilify] 10 mg PO BID 05/02/17 [History] Diltiazem HCl [Diltiazem 24Hr ER] 180 mg PO DAILY 05/02/17 [History] Gabapentin [Neurontin] 800 mg PO TID 05/02/17 [History] Magnesium Oxide [Mag-Ox] 400 mg PO DAILY 05/02/17 [History] Multivitamins, Thera [Multivitamin (formulary)] 1 tab PO DAILY 05/02/17 [History ] Omeprazole [PriLOSEC] 20 mg PO BID 05/02/17 [History] Pravastatin Sodium [Pravachol] 40 mg PO HS 05/02/17 [History] Sertraline [Zoloft] 100 mg PO BID 05/02/17 [History] Theophylline 12 Hour [Roshan-Dur] 100 mg PO BID 05/02/17 [History] busPIRone HCL 20 mg PO TID 05/02/17 [History] guaiFENesin [Mucinex] 600 mg PO BID PRN 05/02/17 [History] traZODone HCL 100 mg PO HS 05/02/17 [History] HYDROcodone/APAP 10-325MG [Mcloud 10-325] 1 tab PO BID PRN 05/11/17 [History] Budesonide-Formot 160-4.5 Mcg [Symbicort 160-4.5 Mcg Inhaler] 2 puff INHALATION RT-BID puff 05/17/17 [Rx] Ipratropium-Albuterol Nebulize [Duoneb 0.5 mg-3 mg/3 ml Soln] 3 ml INHALATION RT -QID ampul.neb 05/17/17 [Rx] predniSONE 30 mg PO DAILY tab 05/17/17 [Rx] Follow up Appointment(s)/Referral(s): None,Stated [REFERRING] - 1-2 days Discharge Disposition: TRANSFER TO SNF/ECF
[2017-05-17 16:26] VITALS: PULSE 98
[2017-05-17 16:29] VITALS: BP 139/82; RESP 20; TEMP 98.3
--- NOTE | 2017-05-17 16:39 | P.PN ---
Subjective Progress Note Date: 05/17/17 Warren is a 66-year-old white male patient who presented to the emergency department on 05/02/2017 per EMS with dyspnea, fever and altered mental status. patient has a past medical history of oxygen dependent COPD, hypothyroidism, GERD/reflux, depression. Patient's spouse is not present at this time or at the time of arrival by ambulance. Most of the history was obtained from the ER physician, nursing staff and the chart. Patient usually goes for his care to the [facility] in [place], per nursing staff patient had been hospitalized there many times. Initially patient was alert and oriented , was given albuterol nebulized treatment and Solu-Medrol by EMS however during the transport patient became increasingly more obtunded. He was immediately placed on BiPAP on arrival to the ED. He was febrile presentation with a temp of 101.3 axillary, tachycardic with a heart rate of 140 BPM, tachypnea with respiratory rate of 28/m, and approximately make with O2 sat at 78% on 2 L. BiPAP support was initiated with pressures of 16/5, FiO2 of 50%. he was given nebulized treatments, was started on antibiotics Levaquin and vancomycin, he was given a liter of IV 0.9 normal saline fluid bolus. Blood urine and sputum culture were ordered and sent. chest x-ray showed extensive bibasilar infiltrates, with more extensive consolidation on the right extending to the mid lung level. There may be subtle early cavitation changes at the right lung base as well. Brain CT showed no acute intracranial abnormality. Venous blood gas on arrival showed pH of 7.25, pCO2 of 86, and bicarb of 36, primary respiratory acidosis with compensation. lab work was reviewed and showed leukocytosis with WBC of 15.3, hemoglobin 16.9 and hematocrit of 54, platelet count of 149, no coagulopathy, sodium 146, potassium is 4.2, carbon dioxide 37, anion gap is 9, B UN of 23, creatinine of 1.2. analysis was negative, urine drug screen was positive for marijuana, serum alcohol level was less than 10, and influenza screen was negative. In the emergency room patient became unresponsive to vigorous tactile stimuli, despite the BiPAP support. At that point the decision was made to intubate the patient and place him on mechanical ventilation. At the time of my evaluation, Dr. Almeida and the ER staff are getting ready to intubate the patient. There is no family around. Patient was reevaluated today in the ICU, this is on 05/03/2017. Patient remains on mechanical ventilation, tidal volume is 550, respiratory rate is 20, FiO2 is 50%, and PEEP is 5. ABG showed a pO2 of 85 pCO2 of 43 pH of 7.44. Continues to have leukocytosis with WBC count of 37.8, hemoglobin is 15.1. Basic metabolic profile is normal. Renal profile is improving with creatinine down to 1.09 from 1.2 yesterday. Sputum cultures are still pending, Gram stain is showing many polymorphonuclear leukocytes, few gram-positive cocci and few gram-negative bacilli. Patient remains sedated however on a lower dose of propofol, patient seems very appropriate following simple instructions. The propofol was not completely discontinued, but his mental status is appropriate enough, hence no need for MRI of the brain or scanning of the brain at this point. His mental status change upon presentation was most likely related to hypoxia and hypercapnia. Medications were all reviewed patient remains on broad -spectrum antibiotics including Levaquin and Zosyn and vancomycin is also on bronchodilators in the form of DuoNeb and is also on Solu-Medrol 60 IV push every 6. Overnight the patient required low-dose norepinephrine because of low blood pressure, and he received over 4 L of fluid boluses since admission. Which means the patient has clearly a picture of septic shock from his pneumonia. Today I have instructed the nurses to titrate the norepinephrine down and maintain a mean arterial pressure of above 65. Reevaluated today on 05/05/2017, patient remains on mechanical ventilation, tidal volume is 550 respiratory rate of 20 FiO2 50%, PEEP is 5. ABG showed a pO2 of 69 pCO2 of 46 pH of 7.37. Basic metabolic profile and renal profile were noted to be normal. CBC continues to show leukocytosis with WBC count of 14.9, otherwise unremarkable. Platelets are 1 24,000. Patient had leukocytosis a few days ago, and that seems to be improving. Cultures from the sputum came back positive for Branhamella catarrhalis, patient will be treated with Zithromax and Rocephin, no need for vancomycin, no need for Zosyn, and no need for Levaquin. On outpatient basis patient can be treated with either Augmentin or Zithromax. Chest x-ray this morning continues to show significant infiltrate in the right lower lobe, but seems to be slightly improved. And it is a limited infiltrate in the left lower lobe. Reevaluated today on 05/06/2017, patient remains on mechanical ventilation, tidal volume of 550 FiO2 of 50% PEEP of 5 and the rate of 20. ABG showed a pO2 of 70 CO2 of 49 pH of 7.37. CBC is normal. And his leukocytosis seems to have dramatically improved. Chest x-ray is showing improvement in his bilateral bibasilar infiltrates especially in the right lower lobe. Bronchial washing remains negative so far, however the sputum was positive for Moraxella catarrhalis. Patient is presently sedated, I will ask the nurses to have a sedation interruption, and assessment of mental status. However considering that his pO2 is still marginal on 50%, no plans to wean and extubate today, but that is to be considered probably in the next 24 hours. Patient was reevaluated today on 05/07/2017, remains on mechanical ventilation, ventilator settings were noted as above. ABG was noted, pO2 was 84 pCO2 of 49 pH of 7.38, CBC and basic metabolic profile were noted to be relatively normal. Patient is arousable, follows simple instructions, his supraventricular tachycardia is under control. Patient was weaned off propofol, weaning parameters were checked, switch to a pressure support and CPAP for over half an hour, and he was noted to do well, however his pO2 remains marginal on repeat ABG. Chest x-ray showed improvement in his infiltrates especially in the right lower lobe, and there is possibly a small right pleural effusion. After reviewing his chest x-ray, observe the patient on pressure support and CPAP, went ahead and recommended extubating the patient to a high flow nasal cannula. I also recommended giving him Lasix 20 mg IV push. The patient was seen again today 05/08/2017 in follow-up in the intensive care unit. He was successfully extubated to AirVo 60 L at 80% FiO2. He is maintaining O2 saturations in the 90s. He has been hemodynamically stable. He is awake and alert in no acute distress. His chest x-ray continues to show some right lower lobe atelectasis/infiltrate. His sputum was positive for Moraxella catarrhalis. Bronchial washings from 05/04/2017 were negative. White count 12.4. He has been on Rocephin and azithromycin. The patient is seen today 05/09/2017 in follow-up in the intensive care unit. He is awake and alert in no acute distress. He is currently sitting up in the chair at the bedside. His chest x-ray shows some improvement in the infiltrate/ effusion of the right lower lobe. He is currently on BiPAP at a setting of 12/ 5 and 50% FiO2 maintaining O2 saturations in the low 90s. His 0.9 normal saline at 75 MLS per hour. He is receiving chest physiotherapy to the right lower lobe. He is working well at the [employer] spirometer. He remains on antibiotics in the form of Rocephin. No leukocytosis. He remains afebrile. On 05/11/2017 patient seen in follow-up on medical surgical floor. Staff is getting ready to transfer the patient to [facility] at the time of evaluation. Patient sustained a fall last night while he was trying to get up unassisted, with no acute injuries. Currently sitting up in the chair, in no apparent distress. Remains on Airvo at 40 L/m, and FiO2 of 50%. His O2 sat is 97. He remains afebrile. Lung sounds are positive for some crackles in the right upper lobe, otherwise clear. Patient remains hemodynamically stable. Denies any distress, although remains mildly short of breath with productive cough. He remains in atrial fibrillation with a controlled rate. Labs were reviewed, WBC is up slightly to 11.4, hemoglobin is stable at 14.3, platelets are 149, serum sodium is 136, serum potassium is 3.9, carbon dioxide is 33, B1 is 29, creatinine 0.82. He continues on Pulmicort, Perforomist, IV Rocephin. Microbiology was reviewed, brought washing culture showed no growth after 48 hours. Fungal and acid-fast bacilli culture still pending. Acid-fast bacilli smear was negative. Sputum culture collected on 05/02/2017 was positive for Moraxella catarrhalis. 05/15/2017 patient is seen again on [facility] care floor. Patient's oxygenation need is down to 5 L per nasal cannula, with pulse ox of 93%. Have an isolated episode of low grade fever of 100.2F on 05/15/2017 at 7 in the morning. Microbiology results have been reviewed, sputum culture collected on 05/02/2017 was positive from her axilla catarrhalis, bronchial washing from 05/07/2017 showed no growth. Fungal cultures are negative thus far. TB culture and AFB smear were negative. Patient continues to improve, tolerates portable oxygen walker without significant respiratory distress. Lung sounds positive for a few scattered rhonchi. On 05/16/2017 patient seen in follow-up on medical surgical floor. Doing very well, continues to improve, did have a low-grade fever 100.1F this morning 8: 00. Microbiology has been reviewed. Sputum culture from 05/02/2017 was positive from her axilla catarrhalis, blood culture showed no growth, bronchial washing cultures were negative. Continues on Rocephin, DuoNeb nebulized treatments, Mucinex, and oral prednisone. No new labs her chest x-ray today. But clinically patient continues to improve. On 5 L of oxygen per high flow nasal cannula, with O2 sat at 95%. Lung sounds are clear to auscultation, no rhonchi, no wheezes auscultated. On 05/17/2017, the patient is quite stable. The patient is afebrile. The patient is being prepared to be discharged to ECF. His right lung pneumonia is essentially clear. He has completed this course of Rocephin. My recommendation is to release this patient to ECF for further recuperation and strengthening. He can go there on oxygen in addition to Symbicort as maintenance, DuoNeb nebulized she was 4 times a day and a prednisone burst taper. Currently is on a 30 mg of prednisone as part of the burst taper. No other complaints for now. He has been able to ambulate with the help of physical therapy. Objective - Vital Signs Vital signs: Vital Signs Temp 98.3 F 05/17/17 07:00 Pulse 98 05/17/17 11:28 Resp 20 05/17/17 07:00 BP 139/82 05/17/17 07:00 Pulse Ox 92 L 05/17/17 07:40 Intake & Output 05/16/17 05/17/17 05/17/17 18:59 06:59 18:59 Intake Total 120 Output Total 600 300 Balance 120 -600 -300 Intake: Oral 120 Output: Urine 600 300 Other: Voiding Method Urinal Diaper # Voids 4 3 3 ABP, PAP, CO, CI - Last Documented Arterial Blood Pressure 139/67 - Exam GENERAL EXAM: Alert, comfortable in no apparent distress. HEAD: Normocephalic. EYES: Normal reaction of pupils, equal size. NOSE: Clear with pink turbinates. THROAT: No erythema or exudates. NECK: No masses, no JVD. CHEST: No chest wall deformity. LUNGS: Equal air entry, clear lung sounds, no rhonchi, no wheezes. Currently on 5 L per nasal cannula. CVS: S1 and S2 normal with no audible murmur, regular rhythm. ABDOMEN: No hepatosplenomegaly, normal bowel sounds, no guarding or rigidity. SPINE: No scoliosis or deformity SKIN: No rashes CENTRAL NERVOUS SYSTEM: No focal deficits, tone is normal in all 4 extremities. EXTREMITIES: There is no peripheral edema. No clubbing, no cyanosis. Peripheral pulses are intact. - Labs CBC & Chem 7: 05/13/17 05:39 05/13/17 05:39 Labs: Abnormal Lab Results - Last 24 Hours (Table) 05/16/17 05/16/17 05/16/17 Range/Units 17:06 20:23 21:12 POC Glucose (mg/dL) 133 H 227 H 114 H (75-99) mg/dL 05/17/17 Range/Units 11:38 POC Glucose (mg/dL) 116 H (75-99) mg/dL Assessment and Plan Plan: Assessment: #1. Acute on chronic hypoxic and hypercapnic respiratory failure secondary to extensive bibasilar infiltrates, pneumonia secondary to Moraxella catarrhalis #2. Acute sepsis secondary to the above, on presentation there is leukocytosis, febrile illness, altered mental status, tachycardia, hypotension. Recovered. #3. Advanced oxygen dependent COPD, exact severity of which is unknown at this time #4. Recent admission at [facility] #4. Nicotine dependence #5. GERD/reflux #6. Depression #7. Paroxysmal atrial fibrillation and supraventricular tachycardia, patient is currently on verapamil The patient is doing well. The patient recovers from his acute respiratory failure. The patient has recovered from his acute sepsis. He was treated with IV Rocephin regarding the Moraxella catarrhalis rest or checked infection and pneumonia. He is chest x-ray has cleared. He'll be discharged to [facility]. He'll be sent on Symbicort as maintenance, DuoNeb nebulized treatments and a prednisone burst taper. Follow-up in the office following discharge from [facility].
== END 2017-05-17 16:25 | DRG 853 ==
LOC: EC 11:52 → 6ICU 15:33 → 5MS5E 05-10 11:30 → 6SEL 05-11 10:04 → 5MS5E 05-15 20:56
PROVIDERS: ADMIT Family Medicine; ATTEND Family Medicine
PROC: 5A1955Z Respiratory Ventilation, Greater than 96 Consecutive Hours (ICD-10-PCS; 2017-05-02)
PROC: 0BH17EZ Insertion of Endotracheal Airway into Trachea, Via Natural or Artificial Opening (ICD-10-PCS; 2017-05-02)
PROC: 03HB33Z Insertion of Infusion Device into Right Radial Artery, Percutaneous Approach (ICD-10-PCS; 2017-05-02)
PROC: 06HM33Z Insertion of Infusion Device into Right Femoral Vein, Percutaneous Approach (ICD-10-PCS; 2017-05-02)
PROC: 0B9F8ZX Drainage of Right Lower Lung Lobe, Via Natural or Artificial Opening Endoscopic, Diagnostic (ICD-10-PCS; principal; 2017-05-04 10:30)
PROC: 5A09457 Assistance with Respiratory Ventilation, 24-96 Consecutive Hours, Continuous Positive Airway Pressure (ICD-10-PCS; 2017-05-08)
DX: A41.50 Gram-negative sepsis, unspecified (principal); J96.21 Acute and chronic respiratory failure with hypoxia; R65.21 Severe sepsis with septic shock; J44.0 Chronic obstructive pulmonary disease with (acute) lower respiratory infection; E87.0 Hyperosmolality and hypernatremia; J15.6 Pneumonia due to other Gram-negative bacteria; I47.1 Supraventricular tachycardia; I48.0 Paroxysmal atrial fibrillation; Z99.81 Dependence on supplemental oxygen; J96.22 Acute and chronic respiratory failure with hypercapnia; E87.1 Hypo-osmolality and hyponatremia; J44.1 Chronic obstructive pulmonary disease with (acute) exacerbation; J98.11 Atelectasis; E03.9 Hypothyroidism, unspecified; E87.70 Fluid overload, unspecified; F17.200 Nicotine dependence, unspecified, uncomplicated; F32.9 Major depressive disorder, single episode, unspecified; K21.9 Gastro-esophageal reflux disease without esophagitis; R32 Unspecified urinary incontinence; R01.1 Cardiac murmur, unspecified; Z79.899 Other long term (current) drug therapy; Z91.19 Patient's noncompliance with other medical treatment and regimen; W19.XXXA Unspecified fall, initial encounter; Y92.009 Unspecified place in unspecified non-institutional (private) residence as the place of occurrence of the external cause; Y92.239 Unspecified place in hospital as the place of occurrence of the external cause
CPT/HCPCS: 31500; 31624; 31645; 36415; 36600; 43753; 70450; 71010; 71020; 71045; 80048; 80053; 80306; 80320; 81003; 82140; 82803; 82805; 83036; 83605; 83735; 84100; 85025; 85027; 85610; 85730; 87040; 87070; 87086; 87102; 87116; 87205; 87206; 87252; 87496; 87498; 87502; 87529; 87581; 87798; 88108; 88305; 93005; 93306; 94002; 94003; 94640; 94660; 94667; 94668; 94760; 96360; 96361; 96365; 96367; 96375; 99291; 99292

== ENCOUNTER 2017-12-07 01:12 | Inpatient (IN) | payer MEDICARE ==
[2017-12-07] MEDS ORDERED: IPRATROPIUM-ALBUTEROL 3 ML NEB INHALATION STA (01:23)
[2017-12-07] MEDS ORDERED: ALBUTEROL NEBULIZED 2.5 MG/3 ML INHALATION STA (01:24)
[2017-12-07] MEDS ORDERED: CEFEPIME 2 GM in SODIUM CHLORIDE 0.9% 50 ML IVPB STA (01:26)
[2017-12-07] MEDS ORDERED: VANCOMYCIN 1,000 MG in SODIUM CHLORIDE 0.9% 250 ML IVPB STA (01:26)
[2017-12-07] MEDS ORDERED: DEXAMETHASONE SOD PHOSPHATE 10 MG/ML 1 ML VIAL IV STA (01:27)
[2017-12-07 01:47] LABS: Basophils % (A) 0 %; Eosinophils # (A) 0.3 k/uL (0-0.7); Eosinophils % (A) 3 %; HCT 51.2 % (39.0-53.0); HGB 15.8 gm/dL (13.0-17.5); Lymphocytes % (A) 9 %; MCH 28.7 pg (25.0-35.0); MCHC 30.9 g/dL (31.0-37.0); MCV 92.8 fL (80.0-100.0); Mean Platelet Volume 7.1; Monocytes # (A) 0.5 k/uL (0-1.0); Monocytes % (A) 4 %; Neutrophils # (A) 8.8 k/uL (1.3-7.7); Neutrophils % (A) 83 %; Platelet Count 151 k/uL (150-450); RBC 5.52 m/uL (4.30-5.90); RDW 15.2 % (11.5-15.5); WBC 10.6 k/uL (3.8-10.6)
[2017-12-07 01:48] LABS: INR 1.1 (<1.2); Prothrombin Time 10.7 sec (9.0-12.0)
[2017-12-07 02:00] LABS: ALT 29 U/L (21-72); AST 24 U/L (17-59); Alcohol <10 mg/dL; Alkaline Phosphatase 83 U/L (38-126); Blood Urea Nitrogen 19 mg/dL (9-20); Calcium 9.1 mg/dL (8.4-10.2); Chloride 95 mmol/L (98-107); Glucose 110 mg/dL (74-99); Lipase 66 U/L (23-300); Magnesium 1.8 mg/dL (1.6-2.3); Potassium 4.3 mmol/L (3.5-5.1); Sodium 141 mmol/L (137-145); Total Bilirubin 0.3 mg/dL (0.2-1.3); Total Protein 6.9 g/dL (6.3-8.2)
[2017-12-07] MEDS ORDERED: ACETAMINOPHEN TAB 500 MG TAB PO STA (02:03)
--- NOTE | 2017-12-07 02:03 | XR ---
EXAMINATION TYPE: XR chest 2V DATE OF EXAM: 12/07/2017 COMPARISON: 05/16/2017 HISTORY: Weakness TECHNIQUE: Frontal and lateral views of the chest are obtained. FINDINGS: There is some patchy linear density in the right lung. The left lung is clear. Heart size is normal. There is no heart failure. There are chest leads. There is no pleural effusion. IMPRESSION: New subsegmental atelectasis in the right lung compared to old exam. No heart failure.
[2017-12-07 02:07] LABS: Anion Gap 6 mmol/L; Carbon Dioxide 40 mmol/L (22-30)
[2017-12-07] MEDS ORDERED: SODIUM CHLORIDE 0.9% 1,000 ML IV STA (02:30)
--- NOTE | 2017-12-07 02:45 | ED ---
General Adult HPI - General Chief complaint: Weakness Stated complaint: Weakness Time Seen by Provider: 12/07/17 01:24 Source: patient, EMS Mode of arrival: EMS Limitations: no limitations - History of Present Illness Initial comments: Dictation was produced using [employer] dictation software. please excuse any grammatical, word or spelling errors. Chief Complaint: 67-year-old male past medical history of COPD, home O2, thyroid disease presents with fever, shortness of breath. History of Present Illness: 67-year-old male with end-stage COPD on home oxygen presents with fever and shortness of breath. Patient was brought in by EMS per patient states she's been having symptoms for several days. Patient has extensive history of COPD. He is on home oxygen of 4.5 L. Patient states that he's been admitted to the hospital for severe pulmonary infection requiring ventilation. Patient reports he is short of breath. Denies any chest pain. The ROS documented in this emergency department record has been reviewed and confirmed by me. Those systems with pertinent positive or negative responses have been documented in the HPI. All other systems are other negative and/or noncontributory. - Related Data Home Medications Medication Instructions Recorded Confirmed ARIPiprazole [Abilify] 10 mg PO BID 05/02/17 05/02/17 Diltiazem HCl [Diltiazem 24Hr ER] 180 mg PO DAILY 05/02/17 05/02/17 Gabapentin [Neurontin] 800 mg PO TID 05/02/17 05/02/17 Magnesium Oxide [Mag-Ox] 400 mg PO DAILY 05/02/17 05/02/17 Multivitamins, Thera [Multivitamin 1 tab PO DAILY 05/02/17 05/02/17 (formulary)] Omeprazole [PriLOSEC] 20 mg PO BID 05/02/17 05/02/17 Pravastatin Sodium [Pravachol] 40 mg PO HS 05/02/17 05/02/17 Sertraline [Zoloft] 100 mg PO BID 05/02/17 05/02/17 Theophylline 12 Hour [Roshan-Dur] 100 mg PO BID 05/02/17 05/02/17 busPIRone HCL 20 mg PO TID 05/02/17 05/02/17 guaiFENesin [Mucinex] 600 mg PO BID PRN 05/02/17 05/02/17 traZODone HCL 100 mg PO HS 05/02/17 05/02/17 HYDROcodone/APAP 10-325MG [[place] 1 tab PO BID PRN 05/11/17 05/11/17 10-325] Previous Rx's Medication Instructions Recorded Budesonide-Formot 160-4.5 Mcg 2 puff INHALATION RT-BID puff 05/17/17 [Symbicort 160-4.5 Mcg Inhaler] Ipratropium-Albuterol Nebulize 3 ml INHALATION RT-QID ampul.neb 05/17/17 [Duoneb 0.5 mg-3 mg/3 ml Soln] predniSONE 30 mg PO DAILY tab 05/17/17 Allergies Allergy/AdvReac Type Severity Reaction Status Date / Time No Known Allergies Allergy Verified 12/07/17 01:26 Review of Systems ROS Statement: Those systems with pertinent positive or pertinent negative responses have been documented in the HPI. ROS Other: All systems not noted in ROS Statement are negative. Past Medical History Past Medical History: COPD, GERD/Reflux, Thyroid Disorder Additional Past Medical History / Comment(s): wears home 02 History of Any Multi-Drug Resistant Organisms: None Reported Past Surgical History: No Surgical Hx Reported Past Psychological History: Depression Smoking Status: Current every day smoker Past Alcohol Use History: None Reported Past Drug Use History: Unable to Obtain General Exam - General Exam Comments Initial Comments: PHYSICAL EXAM: General Impression: Alert and oriented x3, not in acute distress HEENT: Normocephalic atraumatic, extra-ocular movements intact, pupils equal and reactive to light bilaterally, mucous membranes moist. Cardiovascular: Heart regular rate and rhythm, S1&S2 audible, no murmurs, rubs or gallops Chest: Bilateral lung and expiratory wheezing Abdomen: Bowel sounds present, abdomen soft, non-tender, non-distended, no organomegaly Musculoskeletal: Pulses present and equal in all extremities, no peripheral edema Motor: Power 5/5 bilaterally, no focal deficits noted Neurological: CN II-XII grossly intact, no focal motor or sensory deficits noted Skin: Intact with no visualized rashes Psych: Normal affect and mood Limitations: no limitations Course Vital Signs 12/07/17 12/07/17 12/07/17 01:18 01:26 01:30 Temperature 102.2 F H Pulse Rate 96 94 Respiratory 20 20 Rate Blood Pressure 141/80 O2 Sat by Pulse 92 L Oximetry 12/07/17 12/07/17 01:35 02:07 Temperature Pulse Rate 97 97 Respiratory 18 Rate Blood Pressure 138/80 O2 Sat by Pulse 90 L Oximetry Medical Decision Making - Medical Decision Making ED course: 67-year-old male with clinical presentation consistent with pulmonary infection. Patient is hemodynamically stable. He is febrile at 102.2 upon arrival. Rest of vital signs within normal limits. No evidence of severe sepsis or septic shock at this time given that patient is mentating properly and his hemoglobin is stable.Laboratory evaluation obtained. No leukocytosis. Coag panel is unremarkable. Chemistry was obtained. Bicarb is 40. This is likely secondary to respiratory acidosis. Serum alcohol is less than 10. X-rays obtained showing infiltrate to the right lung. Clinical presentation consistent with healthcare acquired pneumonia. Patient treated with vancomycin and cefepime and azithromycin. Patient hemodynamically stable. No concern for septic shock at this time. Patient be admitted to the [facility] floor. Patient given breathing treatment for history of COPD and findings of wheezing on auscultation. EKG interpretation: Ventricular rate 94. No [place] prolongation, no QTC prolongation , no ST or T-wave changes noted. Overall, this EKG is unremarkable - Lab Data Result diagrams: 12/07/17 01:21 12/07/17 01:21 Lab Results 12/07/17 12/07/17 12/07/17 Range/Units 01:21 01:21 01:21 WBC 10.6 (3.8-10.6) k/uL RBC 5.52 (4.30-5.90) m/uL Hgb 15.8 (13.0-17.5) gm/dL Hct 51.2 (39.0-53.0) % MCV 92.8 (80.0-100.0) fL MCH 28.7 (25.0-35.0) pg MCHC 30.9 L (31.0-37.0) g/dL RDW 15.2 (11.5-15.5) % Plt Count 151 (150-450) k/uL Neutrophils % 83 % Lymphocytes % 9 % Monocytes % 4 % Eosinophils % 3 % Basophils % 0 % Neutrophils # 8.8 H (1.3-7.7) k/uL Lymphocytes # 1.0 (1.0-4.8) k/uL Monocytes # 0.5 (0-1.0) k/uL Eosinophils # 0.3 (0-0.7) k/uL Basophils # 0.0 (0-0.2) k/uL PT (9.0-12.0) sec INR (<1.2) Sodium 141 (137-145) mmol/L Potassium 4.3 (3.5-5.1) mmol/L Chloride 95 L (98-107) mmol/L Carbon Dioxide 40 H* (22-30) mmol/L Anion Gap 6 mmol/L BUN 19 (9-20) mg/dL Creatinine 1.10 (0.66-1.25) mg/dL Est GFR (CKD-EPI)AfAm 81 (>60 ml/min/1.73 sqM) Est GFR (CKD-EPI)NonAf 70 (>60 ml/min/1.73 sqM) Glucose 110 H (74-99) mg/dL Plasma Lactic Acid Gerard 0.7 (0.7-2.0) mmol/L Calcium 9.1 (8.4-10.2) mg/dL Magnesium 1.8 (1.6-2.3) mg/dL Total Bilirubin 0.3 (0.2-1.3) mg/dL AST 24 (17-59) U/L ALT 29 (21-72) U/L Alkaline Phosphatase 83 (38-126) U/L Troponin I (0.000-0.034) ng/mL Total Protein 6.9 (6.3-8.2) g/dL Albumin 4.0 (3.5-5.0) g/dL Lipase 66 (23-300) U/L Serum Alcohol <10 mg/dL 12/07/17 12/07/17 Range/Units 01:21 01:21 WBC (3.8-10.6) k/uL RBC (4.30-5.90) m/uL Hgb (13.0-17.5) gm/dL Hct (39.0-53.0) % MCV (80.0-100.0) fL MCH (25.0-35.0) pg MCHC (31.0-37.0) g/dL RDW (11.5-15.5) % Plt Count (150-450) k/uL Neutrophils % % Lymphocytes % % Monocytes % % Eosinophils % % Basophils % % Neutrophils # (1.3-7.7) k/uL Lymphocytes # (1.0-4.8) k/uL Monocytes # (0-1.0) k/uL Eosinophils # (0-0.7) k/uL Basophils # (0-0.2) k/uL PT 10.7 (9.0-12.0) sec INR 1.1 (<1.2) Sodium (137-145) mmol/L Potassium (3.5-5.1) mmol/L Chloride (98-107) mmol/L Carbon Dioxide (22-30) mmol/L Anion Gap mmol/L BUN (9-20) mg/dL Creatinine (0.66-1.25) mg/dL Est GFR (CKD-EPI)AfAm (>60 ml/min/1.73 sqM) Est GFR (CKD-EPI)NonAf (>60 ml/min/1.73 sqM) Glucose (74-99) mg/dL Plasma Lactic Acid Gerard (0.7-2.0) mmol/L Calcium (8.4-10.2) mg/dL Magnesium (1.6-2.3) mg/dL Total Bilirubin (0.2-1.3) mg/dL AST (17-59) U/L ALT (21-72) U/L Alkaline Phosphatase (38-126) U/L Troponin I <0.012 (0.000-0.034) ng/mL Total Protein (6.3-8.2) g/dL Albumin (3.5-5.0) g/dL Lipase (23-300) U/L Serum Alcohol mg/dL Disposition Clinical Impression: Pneumonia Disposition: ADMITTED IP TO THIS HOSP Referrals: Robbi Michelle DO [Primary Care Provider] - 1-2 days Time of Disposition: 03:01
[2017-12-07] MEDS ORDERED: NALOXONE 0.4 MG/ML 1 ML VIAL IV PRN (02:57)
[2017-12-07] MEDS ORDERED: AZITHROMYCIN 500 MG in DEXTROSE 5% IN WATER 250 ML IVPB STA ×2 (02:59)
[2017-12-07] MEDS ORDERED: IPRATROPIUM-ALBUTEROL 3 ML NEB INHALATION PRN (05:22)
--- NOTE | 2017-12-07 07:01 | P.HPIM ---
History of Present Illness H&P Date: 12/07/17 Chief Complaint: fever, SOB 67-year-old male with history of end-stage COPD on home oxygen of 4.5 L with chronic hypoxic respiratory failure. Presented to the hospital due to 2 day history of fevers and shortness of breath. He reports that he was incontinent status of health but over the past 2 days he was having worsening shortness of breath and fevers along with coughing productive of whitish sputum. He felt very sick he's been using his inhalers and nebulizers without benefit and he continues to be short of breath and wheezing. He was also having some fevers at home with chills. He denies any recent traveling or hospitalization. He reports that he was at the status of health in May when he was admitted to our hospital for COPD exacerbation. Patient admits to continuing to smoke a few cigarettes every day and smokes marijuana. Otherwise he denies any abdominal pain or changes in his bowel habits or urinary habits she denies any GI bleeding he denies any focal neurologic deficits he denies any sick contact or recent traveling Review of Systems Pertinent positives as noted in HPI. All other systems were reviewed and are negative Past Medical History Past Medical History: COPD, GERD/Reflux, Thyroid Disorder Additional Past Medical History / Comment(s): wears home 02 History of Any Multi-Drug Resistant Organisms: None Reported Past Surgical History: No Surgical Hx Reported Past Anesthesia/Blood Transfusion Reactions: No Reported Reaction Past Psychological History: Anxiety, Bipolar, Depression, Schizophrenia Smoking Status: Current every day smoker Past Alcohol Use History: None Reported Past Drug Use History: Unable to Obtain - Past Family History Father Family Medical History: Myocardial Infarction ([place]) Medications and Allergies Home Medications Medication Instructions Recorded Confirmed Type ARIPiprazole [Abilify] 10 mg PO BID 05/02/17 05/02/17 History Diltiazem HCl [Diltiazem 24Hr ER] 180 mg PO DAILY 05/02/17 05/02/17 History Gabapentin [Neurontin] 800 mg PO TID 05/02/17 05/02/17 History Magnesium Oxide [Mag-Ox] 400 mg PO DAILY 05/02/17 05/02/17 History Multivitamins, Thera [Multivitamin 1 tab PO DAILY 05/02/17 05/02/17 History (formulary)] Omeprazole [PriLOSEC] 20 mg PO BID 05/02/17 05/02/17 History Pravastatin Sodium [Pravachol] 40 mg PO HS 05/02/17 05/02/17 History Sertraline [Zoloft] 100 mg PO BID 05/02/17 05/02/17 History Theophylline 12 Hour [Roshan-Dur] 200 mg PO BID 05/02/17 05/02/17 History busPIRone HCL 20 mg PO TID 05/02/17 05/02/17 History traZODone HCL 100 mg PO HS 05/02/17 05/02/17 History Budesonide-Formot 160-4.5 Mcg 2 puff INHALATION RT-BID puff 05/17/17 Rx [Symbicort 160-4.5 Mcg Inhaler] Ipratropium-Albuterol Nebulize 3 ml INHALATION RT-QID ampul.neb 05/17/17 Rx [Duoneb 0.5 mg-3 mg/3 ml Soln] Allergies Allergy/AdvReac Type Severity Reaction Status Date / Time No Known Allergies Allergy Verified 12/07/17 01:26 Physical Exam Vitals: Vital Signs Temp Pulse Resp BP Pulse Ox 12/07/17 03:29 99.9 F H 90 20 123/76 90 L 12/07/17 02:07 97 18 138/80 90 L 12/07/17 01:35 97 12/07/17 01:30 20 12/07/17 01:26 94 12/07/17 01:18 102.2 F H 96 20 141/80 92 L Intake and Output 12/06/17 12/06/17 12/07/17 14:59 22:59 06:59 Other: Voiding Method Toilet Bedside Commode Urinal Weight 71.214 kg Constitutional: No acute distress, conversant, pleasant Eyes: Anicteric sclerae, moist conjunctiva, no lid-lag Pupils equal round reactive to light ENMT: NC/AT Oropharynx clear, no erythema, or exudates Neck: Supple, FROM, no masses, or JVD No carotid bruits No thyromegaly Lungs: Poor breath sounds throughout, prolonged expiratory phase and scattered expiratory wheezes Clear to percussion Patient is using accessory muscle of respiration Cardiovascular: Heart regular in rate and rhythm, No murmurs, gallops, or rubs No peripheral edema Abdominal: Soft Nontender, no guarding, rebound or rigidity Abdomen moving with respiration Normoactive bowel sounds No hepatomegaly, No splenomegaly No palpable mass No abdominal wall hernia noted Skin: Normal temperature, tone, texture, turgor No induration No subcutaneous nodules No rash, lesions No ulcers Extremities: No digital cyanosis No clubbing Pedal pulses intact and symmetrical Radial pulses intact and symmetrical No calf tenderness Psychiatric: Alert and oriented to person, place and time Appropriate affect fair judgment Neuro Muscles Strength 5/5 in all 4 extremities Sensation to light touch grossly present throughout Cranial nerves II-XII grossly intact No focal sensory deficits Lymphatics: no palpable cervical or supraclavicular , or inguinal lymph nodes Results CBC & Chem 7: 12/07/17 01:21 12/07/17 01:21 Labs: Abnormal Lab Results - Last 24 Hours (Table) 12/07/17 12/07/17 Range/Units 01:21 01:21 MCHC 30.9 L (31.0-37.0) g/dL Neutrophils # 8.8 H (1.3-7.7) k/uL Chloride 95 L (98-107) mmol/L Carbon Dioxide 40 H* (22-30) mmol/L Glucose 110 H (74-99) mg/dL Thrombosis Risk Factor Assmnt - Choose All That Apply Any of the Below Risk Factors Present?: Yes Each Factor Represents 1 point: Abnormal pulmonary function (COPD) Other Risk Factors: Yes Each Risk Factor Represents 2 Points: Age 61-74 years Other congenital or acquired thrombophilia - If yes, enter type in comment: No Thrombosis Risk Factor Assessment Total Risk Factor Score: 3 Thrombosis Risk Factor Assessment Level: Moderate Risk Assessment and Plan Assessment: 67-year-old male with history of end-stage COPD with chronic hypoxic respiratory failure on home oxygen admitted to the inpatient with anticipated length of stay of more than 2 days due to community-acquired pneumonia and acute on chronic COPD exacerbation Plan: Community-acquired pneumonia Acute on chronic COPD exacerbation Endstage COPD on home oxygen Chronic hypoxic respiratory failure Depression Tobacco smoking GERD Start patient on antibiotics we'll switch to Rocephin and azithromycin Continue with home oxygen Continue with inhalers Patient counseled strictly to avoid smoking Pulmonary toileting Continue home medications DVT prophylaxis on heparin subcu 3 times a day Preformed a thorough record review from recent hospitalization May 2017 when he was admitted for acute COPD exacerbation Surrogate decision-maker: Patient's Marci CODE STATUS:Full code Discussed with: Patient, ER, RN Anticipated discharge: 48-[address]: Home A total of 60 minutes was spent on the care of this complex patient more than 50 % of the time was spent in counseling and care coordination.
[2017-12-07] MEDS: IPRATROPIUM-ALBUTEROL 3 ML NEB INHALATION SCH ×4 (07:18→20:13)
[2017-12-07 07:20] LABS: Appearance,Urine Clear (Clear); Bilirubin,Urine Negative (Negative); Blood,Urine Negative (Negative); Color,Urine Light Yellow; Glucose,Urine (UA) Negative (Negative); Ketones,Urine Negative (Negative); Leukocyte Esterase,Urine Negative (Negative); Nitrite,Urine Negative (Negative); Protein,Urine Negative (Negative); Specific Gravity,Urine 1.005 (1.001-1.035); Urobilinogen,Urine <2.0 mg/dL (<2.0)
[2017-12-07] MEDS ORDERED: HEPARIN SODIUM,PORCINE 5,000 UNIT/ML 1 ML VIAL SQ SCH (08:00)
[2017-12-07] MEDS ORDERED: SYMBICORT 160-4.5 MCG INHALER INHALATION SCH ×2 (08:00)
[2017-12-07] MEDS: ARIPiprazole 10 MG TAB PO SCH ×2 (08:50→21:33)
[2017-12-07] MEDS: busPIRone HCl 10 MG TAB PO SCH ×3 (08:50→21:34)
[2017-12-07] MEDS: PANTOPRAZOLE 40 MG TABLET PO SCH ×2 (08:50→18:48)
[2017-12-07] MEDS: DILTIAZEM CD 180 MG CAP.ER.24H PO SCH (08:51)
[2017-12-07] MEDS: cefTRIAXone IN SWFI 1,000 MG/10 ML SYRINGE IVP SCH (08:51)
[2017-12-07] MEDS: GABAPENTIN 400 MG CAP PO SCH ×3 (08:51→21:34)
[2017-12-07] MEDS: THEOPHYLLINE 24 HOUR 200 MG CAP.ER.24H PO SCH (08:52)
[2017-12-07] MEDS: SERTRALINE 100 MG TAB PO SCH ×2 (08:52→21:34)
[2017-12-07] MEDS: MAGNESIUM OXIDE 400 MG TAB PO SCH (08:52)
[2017-12-07] MEDS: MULTIVITAMINS, THERA 1 EACH TAB PO SCH (13:15)
--- NOTE | 2017-12-07 13:19 | P.PN ---
Subjective Progress Note Date: 12/07/17 Principal diagnosis: 67-year-old male with history of end-stage COPD with chronic hypoxic respiratory failure on home oxygen admitted to the inpatient with anticipated length of stay of more than 2 days due to community-acquired pneumonia and acute on chronic COPD exacerbation 1. Community-acquired pneumonia: Given 1 dose of IV vancomycin and cefepime in the emergency room. Currently on ceftriaxone and azithromycin. Blood and urine culture pending. Legionella antigen pending. 2. Acute on chronic COPD exacerbation: Continue bronchodilators. Start prednisone 40 mg daily. 3. Endstage COPD on home oxygen 4. Acute on chronic hypoxic respiratory failure: Wean off O2 as tolerated for O2 sats greater than 90% 5. Generalized anxiety disorder and major depressive disorder: Home medication ordered 6. Tobacco abuse, counseled extensively to quit. 7. GERD on Protonix 8. DVT prophylaxis with subcu heparin Today, I reviewed his medication list and lab work results. Continue current regimen. Awaiting pulmonology evaluation. Continue pulmonary toilet and incentive spirometer. Repeat lab work in the morning. Objective - Vital Signs Vital signs: Vital Signs Temp 98.5 F 12/07/17 06:58 Pulse 83 12/07/17 11:21 Resp 18 12/07/17 11:21 BP 108/73 12/07/17 06:58 Pulse Ox 88 L 12/07/17 07:19 Intake & Output 12/06/17 12/07/17 12/07/17 18:59 06:59 18:59 Weight 71.214 kg Other: Voiding Method Toilet Bedside Commode Urinal # Voids 3 - Labs CBC & Chem 7: 12/07/17 01:21 12/07/17 01:21 Labs: Abnormal Lab Results - Last 24 Hours (Table) 12/07/17 12/07/17 Range/Units 01:21 01:21 MCHC 30.9 L (31.0-37.0) g/dL Neutrophils # 8.8 H (1.3-7.7) k/uL Chloride 95 L (98-107) mmol/L Carbon Dioxide 40 H* (22-30) mmol/L Glucose 110 H (74-99) mg/dL
[2017-12-07] MEDS ORDERED: predniSONE 20 MG TAB PO SCH (13:30)
--- NOTE | 2017-12-07 13:50 | P.CNPUL ---
History of Present Illness Consult date: 12/07/17 Reason for consult: dyspnea, cough, hypoxemia, pneumonia, abnormal CXR/CT Chief complaint: Shortness of breath and cough. History of present illness: Pulmonary consult dated 12/07/2017 This is a 67-year-old male who typically gets his medical care at the [facility], who has a history of COPD hypoxemic respiratory failure gastroesophageal reflux disease hyperlipidemia exposure to agent orange and thyroid disease who presents to the emergency department brought in by EMS for shortness of breath. In addition, he presents with fever cough chest congestion and phlegm production. He tells us that he was diagnosed as having "double pneumonia". I actually take care of the patient's . The patient is a heavy and ongoing tobacco user. He does see a lung doctor at the [facility] in [place]. He cannot remember his name. He is coughing up phlegm. The phlegm has some color to it. Not coughing up any blood. The patient's appetite is good. Not using weight unexpectedly. He was seen in the emergency room and admitted with a diagnosis of pneumonia. We are asked to consult on him for the pneumonia. In addition, the patient likely has pretty significant COPD from chronic and significant tobacco abuse. Chest x-ray shows some minimal infiltrates at the right lung base consistent with either pneumonia and/or atelectasis. Review of Systems A 12 point review of system is positive for shortness of breath cough chest congestion wheezing and phlegm production. Past Medical History Past Medical History: COPD, GERD/Reflux, Thyroid Disorder Additional Past Medical History / Comment(s): wears home 02 History of Any Multi-Drug Resistant Organisms: None Reported Past Surgical History: No Surgical Hx Reported Past Anesthesia/Blood Transfusion Reactions: No Reported Reaction Past Psychological History: Anxiety, Bipolar, Depression, Schizophrenia Smoking Status: Current every day smoker Past Alcohol Use History: None Reported Past Drug Use History: Unable to Obtain - Past Family History Father Family Medical History: Myocardial Infarction ([place]) Medications and Allergies Home Medications Medication Instructions Recorded Confirmed Type ARIPiprazole [Abilify] 10 mg PO BID 05/02/17 12/07/17 History Diltiazem HCl [Diltiazem 24Hr ER] 180 mg PO DAILY 05/02/17 12/07/17 History Gabapentin [Neurontin] 800 mg PO TID 05/02/17 12/07/17 History Magnesium Oxide [Mag-Ox] 400 mg PO PC-LUNCH 05/02/17 12/07/17 History Multivitamins, Thera [Multivitamin 1 tab PO DAILY 05/02/17 12/07/17 History (formulary)] Omeprazole [PriLOSEC] 20 mg PO BID 05/02/17 12/07/17 History Pravastatin Sodium [Pravachol] 40 mg PO HS 05/02/17 12/07/17 History Sertraline [Zoloft] 100 mg PO BID 05/02/17 12/07/17 History busPIRone HCL 10 mg PO TID 05/02/17 12/07/17 History traZODone HCL 100 mg PO HS 05/02/17 12/07/17 History Budesonide-Formot 160-4.5 Mcg 2 puff INHALATION RT-BID puff 05/17/17 12/07/17 Rx [Symbicort 160-4.5 Mcg Inhaler] Ipratropium-Albuterol Nebulize 3 ml INHALATION RT-QID ampul.neb 05/17/17 Rx [Duoneb 0.5 mg-3 mg/3 ml Soln] Theophylline 24 Hour [Roshan-24] 200 mg PO DAILY 12/07/17 12/07/17 History Allergies Allergy/AdvReac Type Severity Reaction Status Date / Time No Known Allergies Allergy Verified 12/07/17 01:26 Physical Exam Osteopathic Statement: *. No significant issues noted on an osteopathic structural exam other than those noted in the History and Physical/Consult. Vitals: Vital Signs Temp Pulse Pulse Resp BP BP Pulse Ox 12/07/17 11:21 83 18 12/07/17 11:10 85 18 12/07/17 07:35 89 16 12/07/17 07:19 88 16 88 L 12/07/17 06:58 98.5 F 93 24 108/73 91 L 12/07/17 03:29 99.9 F H 90 20 123/76 90 L 12/07/17 02:07 97 18 138/80 90 L 12/07/17 01:35 97 12/07/17 01:30 20 12/07/17 01:26 94 12/07/17 01:18 102.2 F H 96 20 141/80 92 L Intake and Output 0712/07/17 12/07/17 22:59 06:59 14:59 Other: Voiding Method Toilet Bedside Commode Urinal # Voids 3 Weight 71.214 kg No acute distress, oriented 3. Nasal O2 in place. HEENT examination is grossly unremarkable. Mucous membranes are moist. No oral lesions. Neck supple. Full range of motion. No adenopathy thyromegaly or neck vein distention. Cardiovascular examination reveals regular rhythm rate. S1-S2 normal. No S3 or S4. No discernible murmur noted. Heart sounds are distant. Lungs reveal diffuse bilateral expiratory wheezes and rhonchi. Breath sounds are equal bilaterally. Breath sounds are diminished throughout. No crackles noted. Abdomen soft bowel sounds are heard. No masses or tenderness. Extremities are intact. No cyanosis clubbing or edema. Skin is without rash or lesion. Neurologic examination is brief but nonfocal. Results - Laboratory Findings CBC and BMP: 12/07/17 01:21 12/07/17 01:21 PT/INR, D-dimer PT 10.7 sec (9.0-12.0) 12/07/17 01:21 INR 1.1 (<1.2) 12/07/17 01:21 Abnormal lab findings: Abnormal Labs 12/07/17 12/07/17 01:21 01:21 MCHC 30.9 L Neutrophils # 8.8 H Chloride 95 L Carbon Dioxide 40 H* Glucose 110 H - Diagnostic Findings Chest x-ray: report reviewed (X-ray labs and medications are all reviewed.), image reviewed Assessment and Plan Assessment: Assessment COPD exacerbation complicated by possible bronchopneumonia right lower lobe. Likely severe COPD, with an FEV1 less than 1 L and chronic CO2 retention based on a bicarbonate concentration of 40 Acute on chronic hypoxemic respiratory failure History of hypertension History of GERD History of depression History of hyperlipidemia Previous history of Agent [place] exposure History of ongoing tobacco use and nicotine addiction Plan: Plan dated 12/07/2017 We'll make sure that the patient is on appropriate medications for his COPD exacerbation and for possible pneumonia right lower lobe. He should be on DuoNeb's 4 times a day and when necessary. He also would benefit from Perforomist and Pulmicort 1 mg twice a day as well as systemic corticosteroids at 40-60 mg every 6 hours. In addition, some sort of antibiotic would be appropriate as well. A nicotine patch would also help. He is counseled about the importance of smoking cessation. [facility]'ll need [facility]. Additional recommendations and suggestions are forthcoming. Time with Patient: Greater than 30
[2017-12-07] MEDS: methylPREDNISolone SOD SUCCI 125 MG/2 ML VIAL IV SCH ×2 (15:36→18:47)
[2017-12-07] MEDS: NICOTINE 14MG/24HR PATCH TRANSDERM SCH (15:36)
[2017-12-07] MEDS: BUDESONIDE 1 MG/2 ML NEBU INHALATION SCH (20:13)
[2017-12-07] MEDS: FORMOTEROL FUMARATE 20 MCG/2 ML NEBU INHALATION SCH (20:13)
[2017-12-07] MEDS: traZODone HCL 100 MG TAB PO SCH (21:34)
[2017-12-07] MEDS: HEPARIN SODIUM,PORCINE 5,000 UNIT/ML 1 ML VIAL SQ SCH (21:34)
[2017-12-07] MEDS: PRAVASTATIN SODIUM 40 MG TAB PO SCH (21:34)
[2017-12-08] MEDS: methylPREDNISolone SOD SUCCI 125 MG/2 ML VIAL IV SCH ×3 (00:11→11:26)
[2017-12-08] MEDS: IPRATROPIUM-ALBUTEROL 3 ML NEB INHALATION SCH ×4 (07:46→19:56)
[2017-12-08] MEDS: FORMOTEROL FUMARATE 20 MCG/2 ML NEBU INHALATION SCH ×2 (07:46→19:56)
[2017-12-08] MEDS: BUDESONIDE 1 MG/2 ML NEBU INHALATION SCH ×2 (07:46→19:56)
[2017-12-08 08:23] LABS: Anion Gap 7 mmol/L; Blood Urea Nitrogen 24 mg/dL (9-20); Calcium 9.2 mg/dL (8.4-10.2); Carbon Dioxide 33 mmol/L (22-30); Chloride 100 mmol/L (98-107); Glucose 132 mg/dL (74-99); Potassium 4.4 mmol/L (3.5-5.1); Sodium 140 mmol/L (137-145)
[2017-12-08 08:26] LABS: Basophils % (A) 0 %; Eosinophils % (A) 0 %; HCT 45.4 % (39.0-53.0); HGB 14.5 gm/dL (13.0-17.5); Lymphocytes # (A) 0.5 k/uL (1.0-4.8); Lymphocytes % (A) 3 %; MCH 30.1 pg (25.0-35.0); Mean Platelet Volume 7.9; Monocytes # (A) 0.3 k/uL (0-1.0); Monocytes % (A) 2 %; Neutrophils # (A) 16.7 k/uL (1.3-7.7); Neutrophils % (A) 95 %; Platelet Count 144 k/uL (150-450); RBC 4.83 m/uL (4.30-5.90); RDW 15.6 % (11.5-15.5); WBC 17.6 k/uL (3.8-10.6)
[2017-12-08] MEDS: cefTRIAXone IN SWFI 1,000 MG/10 ML SYRINGE IVP SCH (08:27)
[2017-12-08] MEDS: HEPARIN SODIUM,PORCINE 5,000 UNIT/ML 1 ML VIAL SQ SCH ×2 (08:27→21:32)
[2017-12-08] MEDS: NICOTINE 14MG/24HR PATCH TRANSDERM SCH (08:27)
[2017-12-08] MEDS: MAGNESIUM OXIDE 400 MG TAB PO SCH (08:27)
[2017-12-08] MEDS: DILTIAZEM CD 180 MG CAP.ER.24H PO SCH (08:27)
[2017-12-08] MEDS: busPIRone HCl 10 MG TAB PO SCH ×3 (08:27→21:33)
[2017-12-08] MEDS: GABAPENTIN 400 MG CAP PO SCH ×3 (08:27→21:33)
[2017-12-08] MEDS: THEOPHYLLINE 24 HOUR 200 MG CAP.ER.24H PO SCH (08:27)
[2017-12-08] MEDS: PANTOPRAZOLE 40 MG TABLET PO SCH ×2 (08:27→17:35)
[2017-12-08] MEDS: AZITHROMYCIN 500 MG TAB PO SCH (08:27)
[2017-12-08] MEDS: SERTRALINE 100 MG TAB PO SCH ×2 (08:27→21:32)
[2017-12-08] MEDS: ARIPiprazole 10 MG TAB PO SCH ×2 (08:27→21:32)
[2017-12-08] MEDS: MULTIVITAMINS, THERA 1 EACH TAB PO SCH (11:26)
--- NOTE | 2017-12-08 11:52 | P.PN ---
Subjective Progress Note Date: 12/08/17 Principal diagnosis: COPD exacerbation Progress note dated 12/08/2017 This is a 67-year-old male admitted with a diagnosis of COPD exacerbation with possible bronchopneumonia, right lower lobe. He likely has severe COPD with an FEV1 of less than 1 L. He does have chronic CO2 retention based on his bicarbonate concentration. He was admitted with a diagnosis of acute on chronic hypoxemic respiratory failure, history of hypertension, GERD, depression , hyperlipidemia, and previous Agent [place] exposure. In addition, he has significant and ongoing tobacco addiction. The patient is doing much better today. He would like to be discharged. I told the primary service that he could be discharged. It would be up to them. The patient does need to see me in follow-up. Objective - Vital Signs Vital signs: Vital Signs Temp 96.8 F L 12/08/17 07:10 Pulse 96 12/08/17 11:43 Resp 16 12/08/17 07:10 BP 115/78 12/08/17 07:10 Pulse Ox 85 L 12/08/17 07:50 Intake & Output 12/07/17 12/08/17 12/08/17 18:59 06:59 18:59 Intake Total 350 Output Total 400 400 Balance -50 -400 Intake: Oral 350 Output: Urine 400 400 Other: Voiding Method Toilet Bedside Commode Urinal # Voids 1 1 # Bowel Movements 0 - Exam No acute distress, oriented 3. Nasal O2 in place. HEENT examination is grossly unremarkable. Mucous membranes are moist. No oral lesions. Neck supple. Full range of motion. No adenopathy thyromegaly or neck vein distention. Cardiovascular examination reveals regular rhythm rate. S1-S2 normal. No S3 or S4. No discernible murmur noted. Heart sounds are distant. Lungs reveal severely diminished breath sounds. A few scattered mild rhonchi are noted bilaterally. Prolongation is appreciated. No crackles. Very minimal wheezes are noted. Breath sounds are certainly improved compared to yesterday's exam. Abdomen soft bowel sounds are heard. No masses or tenderness. Extremities are intact. No cyanosis clubbing or edema. Skin is without rash or lesion. Neurologic examination is brief but nonfocal. - Labs CBC & Chem 7: 12/08/17 07:39 12/08/17 07:39 Labs: Abnormal Lab Results - Last 24 Hours (Table) 12/08/17 12/08/17 Range/Units 07:39 07:39 WBC 17.6 H (3.8-10.6) k/uL RDW 15.6 H (11.5-15.5) % Plt Count 144 L (150-450) k/uL Neutrophils # 16.7 H (1.3-7.7) k/uL Lymphocytes # 0.5 L (1.0-4.8) k/uL Carbon Dioxide 33 H (22-30) mmol/L BUN 24 H (9-20) mg/dL Glucose 132 H (74-99) mg/dL Microbiology - Last 24 Hours (Table) 12/07/17 01:52 Blood Culture - Preliminary Blood No Growth after 24 hours 12/07/17 01:21 Blood Culture - Preliminary Blood No Growth after 24 hours Assessment and Plan Assessment: Assessment COPD exacerbation complicated by possible bronchopneumonia right lower lobe. Likely severe COPD, with an FEV1 less than 1 L and chronic CO2 retention based on a bicarbonate concentration of 40 Acute on chronic hypoxemic respiratory failure History of hypertension History of GERD History of depression History of hyperlipidemia Previous history of Agent [place] exposure History of ongoing tobacco use and nicotine addiction Plan: Plan dated 12/07/2017 We'll make sure that the patient is on appropriate medications for his COPD exacerbation and for possible pneumonia right lower lobe. He should be on DuoNeb's 4 times a day and when necessary. He also would benefit from Perforomist and Pulmicort 1 mg twice a day as well as systemic corticosteroids at 40-60 mg every 6 hours. In addition, some sort of antibiotic would be appropriate as well. A nicotine patch would also help. He is counseled about the importance of smoking cessation. 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 Additional recommendations and suggestions are forthcoming. Plan dated 12/08/2017 The patient's white count is 17.6, hemoglobin 14.5 hematocrit 45.4 and platelet count 144,000. Sodium potassium chloride are all normal. The bicarbonate concentration has come down from 40 down to 33. BUN and creatinine 24 and 0.91. Microbiologic studies are negative. No new x-ray to report. Medications were evaluated and adjusted yesterday. He is counseled about the importance of smoking cessation. He knows he should stop smoking. Time with Patient: Less than 30
--- NOTE | 2017-12-08 11:59 | P.PN ---
Subjective Progress Note Date: 12/08/17 Principal diagnosis: Acute COPD exacerbation Patient was the setting this morning requiring high flow nasal cannula. Patient himself denies any worsening shortness of breath. No chest pain. Objective - Vital Signs Vital signs: Vital Signs Temp 96.8 F L 12/08/17 07:10 Pulse 96 12/08/17 11:43 Resp 16 12/08/17 07:10 BP 115/78 12/08/17 07:10 Pulse Ox 85 L 12/08/17 07:50 Intake & Output 12/07/17 12/08/17 12/08/17 18:59 06:59 18:59 Intake Total 350 Output Total 400 400 Balance -50 -400 Intake: Oral 350 Output: Urine 400 400 Other: Voiding Method Toilet Bedside Commode Urinal # Voids 1 1 # Bowel Movements 0 - Exam General: The patient is awake and alert, in no distress Eye: there is normal conjunctiva bilaterally. Neck: The neck is supple, there is no JVD. Cardiovascular: Normal S1-S2, no S3-S4, no murmurs. Respiratory: Lungs slightly diminished but clear to auscultation bilaterally Gastrointestinal: Abdomen is soft, nontender Musculoskeletal: There is no pedal edema. Neurological:. Speech is normal. Skin: Skin is warm and dry - Labs CBC & Chem 7: 12/08/17 07:39 12/08/17 07:39 Labs: Abnormal Lab Results - Last 24 Hours (Table) 12/08/17 12/08/17 Range/Units 07:39 07:39 WBC 17.6 H (3.8-10.6) k/uL RDW 15.6 H (11.5-15.5) % Plt Count 144 L (150-450) k/uL Neutrophils # 16.7 H (1.3-7.7) k/uL Lymphocytes # 0.5 L (1.0-4.8) k/uL Carbon Dioxide 33 H (22-30) mmol/L BUN 24 H (9-20) mg/dL Glucose 132 H (74-99) mg/dL Microbiology - Last 24 Hours (Table) 12/07/17 01:52 Blood Culture - Preliminary Blood No Growth after 24 hours 12/07/17 01:21 Blood Culture - Preliminary Blood No Growth after 24 hours Assessment and Plan Assessment: 67-year-old male with history of end-stage COPD with chronic hypoxic respiratory failure on home oxygen admitted to the inpatient with anticipated length of stay of more than 2 days due to community-acquired pneumonia and acute on chronic COPD exacerbation 1. Community-acquired pneumonia: Given 1 dose of IV vancomycin and cefepime in the emergency room. Currently on ceftriaxone and azithromycin. Blood culture negative to date. Legionella antigen pending, send out lab so he won't be back until Sunday or Sunday. 2. Acute on chronic COPD exacerbation: Continue bronchodilators. Start prednisone 40 mg daily. Discontinue IV Solu-Medrol 3. Endstage COPD on home oxygen 4. Acute on chronic hypoxic respiratory failure: Wean off O2 as tolerated for O2 sats greater than 90% 5. Generalized anxiety disorder and major depressive disorder: Home medication ordered 6. Tobacco abuse, counseled extensively to quit. 7. GERD on Protonix 8. DVT prophylaxis with subcu heparin Today, I reviewed his medication list and lab work results. Continue current regimen. appreciate pulmonology recommendations . Continue pulmonary toilet and incentive spirometer. Repeat lab work in the morning. Anticipate discharge home within the next day or 2
[2017-12-08] MEDS: traZODone HCL 100 MG TAB PO SCH (21:32)
[2017-12-08] MEDS: PRAVASTATIN SODIUM 40 MG TAB PO SCH (21:32)
[2017-12-09 06:27] VITALS: BP 117/69; TEMP 97.7
[2017-12-09] MEDS: FORMOTEROL FUMARATE 20 MCG/2 ML NEBU INHALATION SCH (07:24)
[2017-12-09] MEDS: IPRATROPIUM-ALBUTEROL 3 ML NEB INHALATION SCH ×2 (07:24→11:11)
[2017-12-09] MEDS: BUDESONIDE 1 MG/2 ML NEBU INHALATION SCH (07:24)
[2017-12-09] MEDS: NICOTINE 14MG/24HR PATCH TRANSDERM SCH (08:11)
[2017-12-09] MEDS: cefTRIAXone IN SWFI 1,000 MG/10 ML SYRINGE IVP SCH (08:11)
[2017-12-09] MEDS: MAGNESIUM OXIDE 400 MG TAB PO SCH (08:12)
[2017-12-09] MEDS: ARIPiprazole 10 MG TAB PO SCH (08:12)
[2017-12-09] MEDS: DILTIAZEM CD 180 MG CAP.ER.24H PO SCH (08:12)
[2017-12-09] MEDS: PANTOPRAZOLE 40 MG TABLET PO SCH (08:12)
[2017-12-09] MEDS: THEOPHYLLINE 24 HOUR 200 MG CAP.ER.24H PO SCH (08:12)
[2017-12-09] MEDS: GABAPENTIN 400 MG CAP PO SCH (08:12)
[2017-12-09] MEDS: HEPARIN SODIUM,PORCINE 5,000 UNIT/ML 1 ML VIAL SQ SCH (08:12)
[2017-12-09] MEDS: SERTRALINE 100 MG TAB PO SCH (08:12)
[2017-12-09] MEDS: busPIRone HCl 10 MG TAB PO SCH (08:12)
[2017-12-09] MEDS: AZITHROMYCIN 500 MG TAB PO SCH (08:12)
[2017-12-09] MEDS ORDERED: predniSONE 20 MG TAB PO SCH (09:00)
[2017-12-09 10:34] VITALS: RESP 16
[2017-12-09 10:39] LABS: Basophils % (A) 0 %; Eosinophils % (A) 0 %; HCT 42.1 % (39.0-53.0); HGB 13.2 gm/dL (13.0-17.5); Lymphocytes # (A) 0.6 k/uL (1.0-4.8); Lymphocytes % (A) 4 %; MCH 29.4 pg (25.0-35.0); MCHC 31.5 g/dL (31.0-37.0); MCV 93.6 fL (80.0-100.0); Mean Platelet Volume 8.1; Monocytes # (A) 0.5 k/uL (0-1.0); Monocytes % (A) 3 %; Neutrophils % (A) 93 %; Platelet Count 138 k/uL (150-450); RDW 15.7 % (11.5-15.5); WBC 16.3 k/uL (3.8-10.6)
[2017-12-09 10:50] LABS: Calcium 9.1 mg/dL (8.4-10.2); Potassium 4.1 mmol/L (3.5-5.1)
--- NOTE | 2017-12-09 10:59 | P.PN ---
Subjective Progress Note Date: 12/09/17 Principal diagnosis: COPD exacerbation Progress note dated 12/08/2017 This is a 67-year-old male admitted with a diagnosis of COPD exacerbation with possible bronchopneumonia, right lower lobe. He likely has severe COPD with an FEV1 of less than 1 L. He does have chronic CO2 retention based on his bicarbonate concentration. He was admitted with a diagnosis of acute on chronic hypoxemic respiratory failure, history of hypertension, GERD, depression , hyperlipidemia, and previous [place] exposure. In addition, he has significant and ongoing tobacco addiction. The patient is doing much better today. He would like to be discharged. I told the primary service that he could be discharged. It would be up to them. The patient does need to see me in follow-up. Progress note dated 12/09/2017 This is a very pleasant 67-year-old male admitted with a diagnosis of COPD exacerbation and possible rhonchi pneumonia, right lower lobe. He likely has severe COPD based on his examination and his chronic CO2 retention. He has not seen a lung doctor in the past. I do see his and I will see him post discharge. He has a history of acute on chronic hypoxemic respiratory failure, hypertension, GERD, depression, hyperlipidemia, and previous [place] exposure. The patient will need a 6 minute walk distance and a full PFT in the office. From my perspective the patient could be discharged. The patient wants to go home. The patient is feeling much better. It's up to the primary service to discharge the patient. He will asked the primary physician when he enters the room today. White count 16.3 hemoglobin and hematocrit were normal. Platelet count 138,000. Sodium potassium chloride normal CO2 33 BUN and creatinine were 36 and 1.19. Blood cultures are currently negative. Objective - Vital Signs Vital signs: Vital Signs Temp 97.7 F 12/09/17 06:25 Pulse 86 12/09/17 07:51 Resp 16 12/09/17 10:33 BP 117/69 12/09/17 06:25 Pulse Ox 92 L 12/09/17 10:33 Intake & Output 12/08/17 12/09/17 12/09/17 18:59 06:59 18:59 Intake Total 850 240 Output Total 400 Balance -400 850 240 Intake: Oral 850 240 Output: Urine 400 Other: Voiding Method Toilet Toilet Toilet Bedside Commode Urinal Urinal Urinal # Voids 1 1 - Exam No acute distress, oriented 3. Nasal O2 in place. HEENT examination is grossly unremarkable. Mucous membranes are moist. No oral lesions. Neck supple. Full range of motion. No adenopathy thyromegaly or neck vein distention. Cardiovascular examination reveals regular rhythm rate. S1-S2 normal. No S3 or S4. No discernible murmur noted. Heart sounds are distant. Lungs reveal severely diminished breath sounds. A few scattered mild rhonchi are noted bilaterally. No crackles. Very minimal wheezes are noted. Breath sounds are certainly improved compared to yesterday's exam. Abdomen soft bowel sounds are heard. No masses or tenderness. Extremities are intact. No cyanosis clubbing or edema. Skin is without rash or lesion. Neurologic examination is brief but nonfocal. - Labs CBC & Chem 7: 12/09/17 10:00 12/09/17 10:00 Labs: Abnormal Lab Results - Last 24 Hours (Table) 12/09/17 12/09/17 Range/Units 10:00 10:00 WBC 16.3 H (3.8-10.6) k/uL RDW 15.7 H (11.5-15.5) % Plt Count 138 L (150-450) k/uL Neutrophils # 15.0 H (1.3-7.7) k/uL Lymphocytes # 0.6 L (1.0-4.8) k/uL Carbon Dioxide 33 H (22-30) mmol/L BUN 36 H (9-20) mg/dL Glucose 107 H (74-99) mg/dL Microbiology - Last 24 Hours (Table) 12/07/17 01:52 Blood Culture - Preliminary Blood No Growth after 48 hours 12/07/17 01:21 Blood Culture - Preliminary Blood No Growth after 48 hours Assessment and Plan Assessment: Assessment COPD exacerbation complicated by possible bronchopneumonia right lower lobe. Likely severe COPD, with an FEV1 less than 1 L and chronic CO2 retention based on a bicarbonate concentration of 40 Acute on chronic hypoxemic respiratory failure History of hypertension History of GERD History of depression History of hyperlipidemia Previous history of [place] exposure History of ongoing tobacco use and nicotine addiction Plan: Plan dated 12/07/2017 We'll make sure that the patient is on appropriate medications for his COPD exacerbation and for possible pneumonia right lower lobe. He should be on DuoNeb's 4 times a day and when necessary. He also would benefit from Perforomist and Pulmicort 1 mg twice a day as well as systemic corticosteroids at 40-60 mg every 6 hours. In addition, some sort of antibiotic would be appropriate as well. A nicotine patch would also help. He is counseled about the importance of smoking cessation. He'll need to follow up with his [place] environmental protection specialist. Additional recommendations and suggestions are forthcoming. Plan dated 12/08/2017 The patient's white count is 17.6, hemoglobin 14.5 hematocrit 45.4 and platelet count 144,000. Sodium potassium chloride are all normal. The bicarbonate concentration has come down from 40 down to 33. BUN and creatinine 24 and 0.91. Microbiologic studies are negative. No new x-ray to report. Medications were evaluated and adjusted yesterday. He is counseled about the importance of smoking cessation. He knows he should stop smoking. Plan dated 12/09/2017 The patient clinically looks better. The patient could be discharged today. We 'll leave that up to the hospital doctor. I would like to see the patient in the office post discharge. I currently see his . He will need a 6 minute walk distance and a pulmonary function test. We'll need to find his diagnoses and fine-tune his medications. He will asked the primary service 1 whether or not he could be discharged. Additional recommendations and suggestions are forthcoming. Time with Patient: Less than 30
[2017-12-09 11:24] VITALS: PULSE 80
[2017-12-09] MEDS: MULTIVITAMINS, THERA 1 EACH TAB PO SCH (11:52)
--- NOTE | 2017-12-09 13:26 | P.DS ---
Providers Date of admission: 12/07/17 03:01 Expected date of discharge: 12/09/17 Attending physician: Celso Vu MD Consults: 12/07/17 07:56 Consult Physician Routine Consulting Provider: Libia Timmons Consult Reason/Comments: COPD, pneumonia Do you want consulting provider notified?: Yes Primary care physician: [place] [facility] Course: 67-year-old male with history of end-stage COPD with chronic hypoxic respiratory failure on home oxygen admitted to the inpatient with anticipated length of stay of more than 2 days due to community-acquired pneumonia and acute on chronic COPD exacerbation 1. Community-acquired pneumonia: Given 1 dose of IV vancomycin and cefepime in the emergency room. Currently on ceftriaxone and azithromycin. Blood culture negative to date. Legionella antigen pending, send out lab so he won't be back until Sunday or Sunday. We will discharge patient home on Levaquin 500 milligrams daily to finish 8 days course of antibiotic. 2. Acute on chronic COPD exacerbation: Continue bronchodilators. Start prednisone 40 mg daily. Will finish 5 days course as an outpatient 3. Endstage COPD on home oxygen 4. Acute on chronic hypoxic respiratory failure: Now back to baseline 3-4 L of oxygen via nasal cannula 5. Generalized anxiety disorder and major depressive disorder: Home medication ordered 6. Tobacco abuse, counseled extensively to quit. Nicotine patch ordered 7. GERD on Protonix Patient will be discharged home in a stable condition. He will follow-up with his primary care physician and family practitioner in the next week. Plan - Discharge Summary Discharge Rx Participant: No New Discharge Prescriptions: New Levofloxacin [Levaquin] 500 mg PO DAILY #5 tab Nicotine 14Mg/24Hr Patch [Habitrol] 1 patch TRANSDERM DAILY #30 patch predniSONE 40 mg PO DAILY #10 tab Continue ARIPiprazole [Abilify] 10 mg PO BID Multivitamins, Thera [Multivitamin (formulary)] 1 tab PO DAILY busPIRone HCL 10 mg PO TID Diltiazem HCl [Diltiazem 24Hr ER] 180 mg PO DAILY Pravastatin Sodium [Pravachol] 40 mg PO HS Omeprazole [PriLOSEC] 20 mg PO BID Gabapentin [Neurontin] 800 mg PO TID Sertraline [Zoloft] 100 mg PO BID traZODone HCL 100 mg PO HS Magnesium Oxide [Mag-Ox] 400 mg PO PC-LUNCH Budesonide-Formot 160-4.5 Mcg [Symbicort 160-4.5 Mcg Inhaler] 2 puff INHALATION RT-BID puff Ipratropium-Albuterol Nebulize [Duoneb 0.5 mg-3 mg/3 ml Soln] 3 ml INHALATION RT-QID ampul.neb Theophylline 24 Hour [Roshan-24] 200 mg PO DAILY Discharge Medication List ARIPiprazole [Abilify] 10 mg PO BID 05/02/17 [History] Diltiazem HCl [Diltiazem 24Hr ER] 180 mg PO DAILY 05/02/17 [History] Gabapentin [Neurontin] 800 mg PO TID 05/02/17 [History] Magnesium Oxide [Mag-Ox] 400 mg PO PC-LUNCH 05/02/17 [History] Multivitamins, Thera [Multivitamin (formulary)] 1 tab PO DAILY 05/02/17 [History ] Omeprazole [PriLOSEC] 20 mg PO BID 05/02/17 [History] Pravastatin Sodium [Pravachol] 40 mg PO HS 05/02/17 [History] Sertraline [Zoloft] 100 mg PO BID 05/02/17 [History] busPIRone HCL 10 mg PO TID 05/02/17 [History] traZODone HCL 100 mg PO HS 05/02/17 [History] Budesonide-Formot 160-4.5 Mcg [Symbicort 160-4.5 Mcg Inhaler] 2 puff INHALATION RT-BID puff 05/17/17 [Rx] Ipratropium-Albuterol Nebulize [Duoneb 0.5 mg-3 mg/3 ml Soln] 3 ml INHALATION RT -QID ampul.neb 05/17/17 [Rx] Theophylline 24 Hour [Roshan-24] 200 mg PO DAILY 12/07/17 [History] Levofloxacin [Levaquin] 500 mg PO DAILY #5 tab 12/09/17 [Rx] Nicotine 14Mg/24Hr Patch [Habitrol] 1 patch TRANSDERM DAILY #30 patch 12/09/17 [ Rx] predniSONE 40 mg PO DAILY #10 tab 12/09/17 [Rx] Follow up Appointment(s)/Referral(s): [facility], [NON-STAFF] - 1 Week Pashley,Peter, DO [Primary Care Provider] - 1-2 days Joe Khan DO [Doctor of Osteopathic Medicine] - 1 Week Patient Instructions/Handouts: Pneumonia (DC) Discharge Disposition: HOME SELF-CARE
== END 2017-12-09 14:20 | disposition home health service (06) | DRG 193 ==
LOC: EC 01:12 → 4MS4W 03:01
PROVIDERS: ADMIT Internal Medicine; ATTEND Internal Medicine
DX: J18.9 Pneumonia, unspecified organism (principal); J96.21 Acute and chronic respiratory failure with hypoxia; J44.0 Chronic obstructive pulmonary disease with (acute) lower respiratory infection; J44.1 Chronic obstructive pulmonary disease with (acute) exacerbation; E87.2 Acidosis; F20.9 Schizophrenia, unspecified; F41.1 Generalized anxiety disorder; I10 Essential (primary) hypertension; E78.5 Hyperlipidemia, unspecified; K21.9 Gastro-esophageal reflux disease without esophagitis; E07.9 Disorder of thyroid, unspecified; F32.9 Major depressive disorder, single episode, unspecified; F17.210 Nicotine dependence, cigarettes, uncomplicated; Z71.6 Tobacco abuse counseling; Z99.81 Dependence on supplemental oxygen; Z79.51 Long term (current) use of inhaled steroids; Z79.899 Other long term (current) drug therapy; Z77.098 Contact with and (suspected) exposure to other hazardous, chiefly nonmedicinal, chemicals; Z82.49 Family history of ischemic heart disease and other diseases of the circulatory system
CPT/HCPCS: 36415; 71046; 80048; 80053; 80320; 81003; 83605; 83690; 83735; 84484; 85025; 85610; 87040; 87449; 93005; 94640; 94760; 96365; 96367; 96375; 99285

== ENCOUNTER 2017-12-17 09:36 | Emergency (ER) | payer MEDICARE ==
[2017-12-17] MEDS ORDERED: SODIUM CHLORIDE 0.9% 500 ML IV STA (10:38)
--- NOTE | 2017-12-17 10:46 | ED ---
General Adult HPI - General Chief complaint: Shortness of Breath Stated complaint: Sob Time Seen by Provider: 12/17/17 10:29 Source: patient, RN notes reviewed Mode of arrival: wheelchair Limitations: no limitations - History of Present Illness Initial comments: 67-year-old male presents to the emergency department for a chief complaint of shortness of breath. Patient has extensive COPD and was released from the hospital one week ago for pneumonia. Patient has finished all antibiotics for this. Patient states he has been feeling much better at home. However, patient brought his to the emergency department today and did not realize his oxygen tank was empty. Patient states he is supposed to be on oxygen 24 hours a day. Patient states that he just needed oxygen but they stated he would have to be seen and evaluated to be given oxygen so patient signed in to the emergency department. Patient has no other complaints at this time including shortness of breath, chest pain, abdominal pain, nausea or vomiting, headache, or visual changes. - Related Data Home Medications Medication Instructions Recorded Confirmed ARIPiprazole [Abilify] 10 mg PO BID 05/02/17 12/17/17 Diltiazem HCl [Diltiazem 24Hr ER] 180 mg PO DAILY 05/02/17 12/17/17 Gabapentin [Neurontin] 800 mg PO TID 05/02/17 12/17/17 Magnesium Oxide [Mag-Ox] 400 mg PO PC-LUNCH 05/02/17 12/17/17 Multivitamins, Thera [Multivitamin 1 tab PO DAILY 05/02/17 12/17/17 (formulary)] Omeprazole [PriLOSEC] 20 mg PO BID 05/02/17 12/17/17 Pravastatin Sodium [Pravachol] 40 mg PO HS 05/02/17 12/17/17 Sertraline [Zoloft] 100 mg PO BID 05/02/17 12/17/17 busPIRone HCL 10 mg PO TID 05/02/17 12/17/17 traZODone HCL 100 mg PO HS 05/02/17 12/17/17 Theophylline 24 Hour [Roshan-24] 200 mg PO DAILY 12/07/17 12/17/17 Previous Rx's Medication Instructions Recorded Budesonide-Formot 160-4.5 Mcg 2 puff INHALATION RT-BID puff 05/17/17 [Symbicort 160-4.5 Mcg Inhaler] Ipratropium-Albuterol Nebulize 3 ml INHALATION RT-QID ampul.neb 05/17/17 [Duoneb 0.5 mg-3 mg/3 ml Soln] Allergies Allergy/AdvReac Type Severity Reaction Status Date / Time No Known Allergies Allergy Verified 12/17/17 10:56 Review of Systems ROS Statement: Those systems with pertinent positive or pertinent negative responses have been documented in the HPI. ROS Other: All systems not noted in ROS Statement are negative. Past Medical History Past Medical History: COPD, GERD/Reflux, Thyroid Disorder Additional Past Medical History / Comment(s): wears home 02 History of Any Multi-Drug Resistant Organisms: None Reported Past Surgical History: No Surgical Hx Reported Past Anesthesia/Blood Transfusion Reactions: No Reported Reaction Past Psychological History: Anxiety, Bipolar, Depression, Schizophrenia Smoking Status: Current some day smoker Past Alcohol Use History: None Reported Past Drug Use History: Unable to Obtain - Past Family History Father Family Medical History: Myocardial Infarction ([place]) General Exam Limitations: no limitations General appearance: alert, in no apparent distress Head exam: Present: atraumatic, normocephalic, normal inspection Eye exam: Present: normal appearance. Absent: scleral icterus, conjunctival injection ENT exam: Present: normal exam, mucous membranes moist Neck exam: Present: normal inspection, full ROM. Absent: tenderness, meningismus, lymphadenopathy Respiratory exam: Present: decreased breath sounds (bilat). Absent: respiratory distress, wheezes, rales, rhonchi, stridor Cardiovascular Exam: Present: regular rate, normal rhythm, normal heart sounds. Absent: systolic murmur, diastolic murmur, rubs, gallop, clicks Neurological exam: Present: alert, oriented X3, CN II-XII intact Psychiatric exam: Present: normal affect, normal mood Course Vital Signs 12/17/17 12/17/17 12/17/17 09:59 10:59 12:12 Temperature 98.0 F 97.5 F L Pulse Rate 78 75 74 Respiratory 20 22 18 Rate Blood Pressure 127/80 149/88 141/95 O2 Sat by Pulse 90 L 92 L 94 L Oximetry 12/17/17 12:21 Temperature Pulse Rate 73 Respiratory 18 Rate Blood Pressure 142/98 O2 Sat by Pulse 94 L Oximetry EKG Findings - EKG Comments: EKG Findings:: normal sinus rhythm, vent rate 74, pr interval 154, QRS duration 84 Medical Decision Making - Medical Decision Making 67-year-old male presents to the emergency department for chief complaint of shortness of breath 1 hour. Patient has history of COPD. Patient is oxygen dependent at home. He presents to the emergency department but did not realize his oxygen tank was empty. Patient was told he had to be seen to have oxygen. Patient denies any other complaints including chest pain. EKG shows a normal sinus rhythm, no evidence of ST elevation or depression. X-ray shows findings compatible with COPD. No acute abnormalities evident. CBC unremarkable, CMP shows a carbon dioxide of 41 consistent with chronic COPD. cardiac panel unremarkable, troponin less than 0.012. Patient is 94% on oxygen here in the emergency department. Patient states he is feeling much better after having his oxygen back on and is ready to go home. I discussed with patient to continue oxygen at home as directed by his primary care provider. He is aware he is to return to the emergency department if he has any increased shortness of breath or chest pain. - Lab Data Result diagrams: 12/17/17 10:56 12/17/17 10:56 Lab Results 12/17/17 12/17/17 12/17/17 Range/Units 10:56 10:56 10:56 WBC 12.7 H (3.8-10.6) k/uL RBC 5.26 (4.30-5.90) m/uL Hgb 15.7 (13.0-17.5) gm/dL Hct 49.5 (39.0-53.0) % MCV 94.1 (80.0-100.0) fL MCH 29.9 (25.0-35.0) pg MCHC 31.8 (31.0-37.0) g/dL RDW 15.6 H (11.5-15.5) % Plt Count 156 (150-450) k/uL Neutrophils % 87 % Lymphocytes % 7 % Monocytes % 4 % Eosinophils % 2 % Basophils % 0 % Neutrophils # 11.1 H (1.3-7.7) k/uL Lymphocytes # 0.8 L (1.0-4.8) k/uL Monocytes # 0.5 (0-1.0) k/uL Eosinophils # 0.3 (0-0.7) k/uL Basophils # 0.0 (0-0.2) k/uL PT (9.0-12.0) sec INR (<1.2) APTT (22.0-30.0) sec Sodium 141 (137-145) mmol/L Potassium 4.5 (3.5-5.1) mmol/L Chloride 98 (98-107) mmol/L Carbon Dioxide 41 H* (22-30) mmol/L Anion Gap 2 mmol/L BUN 24 H (9-20) mg/dL Creatinine 1.00 (0.66-1.25) mg/dL Est GFR (CKD-EPI)AfAm >90 (>60 ml/min/1.73 sqM) Est GFR (CKD-EPI)NonAf 78 (>60 ml/min/1.73 sqM) Glucose 100 H (74-99) mg/dL Calcium 9.1 (8.4-10.2) mg/dL Total Bilirubin 0.4 (0.2-1.3) mg/dL AST 19 (17-59) U/L ALT 34 (21-72) U/L Alkaline Phosphatase 84 (38-126) U/L Total Creatine Kinase <20 L (55-170) U/L CK-MB (CK-2) 1.4 (0.0-2.4) ng/mL CK-MB (CK-2) Rel Index Troponin I <0.012 (0.000-0.034) ng/mL NT-Pro-B Natriuret Pep pg/mL Total Protein 6.4 (6.3-8.2) g/dL Albumin 3.9 (3.5-5.0) g/dL 12/17/17 12/17/17 Range/Units 10:56 10:56 WBC (3.8-10.6) k/uL RBC (4.30-5.90) m/uL Hgb (13.0-17.5) gm/dL Hct (39.0-53.0) % MCV (80.0-100.0) fL MCH (25.0-35.0) pg MCHC (31.0-37.0) g/dL RDW (11.5-15.5) % Plt Count (150-450) k/uL Neutrophils % % Lymphocytes % % Monocytes % % Eosinophils % % Basophils % % Neutrophils # (1.3-7.7) k/uL Lymphocytes # (1.0-4.8) k/uL Monocytes # (0-1.0) k/uL Eosinophils # (0-0.7) k/uL Basophils # (0-0.2) k/uL PT 9.7 (9.0-12.0) sec INR 1.0 (<1.2) APTT 23.2 (22.0-30.0) sec Sodium (137-145) mmol/L Potassium (3.5-5.1) mmol/L Chloride (98-107) mmol/L Carbon Dioxide (22-30) mmol/L Anion Gap mmol/L BUN (9-20) mg/dL Creatinine (0.66-1.25) mg/dL Est GFR (CKD-EPI)AfAm (>60 ml/min/1.73 sqM) Est GFR (CKD-EPI)NonAf (>60 ml/min/1.73 sqM) Glucose (74-99) mg/dL Calcium (8.4-10.2) mg/dL Total Bilirubin (0.2-1.3) mg/dL AST (17-59) U/L ALT (21-72) U/L Alkaline Phosphatase (38-126) U/L Total Creatine Kinase (55-170) U/L CK-MB (CK-2) (0.0-2.4) ng/mL CK-MB (CK-2) Rel Index Troponin I (0.000-0.034) ng/mL NT-Pro-B Natriuret Pep 131 pg/mL Total Protein (6.3-8.2) g/dL Albumin (3.5-5.0) g/dL Disposition Clinical Impression: COPD (chronic obstructive pulmonary disease) Disposition: HOME SELF-CARE Condition: Good Instructions: Using Oxygen at Home (ED), COPD (Chronic Obstructive Pulmonary Disease) (ED) Additional Instructions: Please continue to use oxygen at home as directed by your primary care provider. Please return to the emergency department if you have any worsening symptoms including chest pain or increased shortness of breath. Is patient prescribed a controlled substance at d/c from ED?: No Referrals: Robbi Michelle DO [Primary Care Provider] - 1-2 days Time of Disposition: 12:24
[2017-12-17 11:09] LABS: Basophils % (A) 0 %; Eosinophils # (A) 0.3 k/uL (0-0.7); Eosinophils % (A) 2 %; HCT 49.5 % (39.0-53.0); HGB 15.7 gm/dL (13.0-17.5); Lymphocytes # (A) 0.8 k/uL (1.0-4.8); Lymphocytes % (A) 7 %; MCH 29.9 pg (25.0-35.0); MCHC 31.8 g/dL (31.0-37.0); MCV 94.1 fL (80.0-100.0); Mean Platelet Volume 6.9; Monocytes # (A) 0.5 k/uL (0-1.0); Monocytes % (A) 4 %; Neutrophils # (A) 11.1 k/uL (1.3-7.7); Neutrophils % (A) 87 %; Platelet Count 156 k/uL (150-450); RBC 5.26 m/uL (4.30-5.90); RDW 15.6 % (11.5-15.5); WBC 12.7 k/uL (3.8-10.6)
[2017-12-17 11:20] LABS: ALT 34 U/L (21-72); AST 19 U/L (17-59); Albumin 3.9 g/dL (3.5-5.0); Alkaline Phosphatase 84 U/L (38-126); Blood Urea Nitrogen 24 mg/dL (9-20); Calcium 9.1 mg/dL (8.4-10.2); Chloride 98 mmol/L (98-107); Glucose 100 mg/dL (74-99); Partial Thromboplastin Time 23.2 sec (22.0-30.0); Potassium 4.5 mmol/L (3.5-5.1); Prothrombin Time 9.7 sec (9.0-12.0); Sodium 141 mmol/L (137-145); Total Bilirubin 0.4 mg/dL (0.2-1.3); Total Protein 6.4 g/dL (6.3-8.2)
--- NOTE | 2017-12-17 11:21 | XR ---
EXAMINATION TYPE: XR chest 2V DATE OF EXAM: 12/17/2017 COMPARISON: Prior chest x-ray 12/07/2017 HISTORY: Difficulty breathing, dyspnea TECHNIQUE: Frontal and lateral views of the chest are obtained. FINDINGS: Bandlike area of increased attenuation in the right midlung is stable and likely reflects scarring. Prominent lung volumes compatible with underlying COPD. Cardiac mediastinal silhouette, pul monary vascularity and anibal are stable. There are overlying cardiac leads, oxygen tubing. No evident airspace disease, pneumothorax, or pleural effusion. Interstitium mildly increased as on prior exam. IMPRESSION: Findings compatible with COPD. No acute abnormalities evident.
[2017-12-17 11:27] LABS: Anion Gap 2 mmol/L
[2017-12-17 11:29] LABS: Creatine Kinase <20 U/L (55-170)
[2017-12-17 11:42] LABS: Carbon Dioxide 41 mmol/L (22-30); Creatine Kinase MB 1.4 ng/mL (0.0-2.4); Troponin I <0.012 ng/mL (0.000-0.034)
[2017-12-17 12:44] VITALS: BP 147/94; PULSE 75; RESP 16; TEMP 98
== END 2017-12-17 12:47 | disposition home or self-care (01) ==
LOC: EC 09:36
DX: J44.9 Chronic obstructive pulmonary disease, unspecified (principal); K21.9 Gastro-esophageal reflux disease without esophagitis; F31.9 Bipolar disorder, unspecified; F41.9 Anxiety disorder, unspecified; F20.9 Schizophrenia, unspecified; F17.200 Nicotine dependence, unspecified, uncomplicated; Z79.899 Other long term (current) drug therapy; Z99.81 Dependence on supplemental oxygen
CPT/HCPCS: 36415; 71046; 80053; 82550; 82553; 83880; 84484; 85025; 85610; 85730; 93005; 99285

== ENCOUNTER 2018-04-29 22:53 | Emergency (ER) | payer MEDICARE ==
[2018-04-29] MEDS ORDERED: SODIUM CHLORIDE 0.9% 500 ML 500 ML IV STA (23:30)
[2018-04-29] MEDS ORDERED: MORPHINE SULFATE 4 MG/ML SYRINGE IV STA (23:30)
[2018-04-29 23:55] LABS: Basophils # (A) 0.1 k/uL (0-0.2); Basophils % (A) 1 %; Eosinophils # (A) 0.3 k/uL (0-0.7); Eosinophils % (A) 3 %; HCT 43.8 % (39.0-53.0); HGB 13.5 gm/dL (13.0-17.5); Hypochromasia Slight; Lymphocytes # (A) 1.3 k/uL (1.0-4.8); Lymphocytes % (A) 13 %; MCH 28.8 pg (25.0-35.0); MCHC 30.8 g/dL (31.0-37.0); MCV 93.6 fL (80.0-100.0); Mean Platelet Volume 7.6; Monocytes # (A) 0.4 k/uL (0-1.0); Monocytes % (A) 4 %; Neutrophils # (A) 7.6 k/uL (1.3-7.7); Neutrophils % (A) 77 %; Platelet Count 187 k/uL (150-450); Poikilocytosis Slight; RBC 4.68 m/uL (4.30-5.90); RDW 15.3 % (11.5-15.5); WBC 9.9 k/uL (3.8-10.6)
[2018-04-30 00:04] LABS: Calcium 9.3 mg/dL (8.4-10.2)
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
[2018-04-30 00:06] LABS: Potassium 4.9 mmol/L (3.5-5.1)
--- NOTE | 2018-04-30 02:44 | XR ---
EXAMINATION TYPE: XR chest 2V DATE OF EXAM: 04/30/2018 COMPARISON: 12/17/2017 HISTORY: Cough. COPD. TECHNIQUE: Frontal and lateral views of the chest are obtained. FINDINGS: There is no heart failure nor confluent pneumonic infiltrate. There is some coarsening of interstitial markings. There is mild flattening of the diaphragm. Heart size is normal. There are no hilar masses. IMPRESSION: COPD and pulmonary fibrotic changes. Normal heart. No significant change.
[2018-04-30 02:58] VITALS: BP 119/86; PULSE 73; RESP 20; TEMP 97.9
== END 2018-04-30 03:00 | disposition short-term general hospital (02) ==
LOC: EC 22:53
DX: T20.09XA Burn of unspecified degree of multiple sites of head, face, and neck, initial encounter (principal); J44.1 Chronic obstructive pulmonary disease with (acute) exacerbation; K21.9 Gastro-esophageal reflux disease without esophagitis; E07.9 Disorder of thyroid, unspecified; F20.9 Schizophrenia, unspecified; F31.9 Bipolar disorder, unspecified; F41.9 Anxiety disorder, unspecified; F17.200 Nicotine dependence, unspecified, uncomplicated; Z79.899 Other long term (current) drug therapy; Z99.81 Dependence on supplemental oxygen; X08.8XXA Exposure to other specified smoke, fire and flames, initial encounter; Y93.89 Activity, other specified; Y92.009 Unspecified place in unspecified non-institutional (private) residence as the place of occurrence of the external cause
CPT/HCPCS: 36415; 80048; 82375; 85025; 99285; 96374; 96361 ×3; J2270; 71046

== ENCOUNTER 2018-06-22 00:36 | Inpatient (IN) | payer MEDICARE ==
--- NOTE | 2018-06-22 01:02 | ED ---
General Adult HPI - General Chief complaint: Weakness Stated complaint: Altered Mental Status Time Seen by Provider: 06/22/18 00:49 Source: patient, family, EMS Mode of arrival: EMS Limitations: no limitations - History of Present Illness Initial comments: This patient is 68-year-old man who presents to be evaluated for generalized weakness and fatigue. The patient reports she had been in his usual state of health until this evening. He had been sleeping and then woke up feeling nauseated and started vomiting shortly after. The patient was felt to not be acting his usual self, by his who was there with him. She called EMS and had him brought here. The patient is denying pain or dyspnea. States that his last bowel movement was yesterday and was normal. He states he had one episode of vomiting and did not notice any blood or coffee-ground material. Onset/Timin -: hour(s) Improves with: none Worsens with: none Associated Symptoms: confusion Treatments Prior to Arrival: none - Related Data Home Medications Medication Instructions Recorded Confirmed ARIPiprazole [Abilify] 10 mg PO BID 05/02/17 04/29/18 Diltiazem HCl [Diltiazem 24Hr ER] 180 mg PO DAILY 05/02/17 04/29/18 Gabapentin [Neurontin] 800 mg PO TID 05/02/17 04/29/18 Magnesium Oxide [Mag-Ox] 400 mg PO PC-LUNCH 05/02/17 04/29/18 Multivitamins, Thera [Multivitamin 1 tab PO DAILY 05/02/17 04/29/18 (formulary)] Omeprazole [PriLOSEC] 20 mg PO BID 05/02/17 04/29/18 Pravastatin Sodium [Pravachol] 40 mg PO HS 05/02/17 04/29/18 Sertraline [Zoloft] 100 mg PO BID 05/02/17 04/29/18 busPIRone HCL 10 mg PO TID 05/02/17 04/29/18 traZODone HCL 100 mg PO HS 05/02/17 04/29/18 Theophylline 24 Hour [Roshan-24] 200 mg PO DAILY 12/07/17 04/29/18 Calcium Carbonate 500 mg PO BID 04/29/18 04/29/18 Cholecalciferol [Vitamin D3] 1,000 unit PO DAILY 04/29/18 04/29/18 Previous Rx's Medication Instructions Recorded Ipratropium-Albuterol Nebulize 3 ml INHALATION RT-QID ampul.neb 05/17/17 [Duoneb 0.5 mg-3 mg/3 ml Soln] Allergies Allergy/AdvReac Type Severity Reaction Status Date / Time No Known Allergies Allergy Verified 04/29/18 23:10 Review of Systems ROS Statement: Those systems with pertinent positive or pertinent negative responses have been documented in the HPI. ROS Other: All systems not noted in ROS Statement are negative. Constitutional: Reports: weakness (Generalized). Denies: fever, chills Respiratory: Denies: cough, dyspnea Cardiovascular: Denies: chest pain, palpitations, syncope Endocrine: Reports: fatigue Gastrointestinal: Reports: nausea, vomiting. Denies: abdominal pain, diarrhea, constipation, hematemesis, melena, hematochezia Genitourinary: Denies: dysuria, hematuria Musculoskeletal: Denies: back pain Skin: Denies: rash Neurological: Denies: headache, weakness, numbness Past Medical History Past Medical History: COPD, GERD/Reflux, Thyroid Disorder Additional Past Medical History / Comment(s): wears home 02 History of Any Multi-Drug Resistant Organisms: None Reported Past Surgical History: No Surgical Hx Reported Past Anesthesia/Blood Transfusion Reactions: No Reported Reaction Past Psychological History: Anxiety, Bipolar, Depression, Schizophrenia Smoking Status: Current some day smoker Past Alcohol Use History: None Reported Past Drug Use History: Marijuana - Past Family History Father Family Medical History: Myocardial Infarction ([place]) General Exam Limitations: no limitations General appearance: in no apparent distress, other (Patient is somnolent but arousable to voice) Head exam: Present: atraumatic, normocephalic Eye exam: Present: normal appearance, PERRL, EOMI, nystagmus. Absent: scleral icterus, conjunctival injection ENT exam: Present: mucous membranes dry Neck exam: Present: normal inspection, full ROM. Absent: meningismus Respiratory exam: Present: wheezes. Absent: respiratory distress, rales, rhonchi, stridor Cardiovascular Exam: Present: regular rate, normal rhythm, normal heart sounds. Absent: systolic murmur, diastolic murmur, rubs, gallop GI/Abdominal exam: Present: soft. Absent: distended, tenderness, guarding, rebound, rigid, mass Extremities exam: Present: normal inspection, normal capillary refill. Absent: pedal edema, calf tenderness Back exam: Present: normal inspection. Absent: CVA tenderness (R), CVA tenderness (L) Neurological exam: Present: CN II-XII intact, other (Patient is somnolent but arouses to voice. GCS is 14 (E=3, V=5, M=6)). Absent: oriented X3 (Patient is oriented to person and place but did state the incorrect date), motor sensory deficit Skin exam: Present: warm, dry, intact, normal color. Absent: rash Course Vital Signs 06/22/18 06/22/18 00:39 01:21 Temperature 98.4 F Pulse Rate 94 Respiratory 18 18 Rate Blood Pressure 159/94 O2 Sat by Pulse 99 Oximetry Medical Decision Making - Medical Decision Making Patient is 68-year-old man with history of COPD. [facility] Tonight he presents with COPD exacerbation and is found to have significant hypercarbia. Patient placed on BiPAP. Steroids and inhaled medications ordered. Case discussed with Dr. Dc, and his treatment recommendations are incorporated. - Lab Data Result diagrams: 06/22/18 01:10 06/22/18 01:10 Lab Results 06/22/18 06/22/18 06/22/18 Range/Units 01:10 01:10 01:10 WBC 14.2 H (3.8-10.6) k/uL RBC 4.91 (4.30-5.90) m/uL Hgb 14.6 (13.0-17.5) gm/dL Hct 45.0 (39.0-53.0) % MCV 91.6 (80.0-100.0) fL MCH 29.8 (25.0-35.0) pg MCHC 32.5 (31.0-37.0) g/dL RDW 14.6 (11.5-15.5) % Plt Count 180 (150-450) k/uL Neutrophils % 87 % Lymphocytes % 7 % Monocytes % 3 % Eosinophils % 2 % Basophils % 0 % Neutrophils # 12.4 H (1.3-7.7) k/uL Lymphocytes # 1.0 (1.0-4.8) k/uL Monocytes # 0.5 (0-1.0) k/uL Eosinophils # 0.3 (0-0.7) k/uL Basophils # 0.0 (0-0.2) k/uL Hypochromasia Slight PT (9.0-12.0) sec INR (<1.2) APTT (22.0-30.0) sec Sodium 139 (137-145) mmol/L Potassium 5.6 H (3.5-5.1) mmol/L Chloride 93 L (98-107) mmol/L Carbon Dioxide 40 H (22-30) mmol/L Anion Gap 6 mmol/L BUN 17 (9-20) mg/dL Creatinine 1.06 (0.66-1.25) mg/dL Est GFR (CKD-EPI)AfAm 84 (>60 ml/min/1.73 sqM) Est GFR (CKD-EPI)NonAf 73 (>60 ml/min/1.73 sqM) Glucose 114 H (74-99) mg/dL Plasma Lactic Acid Gerard (0.7-2.0) mmol/L Calcium 9.1 (8.4-10.2) mg/dL Total Bilirubin 0.8 (0.2-1.3) mg/dL AST 40 (17-59) U/L ALT 31 (21-72) U/L Alkaline Phosphatase 80 (38-126) U/L Ammonia (<30) umol/L Total Creatine Kinase 47 L (55-170) U/L CK-MB (CK-2) 1.0 (0.0-2.4) ng/mL CK-MB (CK-2) Rel Index 2.1 Troponin I <0.012 (0.000-0.034) ng/mL NT-Pro-B Natriuret Pep pg/mL Total Protein 7.3 (6.3-8.2) g/dL Albumin 4.2 (3.5-5.0) g/dL Urine Color Urine Appearance (Clear) Urine pH (5.0-8.0) Ur Specific Wendell (1.001-1.035) Urine Protein (Negative) Urine Glucose (UA) (Negative) Urine Ketones (Negative) Urine Blood (Negative) Urine Nitrite (Negative) Urine Bilirubin (Negative) Urine Urobilinogen (<2.0) mg/dL Ur Leukocyte Esterase (Negative) 06/22/18 06/22/1819 Range/Units 01:10 01:10 01:10 WBC (3.8-10.6) k/uL RBC (4.30-5.90) m/uL Hgb (13.0-17.5) gm/dL Hct (39.0-53.0) % MCV (80.0-100.0) fL MCH (25.0-35.0) pg MCHC (31.0-37.0) g/dL RDW (11.5-15.5) % Plt Count (150-450) k/uL Neutrophils % % Lymphocytes % % Monocytes % % Eosinophils % % Basophils % % Neutrophils # (1.3-7.7) k/uL Lymphocytes # (1.0-4.8) k/uL Monocytes # (0-1.0) k/uL Eosinophils # (0-0.7) k/uL Basophils # (0-0.2) k/uL Hypochromasia PT 10.2 (9.0-12.0) sec INR 0.9 (<1.2) APTT 25.9 (22.0-30.0) sec Sodium (137-145) mmol/L Potassium (3.5-5.1) mmol/L Chloride (98-107) mmol/L Carbon Dioxide (22-30) mmol/L Anion Gap mmol/L BUN (9-20) mg/dL Creatinine (0.66-1.25) mg/dL Est GFR (CKD-EPI)AfAm (>60 ml/min/1.73 sqM) Est GFR (CKD-EPI)NonAf (>60 ml/min/1.73 sqM) Glucose (74-99) mg/dL Plasma Lactic Acid Gerard 0.9 (0.7-2.0) mmol/L Calcium (8.4-10.2) mg/dL Total Bilirubin (0.2-1.3) mg/dL AST (17-59) U/L ALT (21-72) U/L Alkaline Phosphatase (38-126) U/L Ammonia 28 (<30) umol/L Total Creatine Kinase (55-170) U/L CK-MB (CK-2) (0.0-2.4) ng/mL CK-MB (CK-2) Rel Index Troponin I (0.000-0.034) ng/mL NT-Pro-B Natriuret Pep 156 pg/mL Total Protein (6.3-8.2) g/dL Albumin (3.5-5.0) g/dL Urine Color Urine Appearance (Clear) Urine pH (5.0-8.0) Ur Specific Wendell (1.001-1.035) Urine Protein (Negative) Urine Glucose (UA) (Negative) Urine Ketones (Negative) Urine Blood (Negative) Urine Nitrite (Negative) Urine Bilirubin (Negative) Urine Urobilinogen (<2.0) mg/dL Ur Leukocyte Esterase (Negative) 06/22/18 Range/Units 02:26 WBC (3.8-10.6) k/uL RBC (4.30-5.90) m/uL Hgb (13.0-17.5) gm/dL Hct (39.0-53.0) % MCV (80.0-100.0) fL MCH (25.0-35.0) pg MCHC (31.0-37.0) g/dL RDW (11.5-15.5) % Plt Count (150-450) k/uL Neutrophils % % Lymphocytes % % Monocytes % % Eosinophils % % Basophils % % Neutrophils # (1.3-7.7) k/uL Lymphocytes # (1.0-4.8) k/uL Monocytes # (0-1.0) k/uL Eosinophils # (0-0.7) k/uL Basophils # (0-0.2) k/uL Hypochromasia PT (9.0-12.0) sec INR (<1.2) APTT (22.0-30.0) sec Sodium (137-145) mmol/L Potassium (3.5-5.1) mmol/L Chloride (98-107) mmol/L Carbon Dioxide (22-30) mmol/L Anion Gap mmol/L BUN (9-20) mg/dL Creatinine (0.66-1.25) mg/dL Est GFR (CKD-EPI)AfAm (>60 ml/min/1.73 sqM) Est GFR (CKD-EPI)NonAf (>60 ml/min/1.73 sqM) Glucose (74-99) mg/dL Plasma Lactic Acid Gerard (0.7-2.0) mmol/L Calcium (8.4-10.2) mg/dL Total Bilirubin (0.2-1.3) mg/dL AST (17-59) U/L ALT (21-72) U/L Alkaline Phosphatase (38-126) U/L Ammonia (<30) umol/L Total Creatine Kinase (55-170) U/L CK-MB (CK-2) (0.0-2.4) ng/mL CK-MB (CK-2) Rel Index Troponin I (0.000-0.034) ng/mL NT-Pro-B Natriuret Pep pg/mL Total Protein (6.3-8.2) g/dL Albumin (3.5-5.0) g/dL Urine Color Yellow Urine Appearance Clear (Clear) Urine pH 6.5 (5.0-8.0) Ur Specific Wendell 1.010 (1.001-1.035) Urine Protein Negative (Negative) Urine Glucose (UA) Negative (Negative) Urine Ketones Negative (Negative) Urine Blood Negative (Negative) Urine Nitrite Negative (Negative) Urine Bilirubin Negative (Negative) Urine Urobilinogen <2.0 (<2.0) mg/dL Ur Leukocyte Esterase Negative (Negative) Critical Care Time Critical Care Time: Yes (35 minutes) Disposition Clinical Impression: Acute on chronic respiratory failure with hypercapnia, COPD exacerbation Disposition: ADMITTED IP TO THIS HOSP Condition: Serious Is patient prescribed a controlled substance at d/c from ED?: No Referrals: Robbi Michelle DO [Primary Care Provider] - 1-2 days
[2018-06-22 01:26] LABS: Basophils % (A) 0 %; Eosinophils # (A) 0.3 k/uL (0-0.7); Eosinophils % (A) 2 %; HGB 14.6 gm/dL (13.0-17.5); Hypochromasia Slight; Lymphocytes % (A) 7 %; MCH 29.8 pg (25.0-35.0); MCHC 32.5 g/dL (31.0-37.0); MCV 91.6 fL (80.0-100.0); Mean Platelet Volume 7.7; Monocytes # (A) 0.5 k/uL (0-1.0); Monocytes % (A) 3 %; Neutrophils # (A) 12.4 k/uL (1.3-7.7); Neutrophils % (A) 87 %; Platelet Count 180 k/uL (150-450); RBC 4.91 m/uL (4.30-5.90); RDW 14.6 % (11.5-15.5); WBC 14.2 k/uL (3.8-10.6)
[2018-06-22 01:36] LABS: INR 0.9 (<1.2); Partial Thromboplastin Time 25.9 sec (22.0-30.0); Prothrombin Time 10.2 sec (9.0-12.0)
--- NOTE | 2018-06-22 01:54 | CT ---
EXAM: CT Head Without Intravenous Contrast CLINICAL HISTORY: ITS.REASON CT Reason: weakness TECHNIQUE: Axial computed tomography images of the head/brain without intravenous contrast. CTDI is 49.1 mGy and DLP is 1154 mGy-cm. This CT exam was performed using one or more of the following dose reduction techniques: automated exposure control, adjustment of the mA and/or kV according to patient size, and/or use of iterative reconstruction technique. COMPARISON: 05/02/17 FINDINGS: Unchanged appearance to cavernous sinuses with some equivocal soft tissue fullness in this region. This is felt to be normal variation. No intracranial hemorrhage or mass effect. Merrill white differentiation maintained. No hydrocephalus. There is mild sinus opacity. There is some hazy opacity in the left sphenoid which may represent findings of acute sinusitis. IMPRESSION: No acute intracranial findings. Sinus disease with possible acute left sphenoid sinusitis. Unchanged appearance to cavernous sinuses with some equivocal soft tissue fullness in this region. This is felt to be normal variation. As discussed on previous, outpatient MRI could be obtained to further evaluate, as indicated.
[2018-06-22 01:56] LABS: Lactic Acid, Venous 0.9 mmol/L (0.7-2.0)
[2018-06-22 01:58] LABS: Calcium 9.1 mg/dL (8.4-10.2); Total Bilirubin 0.8 mg/dL (0.2-1.3)
--- NOTE | 2018-06-22 02:00 | XR ---
EXAM: XR Chest, 1 View CLINICAL HISTORY: ITS.REASON XR Reason: mental status change TECHNIQUE: Frontal view of the chest. COMPARISON: 04/30/18 FINDINGS: Again noted are chronic lung findings with pulmonary hyperinflation, chronic interstitial changes and suspected fibrosis. There are some scattered linear opacities suggesting atelectasis and/or scar. No interval consolidation or other significant interval change allowing for differences in technique. IMPRESSION: No significant interval change.
[2018-06-22 02:13] LABS: Creatine Kinase 47 U/L (55-170)
[2018-06-22 02:37] LABS: Albumin 4.2 g/dL (3.5-5.0); Potassium 5.6 mmol/L (3.5-5.1); Total Protein 7.3 g/dL (6.3-8.2); Troponin I <0.012 ng/mL (0.000-0.034)
[2018-06-22 03:04] LABS: Appearance,Urine Clear (Clear); Bilirubin,Urine Negative (Negative); Blood,Urine Negative (Negative); Color,Urine Yellow; Glucose,Urine (UA) Negative (Negative); Ketones,Urine Negative (Negative); Leukocyte Esterase,Urine Negative (Negative); Nitrite,Urine Negative (Negative); PH, Urine 6.5 (5.0-8.0); Protein,Urine Negative (Negative); Urobilinogen,Urine <2.0 mg/dL (<2.0)
[2018-06-22 03:53] LABS: ABG Base Excess 20.9 mmol/L; ABG PH 7.29 (7.35-7.45); ABG PO2 63 mmHg (83-108); ABG TCO2 50 mmol/L (19-24)
[2018-06-22] MEDS ORDERED: methylPREDNISolone SOD SUCCI 125 MG/2 ML VIAL IV STA (04:19)
[2018-06-22] MEDS ORDERED: IPRATROPIUM-ALBUTEROL 3 ML NEB INHALATION STA (04:19)
[2018-06-22] MEDS ORDERED: ALBUTEROL NEBULIZED 2.5 MG/3 ML INHALATION STA (04:19)
[2018-06-22] MEDS: SODIUM CHLORIDE 0.9% 1,000 ML IV SCH (05:13)
[2018-06-22 05:56] LABS: ABG HCO3 47 mmol/L (21-25); ABG PCO2 98 mmHg (35-45)
[2018-06-22] MEDS: methylPREDNISolone SOD SUCCI 125 MG/2 ML VIAL IV SCH ×4 (06:37→23:30)
[2018-06-22] MEDS: ALBUTEROL NEBULIZED 2.5 MG/3 ML INHALATION SCH ×4 (07:18→20:29)
[2018-06-22] MEDS: IPRATROPIUM 0.5 MG/2.5 ML NEBU INHALATION SCH ×4 (07:18→20:29)
[2018-06-22] MEDS: IPRATROPIUM-ALBUTEROL 3 ML NEB INHALATION PRN ×3 (07:19→15:35)
[2018-06-22] MEDS ORDERED: PANTOPRAZOLE 40 MG TABLET PO SCH (09:00)
[2018-06-22] MEDS: ARIPiprazole 10 MG TAB PO SCH ×2 (12:29→21:38)
[2018-06-22] MEDS: DILTIAZEM CD 180 MG CAP.ER.24H PO SCH (12:29)
[2018-06-22] MEDS: CHOLECALCIFEROL 1,000 UNIT TAB PO SCH ×2 (12:29→12:43)
[2018-06-22] MEDS: CALCIUM CARBONATE 500 MG CHEWABLE PO SCH ×2 (12:29→21:39)
[2018-06-22] MEDS: THEOPHYLLINE 24 HOUR 200 MG CAP.ER.24H PO SCH (12:29)
[2018-06-22] MEDS: SERTRALINE 100 MG TAB PO SCH ×2 (12:29→21:38)
[2018-06-22] MEDS: busPIRone HCl 10 MG TAB PO SCH ×3 (12:29→21:38)
[2018-06-22] MEDS: NICOTINE 14MG/24HR PATCH TRANSDERM SCH (12:31)
[2018-06-22] MEDS: GABAPENTIN 400 MG CAP PO SCH ×3 (12:43→21:38)
[2018-06-22] MEDS: MULTIVITAMINS, THERA 1 EACH TAB PO SCH (12:44)
--- NOTE | 2018-06-22 15:40 | P.CNPUL ---
History of Present Illness Consult date: 06/22/18 Reason for consult: dyspnea, COPD History of present illness: 68-year-old male patient who lives in [place] and the patient has advanced COPD with chronic hypoxic and hypercapnic respiratory failure. The patient is a former smoker. He has been followed up by Dr. Michelle on outpatient basis. The patient came into the hospital because of worsening shortness of breath. He was expressing generalized weakness and fatigue. He has not been in his usual state of health over the past 24 hours. Had become more sleepy. He was feeling some nausea however his predominant complaint was increased shortness of breath chest congestion and cough and wheeze. He had one bout of emesis. In the emergency department, the patient was worked up. Chest x-ray was consistent with COPD. Influenza screen was negative. The first set of cardiac enzyme was negative. BNP was normal. Clinically the patient wasn't feeling better. He'll be moved to the intensive care unit regarding his acute on chronic hypercapnic respiratory failure. Review of Systems Constitutional: Reports fatigue, Reports lethargy, Reports poor appetite, Reports weakness Eyes: denies as per HPI, denies blurred vision, denies bulging eye, denies decreased vision, denies diplopia, denies discharge, denies dry eye, denies irritation, denies itching, denies pain, denies photophobia, denies loss of peripheral vision, denies loss of vision, denies tunnel vision/blind spots Ears: deny: decreased hearing, ear discharge, earache, tinnitus Ears, nose, mouth and throat: Reports as per HPI Cardiovascular: Reports decreased exercise tolerance, Reports dyspnea on exertion, Reports shortness of breath Respiratory: Reports cough with sputum, Reports dyspnea Gastrointestinal: Reports as per HPI Genitourinary: Reports as per HPI Musculoskeletal: Denies myalgias Musculoskeletal: absent: ankle pain, ankle stiffness, ankle swelling, as per HPI , elbow pain, elbow stiffness, elbow swelling, foot pain, foot stiffness, foot swelling, hand pain, hand stiffness, hand swelling, hip pain, hip stiffness, hip swelling, knee pain, knee stiffness, knee swelling, shoulder pain, shoulder stiffness, shoulder swelling, wrist pain, wrist stiffness, wrist swelling Integumentary: Denies pruritus, Denies rash Neurological: Reports as per HPI Psychiatric: Reports as per HPI Endocrine: Reports as per HPI Hematologic/Lymphatic: Reports as per HPI Allergic/Immunologic: Reports as per HPI Past Medical History Past Medical History: COPD, GERD/Reflux, Hyperlipidemia, Thyroid Disorder Additional Past Medical History / Comment(s): Chronic hypoxic respiratory failure, COPD, chronic hypercapnic respiratory failure, chronic anxiety, depression, hyperlipidemia History of Any Multi-Drug Resistant Organisms: None Reported Past Surgical History: No Surgical Hx Reported Past Anesthesia/Blood Transfusion Reactions: No Reported Reaction Past Psychological History: Anxiety, Bipolar, Depression, Schizophrenia Smoking Status: Current some day smoker Past Alcohol Use History: None Reported Past Drug Use History: Marijuana - Past Family History Father Family Medical History: Myocardial Infarction ([place]) Medications and Allergies Home Medications Medication Instructions Recorded Confirmed Type ARIPiprazole [Abilify] 10 mg PO BID 05/02/17 06/22/18 History Diltiazem HCl [Diltiazem 24Hr ER] 180 mg PO DAILY 05/02/17 06/22/18 History Gabapentin [Neurontin] 800 mg PO TID 05/02/17 06/22/18 History Multivitamins, Thera [Multivitamin 1 tab PO DAILY 05/02/17 06/22/18 History (formulary)] Omeprazole [PriLOSEC] 20 mg PO BID 05/02/17 06/22/18 History Pravastatin Sodium [Pravachol] 40 mg PO HS 05/02/17 06/22/18 History Sertraline [Zoloft] 100 mg PO BID 05/02/17 06/22/18 History busPIRone HCL 10 mg PO TID 05/02/17 06/22/18 History Theophylline 24 Hour [Roshan-24] 200 mg PO DAILY 12/07/17 06/22/18 History Calcium Carbonate 500 mg PO BID 04/29/18 06/22/18 History Allergies Allergy/AdvReac Type Severity Reaction Status Date / Time No Known Allergies Allergy Verified 06/22/18 07:16 Physical Exam Vitals: Vital Signs Temp Pulse Resp BP Pulse Ox 06/22/18 15:00 96 20 122/71 92 L 06/22/18 14:00 98 12 119/79 92 L 06/22/18 13:00 100 18 123/85 97 06/22/18 12:00 98 16 126/89 96 06/22/18 11:51 93 06/22/18 11:39 89 02/09/19 11:00 90 17 130/87 97 06/22/18 10:00 89 17 121/83 96 06/22/18 09:00 83 16 122/83 95 06/22/18 08:00 83 18 131/91 92 L 06/22/18 07:38 81 06/22/18 07:19 80 16 06/22/18 07:00 84 19 128/91 96 06/22/18 06:00 77 14 124/83 97 06/22/18 05:00 80 19 125/91 95 06/22/18 04:36 81 20 06/22/18 04:19 80 25 H 125/91 97 06/22/18 01:21 18 06/22/18 00:39 98.4 F 94 18 159/94 99 Intake and Output 06/22/18 06/22/18 06/22/18 06:59 14:59 22:59 Other: Weight 82.554 kg Gen. appearance, comfortable and mild degree of respiratory distress currently off the BiPAP. Head exam was generally normal. There was no scleral icterus or corneal arcus. Mucous membranes were moist. Neck was supple and without jugular venous distension, thyromegaly, or carotid bruits. Carotids were easily palpable bilaterally. There was no adenopathy. Lungs diminished breath sound bilaterally along with scattered expiratory wheezes throughout the lung hogue. Overall breath sounds are quite diminished Cardiac exam revealed the PMI to be normally situated and sized. The rhythm was regular and no extrasystoles were noted during several minutes of auscultation. The first and second heart sounds were normal and physiologic splitting of the second heart sound was noted. There were no murmurs, rubs, clicks, or gallops. Abdominal exam revealed normal bowel sounds. The abdomen was soft, non-tender, and without masses, organomegaly, or appreciable enlargement of the abdominal aorta. Examination of the extremities revealed easily palpable radial, femoral and pedal pulses. There was no cyanosis, clubbing or edema. Examination of the skin revealed no evidence of significant rashes, suspicious appearing nevi or other concerning lesions. Results - Laboratory Findings CBC and BMP: 06/22/18 01:10 06/22/18 01:10 ABG ABG pH 7.29 (7.35-7.45) L 06/22/18 03:49 ABG pCO2 98 mmHg (35-45) H* 06/22/18 03:49 ABG pO2 63 mmHg (83-108) L 06/22/18 03:49 ABG O2 Saturation 92.0 % (94-97) L 06/22/18 03:49 PT/INR, D-dimer PT 10.2 sec (9.0-12.0) 06/22/18 01:10 INR 0.9 (<1.2) 06/22/18 01:10 Abnormal lab findings: Abnormal Labs 06/22/18 06/22/18 06/22/18 01:10 01:10 01:10 WBC 14.2 H Neutrophils # 12.4 H ABG pH ABG pCO2 ABG pO2 ABG HCO3 ABG Total CO2 ABG O2 Saturation Potassium 5.6 H Chloride 93 L Carbon Dioxide 40 H Glucose 114 H Total Creatine Kinase 47 L 06/22/18 03:49 WBC Neutrophils # ABG pH 7.29 L ABG pCO2 98 H* ABG pO2 63 L ABG HCO3 47 H* ABG Total CO2 50 H ABG O2 Saturation 92.0 L Potassium Chloride Carbon Dioxide Glucose Total Creatine Kinase - Diagnostic Findings Chest x-ray: image reviewed Assessment and Plan Plan: Assessment 1 acute COPD exacerbation 2 acute on chronic hypercapnic respiratory failure, currently requiring BiPAP for respiratory support 3 mild leukocytosis 4 chronic hypoxic respiratory failure 5 chronic anxiety/depression 6 hyperlipidemia 7 acid reflux Plan We'll admit this patient to the intensive care unit. Closely monitor the pulmonary status. Continue DuoNeb nebulized treatments around the clock. Continue IV Solu-Medrol. Resume theophylline. Resume outpatient medication. Smoking cessation counseling was done. Empiric antibiotic coverage with Zithromax. Chest x-ray is not showing any acute abnormalities. Influenza screen is negative. Heparin subcu for DVT prophylaxis. We'll continue to follow.
--- NOTE | 2018-06-22 16:36 | P.HPIM ---
History of Present Illness 68-year-old male with known history of COPD on 4 L of oxygen advance his COPD came in with compensative shortness of breath was wheezing has some generalized weakness fatigue patient's serum influenza testing was negative patient was on BiPAP last night presently on 6 L of oxygen patient is complaining of cough congestion with whitish sputum production. Patient denied any fever chills chest x-ray did not show any pneumonic process. Patient will also complaining of epigastric abdominal discomfort and burning sensation. Review of Systems REVIEW OF SYSTEMS: CONSTITUTIONAL: No fever, no malaise, no fatigue. HEENT: No recent visual problems or hearing problems. Denied any sore throat. CARDIOVASCULAR: No chest pain, orthopnea, PND, no palpitations, no syncope. PULMONARY: As mentioned in HPI GASTROINTESTINAL: No diarrhea, no nausea, no vomiting, no abdominal pain. NEUROLOGICAL: No headaches, no weakness, no numbness. HEMATOLOGICAL: Denies any bleeding or petechiae. GENITOURINARY: Denies any burning micturition, frequency, or urgency. MUSCULOSKELETAL/RHEUMATOLOGICAL: Denies any joint pain, swelling, or any muscle pain. ENDOCRINE: Denies any polyuria or polydipsia. The rest of the 14-point review of systems is negative. Past Medical History Past Medical History: COPD, GERD/Reflux, Hyperlipidemia, Thyroid Disorder Additional Past Medical History / Comment(s): Chronic hypoxic respiratory failure, COPD, chronic hypercapnic respiratory failure, chronic anxiety, depression, hyperlipidemia History of Any Multi-Drug Resistant Organisms: None Reported Past Surgical History: No Surgical Hx Reported Past Anesthesia/Blood Transfusion Reactions: No Reported Reaction Past Psychological History: Anxiety, Bipolar, Depression, Schizophrenia Smoking Status: Current some day smoker Past Alcohol Use History: None Reported Past Drug Use History: Marijuana - Past Family History Father Family Medical History: Myocardial Infarction (ND) Medications and Allergies Home Medications Medication Instructions Recorded Confirmed Type ARIPiprazole [Abilify] 10 mg PO BID 05/02/17 06/22/18 History Diltiazem HCl [Diltiazem 24Hr ER] 180 mg PO DAILY 05/02/17 06/22/18 History Gabapentin [Neurontin] 800 mg PO TID 05/02/17 06/22/18 History Multivitamins, Thera [Multivitamin 1 tab PO DAILY 05/02/17 06/22/18 History (formulary)] Omeprazole [PriLOSEC] 20 mg PO BID 05/02/17 06/22/18 History Pravastatin Sodium [Pravachol] 40 mg PO HS 05/02/17 06/22/18 History Sertraline [Zoloft] 100 mg PO BID 05/02/17 06/22/18 History busPIRone HCL 10 mg PO TID 05/02/17 06/22/18 History Theophylline 24 Hour [Roshan-24] 200 mg PO DAILY 12/07/17 06/22/18 History Calcium Carbonate 500 mg PO BID 04/29/18 06/22/18 History Allergies Allergy/AdvReac Type Severity Reaction Status Date / Time No Known Allergies Allergy Verified 06/22/18 07:16 Physical Exam Vitals: Vital Signs Temp Pulse Resp BP Pulse Ox 06/22/18 15:43 96 06/22/18 15:37 92 L 06/22/18 15:36 92 06/22/18 15:00 96 20 122/71 92 L 06/22/18 14:00 98 12 119/79 92 L 06/22/18 13:00 100 18 123/85 97 06/22/18 12:00 98 16 126/89 96 06/22/18 11:51 93 06/22/18 11:39 89 06/22/18 11:00 90 17 130/87 97 06/22/18 10:00 89 17 121/83 96 06/22/18 09:00 83 16 122/83 95 06/22/18 08:00 83 18 131/91 92 L 06/22/18 07:38 81 06/22/18 07:19 80 16 06/22/18 07:00 84 19 128/91 96 06/22/18 06:00 77 14 124/83 97 06/22/18 05:00 80 19 125/91 95 06/22/18 04:36 81 20 06/22/18 04:19 80 25 H 125/91 97 06/22/18 01:21 18 06/22/18 00:39 98.4 F 94 18 159/94 99 Intake and Output 06/22/18 06/22/18 06/22/18 06:59 14:59 22:59 Other: Weight 82.554 kg PHYSICAL EXAMINATION: GENERAL: The patient is alert and oriented x3, not in any acute distress. Well developed, well nourished. HEENT: Pupils are round and equally reacting to light. EOMI. No scleral icterus. No conjunctival pallor. Normocephalic, atraumatic. No pharyngeal erythema. No thyromegaly. CARDIOVASCULAR: S1 and S2 present. No murmurs, rubs, or gallops. PULMONARY: Faint expiratory wheezing significantly decreased air entry into bilateral lung hogue ABDOMEN: Soft, nontender, nondistended, normoactive bowel sounds. No palpable organomegaly. MUSCULOSKELETAL: No joint swelling or deformity. EXTREMITIES: No cyanosis, clubbing, or pedal edema. NEUROLOGICAL: Gross neurological examination did not reveal any focal deficits. SKIN: No rashes. Results CBC & Chem 7: 06/22/18 01:10 06/22/18 01:10 Labs: Abnormal Lab Results - Last 24 Hours (Table) 06/22/18 06/22/18 06/22/18 Range/Units 01:10 01:10 01:10 WBC 14.2 H (3.8-10.6) k/uL Neutrophils # 12.4 H (1.3-7.7) k/uL ABG pH (7.35-7.45) ABG pCO2 (35-45) mmHg ABG pO2 (83-108) mmHg ABG HCO3 (21-25) mmol/L ABG Total CO2 (19-24) mmol/L ABG O2 Saturation (94-97) % Potassium 5.6 H (3.5-5.1) mmol/L Chloride 93 L (98-107) mmol/L Carbon Dioxide 40 H (22-30) mmol/L Glucose 114 H (74-99) mg/dL Total Creatine Kinase 47 L (55-170) U/L 06/22/18 Range/Units 03:49 WBC (3.8-10.6) k/uL Neutrophils # (1.3-7.7) k/uL ABG pH 7.29 L (7.35-7.45) ABG pCO2 98 H* (35-45) mmHg ABG pO2 63 L (83-108) mmHg ABG HCO3 47 H* (21-25) mmol/L ABG Total CO2 50 H (19-24) mmol/L ABG O2 Saturation 92.0 L (94-97) % Potassium (3.5-5.1) mmol/L Chloride (98-107) mmol/L Carbon Dioxide (22-30) mmol/L Glucose (74-99) mg/dL Total Creatine Kinase (55-170) U/L Assessment and Plan Plan: acute on chronic hypercapnic respiratory failure second to COPD exacerbation requiring BiPAP patient will be continued on systemic steroids inhalational treatments patient was admitted to ICU as he is on BiPAP acutely will be monitored. -Leukocytosis secondary to bronchitis -Hyperlipidemia -Anxiety and depression -Gastroesophageal reflux disease\ Peptic ulcer disease or gastritis: Patient was started on Protonix
[2018-06-22] MEDS: MAGNESIUM OXIDE 400 MG TAB PO SCH (16:41)
[2018-06-22] MEDS: AZITHROMYCIN 500 MG TAB PO SCH (16:49)
[2018-06-22] MEDS: HEPARIN SODIUM,PORCINE 5,000 UNIT/ML 1 ML VIAL SQ SCH ×2 (16:49→23:30)
[2018-06-22 17:49] LABS: Glucose,Whole Blood 149 mg/dL (75-99)
[2018-06-22] MEDS: PANTOPRAZOLE 40 MG TABLET PO SCH (17:49)
[2018-06-22] MEDS: PRAVASTATIN SODIUM 80 MG TAB PO SCH (21:37)
[2018-06-22] MEDS: traZODone HCL 100 MG TAB PO SCH (21:38)
[2018-06-22] MEDS: HYDROcodone/APAP 5-325MG 1 EACH TAB PO PRN (23:32)
[2018-06-23] MEDS: SODIUM CHLORIDE 0.9% 1,000 ML IV SCH (03:45)
[2018-06-23] MEDS: PANTOPRAZOLE 40 MG TABLET PO SCH ×2 (06:12→17:28)
[2018-06-23] MEDS: methylPREDNISolone SOD SUCCI 125 MG/2 ML VIAL IV SCH ×4 (06:12→23:13)
[2018-06-23] MEDS: busPIRone HCl 10 MG TAB PO SCH ×3 (08:27→21:32)
[2018-06-23] MEDS: DILTIAZEM CD 180 MG CAP.ER.24H PO SCH (08:27)
[2018-06-23] MEDS: SERTRALINE 100 MG TAB PO SCH ×2 (08:27→19:23)
[2018-06-23] MEDS: GABAPENTIN 400 MG CAP PO SCH ×3 (08:27→21:32)
[2018-06-23] MEDS: CALCIUM CARBONATE 500 MG CHEWABLE PO SCH ×2 (08:28→19:22)
[2018-06-23] MEDS: AZITHROMYCIN 500 MG TAB PO SCH (08:28)
[2018-06-23] MEDS: HYDROcodone/APAP 5-325MG 1 EACH TAB PO PRN (08:28)
[2018-06-23] MEDS: MULTIVITAMINS, THERA 1 EACH TAB PO SCH (08:28)
[2018-06-23] MEDS: ARIPiprazole 10 MG TAB PO SCH ×2 (08:28→19:22)
[2018-06-23] MEDS: HEPARIN SODIUM,PORCINE 5,000 UNIT/ML 1 ML VIAL SQ SCH ×3 (08:28→23:13)
[2018-06-23] MEDS: NICOTINE 14MG/24HR PATCH TRANSDERM SCH (08:29)
[2018-06-23] MEDS: THEOPHYLLINE 24 HOUR 200 MG CAP.ER.24H PO SCH (08:29)
[2018-06-23] MEDS: ALBUTEROL NEBULIZED 2.5 MG/3 ML INHALATION SCH ×4 (09:14→21:25)
[2018-06-23] MEDS: IPRATROPIUM 0.5 MG/2.5 ML NEBU INHALATION SCH ×4 (09:15→21:25)
[2018-06-23] MEDS: IPRATROPIUM-ALBUTEROL 3 ML NEB INHALATION PRN ×3 (09:20→21:21)
[2018-06-23 10:34] LABS: HCT 39.8 % (39.0-53.0); HGB 12.4 gm/dL (13.0-17.5); MCH 28.6 pg (25.0-35.0); MCHC 31.2 g/dL (31.0-37.0); MCV 91.8 fL (80.0-100.0); Mean Platelet Volume 7.8; Platelet Count 185 k/uL (150-450); RBC 4.33 m/uL (4.30-5.90); RDW 14.8 % (11.5-15.5); WBC 15.5 k/uL (3.8-10.6)
[2018-06-23 10:43] LABS: Calcium 9.8 mg/dL (8.4-10.2); Potassium 4.6 mmol/L (3.5-5.1)
--- NOTE | 2018-06-23 10:56 | P.PN ---
Subjective 68-year-old admitted for hypercapnic respiratory failure secondary to COPD exacerbation patient required BiPAP last night patient is still on BiPAP at this time. Patient only uses a M[place]za dysfunction at home. Patient is feeling bit better. Patient is coughing up greenish phlegm Constitutional: Denied any fatigue denied any fever. Cardio vascular: denied any chest pain, palpitations Gastrointestinal denied any nausea vomiting Pulmonary: As mentioned in interval history Neurologic denied any new focal deficits All inpatient medications were reviewed and appropriate changes in these medications as dictated in the interval history and assessment and plan. Objective - Vital Signs Vital signs: Vital Signs Temp 97.5 F L 06/23/18 08:00 Pulse 95 06/23/18 09:36 Resp 26 H 06/23/18 08:00 BP 117/73 06/23/18 08:00 Pulse Ox 90 L 06/23/18 08:00 Intake & Output 06/22/18 06/23/18 06/23/18 18:59 06:59 18:59 Intake Total 240 10 Output Total 300 450 Balance -60 10 -450 Weight 80 kg Intake: IV 10 0.9 10 Oral 240 Output: Urine 300 450 Other: Voiding Method Urinal # Voids 1 1 - Exam PHYSICAL EXAMINATION: GENERAL: The patient is alert and oriented x3, not in any acute distress. Well developed, well nourished. HEENT: Pupils are round and equally reacting to light. EOMI. No scleral icterus. No conjunctival pallor. Normocephalic, atraumatic. No pharyngeal erythema. No thyromegaly. CARDIOVASCULAR: S1 and S2 present. No murmurs, rubs, or gallops. PULMONARY: Significantly diminished air entry into bilateral lung hogue ABDOMEN: Soft, nontender, nondistended, normoactive bowel sounds. No palpable organomegaly. MUSCULOSKELETAL: No joint swelling or deformity. EXTREMITIES: No cyanosis, clubbing, or pedal edema. NEUROLOGICAL: Gross neurological examination did not reveal any focal deficits. SKIN: No rashes. - Labs CBC & Chem 7: 06/23/18 10:09 06/23/18 10:09 Labs: Abnormal Lab Results - Last 24 Hours (Table) 06/22/18 06/23/18 06/23/18 Range/Units 17:44 10: 10:09 WBC 15.5 H (3.8-10.6) k/uL Hgb 12.4 L (13.0-17.5) gm/dL Chloride 93 L (98-107) mmol/L Carbon Dioxide 38 H (22-30) mmol/L BUN 44 H (9-20) mg/dL Glucose 210 H (74-99) mg/dL POC Glucose (mg/dL) 149 H (75-99) mg/dL Assessment and Plan Plan: acute on chronic hypercapnic respiratory failure second to COPD exacerbation requiring BiPAP patient will be continued on systemic steroids inhalational treatments. -Leukocytosis secondary to bronchitis -Hyperlipidemia -Anxiety and depression -Gastroesophageal reflux disease\ Peptic ulcer disease or gastritis: Patient was started on Protonix
[2018-06-23 12:15] LABS: Glucose,Whole Blood 173 mg/dL (75-99)
[2018-06-23] MEDS: INSULIN ASPART (NovoLOG) 100 UNIT/ML VIAL SQ SCH ×3 (12:19→20:29)
[2018-06-23] MEDS: MAGNESIUM OXIDE 400 MG TAB PO SCH (12:19)
--- NOTE | 2018-06-23 16:49 | P.PN ---
Subjective Progress Note Date: 06/23/18 68-year-old male patient who lives in [place] and the patient has advanced COPD with chronic hypoxic and hypercapnic respiratory failure. The patient is a former smoker. He has been followed up by Dr. Michelle on outpatient basis. The patient came into the hospital because of worsening shortness of breath. He was expressing generalized weakness and fatigue. He has not been in his usual state of health over the past 24 hours. Had become more sleepy. He was feeling some nausea however his predominant complaint was increased shortness of breath chest congestion and cough and wheeze. He had one bout of emesis. In the emergency department, the patient was worked up. Chest x-ray was consistent with COPD. Influenza screen was negative. The first set of cardiac enzyme was negative. BNP was normal. Clinically the patient wasn't feeling better. He'll be moved to the intensive care unit regarding his acute on chronic hypercapnic respiratory failure. On today's evaluation for 06/23 2018, seeing this patient for a follow-up. Is feeling better. Is less short of breath. Awake and alert. No signs of any CO2 narcosis. No significant bronchospasm and wheezing on today's evaluation. He remains on a combination of bronchodilators and steroids. He is currently off the BiPAP. No fever. No chills. No chest pain. He is on a combination of DuoNeb nebulized treatments around the clock, IV Solu-Medrol, empiric antibiotic coverage with oral Zithromax 500 mg by mouth daily. Rest of the medication will be kept unchanged. He is able to tolerate his diet and no other significant events overnight. Objective - Vital Signs Vital signs: Vital Signs Temp 97.8 F 06/23/18 16:00 Pulse 106 H 06/23/18 16:00 Resp 20 06/23/18 16:00 BP 114/64 06/23/18 16:00 Pulse Ox 86 L 06/23/18 16:00 Intake & Output 06/22/18 06/23/18 06/23/18 18:59 06:59 18:59 Intake Total 240 10 410 Output Total 300 1200 Balance -60 10 -790 Weight 80 kg Intake: IV 10 0.9 10 Oral 240 410 Output: Urine 300 1200 Other: Voiding Method Urinal # Voids 1 1 - Exam Gen. appearance, comfortable and mild degree of respiratory distress currently off the BiPAP. Head exam was generally normal. There was no scleral icterus or corneal arcus. Mucous membranes were moist. Neck was supple and without jugular venous distension, thyromegaly, or carotid bruits. Carotids were easily palpable bilaterally. There was no adenopathy. Lungs diminished breath sound bilaterally along with scattered expiratory wheezes throughout the lung hogue. Overall breath sounds are quite diminished Cardiac exam revealed the PMI to be normally situated and sized. The rhythm was regular and no extrasystoles were noted during several minutes of auscultation. The first and second heart sounds were normal and physiologic splitting of the second heart sound was noted. There were no murmurs, rubs, clicks, or gallops. Abdominal exam revealed normal bowel sounds. The abdomen was soft, non-tender, and without masses, organomegaly, or appreciable enlargement of the abdominal aorta. Examination of the extremities revealed easily palpable radial, femoral and pedal pulses. There was no cyanosis, clubbing or edema. Examination of the skin revealed no evidence of significant rashes, suspicious appearing nevi or other concerning lesions. - Labs CBC & Chem 7: 06/23/18 10:09 06/23/18 10:09 Labs: Abnormal Lab Results - Last 24 Hours (Table) 06/22/18 06/23/18 06/23/18 Range/Units 17:44 10:09 10:09 WBC 15.5 H (3.8-10.6) k/uL Hgb 12.4 L (13.0-17.5) gm/dL Chloride 93 L (98-107) mmol/L Carbon Dioxide 38 H (22-30) mmol/L BUN 44 H (9-20) mg/dL Glucose 210 H (74-99) mg/dL POC Glucose (mg/dL) 149 H (75-99) mg/dL 06/23/18 Range/Units 11:42 WBC (3.8-10.6) k/uL Hgb (13.0-17.5) gm/dL Chloride (98-107) mmol/L Carbon Dioxide (22-30) mmol/L BUN (9-20) mg/dL Glucose (74-99) mg/dL POC Glucose (mg/dL) 173 H (75-99) mg/dL Assessment and Plan Plan: Assessment 1 acute COPD exacerbation, improving 2 acute on chronic hypercapnic respiratory failure, currently requiring BiPAP for respiratory support 3 mild leukocytosis 4 chronic hypoxic respiratory failure 5 chronic anxiety/depression 6 hyperlipidemia 7 acid reflux Plan The patient is improved compared to yesterday. He is less short of breath. Continue same treatment. No need for ongoing BiPAP treatment unless there is any worsening shortness of breath. Renal function stable. White cell count of 15.5. No other significant issues over the past 24 hours. His condition is more stable compared to yesterday. We'll continue to follow.
[2018-06-23 17:15] LABS: Glucose,Whole Blood 171 mg/dL (75-99)
[2018-06-23] MEDS: traZODone HCL 100 MG TAB PO SCH (19:22)
[2018-06-23] MEDS: PRAVASTATIN SODIUM 80 MG TAB PO SCH (19:22)
[2018-06-23 20:21] LABS: Glucose,Whole Blood 190 mg/dL (75-99)
[2018-06-24] MEDS: SODIUM CHLORIDE 0.9% 1,000 ML IV SCH (06:09)
[2018-06-24 06:10] LABS: HCT 38.2 % (39.0-53.0); HGB 12.1 gm/dL (13.0-17.5); MCH 29.2 pg (25.0-35.0); MCHC 31.8 g/dL (31.0-37.0); MCV 91.8 fL (80.0-100.0); Mean Platelet Volume 7.9; Platelet Count 191 k/uL (150-450); RBC 4.15 m/uL (4.30-5.90); RDW 14.8 % (11.5-15.5); WBC 19.2 k/uL (3.8-10.6)
[2018-06-24 06:16] LABS: Calcium 9.5 mg/dL (8.4-10.2); Potassium 4.9 mmol/L (3.5-5.1)
[2018-06-24 06:22] LABS: Glucose,Whole Blood 140 mg/dL (75-99)
[2018-06-24] MEDS: methylPREDNISolone SOD SUCCI 125 MG/2 ML VIAL IV SCH ×2 (06:24→11:15)
[2018-06-24] MEDS: PANTOPRAZOLE 40 MG TABLET PO SCH ×2 (06:25→17:27)
[2018-06-24] MEDS: INSULIN ASPART (NovoLOG) 100 UNIT/ML VIAL SQ SCH ×4 (06:25→21:26)
[2018-06-24] MEDS: IPRATROPIUM-ALBUTEROL 3 ML NEB INHALATION PRN ×3 (08:29→16:54)
[2018-06-24] MEDS: IPRATROPIUM 0.5 MG/2.5 ML NEBU INHALATION SCH ×4 (08:29→23:02)
[2018-06-24] MEDS: ALBUTEROL NEBULIZED 2.5 MG/3 ML INHALATION SCH ×4 (08:29→23:02)
[2018-06-24] MEDS: SERTRALINE 100 MG TAB PO SCH ×2 (08:34→21:25)
[2018-06-24] MEDS: THEOPHYLLINE 24 HOUR 200 MG CAP.ER.24H PO SCH (08:34)
[2018-06-24] MEDS: busPIRone HCl 10 MG TAB PO SCH ×3 (08:34→21:25)
[2018-06-24] MEDS: DILTIAZEM CD 180 MG CAP.ER.24H PO SCH (08:34)
[2018-06-24] MEDS: HEPARIN SODIUM,PORCINE 5,000 UNIT/ML 1 ML VIAL SQ SCH ×2 (08:34→15:43)
[2018-06-24] MEDS: NICOTINE 14MG/24HR PATCH TRANSDERM SCH ×2 (08:34→08:36)
[2018-06-24] MEDS: GABAPENTIN 400 MG CAP PO SCH ×3 (08:34→21:25)
[2018-06-24] MEDS: CHOLECALCIFEROL 1,000 UNIT TAB PO SCH (08:35)
[2018-06-24] MEDS: ARIPiprazole 10 MG TAB PO SCH ×2 (08:35→21:24)
[2018-06-24] MEDS: CALCIUM CARBONATE 500 MG CHEWABLE PO SCH ×2 (08:35→21:24)
[2018-06-24] MEDS: AZITHROMYCIN 500 MG TAB PO SCH (08:35)
[2018-06-24] MEDS: MAGNESIUM OXIDE 400 MG TAB PO SCH (11:15)
[2018-06-24] MEDS: MULTIVITAMINS, THERA 1 EACH TAB PO SCH (11:15)
[2018-06-24 11:23] LABS: Glucose,Whole Blood 192 mg/dL (75-99)
--- NOTE | 2018-06-24 11:30 | P.PN ---
Subjective 68-year-old admitted for hypercapnic respiratory failure secondary to COPD exacerbation patient required BiPAP last night patient is still on BiPAP at this time. Patient only uses a Mendoza dysfunction at home. Patient is feeling bit better. Patient is coughing up greenish phlegm 06/24/2018 Patient has a better air movement today. Patient is feeling better wanted to go home by Sunday so that he can get ready for [employer] Day. His respiratory status significantly improved patient is presently on 4 L of oxygen saturating at 90% Constitutional: Denied any fatigue denied any fever. Cardio vascular: denied any chest pain, palpitations Gastrointestinal denied any nausea vomiting Pulmonary: As mentioned in interval history Neurologic denied any new focal deficits All inpatient medications were reviewed and appropriate changes in these medications as dictated in the interval history and assessment and plan. Objective - Vital Signs Vital signs: Vital Signs Temp 97.7 F 06/24/18 08:15 Pulse 88 06/24/18 08:29 Resp 20 06/24/18 08:15 BP 107/58 06/24/18 08:15 Pulse Ox 90 L 06/24/18 08:15 Intake & Output 06/23/18 06/24/18 06/24/18 18:59 06:59 18:59 Intake Total 430 800 240 Output Total 1200 600 500 Balance -770 200 -260 Weight 75.9 kg Intake: Intake, IV Titration 20 Amount Sodium Chloride 0.9% 1, 20 000 ml @ 20 mls/hr IV . Q24H [facility] Rx#:[id number] Oral 410 800 240 Output: Urine 1200 600 500 Other: Voiding Method Urinal # Voids 1 1 - Exam PHYSICAL EXAMINATION: GENERAL: The patient is alert and oriented x3, not in any acute distress. Well developed, well nourished. HEENT: Pupils are round and equally reacting to light. EOMI. No scleral icterus. No conjunctival pallor. Normocephalic, atraumatic. No pharyngeal erythema. No thyromegaly. CARDIOVASCULAR: S1 and S2 present. No murmurs, rubs, or gallops. PULMONARY: Significantly diminished air entry into bilateral lung hogue, there is some improvement I can hear some air movement without any wheezing today ABDOMEN: Soft, nontender, nondistended, normoactive bowel sounds. No palpable organomegaly. MUSCULOSKELETAL: No joint swelling or deformity. EXTREMITIES: No cyanosis, clubbing, or pedal edema. NEUROLOGICAL: Gross neurological examination did not reveal any focal deficits. SKIN: No rashes. - Labs CBC & Chem 7: 06/24/18 05:23 06/24/18 05:23 Labs: Abnormal Lab Results - Last 24 Hours (Table) 06/23/18 06/23/18 06/23/18 Range/Units 11:42 16:59 20:20 WBC (3.8-10.6) k/uL RBC (4.30-5.90) m/uL Hgb (13.0-17.5) gm/dL Hct (39.0-53.0) % Chloride (98-107) mmol/L Carbon Dioxide (22-30) mmol/L BUN (9-20) mg/dL Glucose (74-99) mg/dL POC Glucose (mg/dL) 173 H 171 H 190 H (75-99) mg/dL 06/24/18 06/24/18 06/24/18 Range/Units 05:23 05:23 06:20 WBC 19.2 H (3.8-10.6) k/uL RBC 4.15 L (4.30-5.90) m/uL Hgb 12.1 L (13.0-17.5) gm/dL Hct 38.2 L (39.0-53.0) % Chloride 96 L (98-107) mmol/L Carbon Dioxide 40 H (22-30) mmol/L BUN 47 H (9-20) mg/dL Glucose 144 H (74-99) mg/dL POC Glucose (mg/dL) 140 H (75-99) mg/dL 06/24/18 Range/Units 11:10 WBC (3.8-10.6) k/uL RBC (4.30-5.90) m/uL Hgb (13.0-17.5) gm/dL Hct (39.0-53.0) % Chloride (98-107) mmol/L Carbon Dioxide (22-30) mmol/L BUN (9-20) mg/dL Glucose (74-99) mg/dL POC Glucose (mg/dL) 192 H (75-99) mg/dL Assessment and Plan Plan: acute on chronic hypercapnic respiratory failure second to COPD exacerbation, patient is presently on [place] of [place] improved continue with systemic steroids inhalational treatments -Leukocytosis secondary to bronchitis -Hyperlipidemia -Anxiety and depression -Gastroesophageal reflux disease\ Peptic ulcer disease or gastritis: Patient is on Protonix
[2018-06-24 11:35] LABS: Hemoglobin A1C 4.8 % (4.0-6.0)
--- NOTE | 2018-06-24 14:53 | P.PN ---
Subjective Progress Note Date: 06/24/18 Principal diagnosis: Acute COPD exacerbation, improving 68-year-old male patient who lives in [place] and the patient has advanced COPD with chronic hypoxic and hypercapnic respiratory failure. The patient is a former smoker. He has been followed up by Dr. Michelle on outpatient basis. The patient came into the hospital because of worsening shortness of breath. He was expressing generalized weakness and fatigue. He has not been in his usual state of health over the past 24 hours. Had become more sleepy. He was feeling some nausea however his predominant complaint was increased shortness of breath chest congestion and cough and wheeze. He had one bout of emesis. In the emergency department, the patient was worked up. Chest x-ray was consistent with COPD. Influenza screen was negative. The first set of cardiac enzyme was negative. BNP was normal. Clinically the patient wasn't feeling better. He'll be moved to the intensive care unit regarding his acute on chronic hypercapnic respiratory failure. On today's evaluation for 06/23 2018, seeing this patient for a follow-up. Is feeling better. Is less short of breath. Awake and alert. No signs of any CO2 narcosis. No significant bronchospasm and wheezing on today's evaluation. He remains on a combination of bronchodilators and steroids. He is currently off the BiPAP. No fever. No chills. No chest pain. He is on a combination of DuoNeb nebulized treatments around the clock, IV Solu-Medrol, empiric antibiotic coverage with oral Zithromax 500 mg by mouth daily. Rest of the medication will be kept unchanged. He is able to tolerate his diet and no other significant events overnight. On 06/24/2018 patient seen in follow-up on selective care unit. He is awake and alert, in no acute distress, currently on 4 L per nasal cannula, with a pulse ox of 98%. Did not need to use the BiPAP last night, patient is afebrile , hemodynamically stable. Lung sounds are diminished, with some scattered wheezes and rales. Patient is on empiric antibiotics in the form of Zithromax, he continues on IV steroids, theophylline, nebulized bronchodilators, he is clinically improving. Today's blood work has been reviewed, WBC is 19.2, hemoglobin is 12.1, sodium is 140, potassium is 4.9, chloride is 96, CO2 is 40, B1 is 47 creatinine is 1.12. Fever or chills, patient has an occasional cough, but is not bringing up much sputum. Objective - Vital Signs Vital signs: Vital Signs Temp 98.0 F 06/24/18 11:15 Pulse 82 06/24/18 12:54 Resp 20 06/24/18 11:15 BP 116/64 06/24/18 11:15 Pulse Ox 90 L 06/24/18 11:15 Intake & Output 06/23/18 06/24/18 06/24/18 18:59 06:59 18:59 Intake Total 430 800 240 Output Total 1200 600 500 Balance -770 200 -260 Weight 75.9 kg Intake: Intake, IV Titration 20 Amount Sodium Chloride 0.9% 1, 20 000 ml @ 20 mls/hr IV . Q24H [facility] Rx#:[id number] Oral 410 800 240 Output: Urine 1200 600 500 Other: Voiding Method Urinal # Voids 1 1 - Exam GENERAL EXAM: Alert, pleasant, 68-year-old white male early on 4 L per nasal cannula comfortable in no apparent distress. HEAD: Normocephalic/atraumatic. EYES: Normal reaction of pupils, equal size. Conjunctiva pink, sclera white. NOSE: Clear with pink turbinates. THROAT: No erythema or exudates. NECK: No masses, no JVD, no thyroid enlargement, no adenopathy. CHEST: No chest wall deformity. Symmetrical expansion. LUNGS: Equal air entry with diminished breath sounds, bibasilar crackles, and diffuse wheezes CVS: Regular rate and rhythm, normal S1 and S2, no gallops, no murmurs, no rubs ABDOMEN: Soft, nontender. No hepatosplenomegaly, normal bowel sounds, no guarding or rigidity. EXTREMITIES: No clubbing, no edema, no cyanosis, 2+ pulses and upper and lower extremities. MUSCULOSKELETAL: Muscle strength and tone normal. SPINE: No scoliosis or deformity SKIN: No rashes CENTRAL NERVOUS SYSTEM: Alert and oriented -3. No focal deficits, tone is normal in all 4 extremities. PSYCHIATRIC: Alert and oriented -3. Appropriate affect. Intact judgment and insight. - Labs CBC & Chem 7: 06/24/18 05:23 06/24/18 05:23 Labs: Abnormal Lab Results - Last 24 Hours (Table) 06/23/18 06/23/1806/24/19 Range/Units 16:59 20:20 05:23 WBC 19.2 H (3.8-10.6) k/uL RBC 4.15 L (4.30-5.90) m/uL Hgb 12.1 L (13.0-17.5) gm/dL Hct 38.2 L (39.0-53.0) % Chloride (98-107) mmol/L Carbon Dioxide (22-30) mmol/L BUN (9-20) mg/dL Glucose (74-99) mg/dL POC Glucose (mg/dL) 171 H 190 H (75-99) mg/dL 06/24/18 06/24/18 06/24/18 Range/Units 05:23 06:20 11:10 WBC (3.8-10.6) k/uL RBC (4.30-5.90) m/uL Hgb (13.0-17.5) gm/dL Hct (39.0-53.0) % Chloride 96 L (98-107) mmol/L Carbon Dioxide 40 H (22-30) mmol/L BUN 47 H (9-20) mg/dL Glucose 144 H (74-99) mg/dL POC Glucose (mg/dL) 140 H 192 H (75-99) mg/dL Assessment and Plan Plan: 1 acute COPD exacerbation, improving 2 acute on chronic hypercapnic respiratory failure, currently requiring BiPAP for respiratory support 3 mild leukocytosis 4 chronic hypoxic respiratory failure 5 chronic anxiety/depression 6 hyperlipidemia 7 acid reflux Plan: Continue current medical treatment, we'll decrease the IV Solu-Medrol to 40 mg every 8 hours. Increase activity as tolerated, patient did not require BiPAP support last night, continue theophylline, continue Zithromax. Anticipate further improvement, and patient may be considered discharge home in the next 24 hours I performed a history & physical examination of the patient and discussed their management with my nurse practitioner, Rochelle Amaro. I reviewed the nurse practitioner's note and agree with the documented findings and plan of care. Lung sounds are positive for diminished breath sounds, bilateral rhonchi and wheezes. The findings and the impression was discussed with the patient. I attest to the documentation by the nurse practitioner. Time with Patient: Less than 30
[2018-06-24] MEDS: methylPREDNISolone SOD SUCCI 40 MG/ML 1 ML VIAL IV SCH (15:44)
[2018-06-24 17:18] LABS: Glucose,Whole Blood 133 mg/dL (75-99)
[2018-06-24 20:57] LABS: Glucose,Whole Blood 147 mg/dL (75-99)
[2018-06-24] MEDS: traZODone HCL 100 MG TAB PO SCH (21:25)
[2018-06-24] MEDS: PRAVASTATIN SODIUM 80 MG TAB PO SCH (21:25)
[2018-06-24] MEDS: HYDROcodone/APAP 5-325MG 1 EACH TAB PO PRN (21:26)
[2018-06-25] MEDS: methylPREDNISolone SOD SUCCI 40 MG/ML 1 ML VIAL IV SCH ×2 (00:05→07:45)
[2018-06-25] MEDS: HEPARIN SODIUM,PORCINE 5,000 UNIT/ML 1 ML VIAL SQ SCH ×2 (00:05→07:45)
[2018-06-25] MEDS: SODIUM CHLORIDE 0.9% 1,000 ML IV SCH (03:20)
[2018-06-25] MEDS: INSULIN ASPART (NovoLOG) 100 UNIT/ML VIAL SQ SCH ×2 (07:45→13:53)
[2018-06-25] MEDS: PANTOPRAZOLE 40 MG TABLET PO SCH (07:45)
[2018-06-25] MEDS: AZITHROMYCIN 500 MG TAB PO SCH (07:46)
[2018-06-25] MEDS: busPIRone HCl 10 MG TAB PO SCH (07:46)
[2018-06-25] MEDS: CHOLECALCIFEROL 1,000 UNIT TAB PO SCH (07:46)
[2018-06-25] MEDS: NICOTINE 14MG/24HR PATCH TRANSDERM SCH (07:47)
[2018-06-25] MEDS: ARIPiprazole 10 MG TAB PO SCH (07:47)
[2018-06-25] MEDS: THEOPHYLLINE 24 HOUR 200 MG CAP.ER.24H PO SCH (07:48)
[2018-06-25] MEDS: SERTRALINE 100 MG TAB PO SCH (07:48)
[2018-06-25 07:50] LABS: Glucose,Whole Blood 129 mg/dL (75-99)
[2018-06-25] MEDS: DILTIAZEM CD 180 MG CAP.ER.24H PO SCH (09:03)
[2018-06-25] MEDS: CALCIUM CARBONATE 500 MG CHEWABLE PO SCH (09:03)
[2018-06-25] MEDS: GABAPENTIN 400 MG CAP PO SCH (09:03)
[2018-06-25] MEDS: ALBUTEROL NEBULIZED 2.5 MG/3 ML INHALATION SCH ×3 (09:45→16:31)
[2018-06-25] MEDS: IPRATROPIUM 0.5 MG/2.5 ML NEBU INHALATION SCH ×3 (09:45→16:32)
[2018-06-25 12:06] LABS: Glucose,Whole Blood 118 mg/dL (75-99)
--- NOTE | 2018-06-25 12:14 | P.PN ---
Subjective Progress Note Date: 06/25/18 Principal diagnosis: Acute COPD exacerbation, improving 68-year-old male patient who lives in [place] and the patient has advanced COPD with chronic hypoxic and hypercapnic respiratory failure. The patient is a former smoker. He has been followed up by Dr. Michelle on outpatient basis. The patient came into the hospital because of worsening shortness of breath. He was expressing generalized weakness and fatigue. He has not been in his usual state of health over the past 24 hours. Had become more sleepy. He was feeling some nausea however his predominant complaint was increased shortness of breath chest congestion and cough and wheeze. He had one bout of emesis. In the emergency department, the patient was worked up. Chest x-ray was consistent with COPD. Influenza screen was negative. The first set of cardiac enzyme was negative. BNP was normal. Clinically the patient wasn't feeling better. He'll be moved to the intensive care unit regarding his acute on chronic hypercapnic respiratory failure. On today's evaluation for 06/23 2018, seeing this patient for a follow-up. Is feeling better. Is less short of breath. Awake and alert. No signs of any CO2 narcosis. No significant bronchospasm and wheezing on today's evaluation. He remains on a combination of bronchodilators and steroids. He is currently off the BiPAP. No fever. No chills. No chest pain. He is on a combination of DuoNeb nebulized treatments around the clock, IV Solu-Medrol, empiric antibiotic coverage with oral Zithromax 500 mg by mouth daily. Rest of the medication will be kept unchanged. He is able to tolerate his diet and no other significant events overnight. On 06/24/2018 patient seen in follow-up on selective care unit. He is awake and alert, in no acute distress, currently on 4 L per nasal cannula, with a pulse ox of 98%. Did not need to use the BiPAP last night, patient is afebrile , hemodynamically stable. Lung sounds are diminished, with some scattered wheezes and rales. Patient is on empiric antibiotics in the form of Zithromax, he continues on IV steroids, theophylline, nebulized bronchodilators, he is clinically improving. Today's blood work has been reviewed, WBC is 19.2, hemoglobin is 12.1, sodium is 140, potassium is 4.9, chloride is 96, CO2 is 40, B1 is 47 creatinine is 1.12. Fever or chills, patient has an occasional cough, but is not bringing up much sputum. On 06/25/2018 patient seen in follow-up on medical surgical floor. She is resting comfortably in bed, in no acute distress, currently on 5 L per nasal cannula, his pulse ox is 90%, afebrile, hemodynamically stable, lung sounds are positive for diminished breath sounds, dpes have a congested cough, not producing much sputum. No new chest x-rays or labs, fever or chills, patient has been up ambulating, he has home oxygen and nebulized treatments at home. Patient is doing well, from our perspective could be discharged home today. Objective - Vital Signs Vital signs: Vital Signs Temp 97.5 F L 06/25/18 07:00 Pulse 78 06/25/18 07:00 Resp 22 06/25/18 07:00 BP 127/80 06/25/18 07:00 Pulse Ox 90 L 06/25/18 07:00 Intake & Output 06/24/18 06/25/18 06/25/18 18:59 06:59 18:59 Intake Total 1080 320 Output Total 500 450 Balance 580 -450 320 Intake: Oral 1080 320 Output: Urine 500 450 - Exam GENERAL EXAM: Alert, pleasant, 68-year-old white male early on 4 L per nasal cannula comfortable in no apparent distress. HEAD: Normocephalic/atraumatic. EYES: Normal reaction of pupils, equal size. Conjunctiva pink, sclera white. NOSE: Clear with pink turbinates. THROAT: No erythema or exudates. NECK: No masses, no JVD, no thyroid enlargement, no adenopathy. CHEST: No chest wall deformity. Symmetrical expansion. LUNGS: Equal air entry with diminished breath sounds. CVS: Regular rate and rhythm, normal S1 and S2, no gallops, no murmurs, no rubs ABDOMEN: Soft, nontender. No hepatosplenomegaly, normal bowel sounds, no guarding or rigidity. EXTREMITIES: No clubbing, no edema, no cyanosis, 2+ pulses and upper and lower extremities. MUSCULOSKELETAL: Muscle strength and tone normal. SPINE: No scoliosis or deformity SKIN: No rashes CENTRAL NERVOUS SYSTEM: Alert and oriented -3. No focal deficits, tone is normal in all 4 extremities. PSYCHIATRIC: Alert and oriented -3. Appropriate affect. Intact judgment and insight. - Labs CBC & Chem 7: 06/24/18 05:23 06/24/18 05:23 Labs: Abnormal Lab Results - Last 24 Hours (Table) 06/24/18 06/24/18 06/25/18 Range/Units 17:08 20:54 07:29 POC Glucose (mg/dL) 133 H 147 H 129 H (75-99) mg/dL 06/25/18 Range/Units 11:59 POC Glucose (mg/dL) 118 H (75-99) mg/dL Assessment and Plan Plan: 1 acute COPD exacerbation, improving 2 acute on chronic hypercapnic respiratory failure, requiring noninvasive positive pressure ventilatory support initially, with subsequent improvement 3 mild leukocytosis 4 chronic hypoxic respiratory failure 5 chronic anxiety/depression 6 hyperlipidemia 7 acid reflux Plan: Patient is doing well, pretty close to his baseline, tolerating ambulation, myositis stable, no fever or chills, from pulmonary perspective patient is stable for discharge home today on a course of oral antibiotics, and is on taper , patient has a nebulizer machine and home oxygen at home. Follow up with Dr. Timmons in the office in 7-10 days. I performed a history & physical examination of the patient and discussed their management with my nurse practitioner, Rochelle Amaro. I reviewed the nurse practitioner's note and agree with the documented findings and plan of care. Lung sounds are positive for diminished breath sounds. The findings and the impression was discussed with the patient. I attest to the documentation by the nurse practitioner. Time with Patient: Less than 30
[2018-06-25] MEDS: IPRATROPIUM-ALBUTEROL 3 ML NEB INHALATION PRN (13:44)
[2018-06-25] MEDS: MULTIVITAMINS, THERA 1 EACH TAB PO SCH (13:53)
[2018-06-25] MEDS: MAGNESIUM OXIDE 400 MG TAB PO SCH (13:55)
[2018-06-25 14:47] VITALS: BP 131/82; PULSE 87; RESP 20; TEMP 97.6
--- NOTE | 2018-06-25 15:59 | P.DS ---
Providers Date of admission: 06/22/18 04:20 Attending physician: Selam Munoz Consults: 06/22/18 04:20 Consult Physician Stat Consulting Provider: Екатерина Dc Consult Reason/Comments: COPD. Hypercarbia. Do you want consulting provider notified?: Already Contacted Primary care physician: Robbi Michelle [facility] Course: 68-year-old admitted for hypercapnic respiratory failure secondary to COPD exacerbation patient required BiPAP last night patient is still on BiPAP at this time. Patient only uses a [place] dysfunction at home. Patient is feeling bit better. Patient is coughing up greenish phlegm 06/24/2018 Patient has a better air movement today. Patient is feeling better wanted to go home by Sunday so that he can get ready for [employer] Day. His respiratory status significantly improved patient is presently on 4 L of oxygen saturating at 90% 06/25/2018 Patient respiratory status did not improve significantly but that I believe this is his baseline patient is cleared to be discharged patient was discharged on the for 3 days along with weaning dose of prednisone follow-up with pulmonary as an outpatient PHYSICAL EXAMINATION: GENERAL: The patient is alert and oriented x3, not in any acute distress. Well developed, well nourished. HEENT: Pupils are round and equally reacting to light. EOMI. No scleral icterus. No conjunctival pallor. Normocephalic, atraumatic. No pharyngeal erythema. No thyromegaly. CARDIOVASCULAR: S1 and S2 present. No murmurs, rubs, or gallops. PULMONARY: Significantly diminished air entry into bilateral lung h[place], there is some improvement I can hear some air movement without any wheezing today ABDOMEN: Soft, nontender, nondistended, normoactive bowel sounds. No palpable organomegaly. MUSCULOSKELETAL: No joint swelling or deformity. EXTREMITIES: No cyanosis, clubbing, or pedal edema. NEUROLOGICAL: Gross neurological examination did not reveal any focal deficits. SKIN: No rashes. Assessment and Plan Plan: acute on chronic hypercapnic respiratory failure second to COPD exacerbation. -Leukocytosis secondary to bronchitis -Hyperlipidemia -Anxiety and depression -Gastroesophageal reflux disease\ Peptic ulcer disease or gastritis Patient Condition at Discharge: Serious Plan - Discharge Summary Discharge Rx Participant: No New Discharge Prescriptions: New Albuterol Inhaler [Ventolin Hfa Inhaler] 1 - 2 puff INHALATION Q6HR PRN #1 inhaler PRN Reason: Shortness Of Breath Or Wheezing Budesonide-Formot 160-4.5 Mcg [Symbicort 160-4.5 Mcg Inhaler] 2 puff INHALATION BID #1 inhaler predniSONE 10 mg PO DAILY #30 tab Tiotropium [place] [Spiriva] 1 cap INHALATION DAILY #1 device No Action ARIPiprazole [Abilify] 10 mg PO BID Multivitamins, Thera [Multivitamin (formulary)] 1 tab PO DAILY busPIRone HCL 10 mg PO TID Diltiazem HCl [Diltiazem 24Hr ER] 180 mg PO DAILY Pravastatin Sodium [Pravachol] 40 mg PO HS Omeprazole [PriLOSEC] 20 mg PO BID Gabapentin [Neurontin] 800 mg PO TID Sertraline [Zoloft] 100 mg PO BID Theophylline 24 Hour [Roshan-24] 200 mg PO DAILY Calcium Carbonate 500 mg PO BID Discharge Medication List ARIPiprazole [Abilify] 10 mg PO BID 05/02/17 [History] Diltiazem HCl [Diltiazem 24Hr ER] 180 mg PO DAILY 05/02/17 [History] Gabapentin [Neurontin] 800 mg PO TID 05/02/17 [History] Multivitamins, Thera [Multivitamin (formulary)] 1 tab PO DAILY 05/02/17 [History ] Omeprazole [PriLOSEC] 20 mg PO BID 05/02/17 [History] Pravastatin Sodium [Pravachol] 40 mg PO HS 05/02/17 [History] Sertraline [Zoloft] 100 mg PO BID 05/02/17 [History] busPIRone HCL 10 mg PO TID 05/02/17 [History] Theophylline 24 Hour [[place]han-24] 200 mg PO DAILY 12/07/17 [History] Calcium Carbonate 500 mg PO BID 04/29/18 [History] Albuterol Inhaler [Ventolin Hfa Inhaler] 1 - 2 puff INHALATION Q6HR PRN #1 inhaler 06/25/18 [Rx] Budesonide-Formot 160-4.5 Mcg [Symbicort 160-4.5 Mcg Inhaler] 2 puff INHALATION BID #1 inhaler 06/25/18 [Rx] Tiotropium [place] [Spiriva] 1 cap INHALATION DAILY #1 device 02/12/19 [Rx] predniSONE 10 mg PO DAILY #30 tab 06/25/18 [Rx] Follow up Appointment(s)/Referral(s): Libia Timmons MD [STAFF PHYSICIAN] - 07/02/18 2:15 pm Robbi Michelle DO [Primary Care Provider] - 06/27/18 2:00 pm Patient Instructions/Handouts: COPD (Chronic Obstructive Pulmonary Disease) (DC ) Activity/Diet/Wound Care/Special Instructions: Activity as tolerated. Resume home oxygen. Maintain follow up appointments. Discharge Disposition: HOME SELF-CARE
[2018-06-26] MEDS ORDERED: predniSONE 20 MG TAB PO SCH (09:00)
== END 2018-06-25 16:40 | disposition home or self-care (01) | DRG 190 ==
LOC: EC 00:36 → 2SICU 04:20 → 3SCARD 16:58 → 4MS4W 06-24 19:08
PROVIDERS: ADMIT Hospitalist; ATTEND Hospitalist
PROC: 5A09357 Assistance with Respiratory Ventilation, Less than 24 Consecutive Hours, Continuous Positive Airway Pressure (ICD-10-PCS; principal; 2018-06-22)
DX: J44.1 Chronic obstructive pulmonary disease with (acute) exacerbation (principal); J96.21 Acute and chronic respiratory failure with hypoxia; J96.22 Acute and chronic respiratory failure with hypercapnia; D72.829 Elevated white blood cell count, unspecified; E78.5 Hyperlipidemia, unspecified; F17.210 Nicotine dependence, cigarettes, uncomplicated; F20.9 Schizophrenia, unspecified; F31.9 Bipolar disorder, unspecified; F41.9 Anxiety disorder, unspecified; K21.9 Gastro-esophageal reflux disease without esophagitis; K27.9 Peptic ulcer, site unspecified, unspecified as acute or chronic, without hemorrhage or perforation; K29.70 Gastritis, unspecified, without bleeding; Z79.899 Other long term (current) drug therapy; Z82.49 Family history of ischemic heart disease and other diseases of the circulatory system; R11.0 Nausea; E07.9 Disorder of thyroid, unspecified
CPT/HCPCS: 36415; 70450; 71045; 80048; 80053; 81003; 82140; 82550; 82553; 82805; 83036; 83605; 83880; 84484; 85025; 85027; 85610; 85730; 87502; 93005; 94640; 94660; 96372; 96374; 96376; 99291

== ENCOUNTER 2019-04-22 14:08 | Inpatient (IN) | payer MEDICARE ==
[2019-04-22] MEDS ORDERED: methylPREDNISolone SOD SUCCI 125 MG/2 ML VIAL IV STA (14:45)
[2019-04-22] MEDS ORDERED: MAGNESIUM SULFATE-D5W PMX 1 GM in DEXTROSE/WATER 1 100ML.BAG IVPB STA (14:45)
[2019-04-22] MEDS ORDERED: IPRATROPIUM-ALBUTEROL 3 ML NEB INHALATION STA (14:45)
[2019-04-22 15:20] LABS: Basophils % (A) 0 %; Eosinophils # (A) 0.2 k/uL (0-0.7); Eosinophils % (A) 2 %; HCT 39.4 % (39.0-53.0); HGB 12.6 gm/dL (13.0-17.5); Lymphocytes # (A) 1.3 k/uL (1.0-4.8); Lymphocytes % (A) 14 %; MCH 30.5 pg (25.0-35.0); MCV 95.4 fL (80.0-100.0); Mean Platelet Volume 8.1; Monocytes # (A) 0.4 k/uL (0-1.0); Monocytes % (A) 4 %; Neutrophils # (A) 7.1 k/uL (1.3-7.7); Neutrophils % (A) 78 %; Platelet Count 152 k/uL (150-450); RBC 4.13 m/uL (4.30-5.90); RDW 13.2 % (11.5-15.5); WBC 9.1 k/uL (3.8-10.6)
[2019-04-22 15:29] LABS: Albumin 3.9 g/dL (3.5-5.0); Calcium 8.9 mg/dL (8.4-10.2); INR 0.9 (<1.2); Magnesium 1.6 mg/dL (1.6-2.3); Partial Thromboplastin Time 27.7 sec (22.0-30.0); Potassium 4.5 mmol/L (3.5-5.1); Prothrombin Time 9.8 sec (9.0-12.0); Theophylline 1.8 ug/mL; Total Bilirubin 0.5 mg/dL (0.2-1.3); Total Protein 6.8 g/dL (6.3-8.2)
[2019-04-22 15:35] LABS: Appearance,Urine Clear (Clear); Bilirubin,Urine Negative (Negative); Blood,Urine Small (Negative); Color,Urine Light Yellow; Glucose,Urine (UA) Negative (Negative); Hyaline Casts,Urine 6 /lpf (0-2); Ketones,Urine Negative (Negative); Leukocyte Esterase,Urine Negative (Negative); Mucus,Urine Rare /hpf; Nitrite,Urine Negative (Negative); PH, Urine 5.5 (5.0-8.0); Protein,Urine Negative (Negative); RBC,Urine 9 /hpf (0-5); Specific Gravity,Urine 1.012 (1.001-1.035); Urobilinogen,Urine <2.0 mg/dL (<2.0); WBC,Urine 2 /hpf (0-5)
--- NOTE | 2019-04-22 15:51 | XR ---
EXAMINATION TYPE: XR chest 2V DATE OF EXAM: 04/22/2019 COMPARISON: 06/22/2018 HISTORY: Hypoxemia. TECHNIQUE: Frontal and lateral views of the chest are obtained. FINDINGS: There is chronic interstitial prominence. There is no focal air space opacity, pleural eff usion, or pneumothorax seen. Pulmonary hyperinflation with flattening the diaphragms is indicative of underlying COPD. The cardiac silhouette size is within normal limits. The osseous structures are i ntact. Mild multilevel degenerative change of the spine. IMPRESSION: No acute cardiopulmonary process. Underlying COPD.
[2019-04-22] MEDS ORDERED: IPRATROPIUM-ALBUTEROL 3 ML NEB INHALATION PRN (16:39)
[2019-04-22] MEDS ORDERED: ACETAMINOPHEN TAB 325 MG TAB PO STA (16:40)
--- NOTE | 2019-04-22 16:41 | ED ---
SOB HPI - General Chief Complaint: Shortness of Breath Stated Complaint: Sob Time Seen by Provider: 04/22/19 14:15 Source: patient, EMS Mode of arrival: EMS Limitations: no limitations - History of Present Illness Initial Comments: The patient is a 68-year-old male who presents to the emergency room with reported shortness of breath. He does have a history of COPD on 4 L of home oxygen. He was transferred to the hospital today because he was satting only 74% on 2 L per the who called EMS. The patient is a poor historian and cannot provide any history. He is supposed to be on 4 L of oxygen so was unsure why the patient was only on 2. He does report to increasing shortness of breath over the past day. No recent antibiotic or steroid use. Denies any calf pain or swelling. No history of congestive heart failure. Denies any pedal edema. No history of DVT or PE. Denies any chest pain. No cough, congestion or hemoptysis. Denies any fevers or chills. The remainder of the HPI is incomplete because the patient cannot provide much history - Related Data Home Medications Medication Instructions Recorded Confirmed ARIPiprazole [Abilify] 10 mg PO BID 05/02/17 06/22/18 Diltiazem HCl [Diltiazem 24Hr ER 180 mg PO DAILY 05/02/17 06/22/18 (CD)] Gabapentin [Neurontin] 800 mg PO TID 05/02/17 06/22/18 Multivitamins, Thera [Multivitamin 1 tab PO DAILY 05/02/17 06/22/18 (formulary)] Omeprazole [PriLOSEC] 20 mg PO BID 05/02/17 06/22/18 Pravastatin Sodium [Pravachol] 40 mg PO HS 05/02/17 06/22/18 Sertraline [Zoloft] 100 mg PO BID 05/02/17 06/22/18 busPIRone HCL 10 mg PO TID 05/02/17 06/22/18 Theophylline 24 Hour [Roshan-24] 200 mg PO DAILY 12/07/17 06/22/18 Calcium Carbonate 500 mg PO BID 04/29/18 06/22/18 Previous Rx's Medication Instructions Recorded Albuterol Inhaler [Ventolin Hfa 1 - 2 puff INHALATION Q6HR PRN #1 06/25/18 Inhaler] inhaler Budesonide-Formot 160-4.5 Mcg 2 puff INHALATION BID #1 inhaler 06/25/18 [Symbicort 160-4.5 Mcg Inhaler] Tiotropium [place] [Spiriva] 1 cap INHALATION DAILY #1 device 06/25/18 Doxycycline Monohydrate [Monodox] 100 mg PO BID 3 Days #6 cap 04/23/19 predniSONE 10 mg PO DAILY #30 tab 04/23/19 Allergies Allergy/AdvReac Type Severity Reaction Status Date / Time Influenza Virus Vaccines Allergy Mild Unknown Verified 04/23/19 07:03 Review of Systems ROS Statement: Those systems with pertinent positive or pertinent negative responses have been documented in the HPI. ROS Other: All systems not noted in ROS Statement are negative. Past Medical History Past Medical History: COPD, GERD/Reflux, Hyperlipidemia, Thyroid Disorder Additional Past Medical History / Comment(s): Chronic hypoxic respiratory failure, COPD, chronic hypercapnic respiratory failure, chronic anxiety, depression, hyperlipidemia History of Any Multi-Drug Resistant Organisms: None Reported Past Surgical History: No Surgical Hx Reported Past Anesthesia/Blood Transfusion Reactions: No Reported Reaction Past Psychological History: Anxiety, Bipolar, Depression, Schizophrenia Smoking Status: Former smoker Past Alcohol Use History: None Reported Past Drug Use History: None Reported, Marijuana - Past Family History Father Family Medical History: Myocardial Infarction ([place]) General Exam Limitations: no limitations General appearance: alert, in distress (mild respiratory distress) Head exam: Present: atraumatic, normocephalic, normal inspection Eye exam: Present: normal appearance, PERRL, EOMI. Absent: scleral icterus, conjunctival injection, periorbital swelling ENT exam: Present: normal exam, mucous membranes moist Neck exam: Present: normal inspection. Absent: tenderness, meningismus, lymphadenopathy Respiratory exam: Present: respiratory distress, wheezes, accessory muscle use, decreased breath sounds. Absent: rales, rhonchi, stridor Cardiovascular Exam: Present: regular rate, tachycardia, normal heart sounds. Absent: systolic murmur, diastolic murmur, rubs, gallop, clicks GI/Abdominal exam: Present: soft, normal bowel sounds. Absent: distended, ten derness, guarding, rebound, rigid Extremities exam: Present: normal inspection, full ROM, normal capillary refill. Absent: tenderness, pedal edema, joint swelling, calf tenderness Back exam: Present: normal inspection Neurological exam: Present: alert, oriented X3, CN II-XII intact Psychiatric exam: Present: normal affect, normal mood Skin exam: Present: warm, dry, intact, normal color. Absent: rash Course Vital Signs 04/22/19 04/22/19 04/22/19 14:11 14:45 15:13 Temperature 98.5 F Pulse Rate 109 H 101 H Respiratory 24 24 Rate Blood Pressure 141/89 O2 Sat by Pulse 100 Oximetry 04/22/19 04/22/19 04/22/19 15:18 15:20 16:00 Temperature Pulse Rate 101 H 100 96 Respiratory 20 20 Rate Blood Pressure 148/92 O2 Sat by Pulse 97 97 Oximetry 04/22/19 04/22/19 04/22/19 16:37 16:56 17:00 Temperature 100.1 F H Pulse Rate 101 H 99 Respiratory 22 20 Rate Blood Pressure 132/88 132/88 O2 Sat by Pulse 96 96 Oximetry 04/22/19 04/22/19 04/22/19 18:00 19:13 19:25 Temperature 100.3 F H Pulse Rate 101 H 93 102 H Respiratory 20 Rate Blood Pressure 114/71 O2 Sat by Pulse 97 Oximetry 04/22/19 19:43 Temperature Pulse Rate 88 Respiratory 18 Rate Blood Pressure 120/78 O2 Sat by Pulse 95 Oximetry Medical Decision Making - Medical Decision Making Upon arrival the patient was placed into room 11. He is on a nonrebreather. He is place on his 4 L of oxygen. He does have diminished breath sounds and expiratory wheeze. He is tachypneic. Peripheral IV was established. He was given a DuoNeb breathing treatment, 1 g of magnesium and 125 mg of Solu-Medrol. Laboratory studies were conducted. CBC is unremarkable. Coags are normal. CMP shows a CO2 of 40. Urinalysis is negative. Theophylline low at 1.8. Influenza A and B are -12-lead EKG is performed which shows her to sinus tachycardia. Chest x-ray demonstrates no acute cardio pulmonary process. The patient was reevaluated in does appear more comfortable in the exam room. Because of his hypoxia did recommend admission for COPD exacerbation. He'll receive a dose of antibiotics as he does spike a temp of 100.3. He also had breathing treatments and steroids. Pulmonology will be consult. I discussed the case with Dr. Martinez who accepted admission. Patient is awaiting a bed on the floor - Lab Data Result diagrams: 04/22/19 14:24 04/22/19 14:24 Lab Results 04/22/19 04/22/19 04/22/19 Range/Units 14:24 14:24 14:24 WBC 9.1 (3.8-10.6) k/uL RBC 4.13 L (4.30-5.90) m/uL Hgb 12.6 L (13.0-17.5) gm/dL Hct 39.4 (39.0-53.0) % MCV 95.4 (80.0-100.0) fL MCH 30.5 (25.0-35.0) pg MCHC 32.0 (31.0-37.0) g/dL RDW 13.2 (11.5-15.5) % Plt Count 152 (150-450) k/uL Neutrophils % 78 % Lymphocytes % 14 % Monocytes % 4 % Eosinophils % 2 % Basophils % 0 % Neutrophils # 7.1 (1.3-7.7) k/uL Lymphocytes # 1.3 (1.0-4.8) k/uL Monocytes # 0.4 (0-1.0) k/uL Eosinophils # 0.2 (0-0.7) k/uL Basophils # 0.0 (0-0.2) k/uL PT (9.0-12.0) sec INR (<1.2) APTT (22.0-30.0) sec Sodium 142 (137-145) mmol/L Potassium 4.5 (3.5-5.1) mmol/L Chloride 95 L (98-107) mmol/L Carbon Dioxide 40 H (22-30) mmol/L Anion Gap 7 mmol/L BUN 18 (9-20) mg/dL Creatinine 1.06 (0.66-1.25) mg/dL Est GFR (CKD-EPI)AfAm 84 (>60 ml/min/1.73 sqM) Est GFR (CKD-EPI)NonAf 73 (>60 ml/min/1.73 sqM) Glucose 118 H (74-99) mg/dL Calcium 8.9 (8.4-10.2) mg/dL Magnesium 1.6 (1.6-2.3) mg/dL Total Bilirubin 0.5 (0.2-1.3) mg/dL AST 23 (17-59) U/L ALT 19 L (21-72) U/L Alkaline Phosphatase 86 (38-126) U/L Troponin I (0.000-0.034) ng/mL NT-Pro-B Natriuret Pep 359 pg/mL Total Protein 6.8 (6.3-8.2) g/dL Albumin 3.9 (3.5-5.0) g/dL Urine Color Urine Appearance (Clear) Urine pH (5.0-8.0) Ur Specific [place] (1.001-1.035) Urine Protein (Negative) Urine Glucose (UA) (Negative) Urine Ketones (Negative) Urine Blood (Negative) Urine Nitrite (Negative) Urine Bilirubin (Negative) Urine Urobilinogen (<2.0) mg/dL Ur Leukocyte Esterase (Negative) Urine RBC (0-5) /hpf Urine WBC (0-5) /hpf Hyaline Casts (0-2) /lpf Urine Mucus (None) /hpf Theophylline 1.8 ug/mL 04/22/19 04/22/19 04/22/19 Range/Units 14:24 14:24 15:10 WBC (3.8-10.6) k/uL RBC (4.30-5.90) m/uL Hgb (13.0-17.5) gm/dL Hct (39.0-53.0) % MCV (80.0-100.0) fL MCH (25.0-35.0) pg MCHC (31.0-37.0) g/dL RDW (11.5-15.5) % Plt Count (150-450) k/uL Neutrophils % % Lymphocytes % % Monocytes % % Eosinophils % % Basophils % % Neutrophils # (1.3-7.7) k/uL Lymphocytes # (1.0-4.8) k/uL Monocytes # (0-1.0) k/uL Eosinophils # (0-0.7) k/uL Basophils # (0-0.2) k/uL PT 9.8 (9.0-12.0) sec INR 0.9 (<1.2) APTT 27.7 (22.0-30.0) sec Sodium (137-145) mmol/L Potassium (3.5-5.1) mmol/L Chloride (98-107) mmol/L Carbon Dioxide (22-30) mmol/L Anion Gap mmol/L BUN (9-20) mg/dL Creatinine (0.66-1.25) mg/dL Est GFR (CKD-EPI)AfAm (>60 ml/min/1.73 sqM) Est GFR (CKD-EPI)NonAf (>60 ml/min/1.73 sqM) Glucose (74-99) mg/dL Calcium (8.4-10.2) mg/dL Magnesium (1.6-2.3) mg/dL Total Bilirubin (0.2-1.3) mg/dL AST (17-59) U/L ALT (21-72) U/L Alkaline Phosphatase (38-126) U/L Troponin I <0.012 (0.000-0.034) ng/mL NT-Pro-B Natriuret Pep pg/mL Total Protein (6.3-8.2) g/dL Albumin (3.5-5.0) g/dL Urine Color Light Yellow Urine Appearance Clear (Clear) Urine pH 5.5 (5.0-8.0) Ur Specific [place] 1.012 (1.001-1.035) Urine Protein Negative (Negative) Urine Glucose (UA) Negative (Negative) Urine Ketones Negative (Negative) Urine Blood Small H (Negative) Urine Nitrite Negative (Negative) Urine Bilirubin Negative (Negative) Urine Urobilinogen <2.0 (<2.0) mg/dL Ur Leukocyte Esterase Negative (Negative) Urine RBC 9 H (0-5) /hpf Urine WBC 2 (0-5) /hpf Hyaline Casts 6 H (0-2) /lpf Urine Mucus Rare H (None) /hpf Theophylline ug/mL - EKG Data EKG Comments: EKG demonstrates a sinus tachycardia with a ventricular rate of 101. [place] interval 186. QRS 88. QTC of 477. There is significant artifact. No acute ST segment elevations or depressions Disposition Clinical Impression: Acute on chronic respiratory failure with hypercapnia, COPD exacerbation Disposition: ADMITTED IP TO THIS [facility] Condition: Serious Is patient prescribed a controlled substance at d/c from ED?: No Decision to Admit Reason: Admit from EC Decision Date: 04/22/19 Decision Time: 16:41
[2019-04-22] MEDS ORDERED: NALOXONE 0.4 MG/ML 1 ML VIAL IV PRN (16:42)
[2019-04-22] MEDS ORDERED: ACETAMINOPHEN TAB 325 MG TAB PO PRN (16:42)
[2019-04-22] MEDS ORDERED: IBUPROFEN 400 MG TAB PO PRN (16:42)
[2019-04-22] MEDS ORDERED: cefTRIAXone IN SWFI 1,000 MG/10 ML SYRINGE IVP STA (17:18)
[2019-04-22] MEDS ORDERED: AZITHROMYCIN 500 MG in SODIUM CHLORIDE 0.9% 250 ML IVPB STA (17:18)
--- NOTE | 2019-04-22 17:57 | P.HPIM ---
History of Present Illness Patient is 68-year-old male was sent in here by his as patient was quite a bit short of breath although patient tells me he came in here because of nausea vomiting and stomach upset which resolved at this time. Patient does have history of COPD he was wheezing earlier today improved with the breathing treatments. Patient was also complaining of epigastric abdominal discomfort which resolved patient denied any generalized body aches patient is found to have low-grade fever. Blood cultures are being obtained Tylenol was given there is no evidence of pneumonia on the chest x-ray UA is not impressive for UTI patient doesn't have any UTI symptoms of pneumonia symptoms either patient does complain of cough but no significant sputum production I asked ER physician did give one dose of antibiotics will not continue this antibiotic will just monitor without antibiotics after the dose and we will repeat the chest x-ray tomorrow infectious infiltrate probably will start him on antibiotics at that time for now will hold off on antibiotics after that initial dose in ER. Review of Systems REVIEW OF SYSTEMS: CONSTITUTIONAL: No fever, no malaise, no fatigue. HEENT: No recent visual problems or hearing problems. Denied any sore throat. CARDIOVASCULAR: No chest pain, orthopnea, PND, no palpitations, no syncope. PULMONARY: Mentioned in HPI GASTROINTESTINAL: As mentioned in HPI, no diarrhea NEUROLOGICAL: No headaches, no weakness, no numbness. HEMATOLOGICAL: Denies any bleeding or petechiae. GENITOURINARY: Denies any burning micturition, frequency, or urgency. MUSCULOSKELETAL/RHEUMATOLOGICAL: Denies any joint pain, swelling, or any muscle pain. ENDOCRINE: Denies any polyuria or polydipsia. The rest of the 14-point review of systems is negative. Past Medical History Past Medical History: COPD, GERD/Reflux, Hyperlipidemia, Thyroid Disorder Additional Past Medical History / Comment(s): Chronic hypoxic respiratory failure, COPD, chronic hypercapnic respiratory failure, chronic anxiety, depression, hyperlipidemia History of Any Multi-Drug Resistant Organisms: None Reported Past Surgical History: No Surgical Hx Reported Past Anesthesia/Blood Transfusion Reactions: No Reported Reaction Past Psychological History: Anxiety, Bipolar, Depression, Schizophrenia Smoking Status: Former smoker Past Alcohol Use History: None Reported Past Drug Use History: None Reported, Marijuana - Past Family History Father Family Medical History: Myocardial Infarction ([place]) Medications and Allergies Home Medications Medication Instructions Recorded Confirmed Type ARIPiprazole [Abilify] 10 mg PO BID 05/02/17 06/22/18 History Diltiazem HCl [Diltiazem 24Hr ER 180 mg PO DAILY 05/02/17 06/22/18 History (CD)] Gabapentin [Neurontin] 800 mg PO TID 05/02/17 06/22/18 History Multivitamins, Thera [Multivitamin 1 tab PO DAILY 05/02/17 06/22/18 History (formulary)] Omeprazole [PriLOSEC] 20 mg PO BID 05/02/17 06/22/18 History Pravastatin Sodium [Pravachol] 40 mg PO HS 05/02/17 06/22/18 History Sertraline [Zoloft] 100 mg PO BID 05/02/17 06/22/18 History busPIRone HCL 10 mg PO TID 05/02/17 06/22/18 History Theophylline 24 Hour [Roshan-24] 200 mg PO DAILY 12/07/17 06/22/18 History Calcium Carbonate 500 mg PO BID 04/29/18 06/22/18 History Albuterol Inhaler [Ventolin Hfa 1 - 2 puff INHALATION Q6HR PRN #1 06/25/18 Rx Inhaler] inhaler Budesonide-Formot 160-4.5 Mcg 2 puff INHALATION BID #1 inhaler 06/25/18 Rx [Symbicort 160-4.5 Mcg Inhaler] Doxycycline Monohydrate [Monodox] 100 mg PO BID 3 Days #6 cap 06/25/18 Rx Tiotropium [place] [Spiriva] 1 cap INHALATION DAILY #1 device 06/25/18 Rx predniSONE 10 mg PO DAILY #30 tab 06/25/18 Rx Allergies Allergy/AdvReac Type Severity Reaction Status Date / Time No Known Allergies Allergy Verified 04/22/19 16:48 Physical Exam Vitals: Vital Signs Temp Pulse Resp BP Pulse Ox 04/22/19 16:56 101 H 22 132/88 96 04/22/19 16:37 100.1 F H 04/22/19 15:20 100 04/22/19 15:13 101 H 04/22/19 14:45 24 04/22/19 14:11 98.5 F 109 H 24 141/89 100 Intake and Output 04/22/19 04/22/19 04/22/19 06:59 14:59 22:59 Other: Weight 80.739 kg PHYSICAL EXAMINATION: GENERAL: The patient is alert and oriented x3, not in any acute distress. Well developed, well nourished. HEENT: Pupils are round and equally reacting to light. EOMI. No scleral icterus. No conjunctival pallor. Normocephalic, atraumatic. No pharyngeal erythema. No thyromegaly. CARDIOVASCULAR: S1 and S2 present. No murmurs, rubs, or gallops. PULMONARY: Fairly good air entry into bilateral lung hogue minimal expiratory w heezing was appreciated.. ABDOMEN: Soft, nontender, nondistended, normoactive bowel sounds. No palpable organomegaly. MUSCULOSKELETAL: No joint swelling or deformity. EXTREMITIES: No cyanosis, clubbing, or pedal edema. NEUROLOGICAL: Gross neurological examination did not reveal any focal deficits. SKIN: No rashes. Results CBC & Chem 7: 04/22/19 14:24 04/22/19 14:24 Labs: Abnormal Lab Results - Last 24 Hours (Table) 04/22/19 04/22/19 04/22/19 Range/Units 14:24 14:24 15:10 RBC 4.13 L (4.30-5.90) m/uL Hgb 12.6 L (13.0-17.5) gm/dL Chloride 95 L (98-107) mmol/L Carbon Dioxide 40 H (22-30) mmol/L Glucose 118 H (74-99) mg/dL ALT 19 L (21-72) U/L Urine Blood Small H (Negative) Urine RBC 9 H (0-5) /hpf Hyaline Casts 6 H (0-2) /lpf Urine Mucus Rare H (None) /hpf Assessment and Plan Plan: -Acute on chronic hypercapnic respiratory failure secondary to COPD exacerbation patient apparently just mellitus of oxygen as per the patient patient wheezing improved patient was started on oral steroids inhalational treatments will be continued. -Systemic inflammatory response syndrome: Etiology is not clear probably viral gastrointestinal infection after initial dose of antibiotics will hold off on f urther antibiotics we'll repeat chest x-ray tomorrow to make sure patient doesn't have any developing infiltrate -Vital gastritis or peptic ulcer disease: Ibuprofen will be held and patient will be started on Protonix -Hyperlipidemia -Hypothyroidism -Depression DVT prophylaxis subcutaneous heparin For above-mentioned chronic medical problems patient will be resumed and continued on appropriate home medications
[2019-04-22] MEDS: PANTOPRAZOLE 40 MG/10 ML VIAL IVP SCH (19:00)
[2019-04-22] MEDS: IPRATROPIUM-ALBUTEROL 3 ML NEB INHALATION SCH (19:12)
[2019-04-22] MEDS: SYMBICORT 160-4.5 MCG INHALER INHALATION SCH (19:39)
[2019-04-22] MEDS ORDERED: SODIUM CHLORIDE 0.9% 1,000 ML IV SCH (20:25)
[2019-04-22] MEDS ORDERED: NON FORMULARY DRUG (Omeprazole 20 MG) PO SCH (21:00)
[2019-04-22] MEDS ORDERED: PRAVASTATIN SODIUM 40 MG TAB PO SCH (21:00)
[2019-04-22] MEDS: busPIRone HCl 10 MG TAB PO SCH (21:09)
[2019-04-22] MEDS: HEPARIN SODIUM,PORCINE 5,000 UNIT/ML 1 ML VIAL SQ SCH (21:09)
[2019-04-22] MEDS: SERTRALINE 100 MG TAB PO SCH (21:09)
[2019-04-22] MEDS: CALCIUM CARBONATE 500 MG CHEWABLE PO SCH (21:09)
[2019-04-22] MEDS: ARIPiprazole 10 MG TAB PO SCH (21:09)
[2019-04-22] MEDS: GABAPENTIN 300 MG CAP PO SCH (21:09)
[2019-04-23 07:29] VITALS: BP 119/49; RESP 16; TEMP 98
[2019-04-23] MEDS: SERTRALINE 100 MG TAB PO SCH (08:41)
[2019-04-23] MEDS: ARIPiprazole 10 MG TAB PO SCH (08:42)
[2019-04-23] MEDS: CALCIUM CARBONATE 500 MG CHEWABLE PO SCH (08:42)
[2019-04-23] MEDS: busPIRone HCl 10 MG TAB PO SCH (08:42)
[2019-04-23] MEDS: HEPARIN SODIUM,PORCINE 5,000 UNIT/ML 1 ML VIAL SQ SCH (08:42)
[2019-04-23] MEDS: PANTOPRAZOLE 40 MG/10 ML VIAL IVP SCH (08:42)
[2019-04-23] MEDS: GABAPENTIN 300 MG CAP PO SCH (08:42)
[2019-04-23] MEDS: SYMBICORT 160-4.5 MCG INHALER INHALATION SCH (08:55)
[2019-04-23] MEDS: IPRATROPIUM-ALBUTEROL 3 ML NEB INHALATION SCH ×2 (08:55→12:28)
[2019-04-23] MEDS ORDERED: DILTIAZEM CD 180 MG CAP.ER.24H PO SCH (09:00)
[2019-04-23] MEDS ORDERED: predniSONE 20 MG TAB PO SCH (09:00)
[2019-04-23 12:39] VITALS: PULSE 96
--- NOTE | 2019-04-23 12:44 | P.DS ---
Providers Date of admission: 04/22/19 16:42 Attending physician: Hemanth Martinez Consults: 04/22/19 16:44 Consult Physician Urgent Consulting Provider: Libia Timmons Reason/Comments: a/c hypoxic resp failure Do you want consulting provider notified?: Yes Primary care physician: [facility] Course: 68-year-old male was sent in here by his as patient was quite a bit short of breath although patient tells me he came in here because of nausea vomiting and stomach upset which resolved at this time. Patient does have history of COPD he was wheezing earlier today improved with the breathing treatments. Patient was also complaining of epigastric abdominal discomfort which resolved patient denied any generalized body aches patient is found to have low-grade fever. Blood cultures are being obtained Tylenol was given there is no evidence of pneumonia on the chest x-ray UA is not impressive for UTI patient doesn't have any UTI symptoms of pneumonia symptoms either patient does complain of cough but no significant sputum production I asked ER physician did give one dose of antibiotics will not continue this antibiotic will just monitor without antibiotics after the dose and we will repeat the chest x-ray tomorrow infectious infiltrate probably will start him on antibiotics at that time for now will hold off on antibiotics after that initial dose in ER. 04/23/2019 Patient respiratory status is at his baseline, the only concern is that his physical ability to go home. We will make him walk around if he is doing okay patient will be discharged today or rales will get PT and OT consultation. The patient is strong enough will be discharged today patient does have some tremor which are as per the patient is chronic, air entry significantly decreased which is expected for severe COPD and his baseline. No wheezing was appreciated. PHYSICAL EXAMINATION: GENERAL: The patient is alert and oriented x3, not in any acute distress. Well developed, well nourished. HEENT: Pupils are round and equally reacting to light. EOMI. No scleral icterus. No conjunctival pallor. Normocephalic, atraumatic. No pharyngeal erythema. No thyromegaly. CARDIOVASCULAR: S1 and S2 present. No murmurs, rubs, or gallops. PULMONARY: Diminished air movement without any wheezing. ABDOMEN: Soft, nontender, nondistended, normoactive bowel sounds. No palpable organomegaly. MUSCULOSKELETAL: No joint swelling or deformity. EXTREMITIES: No cyanosis, clubbing, or pedal edema. NEUROLOGICAL: Gross neurological examination did not reveal any focal deficits. SKIN: No rashes. Assessment and Plan Plan: -Acute on chronic hypercapnic respiratory failure secondary to COPD exacerbation, patient uses 4-5 L of oxygen at home, patient is presently at his baseline -Systemic inflammatory response syndrome: Etiology is not clear probably viral gastrointestinal infection after initial dose of antibiotics patient had was afebrile and didn't require any antibiotics patient will be discharged and oxygen for bronchitis -Vital gastritis or peptic ulcer disease: Patient is on Prilosec at home. -Hyperlipidemia -Hypothyroidism -Depression Patient Condition at Discharge: Serious Plan - Discharge Summary Discharge Rx Participant: Yes New Discharge Prescriptions: New predniSONE 10 mg PO DAILY #30 tab Continue ARIPiprazole [Abilify] 10 mg PO BID Multivitamins, Thera [Multivitamin (formulary)] 1 tab PO DAILY busPIRone HCL 10 mg PO TID Diltiazem HCl [Diltiazem 24Hr ER (CD)] 180 mg PO DAILY Pravastatin Sodium [Pravachol] 40 mg PO HS Omeprazole [PriLOSEC] 20 mg PO BID Gabapentin [Neurontin] 800 mg PO TID Sertraline [Zoloft] 100 mg PO BID Theophylline 24 Hour [Roshan-24] 200 mg PO DAILY Calcium Carbonate 500 mg PO BID Albuterol Inhaler [Ventolin Hfa Inhaler] 1 - 2 puff INHALATION Q6HR PRN #1 in haler PRN Reason: Shortness Of Breath Or Wheezing Budesonide-Formot 160-4.5 Mcg [Symbicort 160-4.5 Mcg Inhaler] 2 puff INHALATION BID #1 inhaler Tiotropium [place] [Spiriva] 1 cap INHALATION DAILY #1 device Doxycycline Monohydrate [Monodox] 100 mg PO BID 3 Days #6 cap Discontinued predniSONE 10 mg PO DAILY #30 tab Discharge Medication List ARIPiprazole [Abilify] 10 mg PO BID 05/02/17 [History] Diltiazem HCl [Diltiazem 24Hr ER (CD)] 180 mg PO DAILY 05/02/17 [History] Gabapentin [Neurontin] 800 mg PO TID 05/02/17 [History] Multivitamins, Thera [Multivitamin (formulary)] 1 tab PO DAILY 05/02/17 [History] Omeprazole [PriLOSEC] 20 mg PO BID 05/02/17 [History] Pravastatin Sodium [Pravachol] 40 mg PO HS 05/02/17 [History] Sertraline [Zoloft] 100 mg PO BID 05/02/17 [History] busPIRone HCL 10 mg PO TID 05/02/17 [History] Theophylline 24 Hour [Roshan-24] 200 mg PO DAILY 12/07/17 [History] Calcium Carbonate 500 mg PO BID 04/29/18 [History] Albuterol Inhaler [Ventolin Hfa Inhaler] 1 - 2 puff INHALATION Q6HR PRN #1 inhaler 06/25/18 [Rx] Budesonide-Formot 160-4.5 Mcg [Symbicort 160-4.5 Mcg Inhaler] 2 puff INHALATION BID #1 inhaler 06/25/18 [Rx] Tiotropium [place] [Spiriva] 1 cap INHALATION DAILY #1 device 06/25/18 [Rx] Doxycycline Monohydrate [Monodox] 100 mg PO BID 3 Days #6 cap 04/23/19 [Rx] predniSONE 10 mg PO DAILY #30 tab 04/23/19 [Rx] Follow up Appointment(s)/Referral(s): Robbi Michelle DO [Primary Care Provider] - 04/24/19 2:00 pm Patient Instructions/Handouts: COPD (Chronic Obstructive Pulmonary Disease) (DC) Discharge Disposition: HOME SELF-CARE
--- NOTE | 2019-04-23 14:58 | CONS ---
CONSULTATION PULMONARY/CRITICAL CARE CONSULTATION: DATE OF SERVICE: 04/23/2019 This is a 68-year-old male with a history of underlying COPD. The patient comes to the emergency department with complaints of increasing shortness of breath. The patient does have a history of underlying COPD and has seen my partner Dr. Dc in the past but the patient never came to the office for followup. He apparently was initially at an outside hospital and transferred here to be seen. He apparently was not improving there. The patient states that his complaints included shortness of breath, chest tightness, cough, wheezing, and phlegm production. He is now feeling much improved. The patient denied any fever or chills. Denies any chest pain or chest pressure. There was no vomiting, nausea, vomiting or diarrhea. He denied any genitourinary complaints. Denied any hemoptysis. Again, he was recently in the hospital and was seen by my partner, but never came to the office for followup. He has been smoking for 57 years. He started at the age of 11. Currently, the patient is feeling much improved. He is somewhat of a poor historian, I asked him about the medications he is on. He is not really able to give me much history. He states he takes a green inhaler and it sounds like he has a nebulizer machine with albuterol. HOME MEDICATIONS: Include Abilify, diltiazem, Neurontin, multivitamins, omeprazole, pravastatin, Zoloft, BuSpar, theophylline, and calcium carbonate. Other medications according to the lisa include rescue inhaler, Symbicort, doxycycline and Spiriva. He also apparently has been taking prednisone 10 mg a day. I am not sure of these are recent medications given to him by the outside hospital or these are chronic medications, I tend to believe the former, and not the latter. ALLERGIES: Denied. MEDICAL HISTORY: COPD, acid reflux disease, hyperlipidemia, chronic hypoxemic respiratory failure, hypertension, chronic anxiety, depression, and hypothyroidism. SURGICAL HISTORY: Denied. SOCIAL HISTORY: Positive for ongoing tobacco use up until just recently. He may have just stopped when he came into the hospital. Not clear. He denies any alcohol or illicit drug use except for previous use of marijuana occasionally. FAMILY HISTORY: Positive for father with myocardial infarction. REVIEW OF SYSTEMS: CONSTITUTIONAL: Negative. NEUROLOGIC: Negative. HEENT: Negative. CARDIOVASCULAR: Negative. PULMONARY: Shortness of breath, chest tightness, wheezing, cough and phlegm production. GI: Negative. : Negative. RHEUMATOLOGIC: Negative. IMMUNOLOGIC: Negative. ENDOCRINOLOGIC: Negative. DERMATOLOGIC: Negative. Current vital signs are reviewed, temperature is 98, heart rate 96, respiratory rate 16, blood pressure 119/49 mean 72, 4 L saturation 93%. Appears in no acute distress. HEENT: Examination is grossly unremarkable. Mucous membranes are moist. No oral lesions. NECK: Supple. Full range of motion. No adenopathy or thyromegaly. Neck veins are flat. CARDIOVASCULAR: Examination reveals regular rhythm and rate. S1, S2 normal. There is no S3, S4, murmur. Heart rate about 86 beats per minute. LUNGS: Reveal severely diminished breath sounds. Some mild expiratory wheezes. A few scattered rhonchi. There is slight prolongation on forced maneuver. No crackles. ABDOMEN: Soft. Bowel sounds are heard. No masses or tenderness. EXTREMITIES: Intact. No cyanosis, clubbing, or edema. SKIN: Without rash. NEUROLOGIC: Examination is brief but nonfocal. LAB DATA: Reviewed. White count 9.1, hemoglobin 12.6, hematocrit 39.4, platelet count 152,000. PT, INR, an PTT all normal. Sodium, potassium normal. Chloride is 95, CO2 is 40, anion gap is 7, BUN and creatinine were 18 and 1.06. Glucose 118. The rest of the comprehensive metabolic profile was normal. Urine was negative. Influenza studies were negative. Theophylline level 1.8. A chest x-ray done on April 22 shows no acute cardiopulmonary disease. There are changes of COPD. Medications are reviewed. From the pulmonary standpoint, he remains on Symbicort, DuoNeb updrafts, and Solu-Medrol. He is also given prednisone after IV Solu-Medrol. He also received antibiotics in the form of Zithromax and Rocephin initially. ASSESSMENT: 1. Chronic obstructive pulmonary disease exacerbation, complicated by purulent tracheobronchitis in a patient with probable severe chronic obstructive pulmonary disease. 2. Fifty-seven years of tobacco use. 3. History of hypertension. 4. History of neuropathy. 5. History of acid reflux disease. 6. Hyperlipidemia. 7. History of depression. 8. History of anxiety. 9. Chronic hypoxemic respiratory failure. 10.History of gastroesophageal reflux disease. 11.History of hypothyroidism. 12.History of bipolar disorder. PLAN: The patient is doing better. The patient could be discharged in next 24-48 hours. No additional recommendations are made. We do recommend that he come to the office to be evaluated. The patient does need to complete pulmonary function testing. He would also benefit from a 6 minute walk distance. Prior to any discharge whenever it occurs, the patient will need a resting room air saturation and a saturation walking up and down the hallway. He may need long-term oxygen therapy. Again, this is were pulmonary function tests will be quite helpful. MMODL / IJN: [id number] /
[2019-04-24] MEDS ORDERED: PANTOPRAZOLE 40 MG TABLET PO SCH (07:30)
== END 2019-04-23 14:31 | disposition home or self-care (01) | DRG 189 ==
LOC: EC 14:08 → 4SSUR 16:42
PROVIDERS: ADMIT Internal Medicine; ATTEND Internal Medicine
DX: J96.22 Acute and chronic respiratory failure with hypercapnia (principal); J44.1 Chronic obstructive pulmonary disease with (acute) exacerbation; J96.21 Acute and chronic respiratory failure with hypoxia; E03.9 Hypothyroidism, unspecified; E78.5 Hyperlipidemia, unspecified; F20.9 Schizophrenia, unspecified; F31.9 Bipolar disorder, unspecified; F41.9 Anxiety disorder, unspecified; I10 Essential (primary) hypertension; A08.4 Viral intestinal infection, unspecified; Z79.51 Long term (current) use of inhaled steroids; Z79.899 Other long term (current) drug therapy; Z82.49 Family history of ischemic heart disease and other diseases of the circulatory system; Z87.891 Personal history of nicotine dependence; Z99.81 Dependence on supplemental oxygen; Z88.7 Allergy status to serum and vaccine
CPT/HCPCS: 36415; 71046; 80053; 80198; 81001; 83735; 83880; 84484; 85025; 85610; 85730; 87040; 87502; 93005; 94640; 94760; 96365; 96367; 96375; 99285

== ENCOUNTER 2019-05-27 10:38 | Observation (INO) | payer MEDICARE ==
[2019-05-27] MEDS ORDERED: IPRATROPIUM-ALBUTEROL 3 ML NEB INHALATION STA (10:51)
--- NOTE | 2019-05-27 10:56 | ED ---
General Adult HPI - General Chief complaint: Shortness of Breath Stated complaint: STEPHANIA Time Seen by Provider: 05/27/19 10:46 Source: EMS, RN notes reviewed Mode of arrival: EMS Limitations: no limitations - History of Present Illness Initial comments: Patient is a pleasant 69-year-old male presenting to the emergency department with difficulty in breathing. [facility] and [facility] not long [facility]. Patient was trying to discontinue smoking. Patient does use oxygen and breathing treatments at home. EMS provided 2 albuterol treatments and one Atrovent treatment. patient states symptoms have improved. EMS states patient does looks somewhat better. Patient states dyspnea is not severe at this time. No significant cough or fever. No leg pain or leg swelling. Patient does have history of similar symptoms previously associated with his COPD. - Related Data Home Medications Medication Instructions Recorded Confirmed ARIPiprazole [Abilify] 10 mg PO BID 05/02/17 06/22/18 Diltiazem HCl [Diltiazem 24Hr ER 180 mg PO DAILY 05/02/17 06/22/18 (CD)] Gabapentin [Neurontin] 800 mg PO TID 05/02/17 06/22/18 Multivitamins, Thera [Multivitamin 1 tab PO DAILY 05/02/17 06/22/18 (formulary)] Omeprazole [PriLOSEC] 20 mg PO BID 05/02/17 06/22/18 Pravastatin Sodium [Pravachol] 40 mg PO HS 05/02/17 06/22/18 Sertraline [Zoloft] 100 mg PO BID 05/02/17 06/22/18 busPIRone HCL 10 mg PO TID 05/02/17 06/22/18 Theophylline 24 Hour [Roshan-24] 200 mg PO DAILY 12/07/17 06/22/18 Calcium Carbonate 500 mg PO BID 04/29/18 06/22/18 Previous Rx's Medication Instructions Recorded Albuterol Inhaler [Ventolin Hfa 1 - 2 puff INHALATION Q6HR PRN #1 06/25/18 Inhaler] inhaler Budesonide-Formot 160-4.5 Mcg 2 puff INHALATION BID #1 inhaler 06/25/18 [Symbicort 160-4.5 Mcg Inhaler] Tiotropium [place] [Spiriva] 1 cap INHALATION DAILY #1 device 06/25/18 Doxycycline Monohydrate [Monodox] 100 mg PO BID 3 Days #6 cap 04/23/19 predniSONE 10 mg PO DAILY #30 tab 04/23/19 Allergies Allergy/AdvReac Type Severity Reaction Status Date / Time Influenza Virus Vaccines AdvReac Mild Diarrhea/CR Verified 05/27/19 11:41 AMPS/FEVER Review of Systems ROS Statement: Those systems with pertinent positive or pertinent negative responses have been documented in the HPI. ROS Other: All systems not noted in ROS Statement are negative. Constitutional: Denies: fever Eyes: Denies: eye pain ENT: Denies: ear pain Respiratory: Reports: cough, dyspnea Cardiovascular: Denies: chest pain Endocrine: Reports: fatigue Gastrointestinal: Denies: abdominal pain Genitourinary: Denies: dysuria Musculoskeletal: Denies: back pain Skin: Denies: rash Neurological: Denies: weakness Past Medical History Past Medical History: COPD, GERD/Reflux, Hyperlipidemia, Thyroid Disorder Additional Past Medical History / Comment(s): Chronic hypoxic respiratory failure, COPD, chronic hypercapnic respiratory failure, chronic anxiety, depression, hyperlipidemia History of Any Multi-Drug Resistant Organisms: None Reported Past Surgical History: No Surgical Hx Reported Past Anesthesia/Blood Transfusion Reactions: No Reported Reaction Past Psychological History: Anxiety, Bipolar, Depression, Schizophrenia Smoking Status: Former smoker Past Alcohol Use History: None Reported Past Drug Use History: None Reported, Marijuana - Past Family History Father Family Medical History: Myocardial Infarction ([place]) General Exam Limitations: no limitations General appearance: alert, in no apparent distress Head exam: Present: normocephalic Eye exam: Present: normal appearance, PERRL ENT exam: Present: normal oropharynx Neck exam: Present: normal inspection Respiratory exam: Present: decreased breath sounds Cardiovascular Exam: Present: regular rate, normal rhythm GI/Abdominal exam: Present: soft. Absent: distended, tenderness Extremities exam: Present: normal inspection. Absent: pedal edema, calf tenderness Neurological exam: Present: alert Psychiatric exam: Present: normal affect, normal mood Skin exam: Present: normal color Course Vital Signs 05/27/19 05/27/19 05/27/19 10:46 10:51 11:29 Pulse Rate 85 91 Respiratory 26 H 26 H 18 Rate Blood Pressure 129/89 O2 Sat by Pulse 84 L 92 L Oximetry 05/27/19 05/27/19 11:30 11:39 Pulse Rate 84 83 Respiratory Rate Blood Pressure O2 Sat by Pulse Oximetry EKG Findings - EKG Comments: EKG Findings:: Normal sinus rhythm 82. MT 176. QRS 80. QT 374. QTC 436. Left axis. Normal QRS. No acute ST change. Medical Decision Making - Medical Decision Making Patient reevaluated and updated. Case was discussed with [facility], who will [facility]. - Lab Data Result diagrams: 05/27/19 11:02 05/27/19 11:02 Lab Results 05/27/19 05/27/19 Range/Units 11:02 11:02 WBC 9.1 (3.8-10.6) k/uL RBC 4.37 (4.30-5.90) m/uL Hgb 13.3 (13.0-17.5) gm/dL Hct 41.7 (39.0-53.0) % MCV 95.5 (80.0-100.0) fL MCH 30.5 (25.0-35.0) pg MCHC 31.9 (31.0-37.0) g/dL RDW 13.7 (11.5-15.5) % Plt Count 185 (150-450) k/uL Neutrophils % 58 % Lymphocytes % 29 % Monocytes % 6 % Eosinophils % 4 % Basophils % 2 % Neutrophils # 5.2 (1.3-7.7) k/uL Lymphocytes # 2.6 (1.0-4.8) k/uL Monocytes # 0.5 (0-1.0) k/uL Eosinophils # 0.4 (0-0.7) k/uL Basophils # 0.2 (0-0.2) k/uL Sodium 141 (137-145) mmol/L Potassium 4.2 (3.5-5.1) mmol/L Chloride 91 L (98-107) mmol/L Carbon Dioxide 45 H* (22-30) mmol/L Anion Gap 5 mmol/L BUN 21 H (9-20) mg/dL Creatinine 1.08 (0.66-1.25) mg/dL Est GFR (CKD-EPI)AfAm 81 (>60 ml/min/1.73 sqM) Est GFR (CKD-EPI)NonAf 70 (>60 ml/min/1.73 sqM) Glucose 111 H (74-99) mg/dL Calcium 9.9 (8.4-10.2) mg/dL Total Bilirubin 0.7 (0.2-1.3) mg/dL AST 26 (17-59) U/L ALT 15 (4-49) U/L Alkaline Phosphatase 81 (38-126) U/L Total Protein 7.0 (6.3-8.2) g/dL Albumin 4.2 (3.5-5.0) g/dL - Radiology Data Radiology results: image reviewed (Chest x-ray shows no acute process) Disposition Clinical Impression: Acute exacerbation of chronic obstructive pulmonary disease (COPD) Disposition: ADMITTED IP TO THIS HOSP Is patient prescribed a controlled substance at d/c from ED?: No Referrals: Robbi Michelle DO [Primary Care Provider] - 1-2 days Decision Time: 11:48
[2019-05-27 11:18] LABS: Basophils # (A) 0.2 k/uL (0-0.2); Basophils % (A) 2 %; Eosinophils # (A) 0.4 k/uL (0-0.7); Eosinophils % (A) 4 %; HCT 41.7 % (39.0-53.0); HGB 13.3 gm/dL (13.0-17.5); Lymphocytes # (A) 2.6 k/uL (1.0-4.8); Lymphocytes % (A) 29 %; MCH 30.5 pg (25.0-35.0); MCHC 31.9 g/dL (31.0-37.0); MCV 95.5 fL (80.0-100.0); Mean Platelet Volume 7.8; Monocytes # (A) 0.5 k/uL (0-1.0); Monocytes % (A) 6 %; Neutrophils # (A) 5.2 k/uL (1.3-7.7); Neutrophils % (A) 58 %; Platelet Count 185 k/uL (150-450); RBC 4.37 m/uL (4.30-5.90); RDW 13.7 % (11.5-15.5); WBC 9.1 k/uL (3.8-10.6)
--- NOTE | 2019-05-27 11:34 | XR ---
EXAMINATION TYPE: XR chest 2V DATE OF EXAM: 05/27/2019 COMPARISON: Prior chest 04/22/2019 HISTORY: Difficulty breathing, COPD shortness of breath TECHNIQUE: Frontal and lateral views of the chest are obtained on 4 images. FINDINGS: There is hyperinflation with flattening the hemidiaphragms system with COPD. There is no fo sarita air space opacity, pleural effusion, or pneumothorax seen. The cardiac silhouette size is within normal limits. The osseous structures are intact. Aorta is dense. Eventration right hemidiaphragm. IMPRESSION: No acute cardiopulmonary process.
[2019-05-27 11:35] LABS: Albumin 4.2 g/dL (3.5-5.0); Calcium 9.9 mg/dL (8.4-10.2); Potassium 4.2 mmol/L (3.5-5.1); Total Bilirubin 0.7 mg/dL (0.2-1.3)
[2019-05-27] MEDS ORDERED: IPRATROPIUM-ALBUTEROL 3 ML NEB INHALATION PRN (11:49)
[2019-05-27 11:51] LABS: INR 0.9 (<1.2); Partial Thromboplastin Time 24.5 sec (22.0-30.0); Prothrombin Time 9.9 sec (9.0-12.0)
[2019-05-27] MEDS ORDERED: methylPREDNISolone SOD SUCCI 125 MG/2 ML VIAL IV SCH (12:00)
[2019-05-27] MEDS ORDERED: ALPRAZolam 0.5 MG TAB PO PRN (13:08)
[2019-05-27] MEDS: METOPROLOL TARTRATE 12.5 MG TAB PO SCH ×2 (13:40→22:16)
--- NOTE | 2019-05-27 15:26 | P.CNPUL ---
History of Present Illness Consult date: 05/27/19 Requesting physician: Rubén Mendoza Reason for consult: dyspnea, cough Chief complaint: Cough, congestion History of present illness: 69-year-old white male patient of Dr. Michelle also follows with the [facility], we had seen in consultation during his previous admissions for complications related to COPD. Patient has advanced COPD although his exact lung function is unknown, he is normally on oxygen. Does have a long history of smoking, currently only smoking occasionally. Patient is recently hospitalized at the [facility] in [place] for COPD exacerbation for 7 days, and discharged home last Sunday on 05/25/2019. From his paperwork that he has at the bedside from the [facility] patient was being tested for TB, however did not have a bronchoscopy, he provided sputum samples 3 and the results were to be followed up on outpatient basis. Patient was taken off his theophylline, and he denies being sent home with antibiotics or steroids. Patient states he felt good on Sunday, however on Sunday his breathing started getting progressively worse, he was having increased cough and congestion, production of whitish colored sputum, he stated he was sleeping more, not eating much. Denied any fever or chills. Denied any chest pain, chest x-ray was obtained, no acute cardiopulmonary process. I work showed CBC within normal limits, Coreg addition profile was within normal limits, sodium was 141, potassium is 4.2, chloride is 91, CO2 is 45, BUN 21 and creatinine is 1.08, bun is negative 1, LFTs were within normal limits, proBNP was 89. He was started on nebulized treatments, IV steroids, we added doxycycline for antibiotic coverage. Review of Systems All systems: negative Constitutional: Reports daytime sleepiness, Reports poor appetite, Reports weakness, Denies chills, Denies fever Eyes: denies blurred vision, denies pain Ears, nose, mouth and throat: Denies headache, Denies sore throat Cardiovascular: Reports decreased exercise tolerance, Reports dyspnea on exertion, Denies chest pain, Denies shortness of breath Respiratory: Reports cough with sputum, Reports dyspnea, Reports home oxygen, De nies cough Gastrointestinal: Denies abdominal pain, Denies diarrhea, Denies nausea, Denies vomiting Musculoskeletal: Denies myalgias Integumentary: Denies pruritus, Denies rash Neurological: Denies numbness, Denies weakness Psychiatric: Denies anxiety, Denies depression Endocrine: Denies fatigue, Denies weight change Past Medical History Past Medical History: COPD, GERD/Reflux, Hyperlipidemia, Thyroid Disorder Additional Past Medical History / Comment(s): Chronic hypoxic respiratory failure, COPD, chronic hypercapnic respiratory failure, chronic anxiety, depression, hyperlipidemia History of Any Multi-Drug Resistant Organisms: None Reported Past Surgical History: No Surgical Hx Reported Past Anesthesia/Blood Transfusion Reactions: No Reported Reaction Past Psychological History: Anxiety, Bipolar, Depression, Schizophrenia Smoking Status: Former smoker Past Alcohol Use History: None Reported Past Drug Use History: None Reported, Marijuana - Past Family History Father Family Medical History: Myocardial Infarction ([place]) Medications and Allergies Home Medications Medication Instructions Recorded Confirmed Type Multivitamins, Thera [Multivitamin 1 tab PO DAILY 05/02/17 05/27/19 History (formulary)] Omeprazole [PriLOSEC] 20 mg PO AC-BID 05/02/17 05/27/19 History Pravastatin Sodium [Pravachol] 40 mg PO HS 05/02/17 05/27/19 History busPIRone HCL 20 mg PO TID 05/02/17 05/27/19 History ALPRAZolam [Xanax] 0.5 mg PO BID 05/27/19 05/27/19 History ARIPiprazole [Abilify] 20 mg PO HS 05/27/19 05/27/19 History Calcium Carbonate/Vitamin D3 2 tab PO DAILY 05/27/19 05/27/19 History [Calcium 500-Vit D3 200 Tablet] Ipratropium-Albuterol Nebulize 3 ml INHALATION RT-Q4H PRN 05/27/19 05/27/19 History [Duoneb 0.5 mg-3 mg/3 ml Soln] Metoprolol Tartrate [Lopressor] 12.5 mg PO BID 05/27/19 05/27/19 History Sertraline HCl [Zoloft] 75 mg PO BID 05/27/19 05/27/19 History Sildenafil Citrate [Viagra] 100 mg PO DIRECTED PRN 05/27/19 05/27/19 History Tiotropium Br/Olodaterol HCl 2 puff INHALATION RT-DAILY 05/27/19 05/27/19 History [Stiolto Respimat Inhal [place]] Allergies Allergy/AdvReac Type Severity Reaction Status Date / Time Influenza Virus Vaccines AdvReac Mild Diarrhea/CR Verified 05/27/19 11:41 AMPS/FEVER Physical Exam Vitals: Vital Signs Pulse Resp BP Pulse Ox 05/27/19 12:00 81 22 105/75 89 L 05/27/19 11:39 83 05/27/19 11:30 84 05/27/19 11:29 91 18 129/89 92 L 05/27/19 11:00 81 22 90 L 05/27/19 10:51 26 H 05/27/19 10:48 90 L 05/27/19 10:46 85 26 H 84 L Intake and Output 05/26/19 05/27/19 05/27/19 22:59 06:59 14:59 Other: Weight 75.75 kg GENERAL EXAM: Alert, very pleasant, 69-year-old white male, on 5 L of oxygen with a pulse ox between 89-92%, comfortable in no apparent distress. HEAD: Normocephalic/atraumatic. EYES: Normal reaction of pupils, equal size. Conjunctiva pink, sclera white. NOSE: Clear with pink turbinates. THROAT: No erythema or exudates. NECK: No masses, no JVD, no thyroid enlargement, no adenopathy. CHEST: No chest wall deformity. Symmetrical expansion. LUNGS: Equal air entry with diffuse wheezes, has a congested cough, overall diminished air entry bilaterally CVS: Regular rate and rhythm, normal S1 and S2, no gallops, no murmurs, no rubs ABDOMEN: Soft, nontender. No hepatosplenomegaly, normal bowel sounds, no guar ding or rigidity. EXTREMITIES: No clubbing, no edema, no cyanosis, 2+ pulses and upper and lower extremities. MUSCULOSKELETAL: Muscle strength and tone normal. SPINE: No scoliosis or deformity SKIN: No rashes CENTRAL NERVOUS SYSTEM: Alert and oriented -3. No focal deficits, tone is normal in all 4 extremities. PSYCHIATRIC: Alert and oriented -3. Appropriate affect. Intact judgment and insight. Results - Laboratory Findings CBC and BMP: 05/27/19 11:02 05/27/19 11:02 PT/INR, D-dimer PT 9.9 sec (9.0-12.0) 05/27/19 11:02 INR 0.9 (<1.2) 05/27/19 11:02 Abnormal lab findings: Abnormal Labs 05/27/19 11:02 Chloride 91 L Carbon Dioxide 45 H* BUN 21 H Glucose 111 H - Diagnostic Findings Chest x-ray: report reviewed, image reviewed Assessment and Plan Plan: Assessment: #1. Acute exacerbation of chronic obstructive pulmonary disease complicated by tracheobronchitis, chest x-ray was negative for acute pulmonary process #2. Acute on chronic hypoxemic and hypercapnic respiratory failure, due to the above #3. Recent hospitalization at the [facility] in [place] for COPD #4. Advanced COPD with chronic hypoxemic and hypercapnic respiratory failure #5. Anxiety/depression #6. Extensive history of smoking, currently smoking only occasionally, carries [id number] history of smoking #7. Hyperlipidemia #8. Bipolar disorder #9. History of GERD/reflux #10. History of hypothyroidism Plan: Continue IV steroids, continue nebulized bronchodilators, we will add doxycycline, chest x-ray has been reviewed showing no acute pulmonary process. We'll send a sputum for culture. I performed a history & physical examination of the patient and discussed their management with my nurse practitioner, Rochelle Amaro. I reviewed the nurse practitioner's note and agree with the documented findings and plan of care. Lung sounds are positive for diffuse wheezes and rhonchi. The findings and the impression was discussed with the patient. I attest to the documentation by the nurse practitioner. Time with Patient: Greater than 30
--- NOTE | 2019-05-27 15:42 | P.HPIM ---
History of Present Illness Patient with history of advanced COPD uses 5 L of oxygen at home quit smoking 6 months ago came in with complaints of shortness of breath has been going on for last 3-4 days with cough and whitish sputum production. Patient denied any fever chills cyst x-ray did not show pneumonia. CBC within normal limits patient appears to have elevated bicarbonate consistent with chronic CO2 retention Review of Systems REVIEW OF SYSTEMS: CONSTITUTIONAL: No fever, no malaise, no fatigue. HEENT: No recent visual problems or hearing problems. Denied any sore throat. CARDIOVASCULAR: No chest pain, orthopnea, PND, no palpitations, no syncope. PULMONARY: As mentioned in HPI GASTROINTESTINAL: No diarrhea, no nausea, no vomiting, no abdominal pain. NEUROLOGICAL: No headaches, no weakness, no numbness. HEMATOLOGICAL: Denies any bleeding or petechiae. GENITOURINARY: Denies any burning micturition, frequency, or urgency. MUSCULOSKELETAL/RHEUMATOLOGICAL: Denies any joint pain, swelling, or any muscle pain. ENDOCRINE: Denies any polyuria or polydipsia. The rest of the 14-point review of systems is negative. Past Medical History Past Medical History: COPD, GERD/Reflux, Hyperlipidemia, Thyroid Disorder Additional Past Medical History / Comment(s): Chronic hypoxic respiratory failure, COPD, chronic hypercapnic respiratory failure, chronic anxiety, depression, hyperlipidemia History of Any Multi-Drug Resistant Organisms: None Reported Past Surgical History: No Surgical Hx Reported Past Anesthesia/Blood Transfusion Reactions: No Reported Reaction Past Psychological History: Anxiety, Bipolar, Depression, Schizophrenia Smoking Status: Former smoker Past Alcohol Use History: None Reported Past Drug Use History: None Reported, Marijuana - Past Family History Father Family Medical History: Myocardial Infarction ([place]) Medications and Allergies Home Medications Medication Instructions Recorded Confirmed Type Multivitamins, Thera [Multivitamin 1 tab PO DAILY 05/02/17 05/27/19 History (formulary)] Omeprazole [PriLOSEC] 20 mg PO AC-BID 05/02/17 05/27/19 History Pravastatin Sodium [Pravachol] 40 mg PO HS 05/02/17 05/27/19 History busPIRone HCL 20 mg PO TID 05/02/17 05/27/19 History ALPRAZolam [Xanax] 0.5 mg PO BID 05/27/19 05/27/19 History ARIPiprazole [Abilify] 20 mg PO HS 05/27/19 05/27/19 History Calcium Carbonate/Vitamin D3 2 tab PO DAILY 05/27/19 05/27/19 History [Calcium 500-Vit D3 200 Tablet] Ipratropium-Albuterol Nebulize 3 ml INHALATION RT-Q4H PRN 05/27/19 05/27/19 History [Duoneb 0.5 mg-3 mg/3 ml Soln] Metoprolol Tartrate [Lopressor] 12.5 mg PO BID 05/27/19 05/27/19 History Sertraline HCl [Zoloft] 75 mg PO BID 05/27/19 05/27/19 History Sildenafil Citrate [Viagra] 100 mg PO DIRECTED PRN 05/27/19 05/27/19 History Tiotropium Br/Olodaterol HCl 2 puff INHALATION RT-DAILY 05/27/19 05/27/19 History [Stiolto Respimat Inhal [place]] Allergies Allergy/AdvReac Type Severity Reaction Status Date / Time Influenza Virus Vaccines AdvReac Mild Diarrhea/CR Verified 05/27/19 11:41 AMPS/FEVER Physical Exam Vitals: Vital Signs Pulse Resp BP Pulse Ox 05/27/19 12:00 81 22 105/75 89 L 05/27/19 11:39 83 05/27/19 11:30 84 05/27/19 11:29 91 18 129/89 92 L 05/27/19 11:00 81 22 90 L 05/27/19 10:51 26 H 05/27/19 10:48 90 L 05/27/19 10:46 85 26 H 84 L Intake and Output 05/27/19 05/27/19 05/27/19 06:59 14:59 22:59 Other: Weight 75.75 kg PHYSICAL EXAMINATION: GENERAL: The patient is alert and oriented x3, not in any acute distress. Well developed, well nourished. HEENT: Pupils are round and equally reacting to light. EOMI. No scleral icterus. No conjunctival pallor. Normocephalic, atraumatic. No pharyngeal erythema. No thyromegaly. CARDIOVASCULAR: S1 and S2 present. No murmurs, rubs, or gallops. PULMONARY: Diminished air entry without any significant wheezing ABDOMEN: Soft, nontender, nondistended, normoactive bowel sounds. No palpable organomegaly. MUSCULOSKELETAL: No joint swelling or deformity. EXTREMITIES: No cyanosis, clubbing, or pedal edema. NEUROLOGICAL: Gross neurological examination did not reveal any focal deficits. SKIN: No rashes. Results CBC & Chem 7: 05/27/19 11:02 05/27/19 11:02 Labs: Abnormal Lab Results - Last 24 Hours (Table) 05/27/19 Range/Units 11:02 Chloride 91 L (98-107) mmol/L Carbon Dioxide 45 H* (22-30) mmol/L BUN 21 H (9-20) mg/dL Glucose 111 H (74-99) mg/dL Assessment and Plan Plan: -Acute on chronic hypercapnic respiratory failure secondary to COPD exacerbation: Patient will be continued on systemic steroids inhalational treatments patient was started on doxycycline by pulmonary -Anxiety depression -hyperlipidemia -Hypothyroidism -Gastroesophageal reflux disease Due to prophylaxis as subcutaneous heparin GI prophylaxis with Protonix
[2019-05-27] MEDS: IPRATROPIUM-ALBUTEROL 3 ML NEB INHALATION SCH ×2 (20:16→21:19)
[2019-05-27] MEDS ORDERED: PRAVASTATIN SODIUM 40 MG TAB PO SCH (21:00)
[2019-05-27] MEDS: FORMOTEROL FUMARATE 20 MCG/2 ML NEBU INHALATION SCH (21:19)
[2019-05-27] MEDS: BUDESONIDE 1 MG/2 ML NEBU INHALATION SCH (21:19)
[2019-05-27] MEDS: busPIRone HCl 10 MG TAB PO SCH ×2 (21:44→22:31)
[2019-05-27] MEDS: methylPREDNISolone SOD SUCCI 40 MG/ML 1 ML VIAL IV SCH (22:16)
[2019-05-27] MEDS: DOXYCYCLINE 100 MG CAP PO SCH (22:30)
[2019-05-27] MEDS: SERTRALINE 25 MG TAB PO SCH (22:31)
[2019-05-28 05:41] VITALS: TEMP 98.2
[2019-05-28] MEDS ORDERED: PANTOPRAZOLE 40 MG TABLET PO SCH (07:30)
[2019-05-28] MEDS: IPRATROPIUM-ALBUTEROL 3 ML NEB INHALATION SCH ×2 (08:17→12:57)
[2019-05-28] MEDS: FORMOTEROL FUMARATE 20 MCG/2 ML NEBU INHALATION SCH (08:17)
[2019-05-28] MEDS: BUDESONIDE 1 MG/2 ML NEBU INHALATION SCH (08:17)
[2019-05-28] MEDS: methylPREDNISolone SOD SUCCI 40 MG/ML 1 ML VIAL IV SCH (08:48)
[2019-05-28] MEDS: DOXYCYCLINE 100 MG CAP PO SCH (08:48)
[2019-05-28] MEDS: METOPROLOL TARTRATE 12.5 MG TAB PO SCH (08:48)
[2019-05-28] MEDS: busPIRone HCl 10 MG TAB PO SCH ×2 (10:06→15:21)
[2019-05-28] MEDS: SERTRALINE 25 MG TAB PO SCH (10:06)
[2019-05-28] MEDS ORDERED: TAMSULOSIN 0.4 MG CAP.ER.24H PO SCH (10:15)
[2019-05-28 11:53] VITALS: BP 100/63; PULSE 90; RESP 17
--- NOTE | 2019-05-28 14:47 | P.DS ---
Providers Date of admission: 05/27/19 11:49 Expected date of discharge: 05/28/19 Attending physician: Piyush Cardenas MD Consults: 05/27/19 11:49 Consult Physician Routine Consulting Provider: Libia Timmons Consult Reason/Comments: dyspnea Do you want consulting provider notified?: Yes [facility] Course: Final diagnosis -Acute on chronic hypercapnic respiratory failure secondary to COPD exacerbation -Anxiety depression -hyperlipidemia -Hypothyroidism -Gastroesophageal reflux disease -DVT prophylaxis -GI prophylaxis Discharge disposition Patient is being discharged in a stable condition with guarded prognosis to home and will follow-up with primary care provider upon discharge. Patient will continue on a short course of oral doxycycline for the next week along with the prednisone taper. Total time taken is 35 minutes. History of present illness Patient with history of advanced COPD uses 5 L of oxygen at home quit smoking 6 months ago came in with complaints of shortness of breath has been going on for last 3-4 days with cough and whitish sputum production. Patient denied any fever chills cyst x-ray did not show pneumonia. CBC within normal limits patient appears to have elevated bicarbonate consistent with chronic CO2 retention. Patient was started on IV steroids, doxycycline, and continued bronchodilators during hospitalization and was being closely monitored. Today patient states that he feels much better and would like to go home today. Pulmonary was following. Patient will continue on a short course of oral antibiotics in the form of doxycycline 100 mg twice daily for the next week and then may discontinue. Patient will also continue with the prednisone taper in the outpatient setting. Patient will need to follow-up with primary care provider upon discharge. Currently patient denies any chest pain, worsening shortness of breath, or palpitations. Patient is afebrile. Patient denies any nausea or vomiting and has been tolerating diet. Patient states that he has been urinating but having difficulty keeping a stream and was started on Flomax. Patient denies any dysuria or burning with urination. Patient will continue with this in the outpatient setting until follow-up with primary care provider. On exam vital signs are stable. Temp is 98.2F, pulse is 90, respirations are 17, blood pressure is 100/63, oxygen saturation is 92% on 4 L via nasal cannula. Patient states that he normally wears 5 L of oxygen at home. Cardio S1, S2 are present. Respiratory system shows diminished breath sounds bilaterally with some mild expiratory wheezing noted. Abdomen is soft and nontender. Nervous system shows no focal deficits with chronic left hand and arm twitching noted. Please refer to medication reconciliation sheet for a list of medications. Patient Condition at Discharge: Fair Plan - Discharge Summary Discharge Rx Participant: Yes New Discharge Prescriptions: New Tamsulosin [Flomax] 0.4 mg PO PC-BRKFST 14 Days #14 cap.er.24h predniSONE 10 mg PO DIRECTED #30 tab Doxycycline [Vibramycin] 100 mg PO BID 7 Days #14 cap Continue Multivitamins, Thera [Multivitamin (formulary)] 1 tab PO DAILY busPIRone HCL 20 mg PO TID Pravastatin Sodium [Pravachol] 40 mg PO HS Omeprazole [PriLOSEC] 20 mg PO AC-BID Metoprolol Tartrate [Lopressor] 12.5 mg PO BID Calcium Carbonate/Vitamin D3 [Calcium 500-Vit D3 200 Tablet] 2 tab PO DAILY Ipratropium-Albuterol Nebulize [Duoneb 0.5 mg-3 mg/3 ml Soln] 3 ml INHALATION RT-Q4H PRN PRN Reason: Shortness Of Breath ARIPiprazole [Abilify] 20 mg PO HS ALPRAZolam [Xanax] 0.5 mg PO BID Sertraline HCl [Zoloft] 75 mg PO BID Sildenafil Citrate [Viagra] 100 mg PO DIRECTED PRN PRN Reason: SEXUAL INTERCOURSE Tiotropium Br/Olodaterol HCl [Stiolto Respimat Inhal [place]] 2 puff INHALATION RT-DAILY Discharge Medication List Multivitamins, Thera [Multivitamin (formulary)] 1 tab PO DAILY 05/02/17 [History] Omeprazole [PriLOSEC] 20 mg PO AC-BID 05/02/17 [History] Pravastatin Sodium [Pravachol] 40 mg PO HS 05/02/17 [History] busPIRone HCL 20 mg PO TID 05/02/17 [History] ALPRAZolam [Xanax] 0.5 mg PO BID 05/27/19 [History] ARIPiprazole [Abilify] 20 mg PO HS 05/27/19 [History] Calcium Carbonate/Vitamin D3 [Calcium 500-Vit D3 200 Tablet] 2 tab PO DAILY 05/27/19 [History] Ipratropium-Albuterol Nebulize [Duoneb 0.5 mg-3 mg/3 ml Soln] 3 ml INHALATION R T-Q4H PRN 05/27/19 [History] Metoprolol Tartrate [Lopressor] 12.5 mg PO BID 05/27/19 [History] Sertraline HCl [Zoloft] 75 mg PO BID 05/27/19 [History] Sildenafil Citrate [Viagra] 100 mg PO DIRECTED PRN 05/27/19 [History] Tiotropium Br/Olodaterol HCl [Stiolto Respimat Inhal [place]] 2 puff INHALATION RT-DAILY 05/27/19 [History] Doxycycline [Vibramycin] 100 mg PO BID 7 Days #14 cap 05/28/19 [Rx] Tamsulosin [Flomax] 0.4 mg PO PC-BRKFST 14 Days #14 cap.er.24h 05/28/19 [Rx] predniSONE 10 mg PO DIRECTED #30 tab 05/28/19 [Rx] Follow up Appointment(s)/Referral(s): [facility] [place], [NON-STAFF] - 1 Week Robbi Michelle DO [Primary Care Provider] - 1-2 days Patient Instructions/Handouts: COPD (Chronic Obstructive Pulmonary Disease) (GEN), Cigarette Smoking and Your Health (GEN) Activity/Diet/Wound Care/Special Instructions: Activity Limited until follow-up Continue current diet Follow-up with primary care provider upon discharge Continue taking antibiotics until finished Continue with prednisone taper Continue with home care Discharge Disposition: HOME WITH HOME HEALTH SERVICES
--- NOTE | 2019-05-28 15:29 | P.PN ---
Subjective Progress Note Date: 05/28/19 Principal diagnosis: Acute COPD exacerbation 69-year-old white male patient of Dr. Michelle also follows with the [facility], we had seen in consultation during his previous admissions for complications related to COPD. Patient has advanced COPD although his exact lung function is unknown, he is normally on oxygen. Does have a long history of smoking, currently only smoking occasionally. Patient is recently hospitalized at the [facility] in [place] for COPD exacerbation for 7 days, and discharged home last Sunday on 05/25/2019. From his paperwork that he has at the bedside from the [facility] patient was being tested for TB, however did not have a bronchoscopy, he provided sputum samples 3 and the results were to be followed up on outpatient basis. Patient was taken off his theophylline, and he denies being sent home with antibiotics or steroids. Patient states he felt good on Sunday, however on Sunday his breathing started getting progressively worse, he was having increased cough and congestion, production of whitish colored sputum, he stated he was sleeping more, not eating much. Denied any fever or chills. Denied any chest pain, chest x-ray was obtained, no acute cardiopulmonary process. I work showed CBC within normal limits, Coreg addition profile was within normal limits, sodium was 141, potassium is 4.2, chloride is 91, CO2 is 45, BUN 21 and creatinine is 1.08, bun is negative 1, LFTs were within normal limits, proBNP was 89. He was started on nebulized treatments, IV steroids, we added doxycycline for antibiotic coverage. On 05/28/2019 patient seen in follow-up on a general medical floor, doing much better, breathing easier, less congestive bronchospastic, patient is requesting to go home today, patient is on 4 L of oxygen this minimal amount of oxygen he wears, his pulse ox is 92%, is afebrile, hemodynamically stable. Sputum culture was sent showing polymicrobial growth, final culture is in progress Gram stain showed many gram-positive cocci in pairs, few gram-positive cocci in clusters and few gram-negative bacilli. She is on a combination of doxycycline, IV steroids and nebulized bronchodilators, clinically improving Objective - Vital Signs Vital signs: Vital Signs Temp 98.2 F 05/28/19 11:52 Pulse 90 05/28/19 11:52 Resp 17 05/28/19 11:52 BP 100/63 05/28/19 11:52 Pulse Ox 92 L 05/28/19 11:52 Intake & Output 05/27/19 05/28/19 05/28/19 18:59 06:59 18:59 Intake Total 480 Output Total 700 Balance -220 Weight 75.75 kg 75.75 kg Intake: Oral 480 Output: Urine 700 Straight 550 Other: Voiding Method Urinal Urinal - Exam GENERAL EXAM: Alert, very pleasant, 69-year-old white male, on 4 L of oxygen with a pulse ox of 92% comfortable in no apparent distress. HEAD: Normocephalic/atraumatic. EYES: Normal reaction of pupils, equal size. Conjunctiva pink, sclera white. NOSE: Clear with pink turbinates. THROAT: No erythema or exudates. NECK: No masses, no JVD, no thyroid enlargement, no adenopathy. CHEST: No chest wall deformity. Symmetrical expansion. LUNGS: Equal air entry with diminished breath sounds with bibasilar crackles CVS: Regular rate and rhythm, normal S1 and S2, no gallops, no murmurs, no rubs ABDOMEN: Soft, nontender. No hepatosplenomegaly, normal bowel sounds, no guarding or rigidity. EXTREMITIES: No clubbing, no edema, no cyanosis, 2+ pulses and upper and lower extremities. MUSCULOSKELETAL: Muscle strength and tone normal. SPINE: No scoliosis or deformity SKIN: No rashes CENTRAL NERVOUS SYSTEM: Alert and oriented -3. No focal deficits, tone is normal in all 4 extremities. PSYCHIATRIC: Alert and oriented -3. Appropriate affect. Intact judgment and insight. - Labs CBC & Chem 7: 05/27/19 11:02 05/27/19 11:02 Labs: Microbiology - Last 24 Hours (Table) 05/27/19 22:40 Gram Stain - Preliminary Sputum Sputum Culture - Preliminary Assessment and Plan Plan: Assessment: #1. Acute exacerbation of chronic obstructive pulmonary disease complicated by tracheobronchitis, chest x-ray was negative for acute pulmonary process #2. Acute on chronic hypoxemic and hypercapnic respiratory failure, due to the above #3. Recent hospitalization at the [facility] in [place] for COPD #4. Advanced COPD with chronic hypoxemic and hypercapnic respiratory failure #5. Anxiety/depression #6. Extensive history of smoking, currently smoking only occasionally, carries [id number] history of smoking #7. Hyperlipidemia #8. Bipolar disorder #9. History of GERD/reflux #10. History of hypothyroidism Plan: Patient is doing well, improving, less dyspneic and bronchospastic, been treated with doxycycline, steroids and nebulized bronchodilators, patient is requesting to go home today and pulmonary perspective patient stable for discharge home today. I performed a history & physical examination of the patient and discussed their management with my nurse practitioner, Rochelle Amaro. I reviewed the nurse practitioner's note and agree with the documented findings and plan of care. Lung sounds are positive for diffuse wheezes and rhonchi. The findings and the impression was discussed with the patient. I attest to the documentation by the nurse practitioner. Time with Patient: Less than 30
--- NOTE | 2019-06-01 14:02 | HP ---
HISTORY AND PHYSICAL DATE OF SERVICE: 06/01/2019. CHIEF COMPLAINT: Shortness of breath. HISTORY OF PRESENT ILLNESS: This 69-year-old gentleman with a past medical history of multiple medical problems including COPD, history of GERD, hypertension, hyperlipidemia, history of chronic hypoxic respiratory failure, being followed Dr. Robbi Michelle in the [facility] in the outpatient setting was recently admitted to [facility] with COPD acute exacerbation. Previous to that, the patient was apparently admitted to [facility] in [place] for about 7 days. During the last admission here, the patient was treated with doxycycline, bronchodilators, steroids. Patient apparently improved significantly. Patient requested to be sent home and the patient was discharged home at that time. Currently the patient is complaining of significant shortness of breath. The patient woke up in the middle of the night, was not getting enough air and the patient was on 3 L oxygen and pulse ox was in the 90s. The patient got tube breathing treatments. The pulse ox improved to 100 percent. The patient was taken to [facility] and admitted for evaluation and treatment. White count was slightly elevated. Creatinine is 1.31. The chest x-ray which was done at the time of admission which I personally reviewed, showed increased bronchovascular markings. No evidence of any definite pneumonia and COPD was noted. The patient admitted to the hospital for further evaluation and treatment. There is no history of fever, rigors or chills. No history of headache, loss of consciousness, seizures. PAST MEDICAL HISTORY: History of COPD, GERD, hypertension, hyperlipidemia, history of chronic hypoxic respiratory failure, hypothyroidism. MEDICATIONS: 1. Abilify 20 mg q.h.s. 2. Prednisone taper. 3. Buspirone 20 mg daily. 4. Spiriva 2 puffs daily. 5. Flomax 0.4 daily. 6. Viagra 100 mg p.r.n. 7. Zoloft 75 mg p.o. b.i.d. 8. Pravachol 40 mg q.h.s. 9. Prilosec 20 mg b.i.d. 10.Multivitamins one p.o. daily. 11.Metoprolol 12.5 mg p.o. b.i.d. 12.DuoNeb q.4 p.r.n. 13.Vibramycin 100 mg p.o. b.i.d. 14.Calcium 2 tablets p.o. daily. 15.Xanax 0.5 p.o. b.i.d. ALLERGIES: INFLUENZA VIRUS VACCINE. FAMILY HISTORY: History of myocardial infarction and CAD in the family. SOCIAL HISTORY: No history of smoking. No history of alcohol intake. REVIEW OF SYSTEMS: ENT: Diminished hearing, diminished vision. CARDIOVASCULAR: No angina or palpitations. RESPIRATORY: As mentioned earlier. GI no nausea or vomiting. : No dysuria. CENTRAL NERVOUS SYSTEM: No numbness or weakness. ALLERGY/IMMUNOLOGY: No asthma, hayfever. MUSCULOSKELETAL: As mentioned earlier. HEMATOLOGY/ONCOLOGY: No history of anemia. ENDOCRINE: No history of hypothyroidism. CONSTITUTIONAL: As mentioned earlier. DERMATOLOGY: Negative. RHEUMATOLOGY negative. PSYCHIATRY as mentioned earlier. PHYSICAL EXAMINATION: Alert and oriented times three. Pulse 85, blood pressure 106/67, respirations 16, temperature 97.8, pulse ox improved to 98% on room air. HEENT is conjunctivae normal. Oral mucosa moist. NECK is no jugular venous distention. No carotid bruit. No lymph node enlargement. CARDIOVASCULAR system: S1, S2 muffled. No S3, no S4. RESPIRATORY: Breath sounds diminished in the bases. Breathing efforts are markedly increased. Bilateral scattered rhonchi and crackles. ABDOMEN: Soft, nontender. No mass palpable. LEGS: No edema. No swelling. NERVOUS SYSTEM higher functions as mentioned earlier. Moves all 4 limbs. No focal motor or sensory deficits. LYMPHATICS: No lymph nodes palpable in the neck, axillae or groin. JOINTS: No active deforming arthropathy. SKIN: No ulcer. No rash and no bleeding. LABS: WBC 12.2, hemoglobin 13.1. Sodium 143, potassium 4.7. Creatinine is 1.31. The previous creatinine was normal. ASSESSMENT: 1. Chronic obstructive pulmonary disease acute exacerbation with acute purulent tracheobronchitis with acute on chronic hypoxic respiratory failure with hypoxic hypercarbic respiratory failure with failure of outpatient treatment. 2. Increased creatinine with acute renal failure. 3. Increased WBC. 4. History of chronic obstructive pulmonary disease. 5. Gastroesophageal reflux disease. 6. Hyperlipidemia. 7. Hypothyroidism. 8. Chronic hypoxic hypercapnic hypoxic respiratory failure, on home O2. 9. Chronic anxiety. 10.Depression. 11.Hyperlipidemia. 12.Anxiety, bipolar depression, schizophrenia. 13.History of THC. 14.History of nicotine dependence. 15.FULL CODE. RECOMMENDATIONS AND DISCUSSION: In this 69-year-old gentleman who presented with multiple complex medical issues, at this time, I recommend to continue the current medications, management and symptomatic treatment. We will optimize bronchodilator treatment, pulmonary consultation. I would also recommend empiric antibiotics and IV steroids. Monitor blood sugars closely. Prognosis guarded because of multiple complex medical issues. Further recommendations to follow. See orders for details. We will also obtain a set of cultures. Patient apparently also being evaluated by [facility] for evaluation of TB per charts previously but the chest x-ray did not show any obvious highly suspicious lesions for TB at this time. Chest x-ray did not show. Prognosis guarded. Further recommendations to follow. MMODL / IJN: [id number] /
== END 2019-05-28 17:00 | disposition home health service (06) ==
LOC: EC 10:38 → 6NMEDSUR 11:49 → INTOOBSV 11:49 → 6NMEDSUR 14:31 → 5NMEDONC 16:49 → UNDODISIN 05-28 17:00
PROVIDERS: ADMIT Internal Medicine; ATTEND Internal Medicine
DX: J44.0 Chronic obstructive pulmonary disease with (acute) lower respiratory infection (principal); J44.1 Chronic obstructive pulmonary disease with (acute) exacerbation; J20.9 Acute bronchitis, unspecified; J96.21 Acute and chronic respiratory failure with hypoxia; J96.22 Acute and chronic respiratory failure with hypercapnia; E03.9 Hypothyroidism, unspecified; E78.5 Hyperlipidemia, unspecified; F20.9 Schizophrenia, unspecified; F32.9 Major depressive disorder, single episode, unspecified; F41.9 Anxiety disorder, unspecified; I10 Essential (primary) hypertension; K21.9 Gastro-esophageal reflux disease without esophagitis; Z79.51 Long term (current) use of inhaled steroids; Z79.899 Other long term (current) drug therapy; Z79.52 Long term (current) use of systemic steroids; Z99.81 Dependence on supplemental oxygen; Z88.7 Allergy status to serum and vaccine; Z87.891 Personal history of nicotine dependence; Z82.49 Family history of ischemic heart disease and other diseases of the circulatory system
CPT/HCPCS: 96376; 96374; 99285; 36415; 94640 ×4; 93005; 83880; 80053; 84484; 85025; 85610; 85730; 87070; 87205; 71046; G0378 ×3; J2920 ×2; J2930

== ENCOUNTER 2019-06-01 08:06 | Inpatient (IN) | payer MEDICARE ==
--- NOTE | 2019-06-01 08:15 | ED ---
General Adult HPI - General Stated complaint: STEPHANIA Time Seen by Provider: 06/01/19 08:06 Source: patient, EMS, RN notes reviewed, old records reviewed - History of Present Illness Initial comments: This is a 69-year-old male who presents emergency Department with a past medical history significant for COPD per patient states she was discharged from the hospital yesterday for an exacerbation of COPD. Patient states he felt good when he left however when he woke up this morning he was extremely short of breath and he said his pulse ox was low. Patient is on 3 L of oxygen at all times. When EMS arrived they state he was really working but his pulse ox was in the 90s. Patient got [address] in with albuterol and Atrovent and got Solu-Medrol as well. By the time the patient arrived on 3 L she was 100%. Patient denies any chest pain or palpitations. Patient denies any fever chills or cough. Patient denies any lightheadedness or dizziness. Patient denies any abdominal pain patient denies nausea vomiting diarrhea. Patient denies any swelling to the legs or calf tenderness. - Related Data Home Medications Medication Instructions Recorded Confirmed Multivitamins, Thera [Multivitamin 1 tab PO DAILY 05/02/17 05/27/19 (formulary)] Omeprazole [PriLOSEC] 20 mg PO AC-BID 05/02/17 05/27/19 Pravastatin Sodium [Pravachol] 40 mg PO HS 05/02/17 05/27/19 busPIRone HCL 20 mg PO TID 05/02/17 05/27/19 ALPRAZolam [Xanax] 0.5 mg PO BID 05/27/19 05/27/19 ARIPiprazole [Abilify] 20 mg PO HS 05/27/19 05/27/19 Calcium Carbonate/Vitamin D3 2 tab PO DAILY 05/27/19 05/27/19 [Calcium 500-Vit D3 200 Tablet] Ipratropium-Albuterol Nebulize 3 ml INHALATION RT-Q4H PRN 05/27/19 05/27/19 [Duoneb 0.5 mg-3 mg/3 ml Soln] Metoprolol Tartrate [Lopressor] 12.5 mg PO BID 05/27/19 05/27/19 Sertraline HCl [Zoloft] 75 mg PO BID 05/27/19 05/27/19 Sildenafil Citrate [Viagra] 100 mg PO DIRECTED PRN 05/27/19 05/27/19 Tiotropium Br/Olodaterol HCl 2 puff INHALATION RT-DAILY 05/27/19 05/27/19 [Stiolto Respimat Inhal [place]] Previous Rx's Medication Instructions Recorded Doxycycline [Vibramycin] 100 mg PO BID 7 Days #14 cap 05/28/19 Tamsulosin [Flomax] 0.4 mg PO PC-BRKFST 14 Days #14 05/28/19 cap.er.24h predniSONE 10 mg PO DIRECTED #30 tab 05/28/19 Allergies Allergy/AdvReac Type Severity Reaction Status Date / Time Influenza Virus Vaccines AdvReac Mild Diarrhea/CR Verified 05/27/19 11:41 AMPS/FEVER Review of Systems ROS Statement: Those systems with pertinent positive or pertinent negative responses have been documented in the HPI. ROS Other: All systems not noted in ROS Statement are negative. Past Medical History Past Medical History: COPD, GERD/Reflux, Hyperlipidemia, Thyroid Disorder Additional Past Medical History / Comment(s): Chronic hypoxic respiratory failure, COPD, chronic hypercapnic respiratory failure, chronic anxiety, depression, hyperlipidemia History of Any Multi-Drug Resistant Organisms: None Reported Past Surgical History: No Surgical Hx Reported Additional Past Surgical History / Comment(s): Hernia repair, misplaced testicle, left index finger surgery. Past Anesthesia/Blood Transfusion Reactions: No Reported Reaction Past Psychological History: Anxiety, Bipolar, Depression, Schizophrenia Smoking Status: Former smoker Past Alcohol Use History: None Reported Past Drug Use History: None Reported, Marijuana Additional Drug Use History / Comment(s): Patient states he quit smoking 3 weeks ago. Smoke marijuana daily. - Past Family History Father Family Medical History: Myocardial Infarction ([place]) General Exam - General Exam Comments Initial Comments: GENERAL: Patient is well-developed and well-nourished. Patient is nontoxic and well- hydrated and is in mild distress. ENT: Neck is soft and supple. No significant lymphadenopathy is noted. Oropharynx is clear. Moist mucous membranes. Neck has full range of motion without elicit ing any pain. EYES: The sclera were anicteric and conjunctiva were pink and moist. Extraocular m ovements were intact and pupils were equal round and reactive to light. Eyelids were unremarkable. PULMONARY: Decreased breath sounds diffusely CARDIOVASCULAR: There is a regular rate and rhythm without any murmurs gallops or rubs. ABDOMEN: Soft and nontender with normal bowel sounds. SKIN: Skin is clear with no lesions or rashes and otherwise unremarkable. NEUROLOGIC: Patient is alert and oriented x3. Cranial nerves II through XII are grossly intact. Motor and sensory are also intact. Normal speech, volume and content. Symmetrical smile. MUSCULOSKELETAL: Normal extremities with adequate strength and full range of motion. No lower extremity swelling or edema. No calf tenderness. LYMPHATICS: No significant lymphadenopathy is noted PSYCHIATRIC: Normal psychiatric evaluation. Course Vital Signs 06/01/19 06/01/19 06/01/19 08:12 08:18 08:25 Temperature 98 F Pulse Rate 83 Respiratory 32 H 32 H Rate Blood Pressure 124/77 O2 Sat by Pulse 94 L Oximetry 06/01/19 06/01/19 06/01/19 08:39 08:48 09:16 Temperature Pulse Rate 83 84 84 Respiratory 24 Rate Blood Pressure 107/72 O2 Sat by Pulse 94 L Oximetry Medical Decision Making - Medical Decision Making EKG shows normal sinus rhythm at 81 bpm OR interval 152 QRS is 84 QT interval 396 QTC is 460. Patient's EKG shows no ST segment elevation or depression. Patient received a breathing treatment here and after the treatment he sounded clear. He did not feel comfortable going home. At this point time I spoke with Dr. Munoz sheet he agreed to admit the patient admitted the patient wrote admitting orders. - Lab Data Result diagrams: 06/01/19 08:23 06/01/19 08:23 Lab Results 06/01/19 06/01/19 06/01/19 Range/Units 08:23 08:23 08:23 WBC 12.4 H (3.8-10.6) k/uL RBC 4.34 (4.30-5.90) m/uL Hgb 13.1 (13.0-17.5) gm/dL Hct 42.0 (39.0-53.0) % MCV 96.8 (80.0-100.0) fL MCH 30.3 (25.0-35.0) pg MCHC 31.3 (31.0-37.0) g/dL RDW 13.8 (11.5-15.5) % Plt Count 162 (150-450) k/uL Neutrophils % 65 % Lymphocytes % 23 % Monocytes % 5 % Eosinophils % 3 % Basophils % 2 % Neutrophils # 8.1 H (1.3-7.7) k/uL Lymphocytes # 2.9 (1.0-4.8) k/uL Monocytes # 0.6 (0-1.0) k/uL Eosinophils # 0.4 (0-0.7) k/uL Basophils # 0.3 H (0-0.2) k/uL PT 9.9 (9.0-12.0) sec INR 0.9 (<1.2) APTT 22.9 (22.0-30.0) sec Sodium 143 (137-145) mmol/L Potassium 4.7 (3.5-5.1) mmol/L Chloride 98 (98-107) mmol/L Carbon Dioxide 39 H (22-30) mmol/L Anion Gap 6 mmol/L BUN 40 H (9-20) mg/dL Creatinine 1.31 H (0.66-1.25) mg/dL Est GFR (CKD-EPI)AfAm 65 (>60 ml/min/1.73 sqM) Est GFR (CKD-EPI)NonAf 56 (>60 ml/min/1.73 sqM) Glucose 99 (74-99) mg/dL Calcium 9.2 (8.4-10.2) mg/dL Magnesium 1.6 (1.6-2.3) mg/dL Total Bilirubin 0.4 (0.2-1.3) mg/dL AST 26 (17-59) U/L ALT 20 (4-49) U/L Alkaline Phosphatase 76 (38-126) U/L Troponin I (0.000-0.034) ng/mL Total Protein 6.8 (6.3-8.2) g/dL Albumin 4.1 (3.5-5.0) g/dL 06/01/19 Range/Units 08:23 WBC (3.8-10.6) k/uL RBC (4.30-5.90) m/uL Hgb (13.0-17.5) gm/dL Hct (39.0-53.0) % MCV (80.0-100.0) fL MCH (25.0-35.0) pg MCHC (31.0-37.0) g/dL RDW (11.5-15.5) % Plt Count (150-450) k/uL Neutrophils % % Lymphocytes % % Monocytes % % Eosinophils % % Basophils % % Neutrophils # (1.3-7.7) k/uL Lymphocytes # (1.0-4.8) k/uL Monocytes # (0-1.0) k/uL Eosinophils # (0-0.7) k/uL Basophils # (0-0.2) k/uL PT (9.0-12.0) sec INR (<1.2) APTT (22.0-30.0) sec Sodium (137-145) mmol/L Potassium (3.5-5.1) mmol/L Chloride (98-107) mmol/L Carbon Dioxide (22-30) mmol/L Anion Gap mmol/L BUN (9-20) mg/dL Creatinine (0.66-1.25) mg/dL Est GFR (CKD-EPI)AfAm (>60 ml/min/1.73 sqM) Est GFR (CKD-EPI)NonAf (>60 ml/min/1.73 sqM) Glucose (74-99) mg/dL Calcium (8.4-10.2) mg/dL Magnesium (1.6-2.3) mg/dL Total Bilirubin (0.2-1.3) mg/dL AST (17-59) U/L ALT (4-49) U/L Alkaline Phosphatase (38-126) U/L Troponin I <0.012 (0.000-0.034) ng/mL Total Protein (6.3-8.2) g/dL Albumin (3.5-5.0) g/dL Disposition Clinical Impression: COPD with acute exacerbation Disposition: ADMITTED IP TO THIS HOSP Referrals: Robbi Michelle DO [Primary Care Provider] - 1-2 days Time of Disposition: 10:06
[2019-06-01] MEDS ORDERED: IPRATROPIUM-ALBUTEROL 3 ML NEB INHALATION STA (08:28)
[2019-06-01 08:38] LABS: Basophils # (A) 0.3 k/uL (0-0.2); Basophils % (A) 2 %; Eosinophils # (A) 0.4 k/uL (0-0.7); Eosinophils % (A) 3 %; HGB 13.1 gm/dL (13.0-17.5); Lymphocytes # (A) 2.9 k/uL (1.0-4.8); Lymphocytes % (A) 23 %; MCH 30.3 pg (25.0-35.0); MCHC 31.3 g/dL (31.0-37.0); MCV 96.8 fL (80.0-100.0); Mean Platelet Volume 8.1; Monocytes # (A) 0.6 k/uL (0-1.0); Monocytes % (A) 5 %; Neutrophils # (A) 8.1 k/uL (1.3-7.7); Neutrophils % (A) 65 %; Platelet Count 162 k/uL (150-450); RBC 4.34 m/uL (4.30-5.90); RDW 13.8 % (11.5-15.5); WBC 12.4 k/uL (3.8-10.6)
--- NOTE | 2019-06-01 08:43 | XR ---
EXAMINATION TYPE: XR chest 2V DATE OF EXAM: 06/01/2019 HISTORY: difficulty breathing. REFERENCE: Previous study dated 05/27/2019. FINDINGS: The lungs are overinflated but clear. Pleural space are clear. The heart is not enlarged. IMPRESSION: COPD.
[2019-06-01 08:48] LABS: Albumin 4.1 g/dL (3.5-5.0); Calcium 9.2 mg/dL (8.4-10.2); Magnesium 1.6 mg/dL (1.6-2.3); Potassium 4.7 mmol/L (3.5-5.1); Total Bilirubin 0.4 mg/dL (0.2-1.3); Total Protein 6.8 g/dL (6.3-8.2)
[2019-06-01 08:50] LABS: INR 0.9 (<1.2); Partial Thromboplastin Time 22.9 sec (22.0-30.0); Prothrombin Time 9.9 sec (9.0-12.0)
[2019-06-01] MEDS ORDERED: IPRATROPIUM-ALBUTEROL 3 ML NEB INHALATION PRN (10:07)
[2019-06-01] MEDS: methylPREDNISolone SOD SUCCI 125 MG/2 ML VIAL IV SCH ×2 (12:14→17:21)
[2019-06-01] MEDS ORDERED: HYDROcodone/APAP 5-325MG 1 EACH TAB PO PRN (12:44)
[2019-06-01] MEDS ORDERED: ALPRAZolam 0.25 MG TAB PO PRN (12:44)
[2019-06-01] MEDS ORDERED: ACETAMINOPHEN TAB 500 MG TAB PO PRN (12:44)
[2019-06-01] MEDS: FORMOTEROL FUMARATE 20 MCG/2 ML NEBU INHALATION SCH ×2 (12:56→20:29)
[2019-06-01] MEDS: BUDESONIDE 1 MG/2 ML NEBU INHALATION SCH ×2 (12:56→20:29)
[2019-06-01] MEDS: HEPARIN SODIUM,PORCINE 5,000 UNIT/ML 1 ML VIAL SQ SCH ×2 (16:17→21:25)
[2019-06-01] MEDS: PIPERACILLIN-TAZOBACTAM 3.375 GM in SODIUM CHLORIDE 0.9% 100 ML IVPB SCH (16:22)
[2019-06-01] MEDS: busPIRone HCl 10 MG TAB PO SCH ×2 (16:22→21:26)
[2019-06-01] MEDS: IPRATROPIUM-ALBUTEROL 3 ML NEB INHALATION SCH ×2 (16:28→20:29)
[2019-06-01 16:58] LABS: Glucose,Whole Blood 230 mg/dL (75-99)
[2019-06-01] MEDS ORDERED: NON FORMULARY DRUG (Omeprazole 20 MG) PO SCH (17:30)
[2019-06-01 20:59] LABS: Glucose,Whole Blood 217 mg/dL (75-99)
[2019-06-01] MEDS: SERTRALINE 25 MG TAB PO SCH (21:25)
[2019-06-01] MEDS: PRAVASTATIN SODIUM 40 MG TAB PO SCH (21:26)
[2019-06-01] MEDS: METOPROLOL TARTRATE 12.5 MG TAB PO SCH (21:26)
[2019-06-01] MEDS: ALPRAZolam 0.5 MG TAB PO SCH (21:26)
[2019-06-01] MEDS: INSULIN ASPART (NovoLOG) 100 UNIT/ML VIAL SQ SCH (21:31)
[2019-06-02] MEDS: methylPREDNISolone SOD SUCCI 125 MG/2 ML VIAL IV SCH ×5 (01:34→23:11)
[2019-06-02] MEDS: PIPERACILLIN-TAZOBACTAM 3.375 GM in SODIUM CHLORIDE 0.9% 100 ML IVPB SCH (01:35)
[2019-06-02 03:40] LABS: Appearance,Urine Clear (Clear); Bilirubin,Urine Negative (Negative); Blood,Urine Negative (Negative); Color,Urine Yellow; Glucose,Urine (UA) Trace (Negative); Ketones,Urine Trace (Negative); Leukocyte Esterase,Urine Negative (Negative); Nitrite,Urine Negative (Negative); PH, Urine 6.5 (5.0-8.0); Protein,Urine Negative (Negative); Urobilinogen,Urine <2.0 mg/dL (<2.0)
[2019-06-02 07:20] LABS: Glucose,Whole Blood 153 mg/dL (75-99)
[2019-06-02] MEDS: BUDESONIDE 1 MG/2 ML NEBU INHALATION SCH ×2 (07:30→21:07)
[2019-06-02] MEDS: IPRATROPIUM-ALBUTEROL 3 ML NEB INHALATION SCH ×4 (07:31→21:08)
[2019-06-02] MEDS: FORMOTEROL FUMARATE 20 MCG/2 ML NEBU INHALATION SCH ×2 (07:31→21:07)
[2019-06-02 07:32] LABS: Basophils % (A) 0 %; Eosinophils # (A) 0.1 k/uL (0-0.7); Eosinophils % (A) 0 %; HCT 37.4 % (39.0-53.0); HGB 11.8 gm/dL (13.0-17.5); Hypochromasia Slight; Lymphocytes # (A) 0.5 k/uL (1.0-4.8); Lymphocytes % (A) 3 %; MCH 30.6 pg (25.0-35.0); MCHC 31.6 g/dL (31.0-37.0); MCV 96.8 fL (80.0-100.0); Mean Platelet Volume 8.6; Monocytes # (A) 0.2 k/uL (0-1.0); Monocytes % (A) 1 %; Neutrophils # (A) 17.2 k/uL (1.3-7.7); Neutrophils % (A) 96 %; Platelet Count 186 k/uL (150-450); RBC 3.87 m/uL (4.30-5.90); RDW 13.5 % (11.5-15.5)
[2019-06-02 07:44] LABS: Calcium 9.1 mg/dL (8.4-10.2); Potassium 4.4 mmol/L (3.5-5.1)
--- NOTE | 2019-06-02 07:56 | P.HPIM ---
History of Present Illness This is a pleasant 69 years old male with past medical history of COPD, GERD, hyperlipidemia, hypothyroidism, chronic hypoxic respiratory failure, anxiety and depression, schizophrenia. Presents because of dyspnea. He was recently discharged from the hospital 2 days ago for COPD exacerbation and acute tracheobronchitis. Patient was recently discharged from the hospital for COPD exacerbation. He went home however the workup in the morning with shortness of breath that is not relieved by his nebulizer machine, so he decided to come to the emergency room. Also says that his coughing and what family is at his baseline. Patient states that he was still smoking till recently when he quit about 2 weeks ago, he used to smoke 2 packs per day, cut the duct 1 pack per day, cut it down to 1 cigarettes per week, but over the last 2 weeks he did not have a cigarette however his still smoking in-house. No chest pain, no dizziness or headache, no change in urine or bowel habits, no fever. Patient at baseline can walk without the walker. He denies alcohol or illicit drugs Vitas looks stable and he is saturating 92% and a 3 L oxygen via nasal cannula. On admission he has mild leukocytosis 12.4 and today 18 K, probable due to the effect of steroids. BMP and liver enzymes were unremarkable however his creatinine was elevated 1.3, compared to baseline of 0.7-1.1. Sugar controlled. EKG showing normal sinus rhythm at [address]-T changes. Chest x-ray: COPD with no acute process by Radiologist, reviewed by myself On admission he was placed on Solu-Medrol 60 mg and started on Zosyn Review of Systems CONSTITUTIONAL: No fever, no malaise, no fatigue. HEENT: No recent visual problems or hearing problems. Denied any sore throat. CARDIOVASCULAR: No orthopnea, PND, no palpitations, no syncope. PULMONARY: no hemoptysis. GASTROINTESTINAL: No diarrhea, no nausea, no vomiting, no abdominal pain. Normoactive bowel sounds. NEUROLOGICAL: No headaches, no weakness, no numbness. HEMATOLOGICAL: Denies any bleeding or petechiae. GENITOURINARY: Denies any burning micturition, frequency, or urgency. MUSCULOSKELETAL/RHEUMATOLOGICAL: Denies any joint pain, swelling, or any muscle pain. ENDOCRINE: Denies any polyuria or polydipsia. Past Medical History Past Medical History: COPD, GERD/Reflux, Hyperlipidemia, Thyroid Disorder Additional Past Medical History / Comment(s): Chronic hypoxic respiratory failure, COPD, chronic hypercapnic respiratory failure, chronic anxiety, depression, hyperlipidemia History of Any Multi-Drug Resistant Organisms: None Reported Past Surgical History: No Surgical Hx Reported Additional Past Surgical History / Comment(s): Hernia repair, misplaced testicle, left index finger surgery. Past Anesthesia/Blood Transfusion Reactions: No Reported Reaction Past Psychological History: Anxiety, Bipolar, Depression, Schizophrenia Smoking Status: Never smoker Past Alcohol Use History: None Reported Past Drug Use History: None Reported, Marijuana Additional Drug Use History / Comment(s): Patient states he quit smoking one month ago. Smoke marijuana daily. - Past Family History Father Family Medical History: Myocardial Infarction ([place]) Medications and Allergies Home Medications Medication Instructions Recorded Confirmed Type Multivitamins, Thera [Multivitamin 1 tab PO DAILY 05/02/17 06/01/19 History (formulary)] Omeprazole [PriLOSEC] 20 mg PO AC-BID 05/02/17 06/01/19 History Pravastatin Sodium [Pravachol] 40 mg PO HS 05/02/17 06/01/19 History busPIRone HCL 20 mg PO TID 05/02/17 06/01/19 History ALPRAZolam [Xanax] 0.5 mg PO BID 05/27/19 06/01/19 History ARIPiprazole [Abilify] 20 mg PO HS 05/27/19 06/01/19 History Calcium Carbonate/Vitamin D3 2 tab PO DAILY 05/27/19 06/01/19 History [Calcium 500-Vit D3 200 Tablet] Ipratropium-Albuterol Nebulize 3 ml INHALATION RT-Q4H PRN 05/27/19 06/01/19 History [Duoneb 0.5 mg-3 mg/3 ml Soln] Metoprolol Tartrate [Lopressor] 12.5 mg PO BID 05/27/19 06/01/19 History Sertraline HCl [Zoloft] 75 mg PO BID 05/27/19 06/01/19 History Sildenafil Citrate [Viagra] 100 mg PO DIRECTED PRN 05/27/19 06/01/19 History Tiotropium Br/Olodaterol HCl 2 puff INHALATION RT-DAILY 01/14/20 01/19/20 History [Stiolto Respimat Inhal [place]] Doxycycline [Vibramycin] 100 mg PO BID 7 Days #14 cap 05/28/19 06/01/19 Rx Tamsulosin [Flomax] 0.4 mg PO PC-BRKFST 14 Days #14 05/28/19 06/01/19 Rx cap.er.24h predniSONE See Taper PO DAILY 06/01/19 06/01/19 History Allergies Allergy/AdvReac Type Severity Reaction Status Date / Time Influenza Virus Vaccines AdvReac Mild Diarrhea/CR Verified 06/01/19 10:34 AMPS/FEVER Physical Exam Vitals: Vital Signs Temp Pulse Pulse Resp BP BP BP 06/02/19 04:45 97.9 F 89 20 119/77 06/01/19 21:35 97.7 F 107 H 20 119/71 06/01/19 20:55 82 06/01/19 20:44 78 06/01/19 20:43 78 06/01/19 20:29 80 06/01/19 16:32 78 06/01/19 16:00 16 06/01/19 15:01 97.8 F 95 16 109/73 06/01/19 10:45 97.8 F 85 16 102/67 06/01/19 10:29 98.2 F 86 24 109/74 06/01/19 09:16 84 24 107/72 06/01/19 08:48 84 06/01/19 08:39 83 06/01/19 08:25 98 F 06/01/19 08:18 32 H 06/01/19 08:12 83 32 H 124/77 Pulse Ox 06/02/19 04:45 92 L 06/01/19 21:35 92 L 06/01/19 20:55 06/01/19 20:44 06/01/19 20:43 06/01/19 20:29 06/01/19 16:32 06/01/19 16:00 06/01/19 15:01 94 L 06/01/19 10:45 90 L 06/01/19 10:29 93 L 06/01/19 09:16 94 L 06/01/19 08:48 06/01/19 08:39 06/01/19 08:25 06/01/19 08:18 06/01/19 08:12 94 L Intake and Output 06/01/19 06/01/19 06/02/19 14:59 22:59 06:59 Intake Total 200 100 Output Total 300 Balance -300 200 100 Intake: Oral 200 100 Output: Urine 300 Other: # Voids 1 2 # Bowel Movements 1 Weight 75.75 kg GENERAL: The patient is alert and oriented x3, not in any acute distress. Well developed, well nourished. HEENT: Pupils are round and equally reacting to light. EOMI. No scleral icterus. No conjunctival pallor. Normocephalic, atraumatic. No pharyngeal erythema. No thyromegaly. CARDIOVASCULAR: S1 and S2 present. No murmurs, rubs, or gallops. -PULMONARY: Chest is clear to auscultation, bilateral wheezing with decreased air entry ABDOMEN: Soft, nontender, nondistended, normoactive bowel sounds. No palpable organomegaly. MUSCULOSKELETAL: No joint swelling or deformity. EXTREMITIES: No cyanosis, clubbing, or pedal edema. NEUROLOGICAL: Gross neurological examination did not reveal any focal deficits. SKIN: No rashes. No petechiae Results CBC & Chem 7: 06/02/19 07:16 06/01/19 08:23 Labs: Abnormal Lab Results - Last 24 Hours (Table) 06/01/19 06/01/19 06/01/19 Range/Units 08:23 08:23 16:57 WBC 12.4 H (3.8-10.6) k/uL Neutrophils # 8.1 H (1.3-7.7) k/uL Basophils # 0.3 H (0-0.2) k/uL Carbon Dioxide 39 H (22-30) mmol/L BUN 40 H (9-20) mg/dL Creatinine 1.31 H (0.66-1.25) mg/dL POC Glucose (mg/dL) 230 H (75-99) mg/dL Urine Glucose (UA) (Negative) Urine Ketones (Negative) 06/01/19 06/02/19 Range/Units 20:45 03:00 WBC (3.8-10.6) k/uL Neutrophils # (1.3-7.7) k/uL Basophils # (0-0.2) k/uL Carbon Dioxide (22-30) mmol/L BUN (9-20) mg/dL Creatinine (0.66-1.25) mg/dL POC Glucose (mg/dL) 217 H (75-99) mg/dL Urine Glucose (UA) Trace H (Negative) Urine Ketones Trace H (Negative) Thrombosis Risk Factor Assmnt - Choose All That Apply Any of the Below Risk Factors Present?: Yes Each Factor Represents 1 point: Abnormal pulmonary function (COPD) Other Risk Factors: Yes Each Risk Factor Represents 2 Points: Age 61-74 years Thrombosis Risk Factor Assessment Total Risk Factor Score: 3 Thrombosis Risk Factor Assessment Level: Moderate Risk Assessment and Plan Assessment: Acute COPD exacerbation Nicotine effect, Recent history of personal smoking and an active secondary smoking. GERD Hyperlipidemia Hypothyroidism Chronic hypoxic respiratory failure History of depression and schizophrenia, not in active tissue. Plan: This is a pleasant 69 years old male who presents with COPD exacerbation. Continue with steroids, bronchodilators and oxygen therapy. Continue with antibiotics but change Zosyn to Levaquin. Consult pulmonary services. Labs and medication were reviewed.. Continue same treatment. Continue with symptomatic treatment. Resume home medication. Monitor lytes and vitals. DVT and GI prophylaxis. Further recommendations of the clinical course of the patient DVT prophylaxis: Subcutaneous heparin GI Prophylaxis: Pepcid PT/OT: Pending Prognosis is guarded
[2019-06-02] MEDS: busPIRone HCl 10 MG TAB PO SCH ×3 (08:24→20:46)
[2019-06-02] MEDS: CALCIUM CARB-VIT D 500MG-200UN 1 EACH TAB PO SCH (08:25)
[2019-06-02] MEDS: PANTOPRAZOLE 40 MG TABLET PO SCH (08:25)
[2019-06-02] MEDS: ALPRAZolam 0.5 MG TAB PO SCH ×2 (08:25→20:49)
[2019-06-02] MEDS: TAMSULOSIN 0.4 MG CAP.ER.24H PO SCH (08:25)
[2019-06-02] MEDS: MULTIVITAMINS, THERA 1 EACH TAB PO SCH (08:25)
[2019-06-02] MEDS: SERTRALINE 25 MG TAB PO SCH ×2 (08:25→20:46)
[2019-06-02] MEDS: HEPARIN SODIUM,PORCINE 5,000 UNIT/ML 1 ML VIAL SQ SCH ×2 (08:26→20:45)
[2019-06-02] MEDS: INSULIN ASPART (NovoLOG) 100 UNIT/ML VIAL SQ SCH ×4 (08:27→20:44)
[2019-06-02] MEDS: METOPROLOL TARTRATE 12.5 MG TAB PO SCH ×2 (08:32→20:46)
[2019-06-02] MEDS: LEVOFLOXACIN 500 MG TAB PO SCH (08:32)
[2019-06-02 12:05] LABS: Glucose,Whole Blood 140 mg/dL (75-99)
[2019-06-02 16:53] LABS: Glucose,Whole Blood 133 mg/dL (75-99)
--- NOTE | 2019-06-02 19:38 | CONS ---
CONSULTATION PULMONARY/CRITICAL CARE CONSULTATION: DATE OF SERVICE: 06/02/2019 This is a 69-year-old male who was recently inpatient for COPD exacerbation. He was discharged from the hospital a couple of days ago. The patient was readmitted to the hospital via the emergency room, brought in by EMS. He apparently woke up with complaints of increasing shortness of breath. His pulse ox apparently was low on 3 L. Apparently when he arrived via EMS his saturations were in the 90s. He got two breathing treatments on the way via EMS. When he got to the emergency room, he was apparently doing much better, and on 3 L he was 100%. He denies any chest pain or chest discomfort. There was no palpitation. There was no fever or chills. The patient really was not coughing up any phlegm. There was no nausea, vomiting, diarrhea or any genitourinary complaints. There was no trauma to speak of. Anyway, the patient currently is resting comfortably. He is on a couple of liters of oxygen. He is feeling much improved. Hopefully he could be discharged home in a few days. HOME MEDICATIONS: Reviewed. He is on multiple vitamins, Prilosec, Pravachol, BuSpar, Xanax, Abilify, vitamin D with calcium, DuoNeb, metoprolol, Zoloft, Viagra, and a combination of long- acting muscarinic antagonists/long-acting beta agonists. Other medications include prednisone with a taper, Flomax and doxycycline. ALLERGIES: INFLUENZA VACCINE. PAST MEDICAL HISTORY: His past medical history is apparently positive for well-established COPD from previous tobacco use. He also has a history of gastroesophageal reflux disease, hyperlipidemia and chronic anxiety/depression. SURGICAL HISTORY: Surgical history includes hiatal hernia repair, misplaced testicle, left index finger surgery, and some other minor procedures. SOCIAL HISTORY: Positive for previous heavy tobacco use. He stopped smoking recently. He has been smoking for about 50 years maybe more. He denies any illicit drug use other than marijuana and denies any significant alcohol use. FAMILY HISTORY: Positive for myocardial infarction. REVIEW OF SYSTEMS: CONSTITUTIONAL: Weakness. NEUROLOGIC: Negative. HEENT: Negative. CARDIOVASCULAR: Negative. PULMONARY: Shortness of breath, chest tightness, wheezing, minimal cough; no phlegm. GI: Negative. : Negative. RHEUMATOLOGIC: Negative. IMMUNOLOGIC: Negative. ENDOCRINOLOGIC: Negative. DERMATOLOGIC: Negative. PHYSICAL EXAMINATION: VITAL SIGNS: Current vital signs are reviewed. His temperature is 96.7, heart rate 89, respiratory rate 20, blood pressure 108/67, mean 80. Five-liter saturation 93%. GENERAL APPEARANCE: Appears in no acute distress. No audible wheezing, use of accessory muscles or conversational dyspnea. The yesy actually looks relatively stable. HEENT: Examination is grossly unremarkable. Nasal oxygen noted. NECK: Supple. Full range of motion. No adenopathy or thyromegaly. Neck veins are flat. CARDIOVASCULAR: Examination reveals regular rhythm and rate. Heart rate 80 beats per minute. S1, S2 normal. Heart sounds are distant. LUNGS: Lungs reveal mild expiratory rhonchi and wheezes. Breath sounds are diminished. There is prolongation on forced maneuver. Adventitious lung sounds are more prominent on forced maneuver. ABDOMEN: Soft. Bowel sounds are heard. EXTREMITIES: Intact. No cyanosis, clubbing or edema. SKIN: Without rash. NEUROLOGIC: Neurologic examination is brief but nonfocal. LABORATORY DATA/IMAGING: Reviewed. White count 18, hemoglobin 11.8, hematocrit 37.4, platelet count normal. Sodium, potassium, chloride normal. CO2 is 38. Anion gap is 5. BUN and creatinine were 43 and 1.09. Troponins negative. Urine was essentially negative. A chest x-ray from yesterday on the day of admission showed changes of COPD with no acute abnormality. Microbiology is negative. MEDICATIONS: Medications are reviewed. The patient's pulmonary medications include formoterol 20 mcg and Pulmicort 1 mg twice a day, DuoNeb q.i.d. and p.r.n., Solu-Medrol 60 mg q.6, and Levaquin p.o. ASSESSMENT: 1. Chronic obstructive pulmonary disease exacerbation with possible mild purulent tracheobronchitis and recent admission to the hospital for a similar episode. 2. History of significant tobacco abuse. He quit recently. He has been smoking for more than 50 years. 3. History of hyperlipidemia. 4. History of gastroesophageal reflux disease. 5. History of anxiety/depression. 6. History of chronic hypoxemic respiratory failure. 7. History of ongoing tobacco use until recently. 8. History of chronic marijuana use. PLAN: This patient is clearly is sabotaging his care. The patient until recently was continuing to smoke. In addition, he uses marijuana, which is certainly likely a trigger for his underlying chronic lung disease. His current medications are appropriate. He is on appropriate bronchodilators and steroids as well as antibiotics. Will continue to follow. He was counseled about the importance of smoking cessation and taking better care of himself. DEEPAK / EARL: [id number] / DWAYNE
[2019-06-02 20:23] LABS: Glucose,Whole Blood 186 mg/dL (75-99)
[2019-06-02] MEDS: PRAVASTATIN SODIUM 40 MG TAB PO SCH (20:46)
[2019-06-03] MEDS: methylPREDNISolone SOD SUCCI 125 MG/2 ML VIAL IV SCH ×3 (05:38→17:38)
[2019-06-03 07:00] LABS: Glucose,Whole Blood 139 mg/dL (75-99)
[2019-06-03] MEDS: IPRATROPIUM-ALBUTEROL 3 ML NEB INHALATION SCH ×4 (07:05→20:59)
[2019-06-03] MEDS: BUDESONIDE 1 MG/2 ML NEBU INHALATION SCH ×2 (07:05→20:59)
[2019-06-03] MEDS: FORMOTEROL FUMARATE 20 MCG/2 ML NEBU INHALATION SCH ×2 (07:05→20:59)
--- NOTE | 2019-06-03 07:06 | P.PN ---
Subjective This is a pleasant 69 years old male with past medical history of COPD, GERD, hyperlipidemia, hypothyroidism, chronic hypoxic respiratory failure, anxiety and depression, schizophrenia. Presents because of dyspnea. He was recently discharged from the hospital 2 days ago for COPD exacerbation and acute tracheobronchitis. Patient was recently discharged from the hospital for COPD exacerbation. He went home however the workup in the morning with shortness of breath that is not relieved by his nebulizer machine, so he decided to come to the emergency room. Also says that his coughing and what family is at his baseline. Patient states that he was still smoking till recently when he quit about 2 weeks ago, he used to smoke 2 packs per day, cut the duct 1 pack per day, cut it down to 1 cigarettes per week, but over the last 2 weeks he did not have a cigarette however his still smoking in-house. No chest pain, no dizziness or headache, no change in urine or bowel habits, no fever. Patient at baseline can walk without the walker. He denies alcohol or illicit drugs Vitas looks stable and he is saturating 92% and a 3 L oxygen via nasal cannula. On admission he has mild leukocytosis 12.4 and today 18 K, probable due to the effect of steroids. BMP and liver enzymes were unremarkable however his creatinine was elevated 1.3, compared to baseline of 0.7-1.1. Sugar controlled. EKG showing normal sinus rhythm at [address]-T changes. Chest x-ray: COPD with no acute process by Radiologist, reviewed by myself On admission he was placed on Solu-Medrol 60 mg and started on Zosyn 06/03/2019 Patient still feels his dyspneic although reports feeling better elevated. A still have significant cough. Vitals are stable. He is saturating 93% on 5 L oxygen, compared to 4 L yesterday. Glucose this morning is 139-186. Labs from this morning are still pending. Patient currently remains on Levaquin on Solu-Medrol 60 mg as well as pain management. We'll check also B12 level Review of systems CONSTITUTIONAL: No fever, no malaise, no fatigue. HEENT: No recent visual problems or hearing problems. Denied any sore throat. CARDIOVASCULAR: No orthopnea, PND, no palpitations, no syncope. PULMONARY: no hemoptysis. GASTROINTESTINAL: No diarrhea, no nausea, no vomiting, no abdominal pain. Normoactive bowel sounds. NEUROLOGICAL: No headaches, no weakness, no numbness. HEMATOLOGICAL: Denies any bleeding or petechiae. GENITOURINARY: Denies any burning micturition, frequency, or urgency. MUSCULOSKELETAL/RHEUMATOLOGICAL: Denies any joint pain, swelling, or any muscle pain. ENDOCRINE: Denies any polyuria or polydipsia. Active Medications Generic Name Dose Route Start Last Admin Trade Name Freq PRN Reason Stop Dose Admin Acetaminophen 500 mg 06/01/19 12:44 Tylenol Tab PO Q6HR PRN Fever and/ or Pain Hydrocodone Bitart/Acetaminophen 1 each 06/01/19 12:44 [place] 5-325 PO Q6HR PRN Pain Albuterol/Ipratropium 3 ml 06/01/19 10:07 Duoneb 0.5 Mg-3 Mg/3 Ml Soln INHALATION RT-Q4H PRN Shortness Of Breath Or Wheezing Albuterol/Ipratropium 3 ml 06/01/19 16:00 06/02/19 21:08 Duoneb 0.5 Mg-3 Mg/3 Ml Soln INHALATION 3 ml RT-QID CLIF Administration Alprazolam 0.5 mg 06/01/19 21:00 06/02/19 20:49 Xanax PO 0.5 mg BID CLIF Administration Alprazolam 0.25 mg 06/01/19 12:44 Xanax PO TID PRN Anxiety Aripiprazole 20 mg 06/01/19 21:00 06/02/19 20:46 Abilify PO 20 mg HS CLIF Administration Budesonide 1 mg 06/01/19 13:00 06/02/19 21:07 Pulmicort INHALATION 1 mg RT-BID CLIF Administration Buspirone HCl 20 mg 06/01/19 16:00 06/02/19 20:46 Buspar PO 20 mg TID CLIF Administration Calcium Carbonate 2 each 06/02/19 09:00 06/02/19 08:25 Oscal 500+D PO 2 each DAILY CLIF Administration Formoterol Fumarate 20 mcg 06/01/19 13:00 06/02/19 21:07 Perforomist INHALATION 20 mcg RT-BID CLIF Administration Heparin Sodium (Porcine) 5,000 unit 06/01/19 12:45 06/02/19 20:45 Heparin SQ Not Given Q12HR CLIF Insulin Aspart 0 unit 06/02/19 07:30 06/02/19 20:44 Novolog SQ 5 unit ACHS CLIF Administration Protocol Levofloxacin 500 mg 06/02/19 08:00 06/02/19 08:32 Levaquin PO 06/07/19 08:01 500 mg Q24H CLIF Administration Methylprednisolone Sodium Succinate 60 mg 06/01/19 12:00 06/03/19 05:38 Solu-Medrol IV 60 mg Q6HR CILF Administration Metoprolol Tartrate 12.5 mg 06/01/19 21:00 06/02/19 20:46 Lopressor PO 12.5 mg BID [facility]1983 Administration Multivitamins 1 each 06/02/19 09:00 06/02/19 08:25 Theragran PO 1 each DAILY CLIF Administration Pantoprazole Sodium 40 mg 06/02/19 07:30 06/02/19 08:25 Protonix PO 40 mg AC-BRKFST CLIF Administration Pravastatin Sodium 40 mg 06/01/19 21:00 06/02/19 20:46 Pravachol PO 40 mg HS CLIF Administration Sertraline HCl 75 mg 06/01/19 21:00 06/02/19 20:46 Zoloft PO 75 mg BID [facility], [facility]1983 Administration Tamsulosin HCl 0.4 mg 06/02/19 08:30 06/02/19 08:25 Flomax PO 0.4 mg PC-BRKFST CLIF Administration Objective - Vital Signs Vital signs: Vital Signs Temp 97.8 F 06/03/19 05:08 Pulse 86 06/03/19 05:08 Resp 20 06/03/19 05:08 BP 112/74 06/03/19 05:08 Pulse Ox 93 L 06/03/19 05:08 Intake & Output 06/02/19 06/03/19 06/03/19 18:59 06:59 18:59 Intake Total 300 Output Total 200 Balance -200 300 Weight 75.75 kg Intake: Oral 300 Output: Urine 200 Other: # Voids 2 2 # Bowel Movements 0 - Exam GENERAL: The patient is alert and oriented x3, not in any acute distress. Well developed, well nourished. HEENT: Pupils are round and equally reacting to light. EOMI. No scleral icterus. No conjunctival pallor. Normocephalic, atraumatic. No pharyngeal erythema. No thyromegaly. CARDIOVASCULAR: S1 and S2 present. No murmurs, rubs, or gallops. -PULMONARY: Chest is clear to auscultation, bilateral wheezing with decreased air entry ABDOMEN: Soft, nontender, nondistended, normoactive bowel sounds. No palpable organomegaly. MUSCULOSKELETAL: No joint swelling or deformity. EXTREMITIES: No cyanosis, clubbing, or pedal edema. NEUROLOGICAL: Gross neurological examination did not reveal any focal deficits. SKIN: No rashes. No petechiae - Labs CBC & Chem 7: 06/02/19 07:16 06/02/19 07:16 Labs: Abnormal Lab Results - Last 24 Hours (Table) 06/02/19 06/02/19 06/02/19 Range/Units 06:56 07:16 07:16 WBC 18.0 H (3.8-10.6) k/uL RBC 3.87 L (4.30-5.90) m/uL Hgb 11.8 L (13.0-17.5) gm/dL Hct 37.4 L (39.0-53.0) % Neutrophils # 17.2 H (1.3-7.7) k/uL Lymphocytes # 0.5 L (1.0-4.8) k/uL Carbon Dioxide 38 H (22-30) mmol/L BUN 43 H (9-20) mg/dL Glucose 152 H (74-99) mg/dL POC Glucose (mg/dL) 153 H (75-99) mg/dL 06/02/19 06/02/19 06/02/19 Range/Units 11:52 16:42 20:21 WBC (3.8-10.6) k/uL RBC (4.30-5.90) m/uL Hgb (13.0-17.5) gm/dL Hct (39.0-53.0) % Neutrophils # (1.3-7.7) k/uL Lymphocytes # (1.0-4.8) k/uL Carbon Dioxide (22-30) mmol/L BUN (9-20) mg/dL Glucose (74-99) mg/dL POC Glucose (mg/dL) 140 H 133 H 186 H (75-99) mg/dL 06/03/19 Range/Units 06:58 WBC (3.8-10.6) k/uL RBC (4.30-5.90) m/uL Hgb (13.0-17.5) gm/dL Hct (39.0-53.0) % Neutrophils # (1.3-7.7) k/uL Lymphocytes # (1.0-4.8) k/uL Carbon Dioxide (22-30) mmol/L BUN (9-20) mg/dL Glucose (74-99) mg/dL POC Glucose (mg/dL) 139 H (75-99) mg/dL Microbiology - Last 24 Hours (Table) 06/01/19 12:58 Blood Culture - Preliminary Blood No Growth after 24 hours Assessment and Plan Assessment: Acute COPD exacerbation Nicotine effect, Recent history of personal smoking and an active secondary smoking. GERD Hyperlipidemia Hypothyroidism Chronic hypoxic respiratory failure History of depression and schizophrenia, not in active tissue. Plan: This is a pleasant 69 years old male who presents with COPD exacerbation. Continue with steroids, bronchodilators and oxygen therapy. Continue with antibiotics Levaquin. Follow-up recommendation by pulmonary services. Labs and medication were reviewed.. Continue same treatment. Continue with symptomatic treatment. Resume home medication. Monitor lytes and vitals. DVT and GI prophylaxis. Further recommendations of the clinical course of the katerine ent DVT prophylaxis: Subcutaneous heparin GI Prophylaxis: Pepcid PT/OT: Pending Prognosis is guarded
[2019-06-03] MEDS: PANTOPRAZOLE 40 MG TABLET PO SCH (07:59)
[2019-06-03] MEDS: SERTRALINE 25 MG TAB PO SCH ×2 (07:59→21:09)
[2019-06-03] MEDS: TAMSULOSIN 0.4 MG CAP.ER.24H PO SCH (08:00)
[2019-06-03] MEDS: busPIRone HCl 10 MG TAB PO SCH ×3 (08:00→21:09)
[2019-06-03] MEDS: INSULIN ASPART (NovoLOG) 100 UNIT/ML VIAL SQ SCH ×4 (08:00→21:11)
[2019-06-03] MEDS: CALCIUM CARB-VIT D 500MG-200UN 1 EACH TAB PO SCH (08:00)
[2019-06-03] MEDS: METOPROLOL TARTRATE 12.5 MG TAB PO SCH ×2 (08:00→21:09)
[2019-06-03] MEDS: MULTIVITAMINS, THERA 1 EACH TAB PO SCH (08:01)
[2019-06-03] MEDS: LEVOFLOXACIN 500 MG TAB PO SCH (08:01)
[2019-06-03] MEDS: HEPARIN SODIUM,PORCINE 5,000 UNIT/ML 1 ML VIAL SQ SCH ×2 (08:01→21:10)
[2019-06-03] MEDS: ALPRAZolam 0.5 MG TAB PO SCH ×2 (08:01→21:10)
[2019-06-03 09:26] LABS: Basophils % (A) 0 %; Eosinophils % (A) 0 %; HCT 37.1 % (39.0-53.0); HGB 11.5 gm/dL (13.0-17.5); Hypochromasia Slight; Lymphocytes # (A) 0.4 k/uL (1.0-4.8); Lymphocytes % (A) 2 %; MCH 30.5 pg (25.0-35.0); MCV 98.6 fL (80.0-100.0); Mean Platelet Volume 8.8; Monocytes # (A) 0.4 k/uL (0-1.0); Monocytes % (A) 2 %; Neutrophils # (A) 22.1 k/uL (1.3-7.7); Neutrophils % (A) 96 %; Platelet Count 173 k/uL (150-450); RBC 3.77 m/uL (4.30-5.90)
[2019-06-03 09:50] LABS: Calcium 9.5 mg/dL (8.4-10.2); Potassium 4.4 mmol/L (3.5-5.1)
[2019-06-03 12:16] LABS: Glucose,Whole Blood 160 mg/dL (75-99)
--- NOTE | 2019-06-03 12:31 | P.PN ---
Subjective Progress Note Date: 06/03/19 Principal diagnosis: Acute exacerbation of chronic obstructive pulmonary disease The patient is seen today in 06/03/2019 in follow-up on the regular medical floor. He is awake and alert in no acute distress. Breathing easier today compared to yesterday. Maintaining O2 saturations in the low 90s on 5 L/m nasal cannula. He's been afebrile. Hemodynamically stable. Blood culture reveals no growth. White count 23.0. Hemoglobin 11.5. Creatinine 1.08. He is continued on DuoNeb inhalations, Pulmicort and Perforomist inhalations, IV Solu-Medrol. Antibiotics in the form of Levaquin. Objective - Vital Signs Vital signs: Vital Signs Temp 97.8 F 06/03/19 05:08 Pulse 82 06/03/19 11:00 Resp 20 06/03/19 08:00 BP 112/74 06/03/19 05:08 Pulse Ox 94 L 06/03/19 07:05 Intake & Output 06/02/19 06/03/19 06/03/19 18:59 06:59 18:59 Intake Total 300 Output Total 200 Balance -200 300 Weight 75.75 kg Intake: Oral 300 Output: Urine 200 Other: # Voids 2 2 1 # Bowel Movements 0 - Exam GENERAL EXAM: Alert, active, on 5 L nasal cannula, comfortable in no apparent distress. HEAD: Normocephalic. EYES: Normal reaction of pupils, equal size. NOSE: Clear with pink turbinates. THROAT: No erythema or exudates. NECK: No masses, no JVD. CHEST: No chest wall deformity. LUNGS: Equal air entry with faint end expiratory wheeze, diminished. CVS: S1 and S2 normal with no audible murmur, regular rhythm. ABDOMEN: No hepatosplenomegaly, normal bowel sounds, no guarding or rigidity. SPINE: No scoliosis or deformity SKIN: No rashes CENTRAL NERVOUS SYSTEM: No focal deficits, tone is normal in all 4 extremities. EXTREMITIES: There is no peripheral edema. No clubbing, no cyanosis. Peripheral pulses are intact. - Labs CBC & Chem 7: 06/03/19 08:42 06/03/19 08:42 Labs: Abnormal Lab Results - Last 24 Hours (Table) 06/02/19 06/02/19 06/03/19 Range/Units 16:42 20:21 06:58 WBC (3.8-10.6) k/uL RBC (4.30-5.90) m/uL Hgb (13.0-17.5) gm/dL Hct (39.0-53.0) % Neutrophils # (1.3-7.7) k/uL Lymphocytes # (1.0-4.8) k/uL Carbon Dioxide (22-30) mmol/L BUN (9-20) mg/dL Glucose (74-99) mg/dL POC Glucose (mg/dL) 133 H 186 H 139 H (75-99) mg/dL 06/03/19 06/03/19 06/03/19 Range/Units 08:42 08:42 12:15 WBC 23.0 H (3.8-10.6) k/uL RBC 3.77 L (4.30-5.90) m/uL Hgb 11.5 L (13.0-17.5) gm/dL Hct 37.1 L (39.0-53.0) % Neutrophils # 22.1 H (1.3-7.7) k/uL Lymphocytes # 0.4 L (1.0-4.8) k/uL Carbon Dioxide 34 H (22-30) mmol/L BUN 48 H (9-20) mg/dL Glucose 146 H (74-99) mg/dL POC Glucose (mg/dL) 160 H (75-99) mg/dL Microbiology - Last 24 Hours (Table) 06/01/19 12:58 Blood Culture - Preliminary Blood No Growth after 24 hours Assessment and Plan Assessment: 1 Acute exacerbation of chronic obstructive pulmonary disease, complicated by purulent tracheobronchitis 2 Recent admission for the same 3 Continued and ongoing chronic tobacco dependence 4 Marijuana use 5 Chronic hypoxemic respiratory failure secondary to COPD 6 Hyperlipidemia 7 Anxiety/depression Plan The patient was seen and evaluated by Dr. Khan. He is cleared for discharge from the pulmonary standpoint. We did prednisone burst and taper starting at 40 mg daily for 4 days. Complete course of antibiotics. Continue his home pulmonary medications. He is again educated regarding the importance of complete smoking cessation. Marijuana cessation. Titrate down the FiO2 as tolerated. Follow-up in the office as scheduled. He is encouraged to call sooner with any recurrence of symptoms or other questions or concerns. I, the cosigning physician, performed a history & physical examination of the patient. Lungs sounds are clear, diminished. Maintaining good O2 saturations in the 90s on 5 L/m per nasal cannula. I discussed the assessment and plan of care with my nurse practitioner, Eryn Guillen. I attest to the above note as dictated by her.
[2019-06-03 16:43] LABS: Folate, Serum 12.4 ng/mL
[2019-06-03 17:04] LABS: Glucose,Whole Blood 156 mg/dL (75-99)
[2019-06-03 20:48] LABS: Glucose,Whole Blood 180 mg/dL (75-99)
[2019-06-03] MEDS: PRAVASTATIN SODIUM 40 MG TAB PO SCH (21:11)
[2019-06-04 05:08] VITALS: BP 130/82; RESP 24; TEMP 97.7
[2019-06-04 07:01] LABS: Glucose,Whole Blood 113 mg/dL (75-99)
[2019-06-04] MEDS: INSULIN ASPART (NovoLOG) 100 UNIT/ML VIAL SQ SCH ×2 (07:06→12:18)
[2019-06-04] MEDS: PANTOPRAZOLE 40 MG TABLET PO SCH (07:45)
[2019-06-04] MEDS: MULTIVITAMINS, THERA 1 EACH TAB PO SCH (07:46)
[2019-06-04] MEDS: busPIRone HCl 10 MG TAB PO SCH (07:46)
[2019-06-04] MEDS: SERTRALINE 25 MG TAB PO SCH (07:46)
[2019-06-04] MEDS: LEVOFLOXACIN 500 MG TAB PO SCH (07:46)
[2019-06-04] MEDS: METOPROLOL TARTRATE 12.5 MG TAB PO SCH (07:46)
[2019-06-04] MEDS: CALCIUM CARB-VIT D 500MG-200UN 1 EACH TAB PO SCH (07:46)
[2019-06-04] MEDS: TAMSULOSIN 0.4 MG CAP.ER.24H PO SCH (07:46)
[2019-06-04] MEDS: HEPARIN SODIUM,PORCINE 5,000 UNIT/ML 1 ML VIAL SQ SCH (07:47)
[2019-06-04] MEDS: ALPRAZolam 0.5 MG TAB PO SCH (07:49)
[2019-06-04 08:00] LABS: Basophils # (A) 0.1 k/uL (0-0.2); Basophils % (A) 0 %; Eosinophils % (A) 0 %; HCT 35.8 % (39.0-53.0); HGB 11.4 gm/dL (13.0-17.5); Hypochromasia Slight; Lymphocytes # (A) 0.6 k/uL (1.0-4.8); Lymphocytes % (A) 3 %; MCH 31.4 pg (25.0-35.0); MCV 98.2 fL (80.0-100.0); Mean Platelet Volume 8.9; Monocytes # (A) 0.6 k/uL (0-1.0); Monocytes % (A) 3 %; Neutrophils # (A) 17.1 k/uL (1.3-7.7); Neutrophils % (A) 93 %; Platelet Count 183 k/uL (150-450); RBC 3.64 m/uL (4.30-5.90); WBC 18.4 k/uL (3.8-10.6)
[2019-06-04] MEDS: BUDESONIDE 1 MG/2 ML NEBU INHALATION SCH (08:47)
[2019-06-04] MEDS: IPRATROPIUM-ALBUTEROL 3 ML NEB INHALATION SCH (08:47)
[2019-06-04] MEDS: FORMOTEROL FUMARATE 20 MCG/2 ML NEBU INHALATION SCH (08:47)
[2019-06-04] MEDS ORDERED: predniSONE 20 MG TAB PO SCH (09:00)
[2019-06-04 09:06] VITALS: PULSE 93
--- NOTE | 2019-06-04 11:58 | P.PN ---
Subjective Progress Note Date: 06/04/19 Principal diagnosis: Acute exacerbation of chronic obstructive pulmonary disease The patient is seen today in 06/03/2019 in follow-up on the regular medical floor. He is awake and alert in no acute distress. Breathing easier today compared to yesterday. Maintaining O2 saturations in the low 90s on 5 L/m nasal cannula. He's been afebrile. Hemodynamically stable. Blood culture reveals no growth. White count 23.0. Hemoglobin 11.5. Creatinine 1.08. He is continued on DuoNeb inhalations, Pulmicort and Perforomist inhalations, IV Solu-Medrol. Antibiotics in the form of Levaquin. On 06/04/2019 patient seen in follow-up on the regular medical floor, he is doing well, continues to improve, occasional congestive cough, improving dyspnea less bronchospastic on today's exam, only a few scattered rhonchi, patient has been treated with nebulized bronchodilators, antibiotics and steroids, improving, and we anticipate discharge home today Objective - Vital Signs Vital signs: Vital Signs Temp 97.7 F 06/04/19 05:07 Pulse 93 06/04/19 09:06 Resp 24 06/04/19 05:07 BP 130/82 06/04/19 05:07 Pulse Ox 95 06/04/19 05:07 Intake & Output 06/03/19 06/04/19 06/04/19 18:59 06:59 18:59 Output Total 200 1050 Balance -200 -1050 Output: Urine 200 1050 Other: Voiding Method Toilet Toilet Urinal Urinal # Voids 1 1 - Exam GENERAL EXAM: Alert, very pleasant, 69-year-old white male on 5 L of oxygen with pulse ox of 93%, comfortable in no apparent distress. HEAD: Normocephalic/atraumatic. EYES: Normal reaction of pupils, equal size. Conjunctiva pink, sclera white. NOSE: Clear with pink turbinates. THROAT: No erythema or exudates. NECK: No masses, no JVD, no thyroid enlargement, no adenopathy. CHEST: No chest wall deformity. Symmetrical expansion. LUNGS: Equal air entry with a few scattered rhonchi, no wheeze, dullness. CVS: Regular rate and rhythm, normal S1 and S2, no gallops, no murmurs, no rubs ABDOMEN: Soft, nontender. No hepatosplenomegaly, normal bowel sounds, no guarding or rigidity. EXTREMITIES: No clubbing, no edema, no cyanosis, 2+ pulses and upper and lower extremities. MUSCULOSKELETAL: Muscle strength and tone normal. SPINE: No scoliosis or deformity SKIN: No rashes CENTRAL NERVOUS SYSTEM: Alert and oriented -3. No focal deficits, tone is normal in all 4 extremities. PSYCHIATRIC: Alert and oriented -3. Appropriate affect. Intact judgment and insight. - Labs CBC & Chem 7: 06/04/19 07:18 06/03/19 08:42 Labs: Abnormal Lab Results - Last 24 Hours (Table) 06/03/19 06/03/19 06/03/19 Range/Units 12:15 17:03 20:46 WBC (3.8-10.6) k/uL RBC (4.30-5.90) m/uL Hgb (13.0-17.5) gm/dL Hct (39.0-53.0) % Neutrophils # (1.3-7.7) k/uL Lymphocytes # (1.0-4.8) k/uL POC Glucose (mg/dL) 160 H 156 H 180 H (75-99) mg/dL 06/04/19 06/04/19 Range/Units 06:41 07:18 WBC 18.4 H (3.8-10.6) k/uL RBC 3.64 L (4.30-5.90) m/uL Hgb 11.4 L (13.0-17.5) gm/dL Hct 35.8 L (39.0-53.0) % Neutrophils # 17.1 H (1.3-7.7) k/uL Lymphocytes # 0.6 L (1.0-4.8) k/uL POC Glucose (mg/dL) 113 H (75-99) mg/dL Microbiology - Last 24 Hours (Table) 06/01/19 12:58 Blood Culture - Preliminary Blood No Growth after 48 hours Assessment and Plan Plan: Assessment: 1 Acute exacerbation of chronic obstructive pulmonary disease, complicated by purulent tracheobronchitis 2 Recent admission for the same 3 Continued and ongoing chronic tobacco dependence 4 Marijuana use 5 Chronic hypoxemic respiratory failure secondary to COPD 6 Hyperlipidemia 7 Anxiety/depression Plan: Patient continues to improve, vital signs are stable, as dyspneic and bronchospastic, increase activity as tolerated, from pulmonary perspective patient is clear for discharge home today, he will need to follow up with Dr. Khan in the office in one to 2 weeks. Patient can finish outpatient course of Levaquin, prednisone taper and he can resume his maintenance inhalers and nebulized treatments his sputum culture from last admission on 05/27/2019 was positive for Haemophilus influenza I performed a history & physical examination of the patient and discussed their management with my nurse practitioner, Rochelle Amaro. I reviewed the nurse practitioner's note and agree with the documented findings and plan of care. Lung sounds are positive for a few scattered rhonchi. The findings and the impression was discussed with the patient. I attest to the documentation by the nurse practitioner. Time with Patient: Less than 30
[2019-06-04 12:18] LABS: Glucose,Whole Blood 103 mg/dL (75-99)
--- NOTE | 2019-06-04 22:42 | P.DS ---
Providers Date of admission: 06/01/19 10:08 Attending physician: Piyush Cardenas MD Consults: 06/01/19 12:44 Consult Physician Routine Consulting Provider: Libia Timmons Consult Reason/Comments: copd Do you want consulting provider notified?: Yes Primary care physician: Robbi Michelle Hospital Course: Diagnoses: Acute COPD exacerbation Nicotine effect, Recent history of personal smoking and an active secondary smoking. GERD Hyperlipidemia Hypothyroidism Chronic hypoxic respiratory failure History of depression and schizophrenia, not in active tissue. Hospital course: This is a pleasant 69 years old male with past medical history of COPD, GERD, hyperlipidemia, hypothyroidism, chronic hypoxic respiratory failure, anxiety and depression, schizophrenia. Presents because of dyspnea. He was recently discharged from the hospital 2 days ago for COPD exacerbation and acute tracheobronchitis. Patient was recently discharged from the hospital for COPD exacerbation. He went home however the workup in the morning with shortness of breath that is not relieved by his nebulizer machine, so he decided to come to the emergency room. Also says that his coughing and what family is at his baseline. Patient states that he was still smoking till recently when he quit about 2 weeks ago, however his still smoking in-house. No chest pain, no dizziness or headache, no change in urine or bowel habits, no fever. Patient at baseline can walk without the walker. He denies alcohol or illicit drugs. Patient was admitted and treated with steroids, antibiotics. Also received bronchodilator. Patient showed interval improvement, he is been evaluated by paper products printer, his symptoms significantly improved and back to baseline which is also with some dyspnea. Patient told me today he wants to go home. He denies other symptoms like chest pain or abdominal pain. Patient was cleared for discharge by pulmonary service Problems and management plan were discussed with the patient and he verbalized u nderstanding and acceptance Patient was found stable and can be discharged home however he needs follow-up as an outpatient. Patient was instructed to follow up with PCP within one week and patient agrees, patient was started to follow up with paper products printer in 7-10 days and he agrees as well. pt agrees with pulmonary appointment Gen: patient is a AAOx3, no distress CVS: S1-S2, RRR, no murmur -Lungs: B/L CTA, scattered wheezing. Is still somewhat tachypneic. Oxygen nasal cannula Abdomen: soft, no distention, no tenderness, positive bowel sounds Extremity: no leg edema or induration Time spent more than 35 minutes Plan - Discharge Summary New Discharge Prescriptions: New Ipratropium-Albuterol Nebulize [Duoneb 0.5 mg-3 mg/3 ml Soln] 3 ml INHALATION RT-QID ampul.neb Ipratropium-Albuterol Nebulize [Duoneb 0.5 mg-3 mg/3 ml Soln] 3 ml INHALATION RT-Q4H PRN ampul.neb PRN Reason: Shortness Of Breath Or Wheezing Levofloxacin [Levaquin] 250 mg PO DAILY #2 tablet predniSONE 10 mg PO DIRECTED #40 tab Pantoprazole [Protonix] 40 mg PO AC-BRKFST #30 tablet. Continue Multivitamins, Thera [Multivitamin (formulary)] 1 tab PO DAILY busPIRone HCL 20 mg PO TID Pravastatin Sodium [Pravachol] 40 mg PO HS Omeprazole [PriLOSEC] 20 mg PO AC-BID Metoprolol Tartrate [Lopressor] 12.5 mg PO BID Calcium Carbonate/Vitamin D3 [Calcium 500-Vit D3 200 Tablet] 2 tab PO DAILY Ipratropium-Albuterol Nebulize [Duoneb 0.5 mg-3 mg/3 ml Soln] 3 ml INHALATION RT-Q4H PRN PRN Reason: Shortness Of Breath ARIPiprazole [Abilify] 20 mg PO HS ALPRAZolam [Xanax] 0.5 mg PO BID Sertraline HCl [Zoloft] 75 mg PO BID Sildenafil Citrate [Viagra] 100 mg PO DIRECTED PRN PRN Reason: SEXUAL INTERCOURSE Tiotropium Br/Olodaterol HCl [Stiolto Respimat Inhal Criders] 2 puff INHALATION RT-DAILY Tamsulosin [Flomax] 0.4 mg PO PC-BRKFST 14 Days #14 cap.er.24h predniSONE See Taper PO DAILY Discontinued Doxycycline [Vibramycin] 100 mg PO BID 7 Days #14 cap Discharge Medication List Multivitamins, Thera [Multivitamin (formulary)] 1 tab PO DAILY 05/02/17 [History] Omeprazole [PriLOSEC] 20 mg PO AC-BID 05/02/17 [History] Pravastatin Sodium [Pravachol] 40 mg PO HS 05/02/17 [History] busPIRone HCL 20 mg PO TID 05/02/17 [History] ALPRAZolam [Xanax] 0.5 mg PO BID 05/27/19 [History] ARIPiprazole [Abilify] 20 mg PO HS 05/27/19 [History] Calcium Carbonate/Vitamin D3 [Calcium 500-Vit D3 200 Tablet] 2 tab PO DAILY 05/27/19 [History] Ipratropium-Albuterol Nebulize [Duoneb 0.5 mg-3 mg/3 ml Soln] 3 ml INHALATION RT-Q4H PRN 05/27/19 [History] Metoprolol Tartrate [Lopressor] 12.5 mg PO BID 05/27/19 [History] Sertraline HCl [Zoloft] 75 mg PO BID 05/27/19 [History] Sildenafil Citrate [Viagra] 100 mg PO DIRECTED PRN 05/27/19 [History] Tiotropium Br/Olodaterol HCl [Stiolto Respimat Inhal Criders] 2 puff INHALATION RT-DAILY 05/27/19 [History] Tamsulosin [Flomax] 0.4 mg PO PC-BRKFST 14 Days #14 cap.er.24h 05/28/19 [Rx] predniSONE See Taper PO DAILY 06/01/19 [History] Ipratropium-Albuterol Nebulize [Duoneb 0.5 mg-3 mg/3 ml Soln] 3 ml INHALATION RT-Q4H PRN ampul.neb 06/04/19 [Rx] Ipratropium-Albuterol Nebulize [Duoneb 0.5 mg-3 mg/3 ml Soln] 3 ml INHALATION RT-QID ampul.neb 06/04/19 [Rx] Levofloxacin [Levaquin] 250 mg PO DAILY #2 tablet 06/04/19 [Rx] Pantoprazole [Protonix] 40 mg PO AC-BRKFST #30 tablet. 06/04/19 [Rx] predniSONE 10 mg PO DIRECTED #40 tab 06/04/19 [Rx] Follow up Appointment(s)/Referral(s): Joe Khan DO [Doctor of Osteopathic Medicine] - 06/18/19 8:45 am [facility], [NON-STAFF] - Robbi Michelle DO [Primary Care Provider] - 1-2 days (office is not answering ) Patient Instructions/Handouts: COPD (Chronic Obstructive Pulmonary Disease) (DC) Discharge Disposition: HOME WITH HOME HEALTH SERVICES
== END 2019-06-04 13:15 | disposition home health service (06) | DRG 191 ==
LOC: EC 08:06 → 6NMEDSUR 10:08
PROVIDERS: ADMIT Internal Medicine; ATTEND Internal Medicine
DX: J44.1 Chronic obstructive pulmonary disease with (acute) exacerbation (principal); J96.11 Chronic respiratory failure with hypoxia; J96.12 Chronic respiratory failure with hypercapnia; D72.829 Elevated white blood cell count, unspecified; E03.9 Hypothyroidism, unspecified; E78.5 Hyperlipidemia, unspecified; F20.9 Schizophrenia, unspecified; F41.9 Anxiety disorder, unspecified; K21.9 Gastro-esophageal reflux disease without esophagitis; F32.9 Major depressive disorder, single episode, unspecified; T38.0X5A Adverse effect of glucocorticoids and synthetic analogues, initial encounter; Z79.899 Other long term (current) drug therapy; Z99.81 Dependence on supplemental oxygen; Z79.52 Long term (current) use of systemic steroids; Z88.7 Allergy status to serum and vaccine; Z87.891 Personal history of nicotine dependence; Z82.49 Family history of ischemic heart disease and other diseases of the circulatory system
CPT/HCPCS: 36415; 71046; 80048; 80053; 81003; 82607; 82746; 83735; 84484; 85025; 85610; 85730; 87040; 93005; 94640; 94760; 99285